=== PATIENT | male | born 1965 | race Caucasian/White ===

== ENCOUNTER → 2018-02-07 06:44 | Outpatient (CLI) | payer OTHER, SELFPAY ==
--- NOTE | 2018-02-07 10:18 | NEURO ---
NCS and/or EMG Patient Report Ordering Doctor: Long Caicedo Jr. DATE OF SERVICE: 02/07/18 This is a left upper extremity nerve conduction study and EMG performed on this 52-year-old male with a history of numbness and tingling in his left hand for several years which awakens him from sleep at night. He denies neck pain or diabetes. He has had carpal tunnel release on the right side previously. Left upper extremity sensory and motor nerve conduction study is performed. Median motor and sensory distal latencies are moderately prolonged with intact amplitudes and conduction velocities. The ulnar motor and sensory and radial sensory responses are normal. The median and ulnar F-wave latencies demonstrate mild prolongation of the left median F wave compared to the ulnar f wave. Left upper extremity needle electromyography is performed. The muscles evaluated included the abductor pollicis brevis, first dorsal interosseous, brachioradialis, biceps, triceps and deltoid muscles. The abductor pollicis brevis muscle did demonstrate very mild increase in insertional activity with 1+ fibrillation potentials. Motor unit amplitude and recruitment pattern was normal. All other muscles demonstrated normal insertional activity with absence of pathologic spontaneous activity. Motor unit potential recruitment pattern and amplitude was normal in all other muscles tested. 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
--- OUTSIDE RECORDS SUMMARY | 2018-03-26 02:15 | XMS RPT_ITS | Clinical Summary ---
:1965 Author Organization [facility] Address [address] [place] [address] Phone Care Team Providers Name Role Phone Sai Nunez Unavailable Conditions or Problems Problem Name Problem Onset Status Entry Provider Comment Standard Annotate Code Date Date Description Contusion of S80.01xA Sai Carter Contusion of right knee, (ICD-10-CM) Enrique right knee, initial initial encounter encounter Knee pain, [id number] Sai Carter Knee pain right (SNOMED CT) Enrique Medications Medication Instructions Start Date Stop Date Generic Name NDC Provider MULTIVITAMIN MULTIPLE [id number] Sai Carter ADULT TABS VITAMINS-MIN Enrique ERALS Medications Administered No information available. Allergies, Adverse Reactions, Alerts Allergy Name Reaction Description Start Date Severity Status Provider CODEINE SULFATE Critical Active Sai Nunez SULFADIAZINE Critical Active Sai Nunez Results Date Name Value Unit Range Flag Description Office Visit MEDS REVIEW Done Documentation of current medications (procedure) SMOK STATUS Never smoker Tobacco use [facility] Plan of Care Type Date Detail Pending order X-Ray, Knee Procedures No information available. Vital Signs Date Name Value Unit Description BMI (Body Mass Index) 27.32 kg/m2 Body Mass Index [Ratio] Height 69 [in_us] height E&M - 8302-2 Weight Measured 185 [lb_av] weight E&M - 3141-9
--- OUTSIDE RECORDS SUMMARY | 2018-03-26 02:15 | XMS RPT_ITS ---
:1965 Author Organization [facility] Care Team Providers Name Role Phone LONG TORRES III Attending Unavailable Long Torres III Attending Unavailable Long Torres III Referring Unavailable Long Torres III Primary Care Unavailable PROBLEMS PROBLEMS No Problem Records FoundPROCEDURES PROCEDURES No Procedure Records FoundRESULTS RESULTS NCS AND/OR EMG Observed: 02/07/2018 Status: F Source: [facility] PAT[facility] 10:38 AM [facility] REPOSITORY [facility] Pulmonary Services/Neurology [address] [facility] [place] [address] MR#: [id number] Acct: [id number] Name: ROGELIO NGUYEN Rep #: [id number] : 1965 52 From: Nii Ortega MD Referring Dr: Long Torres III, MD Status: REG CLI Ordering Dr: Date: Location: [facility] Sex: M C NCS and/or EMG Patient Report Ordering Doctor: Long Torres Jr. DATE OF SERVICE: 02/07/18 This is a left upper extremity nerve conduction study and EMG performed on this 52-year-old male with a history of numbness and tingling in his left hand for several years which awakens him from sleep at night. He denies neck pain or diabetes. He has had carpal tunnel release on the right side previously. Left upper extremity sensory and motor nerve conduction study is performed. Median motor and sensory distal latencies are moderately prolonged with intact amplitudes and conduction velocities. The ulnar motor and sensory and radial sensory responses are normal. The median and ulnar F-wave latencies demonstrate mild prolongation of the left median F wave compared to the ulnar f wave. Left upper extremity needle electromyography is performed. The muscles evaluated included the abductor pollicis brevis, first dorsal interosseous, brachioradialis, biceps, triceps and deltoid muscles. The abductor pollicis brevis muscle did demonstrate very mild increase in insertional activity with 1+ fibrillation potentials. Motor unit amplitude and recruitment pattern was normal. All other muscles demonstrated normal insertional activity with absence of pathologic spontaneous activity. Motor unit potential recruitment pattern and amplitude was normal in all other muscles tested. 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 02/07/18 1038 <Electronically signed by Nii Ortega MD> Date Nii Ortega MD CC: Long Torres III, MD; Nii Ortega MD Date Dictated: 02/07/18 1018 Date Transcribed: 02/07/18 1018 Manager Contact: JASIEL Signed CNOV Observed: 11/09/2017 Status: COMPLETED Source: [place] 8:20 AM [facility] REPOSITORY Office Visit ([facility]AMP[facility]) ROGELIO NGUYEN ([id number]) 1965 M Date Time Provider Department 11/09/17 8:20 AM LONG TORRES III [facility] During your visit today, we recorded the following information about you: Pulse Respiration Blood pressure Weight 68/minute 16/minute 114/78 92.5 kg Height 1.753 m Long Torres III MD 11/09/2017 8:39 AM Signed SUBJECTIVE: This is a 51 year old male that is here today for 1. fell off of a truck in May. No LOC, but starting in June he began to have FERNANDEZ and tinnitis. sx have resolved 2. L wrist paresthesias for several yrs. 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 Awakens with L wrist pain PAST MEDICAL HISTORY Diagnosis Date - Carpal tunnel syndrome of right wrist 11/24/2010 - Inguinal hernia without mention of obstruction or gangrene, unilateral or unspecified, (not specified as recurrent) right - Right shoulder pain chronic - Snoring - Thoracic outlet syndrome - Tinnitus of both ears - Umbilical hernia without mention of obstruction or gangrene Current Outpatient Prescriptions on File Prior to Visit: MULTIVITAMIN TAB Take one(1) tablet daily. No current facility-administered medications on file prior to visit. FAMILY HISTORY Problem Relation Age of Onset - Thyroid Mother - Heart Father [place] age 69 - None Brother - None Sister - None Sister - None Sister - None Sister Social History Substance Use Topics - Smoking status: Never Smoker - Smokeless tobacco: Never Used - Alcohol use Yes Comment: 1 beer per month BP 114/78 Pulse 68 Resp 16 Ht 175.3 cm (5' 9) Wt 92.5 kg (204 lb) BMI 30.13 kg/m? . OBJECTIVE: APPEARANCE Well appearing, alert, in no acute distress, well- hydrated, well nourished. NECK Full painless range of motion of the head and neck without radicular symptoms into the upper extremities. No palpable tenderness or muscle spasm in the supraclavicular or subclavian regions bilaterally. EXTREMITIES left wrist: carpal tunnel compression and Tinel's positive on the left wrist. Phalen's test is negative ASSESSMENT: head contusion w/o persistent injury L CTS PLAN: EMG NCV JOSE GUADALUPE Vicente MD, III MD 11/09/2017 8:16 AM Signed PLAN: EMG NCV AMY Torres III MD Referring Provider: SELF [200] Allergies As of Date: 11/09/2017 Noted Allergy Reaction CODEINE 05/27/2005 SULFA (SULFONAMIDE ANTIBIOTICS) 05/27/2005 Date Reviewed: 11/09/2017 Reviewed by: Diamante ([facility]) XAVIER Gutiérrez - Fully Assessed Reason for Visit: Headaches [3461] Cmt: fell off truck in May, hit head, has had headaches since then, can get to 8/10 Possible carpal tunnel [Other] Cmt: left wrist, for couple years Primary Visit Diagnosis:Carpal tunnel syndrome, right [G56.01] Order(s):EMG(NEURO/NI) [20100528] Order #: [id number]: 1 FUTURE Prescriptions as of 11/09/2017 Sig: PROBIOTIC ORAL Take by mouth once daily. * MULTIVITAMIN TABLET Take one(1) tablet daily. Problem List As Of Date 11/09/2017 Noted Resolved CHEST PAIN NOS [R07.9] INVALID FOR* HERNIA UMBILICAL [K42.9] INVALID FOR* HERNIA INGUINAL,UNILATERAL (Right) [K40.90] INVALID FOR* Right Shoulder Pain [M25.511] INVALID FOR* Thoracic Outlet Syndrome [G54.0] INVALID FOR* Carpal tunnel syndrome of right wrist [G56.01] INVALID FOR* Cervical disc disorder [M50.90] INVALID FOR* Encounter for examination for driving license [*INVALID FOR* Colon cancer screening [Z12.11] INVALID FOR*12/25/2015 Other instructions from your clinician: PLAN: EMG, NCV AMY Torres III MD Letter Text Dear Rogelio Nguyen: How to activate your [facility] AURSOS Account 1. Visit the AURSOS Signup page at [email or web address] 2. Identify yourself using your one-time use activation code: [email or web address] 3. Follow the on-screen prompts to choose your own secure username and password The following information will be necessary to access your account for the first time: Information needed for sign-up: Your custom activation code used one-time only for the initial account set-up. Your date of The last 4 digits of your social security number What to do next: Fill in the requested information on the Identify Yourself Form at [email or web address] , click Next. Create your login and password, choose a AURSOS ID and password that will be easy for you to use, but impossible for anyone else to guess. Pick a security question that will assist you in the event you forget your password the next time you log-on. If you have difficulty activating your account, please call our AURSOS helpline at [phone] or toll free at . We hope you enjoy using [employer]OS! Kindest Regards, [facility] MyChart Team Encounter Status:Closed by LONG TORRES III, MD on 11/09/17 PROGRESS Observed: 11/09/2017 Status: COMPLETED Source: [place] 8:04 AM [facility] REPOSIT[facility] O ID: [id number] Author: Long Torres III Service: (none) Author Type: Physician Type: Progress Notes Filed: 11/09/2017 8:39 AM Note Text: SUBJECTIVE: This is a 51 year old male that is here today for 1. fell off of a truck in May. No LOC, but starting in June he began to have FERNANDEZ and tinnitis. sx have resolved 2. L wrist paresthesias for several yrs. 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 Awakens with L wrist pain PAST MEDICAL HISTORY Diagnosis Date - Carpal tunnel syndrome of right wrist 11/24/2010 - Inguinal hernia without mention of obstruction or gangrene, unilateral or unspecified, (not specified as recurrent) right - Right shoulder pain chronic - Snoring - Thoracic outlet syndrome - Tinnitus of both ears - Umbilical hernia without mention of obstruction or gangrene Current Outpatient Prescriptions on File Prior to Visit: MULTIVITAMIN TAB Take one(1) tablet daily. No current facility-administered medications on file prior to visit. FAMILY HISTORY Problem Relation Age of Onset - Thyroid Mother - Heart Father IA age 69 - None Brother - None Sister - None Sister - None Sister - None Sister Social History Substance Use Topics - Smoking status: Never Smoker - Smokeless tobacco: Never Used - Alcohol use Yes Comment: 1 beer per month BP 114/78 Pulse 68 Resp 16 Ht 175.3 cm (5' 9) Wt 92.5 kg (204 lb) BMI 30.13 kg/m? . OBJECTIVE: APPEARANCE Well appearing, alert, in no acute distress, well-hydrated, well nourished. NECK Full painless range of motion of the head and neck without radicular symptoms into the upper extremities. No palpable tenderness or muscle spasm in the supraclavicular or subclavian regions bilaterally. EXTREMITIES left wrist: carpal tunnel compression and Tinel's positive on the left wrist. Phalen's test is negative ASSESSMENT: head contusion w/o persistent injury L CTS PLAN: EMG, NCV RUE Long Torres III MD CNPTOUTREACH Observed: 10/24/2017 Status: COMPLETED Source: [place] 12:00 AM [facility] REPOSIT[facility] Patient Outreach ([facility]) ROGELIO NGUYEN ([id number]) 1965 M Date Time Provider Department 10/24/17 LONG TORRES III [facility] During your visit today, we recorded the following information about you: Allergies As of Date: 10/24/2017 Noted Allergy Reaction CODEINE 05/27/2005 SULFA (SULFONAMIDE ANTIBIOTICS) 05/27/2005 Date Reviewed: 12/25/2015 Reviewed by: Eric Zamudio - Fully Assessed Visit Diagnosis:Medication management [Z79.899] Order(s):HGB A1C [HEVMP5C] Order #: [id number] FUTURE LIPID PANEL BASIC [SQLIPB] Order #: [id number] FUTURE Prescriptions as of 10/24/2017 Sig: * MULTIVITAMIN TABLET Take one(1) tablet daily. Problem List As Of Date 10/24/2017 Noted Resolved CHEST PAIN NOS [R07.9] INVALID FOR* HERNIA UMBILICAL [K42.9] INVALID FOR* HERNIA INGUINAL,UNILATERAL (Right) [K40.90] INVALID FOR* Right Shoulder Pain [M25.511] INVALID FOR* Thoracic Outlet Syndrome [G54.0] INVALID FOR* Carpal tunnel syndrome of right wrist [G56.01] INVALID FOR* Cervical disc disorder [M50.90] INVALID FOR* Encounter for examination for driving license [*INVALID FOR* Colon cancer screening [Z12.11] INVALID FOR*12/25/2015 Encounter Status:Closed by ABISAI CAMPBELL on 12/08/17 ALLERGIES ALLERGIES DATE TYPE / CODE NAME / CODE REACTION SEVERITY SOURCE 05/27/2005 DRUG CODEINE [facility] INGREDI/[address] [place] [address](SNOMED Repository CT) 05/27/2005 Drug SULFA [facility] Class/224152 (SULFONAMIDE [address] [place] [address](SNOMED ANTIBIOTICS) Repository CT) ENCOUNTERS ENCOUNTERS ADMIT/DISCHARGE ACCOUNT ADMITTING ENCOUNTER LOCATION SOURCE NUMBER CLASS 02/07/2018 [id number] Ambulatory [facility] ing:PSN Repository 11/09/2017/11/11/19 [id number] Ambulatory [address] Repository PAYERS PAYERS ENCOUNTER GUARANTOR PAYER SUBSCRIBER SOURCE 02/07/2018 ROGELIO Epps Primary NANCY [facility] [address] Insurance:MEDICAL MILLERDOB: [address] [id number] [address]Qdu: (330) Number: Repository [phone] HP) [id number] Date:[id number] [address]UU: 02/07/2018 [facility]:SELF PAY [facility] Number: Effective Repository Date:2017-11-13
--- OUTSIDE RECORDS SUMMARY | 2018-03-26 02:15 | XMS RPT_ITS | Clinical Summary ---
:1965 Author Organization [facility] Address [address] [place] [address] Phone Care Team Providers Name Role Phone Sai Nunez Unavailable Conditions or Problems Problem Name Problem Onset Status Entry Provider Comment Standard Annotate Code Date Date Description Contusion of S80.01xA Sai Carter Contusion of right knee, (ICD-10-CM) Enrique right knee, initial initial encounter encounter Knee pain, [id number] Sai Carter Knee pain right (SNOMED CT) Enrique Medications Medication Instructions Start Date Stop Date Generic Name NDC Provider MULTIVITAMIN MULTIPLE [id number] Sai Carter ADULT TABS VITAMINS-MIN Enrique ERALS Medications Administered No information available. Allergies, Adverse Reactions, Alerts Allergy Name Reaction Description Start Date Severity Status Provider CODEINE SULFATE Critical Active Sai Nunez SULFADIAZINE Critical Active Sai Nunez Results Date Name Value Unit Range Flag Description Office Visit MEDS REVIEW Done Documentation of current medications (procedure) SMOK STATUS Never smoker Tobacco use [facility] Plan of Care Type Date Detail Pending order X-Ray, Knee Procedures No information available. Vital Signs Date Name Value Unit Description BMI (Body Mass Index) 27.32 kg/m2 Body Mass Index [Ratio] Height 69 [in_us] height E&M - 8302-2 Weight Measured 185 [lb_av] weight E&M - 3141-9
--- OUTSIDE RECORDS SUMMARY | 2018-03-26 02:15 | XMS RPT_ITS | Clinical Summary ---
:1965 Author Organization [facility] Address [address] [place] [address] Phone Care Team Providers Name Role Phone Isabelle Wiley Unavailable Conditions or Problems No information available. Medications No information available. Medications Administered No information available. Allergies, Adverse Reactions, Alerts No information available. Results No information available. Plan of Care Type Date Detail Appointment 12:30 PM Sai Nunez, [address] [place] [address], [address], [place], [address], Procedures No information available. Vital Signs No information available.
== END ==
PROVIDERS: Family Provider Family Medicine; PCP Family Medicine; Referring Provider Family Medicine; Visit Provider Family Medicine
DX: G56.02 Carpal tunnel syndrome, left upper limb (principal)
CPT/HCPCS: 95886; 95909

== ENCOUNTER 2020-01-13 18:54 | Emergency (ER) | payer BC, SELFPAY ==
[2020-01-13 18:56] VITALS: BP 145/100; PULSE 96; RESP 18; TEMP 36.9; O2SAT 96; BMI 29.5
--- NOTE | 2020-01-13 19:15 | EKG12_ITS ---
Test Reason : CP Blood Pressure : / mmHG Vent. Rate : 100 BPM Atrial Rate : 100 BPM P-R Int : 158 ms QRS Dur : 076 ms QT Int : 338 ms P-R-T Axes : 043 016 031 degrees QTc Int : 436 ms Normal sinus rhythm Low voltage QRS (Limb Leads) Confirmed by BINA MEJIA, VARUN ([id number]), health editor OPAL TEJADA ([id number]) on 01/14/2020 1:11:37 PM Referred By: DE Confirmed By:VARUN CURRAN MD
--- NOTE | 2020-01-13 19:30 | RAD_ITS ---
STUDY: X-RAY CHEST REASON FOR EXAM: Male, 54 years old. CP RADIATING TO BACK, COUGH AND MUSCLE ACHES STARTING TODAY. TECHNIQUE: Frontal view of the chest COMPARISON: 19 September 2012 FINDINGS: The lungs are clear and expanded. There is no demonstrated pleural abnormality. Normal size heart. Normal mediastinum and javon. Normal visualized pulmonary arteries. Normal visualized aortic arch and descending thoracic aorta. Normal visualized thoracic spine. Normal visualized ribs, clavicles, and shoulders. There is no demonstrated abnormality of the visualized soft tissue structures of the upper abdomen. RAD/Chest 1 View (Portable) IMPRESSION: Normal x-ray examination of the chest. Electronically Signed: Ammy England, at 20:30 EST Tel , Service support ,
[2020-01-13] MEDS: Aspirin 81 MG TAB.CHEW 324 MG PO (19:34)
[2020-01-13 19:54] VITALS: BP 136/90; PULSE 94; RESP 19; O2SAT 95
[2020-01-13 20:11] LABS: Absolute Lymphocyte Count 1.66 X10^3/uL (0.83-4.51); Absolute Neutrophil Count 4.6 X10^3/uL (2.0-7.7); Basophil# 0.05 X10^3/uL; Basophil% 0.7 % (0-1); Eosinophil# 0.25 X10^3/uL; Eosinophils% 3.4 % (0-5); Hematocrit 45.5 % (40-54); Hemoglobin 15.6 g/dL (13.0-16.5); Lymphocyte # 1.66 X10^3/ul (4.0); Lymphocyte % 22.6 % (19-41); Mean Corp Hgb Conc 34.3 g/dL (32-36); Mean Corpuscular Hgb 29.9 pg (27.0-32.0); Mean Corpuscular Volume 87.2 fL (80-94); Mean Platelet Vol. 9.7 fl (6.2-12.0); Monocyte# 0.77 X10^3/uL; Monocyte% 10.5 % (0-10); NRBC Flagged by Analyzer 0 % (0-5); Neutrophil # 4.62 X10^3/uL (2.7-7.7); Neutrophil % 62.7 % (47-70); Platelet Count 271 K/mm3 (150-450); RBC Distribution Width CV 11.9 % (11.6-14.6); RBC Distribution Width SD 38.1 fl (35.1-43.9); Red Blood Count 5.22 M/mm3 (4.6-6.2); White Blood Count 7.4 K/mm3 (4.4-11.0)
[2020-01-13 20:19] LABS: Anion Gap 8 (5-15); BUN 14 mg/dL (7-18); BUN/Creat Ratio 11.4 RATIO (10-20); Calcium,Total 9.4 mg/dL (8.5-10.1); Chloride 106 mmol/L (98-107); Creatinine, Serum 1.23 mg/dL (0.70-1.30); EST Glomerular Filtration Rate 65 mL/min (>60); Est Glom Filt Rate - Afr Amer 79 mL/min (>60); Estimated Creatinine Clearance 67.86 ml/min; Glucose 143 mg/dL (74-106); Potassium 3.6 mmol/L (3.5-5.1); Sodium Level 141 mmol/L (136-145)
[2020-01-13 20:28] LABS: D-Dimer Quantitative (DVT/PE) 0.29 FEU/ug/m (0.27-0.49)
--- NOTE | 2020-01-13 20:46 | ED.VISSUMM ---
- ER Visit Summary Date of Service: 01/13/20 Chief Complaint: Chest pain History of Present Illness: The patient is a [address] Long Caicedo iii. He reports that he has had chest pain that began 2 weeks ago. States that it is an intermittent pain that lasts minutes at a time. However, its been constant for the past 7 hours. It is a dull, heaviness. 7-10 worsened to a 10 currently. Is worsened by exertion. Is unchanged with breathing or movement. The fact he reports it is relieved by deep breaths. He does report he has been mildly short of breath. He denies any associated nausea, vomiting, diaphoresis. Patient denies any known exposure to Covid. However, he wears a mask inconsistently. Patient reports that he has a cough kind of that began today. Is nonproductive. He denies any fever or chills. He does complain of fatigue. Physical Examination: Vitals: Stable. Afebrile. General: Well-nourished and well-developed. Head: Normocephalic atraumatic. Neck: Supple, no lymphadenopathy. No JVD. Nontender. Cardiovascular: Regular rate and rhythm. No murmurs. Respiratory: No respiratory distress. Clear to auscultation bilaterally. Abdominal: Soft, nontender, nondistended, normal bowel sounds. No guarding, rebound, or peritoneal signs. Back: Nontender. Extremities: Nontender, no edema. Skin: Normal color, no rash. Neurologic: Alert and oriented ?3. Cranial nerves II through XII are intact. Normal strength and sensation. Psych: Normal affect. Test Results: EKG is sinus tach at [address] changes. There is no old EKG for comparison. Troponin is negative. D-dimer is negative. Chem-7 shows glucose 143. CBC shows monocytes of 11. COVID-19 is positive. Clinical Impression(s) from Imaging Studies Chest X-Ray 01/13/20 19:30 IMPRESSION: Normal x-ray examination of the chest. Electronically Signed: Ammy England, at 20:30 EST Tel , Service support , Emergency Department Course and Treatment: Patient is resting comfortably. He reports that he would like to go home. He does not have any hypoxia with ambulation. I do not see an indication for steroids. Treatment Plan: Patient instructed to quarantine. He is given a note for 2 weeks off of work. Follow-up his primary care physician in 10 to 14 days if not improving. Return to the emergency department for any worsening symptoms. Disposition: To home in improved and stable condition. Impression: 1. COVID-19 positive. 2. Atypical chest pain. This note was generated with [employer] dictation software. It may contain incorrect words, spelling, and punctuation that were not noted in review of the chart prior to signing ED Disposition - Plan for ED Patient: Disposition: Home or Assisted Living Instructions: ED Chest Pain Atypical Unkn Cause Referrals: Long Caicedo III, MD [Primary Care Provider] - 10-14 Days if not better
[2020-01-13 21:01] VITALS: BP 143/92; PULSE 89; RESP 21; O2SAT 96
[2020-01-13 21:38] LABS: Probe Check PASS; Specimen Processing Control PASS
== END 2020-01-13 21:10 | disposition home or self-care (01) ==
LOC: ED 19:19
PROVIDERS: Emergency Provider Emergency Medicine; PCP Family Medicine
DX: U07.1 COVID-19 (principal); R07.89 Other chest pain
CPT/HCPCS: 71045; 80048; 84484; 85025; 85379; 87635; 93005; 99284; U0002

== ENCOUNTER → 2022-01-03 | Outpatient (CLI) | payer OTHER, SELFPAY ==
[2022-01-03 11:15] LABS: EXAGEN MAILED SPECIMEN
[2022-01-03 12:22] LABS: Absolute Lymphocyte Count 2.77 X10^3/uL (0.83-4.51); Absolute Neutrophil Count 3.2 X10^3/uL (2.0-7.7); Basophil# 0.05 X10^3/uL; Basophil% 0.7 % (0-1); Eosinophil# 0.18 X10^3/uL; Eosinophils% 2.7 % (0-5); Hematocrit 45.6 % (40-54); Hemoglobin 15.2 g/dL (13.0-16.5); Lymphocyte # 2.77 X10^3/ul (0.83-4.51); Lymphocyte % 41.1 % (19-41); Mean Corp Hgb Conc 33.3 g/dL (32-36); Mean Corpuscular Hgb 29.4 pg (27.0-32.0); Mean Corpuscular Volume 88.2 fL (80-94); Mean Platelet Vol. 9.5 fl (6.2-12.0); Monocyte% 7.4 % (0-10); NRBC Flagged by Analyzer 0.3 % (0-5); Neutrophil # 3.22 X10^3/uL (2.7-7.7); Neutrophil % 47.8 % (47-70); Platelet Count 256 K/mm3 (150-450); RBC Distribution Width CV 12.3 % (11.6-14.6); RBC Distribution Width SD 39.7 fl (35.1-43.9); Red Blood Count 5.17 M/mm3 (4.6-6.2); White Blood Count 6.7 K/mm3 (4.4-11.0)
[2022-01-03 12:23] LABS: Color, Urine Yellow (Yellow); Glucose, Dipstick Normal (Normal); Ketone-Dipstick Negative (Negative); Leukocyte Esterase-Dipstick Negative /ul (Negative); Nitrite-Dipstick Negative (Negative); Occult Blood-Urine Negative /ul (Negative); Protein-Dipstick Negative (Negative); Urine Bilirubin Dipstick Negative (Negative); Urine Clarity Clear (Clear); Urine Urobilinogen Normal (Normal)
[2022-01-03 12:31] LABS: International Normalized Ratio 0.9
[2022-01-03 12:32] LABS: Partial Thromboplast Time 26.5 Seconds (24.1-36.2)
[2022-01-03 13:09] LABS: Protein, Urine (Random) 6.9 mg/dL (<11.9); Protein:Creat Ratio 58 mg/g CRE (0-200)
[2022-01-03 13:22] LABS: ALB/GLOB Ratio 1.1 RATIO (0.9-2.4); AST(SGOT) 28 U/L (15-37); Alanine Aminotransfer ALT/SGPT 44 U/L (16-61); Albumin, Serum 3.8 g/dL (3.2-5.0); Alkaline Phosphatase 97 U/L (45-117); Anion Gap 9 (5-15); BUN 17 mg/dL (7-18); BUN/Creat Ratio 14.9 RATIO (10-20); Calcium,Total 8.7 mg/dL (8.5-10.1); Chloride 108 mmol/L (98-107); Creatinine, Serum 1.14 mg/dL (0.70-1.30); EST Glomerular Filtration Rate 70 mL/min (>60); Est Glom Filt Rate - Afr Amer 85 mL/min (>60); Globulin 3.4 g/dL (2.2-4.2); Glucose 95 mg/dL (74-106); Protein, Total 7.2 g/dL (6.4-8.2); Sodium Level 139 mmol/L (136-145)
[2022-01-03 13:33] LABS: Hepatitis B Surface Antibody Non-Reactive; Hepatitis B Surface Antigen Non-Reactive (Nonreactive); Hepatitis C Antibody Non-Reactive (Nonreactive)
[2022-01-05 14:09] LABS: Dilute Prothrombin Time (dPT) 38.5 sec (0.0-47.6); Dilute Russell Viper Venom 37.5 sec (0.0-47.0); Hexagonal Phase Phospholipid 7 sec (0-11); PTT-LA 33.2 sec (0.0-51.9); Thrombin Time 18.6 sec (0.0-23.0)
[2022-01-05 20:01] LABS: Interpretation Comment: (.)
== END | disposition home or self-care (01) ==
PROVIDERS: PCP Registered Nurse; Referring Provider Internal Medicine Rheumatology; Visit Provider Internal Medicine Rheumatology
DX: M06.4 Inflammatory polyarthropathy (principal); R76.8 Other specified abnormal immunological findings in serum; M79.7 Fibromyalgia; E03.9 Hypothyroidism, unspecified; H93.13 Tinnitus, bilateral; G47.33 Obstructive sleep apnea (adult) (pediatric)
CPT/HCPCS: 36415; 80053; 81002; 82570; 84156; 85025; 85598; 85610; 85670; 85730; 86706; 86803; 87340

== ENCOUNTER → 2022-03-21 | Outpatient (CLI) | payer OTHER, SELFPAY ==
[2022-03-21 09:53] LABS: Absolute Lymphocyte Count 2.82 X10^3/uL (0.83-4.51); Absolute Neutrophil Count 3.2 X10^3/uL (2.0-7.7); Basophil# 0.07 X10^3/uL; Eosinophil# 0.41 X10^3/uL; Eosinophils% 5.8 % (0-5); Hematocrit 46.8 % (40-54); Hemoglobin 15.8 g/dL (13.0-16.5); Lymphocyte # 2.82 X10^3/ul (0.83-4.51); Mean Corp Hgb Conc 33.8 g/dL (32-36); Mean Corpuscular Hgb 30.2 pg (27.0-32.0); Mean Corpuscular Volume 89.5 fL (80-94); Mean Platelet Vol. 8.9 fl (6.2-12.0); Monocyte# 0.54 X10^3/uL; Monocyte% 7.7 % (0-10); NRBC Flagged by Analyzer 0 % (0-5); Neutrophil % 45.4 % (47-70); Platelet Count 278 K/mm3 (150-450); RBC Distribution Width CV 12.7 % (11.6-14.6); RBC Distribution Width SD 41.1 fl (35.1-43.9); Red Blood Count 5.23 M/mm3 (4.6-6.2); White Blood Count 7.1 K/mm3 (4.4-11.0)
[2022-03-21 10:23] LABS: ALB/GLOB Ratio 1.2 RATIO (0.9-2.4); AST(SGOT) 33 U/L (15-37); Alanine Aminotransfer ALT/SGPT 63 U/L (16-61); Albumin, Serum 4.1 g/dL (3.2-5.0); Alkaline Phosphatase 87 U/L (45-117); Anion Gap 7 (5-15); BUN 19 mg/dL (7-18); BUN/Creat Ratio 15.3 RATIO (10-20); Calcium,Total 9.6 mg/dL (8.5-10.1); Chloride 107 mmol/L (98-107); Creatinine, Serum 1.24 mg/dL (0.70-1.30); EST Glomerular Filtration Rate 64 mL/min (>60); Est Glom Filt Rate - Afr Amer 77 mL/min (>60); Globulin 3.5 g/dL (2.2-4.2); Glucose 98 mg/dL (74-106); Potassium 4.1 mmol/L (3.5-5.1); Protein, Total 7.6 g/dL (6.4-8.2); Sodium Level 141 mmol/L (136-145)
== END | disposition home or self-care (01) ==
LOC: MTLAB 07:02
PROVIDERS: PCP Registered Nurse; Referring Provider Internal Medicine Rheumatology; Visit Provider Internal Medicine Rheumatology
DX: M06.4 Inflammatory polyarthropathy (principal); Z79.899 Other long term (current) drug therapy; R76.8 Other specified abnormal immunological findings in serum; M79.7 Fibromyalgia
CPT/HCPCS: 36415; 80053; 85025

== ENCOUNTER → 2022-04-23 | Outpatient (CLI) | payer OTHER, SELFPAY ==
--- NOTE | 2022-04-23 07:55 | US_ITS ---
EXAM: US ABDOMEN LIMITED, RIGHT UPPER QUADRANT CLINICAL INDICATION: ELEV LIVER ENZ TECHNIQUE: Real-time ultrasound of the right upper quadrant with image documentation. This report was created using [employer] report [employer] technology. COMPARISON: None. FINDINGS: LIVER: Increased echogenicity of the hepatic parenchyma. No intrahepatic biliary ductal dilation. GALLBLADDER: Unremarkable. No shadowing gallstone. No gallbladder wall thickening is demonstrated. No pericholecystic fluid. Negative sonographic Conklin''s sign. COMMON BILE DUCT: 4 mm. The proximal common bile duct is within normal limits for the patient''s age. PANCREAS: Unremarkable as visualized. No focal abnormality is demonstrated in the pancreas. No pancreatic ductal dilatation. RIGHT KIDNEY: Unremarkable. There is no hydronephrosis. No shadowing calculus. No focal lesion or perinephric collection is demonstrated. US/Abdomen Limited IMPRESSION: No acute findings in the right upper quadrant. Fatty infiltration of the liver. Electronically Signed: Satya Velasquez MD at 16:46 EST ,
[2022-04-23 09:17] LABS: ALB/GLOB Ratio 1.2 RATIO (0.9-2.4); AST(SGOT) 29 U/L (15-37); Alanine Aminotransfer ALT/SGPT 51 U/L (16-61); Albumin, Serum 3.8 g/dL (3.2-5.0); Alkaline Phosphatase 79 U/L (45-117); Anion Gap 6 (5-15); BUN 17 mg/dL (7-18); BUN/Creat Ratio 14.2 RATIO (10-20); Calcium,Total 9.2 mg/dL (8.5-10.1); Chloride 108 mmol/L (98-107); EST Glomerular Filtration Rate 66 mL/min (>60); Est Glom Filt Rate - Afr Amer 80 mL/min (>60); Globulin 3.2 g/dL (2.2-4.2); Glucose 94 mg/dL (74-106); Sodium Level 141 mmol/L (136-145)
== END | disposition home or self-care (01) ==
PROVIDERS: PCP Registered Nurse; Referring Provider Internal Medicine Rheumatology; Visit Provider Internal Medicine Rheumatology
DX: M05.79 Rheumatoid arthritis with rheumatoid factor of multiple sites without organ or systems involvement (principal); M79.7 Fibromyalgia; E03.9 Hypothyroidism, unspecified; G47.33 Obstructive sleep apnea (adult) (pediatric); H93.13 Tinnitus, bilateral; R76.8 Other specified abnormal immunological findings in serum; Z79.899 Other long term (current) drug therapy
CPT/HCPCS: 36415; 76705; 80053

== ENCOUNTER → 2022-06-18 | Outpatient (CLI) | payer OTHER, SELFPAY ==
[2022-06-18 07:56] LABS: Absolute Lymphocyte Count 2.36 X10^3/uL (0.83-4.51); Absolute Neutrophil Count 5.5 X10^3/uL (2.0-7.7); Basophil# 0.03 X10^3/uL; Basophil% 0.3 % (0-1); Eosinophils% 3.4 % (0-5); Hemoglobin 14.7 g/dL (13.0-16.5); Lymphocyte # 2.36 X10^3/ul (0.83-4.51); Lymphocyte % 26.4 % (19-41); Mean Corp Hgb Conc 32.7 g/dL (32-36); Mean Corpuscular Hgb 30.6 pg (27.0-32.0); Mean Corpuscular Volume 93.8 fL (80-94); Mean Platelet Vol. 8.9 fl (6.2-12.0); Monocyte# 0.75 X10^3/uL; Monocyte% 8.4 % (0-10); NRBC Flagged by Analyzer 0 % (0-5); Neutrophil # 5.46 X10^3/uL (2.7-7.7); Neutrophil % 61.1 % (47-70); Platelet Count 301 K/mm3 (150-450); RBC Distribution Width CV 12.9 % (11.6-14.6); RBC Distribution Width SD 43.8 fl (35.1-43.9); White Blood Count 8.9 K/mm3 (4.4-11.0)
[2022-06-18 08:25] LABS: ALB/GLOB Ratio 1.1 RATIO (0.9-2.4); AST(SGOT) 27 U/L (15-37); Alanine Aminotransfer ALT/SGPT 37 U/L (16-61); Albumin, Serum 3.7 g/dL (3.2-5.0); Alkaline Phosphatase 92 U/L (45-117); Anion Gap 1 (5-15); BUN 17 mg/dL (7-18); BUN/Creat Ratio 14.2 RATIO (10-20); Calcium,Total 8.9 mg/dL (8.5-10.1); Chloride 110 mmol/L (98-107); EST Glomerular Filtration Rate 66 mL/min (>60); Est Glom Filt Rate - Afr Amer 80 mL/min (>60); Globulin 3.4 g/dL (2.2-4.2); Glucose 101 mg/dL (74-106); Protein, Total 7.1 g/dL (6.4-8.2); Sodium Level 139 mmol/L (136-145)
== END | disposition home or self-care (01) ==
LOC: LAB 07:32
PROVIDERS: PCP Registered Nurse; Referring Provider Internal Medicine Rheumatology; Visit Provider Internal Medicine Rheumatology
DX: M05.79 Rheumatoid arthritis with rheumatoid factor of multiple sites without organ or systems involvement (principal); R76.8 Other specified abnormal immunological findings in serum; Z79.899 Other long term (current) drug therapy
CPT/HCPCS: 36415; 80053; 85025

== ENCOUNTER → 2022-08-18 | Outpatient (CLI) | payer OTHER, SELFPAY ==
[2022-08-18 07:08] LABS: Absolute Lymphocyte Count 3.21 X10^3/uL (0.83-4.51); Absolute Neutrophil Count 6.6 X10^3/uL (2.0-7.7); Basophil# 0.04 X10^3/uL; Basophil% 0.4 % (0-1); Eosinophil# 0.12 X10^3/uL; Eosinophils% 1.1 % (0-5); Hematocrit 43.8 % (40-54); Hemoglobin 14.6 g/dL (13.0-16.5); Lymphocyte # 3.21 X10^3/ul (0.83-4.51); Lymphocyte % 29.6 % (19-41); Mean Corp Hgb Conc 33.3 g/dL (32-36); Mean Corpuscular Hgb 30.5 pg (27.0-32.0); Mean Corpuscular Volume 91.6 fL (80-94); Mean Platelet Vol. 9.2 fl (6.2-12.0); Monocyte# 0.85 X10^3/uL; Monocyte% 7.8 % (0-10); NRBC Flagged by Analyzer 0 % (0-5); Neutrophil # 6.57 X10^3/uL (2.7-7.7); Neutrophil % 60.6 % (47-70); Platelet Count 289 K/mm3 (150-450); RBC Distribution Width CV 13.5 % (11.6-14.6); RBC Distribution Width SD 44.5 fl (35.1-43.9); Red Blood Count 4.78 M/mm3 (4.6-6.2); White Blood Count 10.8 K/mm3 (4.4-11.0)
[2022-08-18 07:44] LABS: ALB/GLOB Ratio 1.1 RATIO (0.9-2.4); AST(SGOT) 22 U/L (15-37); Alanine Aminotransfer ALT/SGPT 40 U/L (16-61); Albumin, Serum 3.7 g/dL (3.2-5.0); Alkaline Phosphatase 76 U/L (45-117); Anion Gap 5 (5-15); BUN 24 mg/dL (7-18); BUN/Creat Ratio 21.8 RATIO (10-20); Calcium,Total 9.1 mg/dL (8.5-10.1); Chloride 109 mmol/L (98-107); EST Glomerular Filtration Rate 73 mL/min (>60); Est Glom Filt Rate - Afr Amer 89 mL/min (>60); Globulin 3.3 g/dL (2.2-4.2); Glucose 90 mg/dL (74-106); Potassium 3.8 mmol/L (3.5-5.1); Sodium Level 141 mmol/L (136-145)
== END | disposition home or self-care (01) ==
LOC: LAB 06:15
PROVIDERS: PCP Registered Nurse; Referring Provider Internal Medicine Rheumatology; Visit Provider Internal Medicine Rheumatology
DX: M05.79 Rheumatoid arthritis with rheumatoid factor of multiple sites without organ or systems involvement (principal); Z79.899 Other long term (current) drug therapy
CPT/HCPCS: 36415; 80053; 85025

== ENCOUNTER → 2022-11-12 | Outpatient (CLI) | payer OTHER, SELFPAY ==
[2022-11-12 07:59] LABS: Absolute Lymphocyte Count 3.52 X10^3/uL (0.83-4.51); Absolute Neutrophil Count 4.1 X10^3/uL (2.0-7.7); Basophil# 0.07 X10^3/uL; Basophil% 0.8 % (0-1); Eosinophil# 0.25 X10^3/uL; Eosinophils% 2.9 % (0-5); Hematocrit 42.3 % (40-54); Hemoglobin 13.7 g/dL (13.0-16.5); Lymphocyte # 3.52 X10^3/ul (0.83-4.51); Lymphocyte % 40.5 % (19-41); Mean Corp Hgb Conc 32.4 g/dL (32-36); Mean Corpuscular Hgb 31.3 pg (27.0-32.0); Mean Corpuscular Volume 96.6 fL (80-94); Mean Platelet Vol. 9.3 fl (6.2-12.0); Monocyte# 0.74 X10^3/uL; Monocyte% 8.5 % (0-10); NRBC Flagged by Analyzer 0 % (0-5); Neutrophil # 4.08 X10^3/uL (2.7-7.7); Neutrophil % 46.8 % (47-70); Platelet Count 260 K/mm3 (150-450); RBC Distribution Width CV 13.3 % (11.6-14.6); RBC Distribution Width SD 46.4 fl (35.1-43.9); Red Blood Count 4.38 M/mm3 (4.6-6.2); White Blood Count 8.7 K/mm3 (4.4-11.0)
[2022-11-12 08:32] LABS: ALB/GLOB Ratio 1.1 RATIO (0.9-2.4); AST(SGOT) 21 U/L (15-37); Alanine Aminotransfer ALT/SGPT 39 U/L (16-61); Albumin, Serum 3.4 g/dL (3.2-5.0); Alkaline Phosphatase 98 U/L (45-117); Anion Gap 2 (5-15); BUN 21 mg/dL (7-18); BUN/Creat Ratio 17.6 RATIO (10-20); Calcium,Total 8.9 mg/dL (8.5-10.1); Chloride 112 mmol/L (98-107); Cholesterol 148 mg/dL (200); Creatinine, Serum 1.19 mg/dL (0.70-1.30); EST Glomerular Filtration Rate 67 mL/min (>60); Est Glom Filt Rate - Afr Amer 81 mL/min (>60); Globulin 3.1 g/dL (2.2-4.2); Glucose 86 mg/dL (74-106); High Density Lipoprotein 48 mg/dL; Potassium 4.4 mmol/L (3.5-5.1); Protein, Total 6.5 g/dL (6.4-8.2); Sodium Level 142 mmol/L (136-145); Thyroid Stim Hormone (TSH) 2.59 uIU/mL (0.358-3.74); Triglycerides 149 mg/dL; Very Low Density Lipoprotein 30 mg/dL (5-40)
== END | disposition home or self-care (01) ==
LOC: LAB 07:35
PROVIDERS: PCP Registered Nurse; Referring Provider Registered Nurse; Visit Provider Internal Medicine Rheumatology
DX: M05.79 Rheumatoid arthritis with rheumatoid factor of multiple sites without organ or systems involvement (principal); I10 Essential (primary) hypertension; R76.8 Other specified abnormal immunological findings in serum; M79.7 Fibromyalgia; K76.0 Fatty (change of) liver, not elsewhere classified; E03.9 Hypothyroidism, unspecified; E78.5 Hyperlipidemia, unspecified; H93.13 Tinnitus, bilateral; G47.33 Obstructive sleep apnea (adult) (pediatric); Z79.899 Other long term (current) drug therapy
CPT/HCPCS: 36415; 80053; 80061; 84443; 85025

== ENCOUNTER → 2023-02-04 | Outpatient (CLI) | payer OTHER, SELFPAY ==
[2023-02-04 07:31] LABS: Absolute Lymphocyte Count 1.94 X10^3/uL (0.83-4.51); Absolute Neutrophil Count 3.8 X10^3/uL (2.0-7.7); Basophil# 0.06 X10^3/uL; Basophil% 0.9 % (0-1); Eosinophil# 0.27 X10^3/uL; Hematocrit 44.9 % (40-54); Hemoglobin 14.9 g/dL (13.0-16.5); Lymphocyte # 1.94 X10^3/ul (0.83-4.51); Lymphocyte % 28.5 % (19-41); Mean Corp Hgb Conc 33.2 g/dL (32-36); Mean Corpuscular Hgb 30.3 pg (27.0-32.0); Mean Corpuscular Volume 91.3 fL (80-94); Mean Platelet Vol. 9.2 fl (6.2-12.0); Monocyte% 10.3 % (0-10); NRBC Flagged by Analyzer 0 % (0-5); Neutrophil # 3.82 X10^3/uL (2.7-7.7); Platelet Count 268 K/mm3 (150-450); RBC Distribution Width CV 12.8 % (11.6-14.6); RBC Distribution Width SD 41.6 fl (35.1-43.9); Red Blood Count 4.92 M/mm3 (4.6-6.2); White Blood Count 6.8 K/mm3 (4.4-11.0)
[2023-02-04 07:53] LABS: ALB/GLOB Ratio 1.1 RATIO (0.9-2.4); AST(SGOT) 22 U/L (15-37); Alanine Aminotransfer ALT/SGPT 37 U/L (16-61); Albumin, Serum 3.7 g/dL (3.2-5.0); Alkaline Phosphatase 87 U/L (45-117); Anion Gap 0 (5-15); BUN 17 mg/dL (7-18); BUN/Creat Ratio 14.4 RATIO (10-20); Calcium,Total 9.3 mg/dL (8.5-10.1); Chloride 109 mmol/L (98-107); Creatinine, Serum 1.18 mg/dL (0.70-1.30); EST Glomerular Filtration Rate 67 mL/min (>60); Est Glom Filt Rate - Afr Amer 82 mL/min (>60); Globulin 3.3 g/dL (2.2-4.2); Glucose 97 mg/dL (74-106); Potassium 4.3 mmol/L (3.5-5.1); Sodium Level 139 mmol/L (136-145)
== END | disposition home or self-care (01) ==
LOC: LAB 06:58
PROVIDERS: PCP Registered Nurse; Referring Provider Internal Medicine Rheumatology; Visit Provider Internal Medicine Rheumatology
DX: M05.79 Rheumatoid arthritis with rheumatoid factor of multiple sites without organ or systems involvement (principal); R76.8 Other specified abnormal immunological findings in serum; Z79.899 Other long term (current) drug therapy
CPT/HCPCS: 36415; 80053; 85025

== ENCOUNTER → 2023-04-15 | Outpatient (CLI) | payer OTHER, SELFPAY ==
--- OUTSIDE RECORDS SUMMARY | 2023-04-15 07:34 | XMS RPT_ITS | CCD ---
Author Name Unknown Address [address] [facility] [address] [place] [address] Organization [facility] Care Team Providers Care Real Time Analyst Name Role Phone Sai Nunez Emma Unavailable Isabelle Wiley Unavailable ALISA GREEN Admitting Unavailable ALISA GREEN Attending Unavailable Soni DYE BOX OPERATOR.FOOD AND NUTRITION SERVICES SUPERVISOR, Basilio FARIAS Primary Care Provider Haagen DYE BOX OPERATOR.FOOD AND NUTRITION SERVICES SUPERVISOR, Johanne Primary Care Provider Haagen DYE BOX OPERATOR.FOOD AND NUTRITION SERVICES SUPERVISOR, Johanne Primary Care Provider Haagen DYE BOX OPERATOR.FOOD AND NUTRITION SERVICES SUPERVISOR, Johanne Primary Care Provider JOHANNE CASE Attending Unavailable EUGENIE MEI Referring Unavailable HAAGEN, JOHANNE Primary Care Unavailable EUGENIE MEI Attending Unavailable HAAGEN, JOHANNE Referring Unavailable HAAGEN, JOHANNE Primary Care Unavailable EVANGELINA GARCIA Attending Unavailable OPAL ELIZONDO Referring Unavailable HAAGEN, JOHANNE Primary Care Unavailable EUGENIE MEI Attending Unavailable HAAGEN, JOHANNE Primary Care Unavailable HAAGEN, JOHANNE Attending Unavailable EUGENIE MEI Referring Unavailable HAAGEN, JOHANNE Primary Care Unavailable HAAGEN, JOHANNE Referring Unavailable HAAGEN, JOHANNE Primary Care Unavailable HAAGEN, JOHANNE Attending Unavailable EUGENIE MEI Referring Unavailable HAAGEN, JOHANNE Primary Care Unavailable Allergies Allergy Classification Reported Allergen(s) Allergy Type Date of Onset Reaction(s) Facility (2 sources) codeine Drug Allergy [facility] Work Phone: (2 sources) sulfADIAZINE Drug Allergy [facility] Work Phone: (18 sources) Codeine; Translations: [CODEINE] Drug Allergy 6 [facility] (18 sources) Sulfonamides (Antibiotic); Translations: [SULFA (SULFONAMIDE ANTIBIOTICS)] Propensity to adverse reactions to drug (disorder) 6 [facility] Medications Current Medications Medication Drug Class(es) Dates Sig (Normalized) Sig (Original) cephalexin 250 mg oral capsule (1 source) Cephalosporin Antibacterial Start: 01-09-2023 End: 01-16-2023 take 1 capsule by mouth four times daily cephALEXin (KEFLEX) 250 mg capsule Indications: Dermatitis Take 1 capsule by mouth four times daily for 7 days. 28 capsule 0 01/09/2023 01/16/2023 Active Completed/Discontinued Medications Medication Drug Class(es) Dates Sig (Normalized) Sig (Original) Ascorbic Acid (16 sources) Vitamin C ascorbic acid (V ITAMIN C ORAL) Take by mouth once daily. 0 Active Problems Active Problems Problem Classification Problem Date Documented Da te Episodic/Chronic Allergic reactions (2 sources) Inflammatory dermatosis; Translations: [Dermatitis, unspecified] Onset: 01-09-2023 01-09-2023 Episodic Diabetes mellitus without complication (1 source) Increased glucose level; Translations: [Other abnormal glucose] Episodic Disorders of lipid metabolism (19 sources) Hyperlipidemia; Translations: [Hyperlipidemia, unspecified] Onset: 06-05-2020 06-05-2020 Chronic Essential hypertension (10 sources) Essential hypertension; Translations: [Essential (primary) hypertension] Onset: 04-25-2022 Chronic Immunizations and screening for infectious disease (3 sources) Anti-nuclear factor positive; Translations: [Other specified abnormal immunological findings in serum] Episodic Malaise and fatigue (1 source) Fatigue; Translations: [Other fatigue] Episodic Other and unspecified benign neoplasm (2 sources) History of polyp of colon; Translations: [Personal history of colonic polyps] Episodic Other connective tissue disease (1 source) Pain of bilateral hands; Translations: [Pain in right hand] Episodic Other gastrointestinal disorders (1 source) Burping; Translations: [Eructation] Episodic Other liver diseases (6 sources) Steatosis of liver; Translations: [Fatty (change of) liver, not elsewhere classified] Onset: 04-25-2022 Chronic Other liver diseases (1 source) Fatty (change of) liver, not elsewhere classified; Translations: [Fatty liver] Onset: 04-25-2022 Chronic Other liver diseases (1 source) Elevated liver enzymes level; Translations: [Abnormal levels of other serum enzymes] Episodic Other nervous system disorders (1 source) Carpal tunnel syndrome, left upper limb; Translations: [Carpal tunnel syndrome, left upper limb] Onset: 03-22-2018 Chronic Other nervous system disorders (16 sources) Thoracic outlet syndrome; Translations: [Brachial plexus disorders] Onset: 02-25-2009 02-25-2009 Chronic Other nervous system disorders (16 sources) Carpal tunnel syndrome of right wrist; Translations: [Carpal tunnel syndrome, right upper limb] Onset: 11-24-2010 11-24-2010 Chronic Other nervous system disorders (20 sources) Carpal tunnel syndrome of left wrist; Translations: [Carpal tunnel syndrome, left upper limb] Onset: 03-01-2018 03-01-2018 Chronic Other screening for suspected conditions (not mental disorders or infectious disease) (3 sources) Patient encounter status; Translations: [Encounter for screening for malignant neoplasm of colon] Episodic Other skin disorders (1 source) Skin lesion; Translations: [Disorder of the skin and subcutaneous tissue, unspecified] Episodic Residual codes; unclassified (16 sources) Daytime somnolence; Translations: [Other hypersomnia] Onset: 06-05-2020 06-05-2020 Chronic Rheumatoid arthritis and related disease (9 sources) Rheumatoid arthritis of multiple joints; Translations: [Rheumatoid arthritis with rheumatoid factor of multiple sites without organ or systems involvement] Onset: 02-07-2022 02-07-2022 Chronic Spondylosis; intervertebral disc disorders; other back problems (16 sources) Cervical disc disorder; Translations: [Cervical disc disorder, unspecified, unspecified cervical region] Onset: 11-24-2010 11-24-2010 Chronic Thyroid disorders (20 sources) Acquired hypothyroidism; Translations: [Hypothyroidism, unspecified] Onset: 05-21-2019 05-21-2019 Chronic Unclassified (1 source) No current problems or disability 12-07-2016 Past or Other Problems Problem Classification Problem Date Documented Da te Episodic/Chronic Abdominal hernia (20 sources) Umbilical hernia; Translations: [Umbilical hernia without obstruction or gangrene] Onset: 12-19-2005 12-19-2005 Episodic Administrative/social admission (16 sources) Medical examinations/report s status; Translations: [Encounter for examination for driving license] Onset: 12-21-2010 12-21-2010 Episodic Nonspecific chest pain (18 sources) Chest pain; Translations: [Chest pain, unspecified] Onset: 05-27-2005 05-27-2005 Episodic Other and unspecified benign neoplasm (1 source) Personal history of colonic polyps; Translations: [History of colonic polyps] Onset: 01-28-2022 Episodic Other connective tissue disease (7 sources) Fibromyalgia; Translations: [Fibromyalgia] Onset: 02-07-2022 02-07-2022 Episodic Other non-traumatic joint disorders (2 sources) Knee pain; Translations: [Pain in right knee] Onset: 12-07-2016 12-07-2016 Episodic Other non-traumatic joint disorders (13 sources) Shoulder pain; Translations: [Pain in right shoulder] Onset: 01-20-2009 01-20-2009 Episodic Other non-traumatic joint disorders (3 sources) Pain in right shoulder; Translations: [Pain in joint, shoulder region] Onset: 01-20-2009 01-20-2009 Episodic Superficial injury; contusion (2 sources) Contusion of right knee, initial encounter; Translations: [Contusion of right knee, initial encounter] Onset: 12-07-2016 12-25-2016 Episodic Results Test Name Value Interpretation Reference Range Facil ity Vital Signs Date Time Vital Sign Value Performing Clinician Facility 01-09-2023 19:02-0500 Body weight 95.25 kg Eugenie Mei MD Work Phone: [facility] 01-09-2023 19:02-0500 Diastolic blood pressure 82 mm[Hg] Eugenie Mei MD Work Phone: [facility] 01-09-2023 19:02-0500 Heart rate 81 /min Eugenie Mei MD Work Phone: [facility] 01-09-2023 19:02-0500 SaO2% (BldA) [Mass fraction] 95 % Eugenie Mei MD Work Phone: [facility] 01-09-2023 19:02-0500 Systolic blood pressure 128 mm[Hg] Eugenie Mei MD Work Phone: [facility] 10-24-2022 18:29-0400 Body weight 94.35 kg Johanne Haagen DYE BOX OPERATOR.FOOD AND NUTRITION SERVICES SUPERVISOR Work Phone: [facility] 10-24-2022 18:29-0400 Diastolic blood pressure 78 mm[Hg] Johanne Haagen DYE BOX OPERATOR.FOOD AND NUTRITION SERVICES SUPERVISOR Work Phone: [facility] 10-24-2022 18:29-0400 Heart rate 82 /min Johanne Haagen DYE BOX OPERATOR.FOOD AND NUTRITION SERVICES SUPERVISOR Work Phone: [facility] 10-24-2022 18:29-0400 Respiratory rate 16 /min Johanne Haagen DYE BOX OPERATOR.FOOD AND NUTRITION SERVICES SUPERVISOR Work Phone: [facility] 10-24-2022 18:29-0400 SaO2% (BldA) [Mass fraction] 94 % Johanne Haagen DYE BOX OPERATOR.FOOD AND NUTRITION SERVICES SUPERVISOR Work Phone: [facility] 10-24-2022 18:29-0400 Systolic blood pressure 118 mm[Hg] Johanne Haagen DYE BOX OPERATOR.FOOD AND NUTRITION SERVICES SUPERVISOR Work Phone: [facility] 04-25-2022 19:00-0500 Diastolic blood pressure 82 mm[Hg] Johanne Haagen DYE BOX OPERATOR.FOOD AND NUTRITION SERVICES SUPERVISOR Work Phone: [facility] 04-25-2022 19:00-0500 Systolic blood pressure 128 mm[Hg] Johanne Haagen DYE BOX OPERATOR.FOOD AND NUTRITION SERVICES SUPERVISOR Work Phone: [facility] 04-25-2022 18:41-0500 Heart rate 68 /min Johanne Haagen DYE BOX OPERATOR.FOOD AND NUTRITION SERVICES SUPERVISOR Work Phone: [facility] 04-25-2022 18:41-0500 Respiratory rate 18 /min Johanne Haagen DYE BOX OPERATOR.FOOD AND NUTRITION SERVICES SUPERVISOR Work Phone: [facility] 04-25-2022 18:41-0500 SaO2% (BldA) [Mass fraction] 98 % Johanne Haagen DYE BOX OPERATOR.FOOD AND NUTRITION SERVICES SUPERVISOR Work Phone: [facility] 03-28-2022 18:30-0500 Diastolic blood pressure 96 mm[Hg] Johanne Haagen DYE BOX OPERATOR.FOOD AND NUTRITION SERVICES SUPERVISOR Work Phone: [facility] 03-28-2022 18:30-0500 Heart rate 72 /min Johanne Haagen DYE BOX OPERATOR.FOOD AND NUTRITION SERVICES SUPERVISOR Work Phone: [facility] 03-28-2022 18:30-0500 Respiratory rate 18 /min Johanne Haagen DYE BOX OPERATOR.FOOD AND NUTRITION SERVICES SUPERVISOR Work Phone: [facility] 03-28-2022 18:30-0500 SaO2% (BldA) [Mass fraction] 97 % Johanne Case DYE BOX OPERATOR.FOOD AND NUTRITION SERVICES SUPERVISOR Work Phone: [facility] 03-28-2022 18:30-0500 Systolic blood pressure 142 mm[Hg] Johanne Case DYE BOX OPERATOR.FOOD AND NUTRITION SERVICES SUPERVISOR Work Phone: [facility] 03-10-2022 16:52-0500 Body weight 97.52 kg Eugenie Mei MD Work Phone: [facility] 03-10-2022 16:52-0500 Diastolic blood pressure 92 mm[Hg] Eugenie Mei MD Work Phone: [facility] 03-10-2022 16:52-0500 Heart rate 61 /min Eugenie Mei MD Work Phone: [facility] 03-10-2022 16:52-0500 SaO2% (BldA) [Mass fraction] 96 % Eugenie Mei MD Work Phone: [facility] 03-10-2022 16:52-0500 Systolic blood pressure 132 mm[Hg] Eugenie Mei MD Work Phone: [facility] 01-28-2022 13:03-0500 Diastolic blood pressure 89 mm[Hg] Evangelina Garcia MD Work Phone: [facility] 01-28-2022 13:03-0500 Heart rate 66 /min Evangelina Garcia MD Work Phone: [facility] 01-28-2022 13:03-0500 Respiratory rate 16 /min Evangelina Garcia MD Work Phone: [facility] 01-28-2022 13:03-0500 SaO2% (BldA) [Mass fraction] 95 % Evangelina Garcia MD Work Phone: [facility] 01-28-2022 13:03-0500 Systolic blood pressure 132 mm[Hg] Evangelina Garcia MD Work Phone: [facility] 01-28-2022 11:47-0500 Body temperature 97.3 [degF] Evangelina Garcia MD Work Phone: [facility] 01-28-2022 11:47-0500 Body weight 98 kg Evangelina Garcia MD Work Phone: [facility] 12-22-2021 08:21-0400 Body height 175.3 cm Opal Borrego Pass PA-C Work Phone: [facility] 12-22-2021 08:21-0400 Body temperature 97.9 [degF] Opal Caro PA-C Work Phone: [facility] 12-22-2021 08:21-0400 Body weight 97.98 kg Opal Caro PA-C Work Phone: [facility] 12-22-2021 08:21-0400 Diastolic blood pressure 80 mm[Hg] Opal Borrego Pass PA-C Work Phone: [facility] 12-22-2021 08:21-0400 Heart rate 66 /min Opal Borrego Pass PA-C Work Phone: [facility] 12-22-2021 08:21-0400 SaO2% (BldA) [Mass fraction] 96 % Opal Borrego Pass PA-C Work Phone: [facility] 12-22-2021 08:21-0400 Systolic blood pressure 110 mm[Hg] Opal Caro PA-C Work Phone: [facility] 12-13-2021 17:17-0400 Diastolic blood pressure 88 mm[Hg] Johanne Haagen DYE BOX OPERATOR.FOOD AND NUTRITION SERVICES SUPERVISOR Work Phone: [facility] 12-13-2021 17:17-0400 Heart rate 61 /min Johanne Hayamile DYE BOX OPERATOR.FOOD AND NUTRITION SERVICES SUPERVISOR Work Phone: [facility] 12-13-2021 17:17-0400 Respiratory rate 18 /min Johanne Haagen DYE BOX OPERATOR.FOOD AND NUTRITION SERVICES SUPERVISOR Work Phone: [facility] 12-13-2021 17:17-0400 SaO2% (BldA) [Mass fraction] 95 % Johanne Haagen DYE BOX OPERATOR.FOOD AND NUTRITION SERVICES SUPERVISOR Work Phone: [facility] 12-13-2021 17:17-0400 Systolic blood pressure 128 mm[Hg] Johanne Haagen DYE BOX OPERATOR.FOOD AND NUTRITION SERVICES SUPERVISOR Work Phone: [facility] 11-03-2021 15:07-0400 Body height 177 cm Johanne Haagen DYE BOX OPERATOR.FOOD AND NUTRITION SERVICES SUPERVISOR Work Phone: [facility] 11-03-2021 15:07-0400 Body weight 98.88 kg Johanne Haagen DYE BOX OPERATOR.FOOD AND NUTRITION SERVICES SUPERVISOR Work Phone: [facility] 11-03-2021 15:07-0400 Diastolic blood pressure 90 mm[Hg] Johanne Haagen DYE BOX OPERATOR.FOOD AND NUTRITION SERVICES SUPERVISOR Work Phone: [facility] 11-03-2021 15:07-0400 Heart rate 64 /min Johanne Haagen DYE BOX OPERATOR.FOOD AND NUTRITION SERVICES SUPERVISOR Work Phone: [facility] 11-03-2021 15:07-0400 Respiratory rate 18 /min Johanne Haagen DYE BOX OPERATOR.FOOD AND NUTRITION SERVICES SUPERVISOR Work Phone: [facility] 11-03-2021 15:07-0400 SaO2% (BldA) [Mass fraction] 95 % Johanne Haagen DYE BOX OPERATOR.FOOD AND NUTRITION SERVICES SUPERVISOR Work Phone: [facility] 11-03-2021 15:07-0400 Systolic blood pressure 128 mm[Hg] Johanne Haagen DYE BOX OPERATOR.FOOD AND NUTRITION SERVICES SUPERVISOR Work Phone: [facility] 12-07-2016 12:53-0400 BMI (Body Mass Index) 27.32 kg/m2 [facility] Work Phone: 12-07-2016 12:53-0400 Height 175.26 cm [facility] Work Phone: 12-07-2016 12:53-0400 Weight 83.92 kg [facility] Work Phone: Encounters Encounter Date Encounter Type Care Provider Facility Start: 01-09-2023 End: 01-10-2023 ambulatory EUGENIE MEI Facility:[facility] Start: 01-09-2023 End: 01-09-2023 Patient encounter procedure Eugenie Mei MD Work Phone: [facility] Procedures Date Procedure Procedure Detail Performing Clinician Start: 04-30-2022 Lipid 1996 panel - S rafa or Plasma Evangelina Garcia MD Work Phone: Start: 01-28-2022 Colonoscopy flx dx w /collj spec when pfrmd Opal Elizondo PA-C Work Phone: Start: 01-28-2022 Colonoscopy Eugenie Lockwood MD Work Phone: Start: 11-03-2021 Adult depression scr eening assessment Johanne Case DYE BOX OPERATOR.FOOD AND NUTRITION SERVICES SUPERVISOR Work Phone: Start: 11-09-2017 Adult depression scr eening assessment Basilio Shafer DYE BOX OPERATOR.FOOD AND NUTRITION SERVICES SUPERVISOR, DNP Work Phone: Start: 12-25-2015 Colonoscopy Basilio ulloa DYE BOX OPERATOR.FOOD AND NUTRITION SERVICES SUPERVISOR, DNP Work Phone: Plan of Treatment Date Care Activity Detail Author Start: 05-01-2027 Lipid 1996 panel - S rafa or Plasma Lipid Screening [facility] Start: 05-01-2027 LIPID SCREEN LIPID SCREEN [facility] Start: 01-28-2027 Colonoscopy COLONOSCOPY [facility] Start: 01-28-2027 COLORECTAL CANCER SCREENING COLORECTAL CANCER SCREENING [facility] Start: 07-03-2026 LIPID SCREEN LIPID SCREEN [facility] Start: 06-05-2025 PROSTATE CANCER SCRE ENING DISCUSSION PROSTATE CANCER SCREENING DISCUSSION [facility] Start: 12-18-2024 DIABETES SCREEN DIABETES SCREEN [facility] Start: 12-18-2024 Diabetes Screening Diabetes Screenin g [facility] Start: 07-03-2024 DIABETES SCREEN DIABETES SCREEN [facility] Start: 01-10-2024 Annual PCP Team Shaker Tender chester Disease Visit Annual PCP Team Chronic Disease Visit [facility] Start: 10-25-2023 ANNUAL PCP TEAM INFANTRY [employer] CHESTER DISEASE VISIT ANNUAL PCP TEAM CHRONIC DISEASE VISIT [facility] Start: 10-25-2023 BP CONTROLLED (<130/80) BP CONTROLLE D (<130/80) [facility] Start: 08-27-2023 Influenza vaccination Influenza Vacc ine (#1) [facility] Immunizations Immunization Date Immunization Notes Care Provider Frederick murguia 01-31-2009 tetanus toxoid, redu debbi diphtheria toxoid, and acellular pertussis vaccine, adsorbed Basilio Shafer DYE BOX OPERATOR.FOOD AND NUTRITION SERVICES SUPERVISOR, DNP Work Phone: [facility] Work Phone: Payers Date Payer Category Payer Unknown [employer] [id number] 2020-Present [phone] [address] [place] [address] PPO [id number] 2020 Unknown [employer] P[employer] [id number] 2020-Present [phone] [address] [place] [address] PPO [id number] 2020 Unknown [id number] Social History Date Type Detail Facility Start: 11-24-2010 Tobacco smoking stat [facility] Never smoked tobacco [facility] Work Phone: Start: 05-07-2021 End: 01-09-2023 Alcohol intake Current drinker of alcohol (finding) [facility] Start: 01-18-2011 History SDOH Alcohol Comment 1 beer per month [facility] Start: 1965 Sex Assigned At Not on file [facility] Start: 11-24-2010 Tobacco use and exposure Smokeless tobacco non-user [facility] Start: 10-17-2021 End: 01-28-2022 Exposure to SARS-CoV-2 (event) Not sure [facility] Start: 11-03-2021 End: 10-24-2022 History of Social function [facility] Start: 11-03-2021 End: 10-24-2022 Tobacco use panel [facility] Adult Depression Screening Assessment 0 [facility] Clinical Notes 12-25-2015 to 01-09-2023 Eugenie Mei MD - 01/09/2023 7:12 PM ESTPatient Johanne Marin APRN.FOOD AND NUTRITION SERVICES SUPERVISOR - 10/24/2022 6:35 PM EDTTelephone Encounter - Nilsa BOOGIE Doyle.FOOD AND NUTRITION SERVICES SUPERVISOR - 08/01/2022 1:10 PM EDT Note Date & Type Note Facility 01-09-2023 Note HNO ID: [id number] Author: Eugenie Mei MD Service: ? Author Type: Physician Type: Progress Notes Filed: 01/09/2023 7:27 PM Note Text: Patient presents with: ? yeast infection HPI: Patient presents today for office visit for possible yeast infection. Has noted itching and discomfort on the penis. Has noted itching a few weeks ago in groin. Did not the penis was red. Now is not as red. No fever or drainage. Did note two bumps but are better. No changes in soaps or detergents. No swollen glands. No exposure to anything. Had a similar rash years ago. Was given lidex. No exposure to std etc. MEDICATIONS: Current Outpatient Medications Medication Sig methotrexate 2.5 mg tablet Take 6 tablets weekly levothyroxine (SYNTHROID) 75 mcg tablet Take 1 tablet by mouth once daily. Take on empty stomach. For Thyroid. lisinopril (ZESTRIL, PRINIVIL) 10 mg tablet Take 1 tablet by mouth once daily. folic acid 1 mg tablet Take 2 mg by mouth once daily. ZINC ORAL Take by mouth once daily. ascorbic acid (VITAMIN C ORAL) Take by mouth once daily. MULTIVITAMIN TAB Take 1 tablet by mouth once daily. Current Facility-Administered Medications Medication Dose Route Frequency perflutren lipid microspheres 1.3 mL in NaCl (PF) 0.9% 10 mL injection (DEFINITY) INTRAVENOUS DIRECTED PRN sodium chloride 0.9 % (flush) 10 mL (BD POSIFLUSH) 10 mL INTRAVENOUS DIRECTED PRN ALLERGIES: ALLERGIES Allergen Reactions Codeine Sulfa (Sulfonamide * PAST MEDICAL HISTORY Diagnosis Date Arthritis Carpal tunnel syndrome of right wrist 11/24/2010 Fibromyalgia 02/07/2022 Inguinal hernia without mention of obstruction or gangrene, unilateral or unspecified, (not specified as recurrent) right Rheumatoid arthritis involving multiple sites with positive rheumatoid factor (HCC) 02/07/2022 [facility] Right shoulder pain chronic Sleep apnea Snoring Thoracic outlet syndrome Thyroid disease Tinnitus of both ears Umbilical hernia without mention of obstruction or gangrene PAST SURGICAL HISTORY Procedure Laterality Date COLONOSCOPY 01/28/2022 repeat in 5 years COLONOSCOPY FLX DX W/COLLJ SPEC WHEN PFRMD 12/25/2015 Colonoscopy HERNIA REPAIR HX LAPAROSCOPY SURG RPR INITIAL INGUINAL HERNIA 01/02/2006 BILATERAL INGUINAL HERNIA NEUROPLASTY AND/TRANSPOS MEDIAN NRV CARPAL TUNNE Carpal tunnel decomp, right 02-15-11 NEUROPLASTY AND/TRANSPOS MEDIAN NRV CARPAL TUNNE Left 03/30/2018 Left carpal tunnel release RPR UMBILICAL HRNA 5 YRS/> REDUCIBLE 01/02/2006 FAMILY HISTORY Problem Relation Age of Onset Heart Father CT age 69 Thyroid Mother None Brother None Sister None Sister None Sister None Sister Social History Tobacco Use Smoking status: Never Smokeless tobacco: Never Vaping Use Vaping Use: Never used Substance Use Topics Alcohol use: Yes Comment: 1 beer per month Drug use: No Reviewed current medications, allergies, past medical history, surgical history, family history and social history today. REVIEW OF SYSTEMS All other reviewed and negative other than HPI. VITALS: BP 128/82 Pulse 81 Wt 95.3 kg (210 lb) SpO2 95% BMI 31.01 kg/m? Last 4 Encounter Wt Readings: Date: Wt: 01/09/2023 95.3 kg (210 lb) 10/24/2022 94.3 kg (208 lb) 03/10/2022 97.5 kg (215 lb) 01/28/2022 98 kg (216 lb 0.8 oz) PHYSICAL EXAMINATION: General appearance: Well appearing, alert, in no acute distress, well-hydrated, well nourished. Skin: slight redness in the folds of the groin. Seems to be better. Has two small areas on penis under the foreskin. No definite ulcer. No vesicles. They are red and almost cyst like. No balanitis noted. Head: Normocephalic, no masses, lesions, tenderness or abnormalities. Does not appear herpetic etc. ASSESSMENT/PLAN: 1. Dermatitis - ICD9: 692.9, ICD10: L30.9 - discussed skin care of rash - follow up if symptoms persist or worsen. - Discussed risks and benefits of new medication with the patient. Advised them to call if any side effects or questions. Red flags for re-assessment reviewed with patient in detail. Call if symptoms worsen at all or if not better in one to two weeks Reviewed diagnosis and treatment options in detail. Questions were answered. Patient expressed understanding of treatment plan. - CEPHALEXIN 250 MG CAPSULE - NYSTATIN 100,000 UNIT/GRAM TOPICAL CREAM Eugenie Mei MD [facility] [place] 01-09-2023 History of Presen t illness Narrative Patient presents with: ? yeast infection HPI: Patient presents today for office visit for possible yeast infection. Has noted itching and discomfort on the penis. Has noted itching a few weeks ago in groin. Did not the penis was red. Now is not as red. No fever or drainage. Did note two bumps but are better. No changes in soaps or detergents. No swollen glands. No exposure to anything. Had a similar rash years ago. Was given lidex. No exposure to std etc. MEDICATIONS: Current Outpatient Medications Medication Sig methotrexate 2.5 mg tablet Take 6 tablets weekly levothyroxine (SYNTHROID) 75 mcg tablet Take 1 tablet by mouth once daily. Take on empty stomach. For Thyroid. lisinopril (ZESTRIL, PRINIVIL) 10 mg tablet Take 1 tablet by mouth once daily. folic acid 1 mg tablet Take 2 mg by mouth once daily. ZINC ORAL Take by mouth once daily. ascorbic acid (VITAMIN C ORAL) Take by mouth once daily. MULTIVITAMIN TAB Take 1 tablet by mouth once daily. Current Facility-Administered Medications Medication Dose Route Frequency perflutren lipid microspheres 1.3 mL in NaCl (PF) 0.9% 10 mL injection (DEFINITY) INTRAVENOUS DIRECTED PRN sodium chloride 0.9 % (flush) 10 mL (BD POSIFLUSH) 10 mL INTRAVENOUS DIRECTED PRN ALLERGIES: ALLERGIES Allergen Reactions Codeine Sulfa (Sulfonamide * PAST MEDICAL HISTORY Diagnosis Date Arthritis Carpal tunnel syndrome of right wrist 11/24/2010 Fibromyalgia 02/07/2022 Inguinal hernia without mention of obstruction or gangrene, unilateral or unspecified, (not specified as recurrent) right Rheumatoid arthritis involving multiple sites with positive rheumatoid factor (HCC) 02/07/2022 [facility] Right shoulder pain chronic Sleep apnea Snoring Thoracic outlet syndrome Thyroid disease Tinnitus of both ears Umbilical hernia without mention of obstruction or gangrene PAST SURGICAL HISTORY Procedure Laterality Date COLONOSCOPY 01/28/2022 repeat in 5 years COLONOSCOPY FLX DX W/COLLJ SPEC WHEN PFRMD 12/25/2015 Colonoscopy HERNIA REPAIR HX LAPAROSCOPY SURG RPR INITIAL INGUINAL HERNIA 01/02/2006 BILATERAL INGUINAL HERNIA NEUROPLASTY &/TRANSPOS MEDIAN NRV CARPAL TUNNE Carpal tunnel decomp, right 02-15-11 NEUROPLASTY &/TRANSPOS MEDIAN NRV CARPAL TUNNE Left 03/30/2018 Left carpal tunnel release RPR UMBILICAL HRNA 5 YRS/> REDUCIBLE 01/02/2006 FAMILY HISTORY Problem Relation Age of Onset Heart Father CT age 69 Thyroid Mother None Brother None Sister None Sister None Sister None Sister Social History Tobacco Use Smoking status: Never Smokeless tobacco: Never Vaping Use Vaping Use: Never used Substance Use Topics Alcohol use: Yes Comment: 1 beer per month Drug use: No Reviewed current medications, allergies, past medical history, surgical history, family history and social history today. REVIEW OF SYSTEMS All other reviewed and negative other than HPI. VITALS: BP 128/82 Pulse 81 Wt 95.3 kg (210 lb) SpO2 95% BMI 31.01 kg/m Last 4 Encounter Wt Readings: Date: Wt: 01/09/2023 95.3 kg (210 lb) 10/24/2022 94.3 kg (208 lb) 03/10/2022 97.5 kg (215 lb) 01/28/2022 98 kg (216 lb 0.8 oz) PHYSICAL EXAMINATION: General appearance: Well appearing, alert, in no acute distress, well-hydrated, well nourished. Skin: slight redness in the folds of the groin. Seems to be better. Has two small areas on penis under the foreskin. No definite ulcer. No vesicles. They are red and almost cyst like. No balanitis noted. Head: Normocephalic, no masses, lesions, tenderness or abnormalities. Does not appear herpetic etc. ASSESSMENT/PLAN: 1. Dermatitis - ICD9: 692.9, ICD10: L30.9 - discussed skin care of rash - follow up if symptoms persist or worsen. - Discussed risks and benefits of new medication with the patient. Advised them to call if any side effects or questions. Red flags for re-assessment reviewed with patient in detail. Call if symptoms worsen at all or if not better in one to two weeks Reviewed diagnosis and treatment options in detail. Questions were answered. Patient expressed understanding of treatment plan. - CEPHALEXIN 250 MG CAPSULE - NYSTATIN 100,000 UNIT/GRAM TOPICAL CREAM Eugenie Mei MD documented in this encounter [facility] 10-24-2022 Note HNO ID: [id number] Author: Johanne Case APRN.FOOD AND NUTRITION SERVICES SUPERVISOR Service: ? Author Type: Nurse Practitioner Type: Progress Notes Filed: 10/24/2022 7:46 PM Note Text: This is a 56 year old male who presents today with: Patient presents with: Follow Up HISTORY OF PRESENT ILLNESS: Rogelio Nguyen is a 56 year old male. Patient presents with: Follow Up Pt here for BP follow-up. States he doesn't take BP at home. Reports good compliance with BP medications, but has missed some methotrexate this past week. Stays active with job HTN: Patient is compliant with meds Yes Monitors bp at home: No. Denies side effects: Yes. Chest pain: Yes. Occasional chest tightness on the left side. Relates it to anxiety. Had previous normal work-ups. Dyspnea: Yes. Occasional SOB when working Edema: No. Palpitations: Yes. In times of stress, feels flutters that wake him up from sleeping. Syncope: No. Headache: No. Dizziness: No. RA: Follows with Rheumatology. Takes medication/methotrexate weekly on Monday nights after dinner. Feels regimen is working. Will see on 11/18. HYPOTHYROID: Patient is compliant with medications: Yes Patient has changes in energy: No Patient has changes in hair or skin: No Patient has temperature intolerance: Yes. Can get chilled. When warmed up feels too hot Patient has weight changes: No Will get labwork on 11/12. PAST MEDICAL HISTORY: PAST MEDICAL HISTORY Diagnosis Date Arthritis Carpal tunnel syndrome of right wrist 11/24/2010 Fibromyalgia 02/07/2022 Inguinal hernia without mention of obstruction or gangrene, unilateral or unspecified, (not specified as recurrent) right Rheumatoid arthritis involving multiple sites with positive rheumatoid factor (HCC) 02/07/2022 [facility] Right shoulder pain chronic Sleep apnea Snoring Thoracic outlet syndrome Thyroid disease Tinnitus of both ears Umbilical hernia without mention of obstruction or gangrene PAST SURGICAL HISTORY Procedure Laterality Date COLONOSCOPY 01/28/2022 repeat in 5 years COLONOSCOPY FLX DX W/COLLJ SPEC WHEN PFRMD 12/25/2015 Colonoscopy HERNIA REPAIR HX LAPAROSCOPY SURG RPR INITIAL INGUINAL HERNIA 01/02/2006 BILATERAL INGUINAL HERNIA NEUROPLASTY AND/TRANSPOS MEDIAN NRV CARPAL TUNNE Carpal tunnel decomp, right 12-20-11 NEUROPLASTY AND/TRANSPOS MEDIAN NRV CARPAL TUNNE Left 03/30/2018 Left carpal tunnel release RPR UMBILICAL HRNA 5 YRS/> REDUCIBLE 01/02/2006 ALLERGIES Codeine and Sulfa (Sulfonamide Antibiotics) MEDICATIONS Current Outpatient Medications Medication Sig methotrexate 2.5 mg tablet Take 6 tablets weekly levothyroxine (SYNTHROID) 75 mcg tablet Take 1 tablet by mouth once daily. Take on empty stomach. For Thyroid. lisinopril (ZESTRIL, PRINIVIL) 10 mg tablet Take 1 tablet by mouth once daily. folic acid 1 mg tablet Take 2 mg by mouth once daily. ZINC ORAL Take by mouth once daily. ascorbic acid (VITAMIN C ORAL) Take by mouth once daily. MULTIVITAMIN TAB Take 1 tablet by mouth once daily. Current Facility-Administered Medications Medication Dose Route Frequency perflutren lipid microspheres 1.3 mL in NaCl (PF) 0.9% 10 mL injection (DEFINITY) INTRAVENOUS DIRECTED PRN sodium chloride 0.9 % (flush) 10 mL (BD POSIFLUSH) 10 mL INTRAVENOUS DIRECTED PRN Facility-Administered Medications Ordered in Other Visits Medication Dose Route Frequency lactated ringers iv infusion 50 mL/hr INTRAVENOUS CONTINUOUS FAMILY HISTORY Problem Relation Age of Onset Heart Father CT age 69 Thyroid Mother None Brother None Sister None Sister None Sister None Sister Social History Tobacco Use Smoking status: Never Smokeless tobacco: Never Vaping Use Vaping Use: Never used Substance Use Topics Alcohol use: Yes Comment: 1 beer per month Drug use: No EXAM: BP 118/78 Pulse 82 Resp 16 Wt 94.3 kg (208 lb) SpO2 94% BMI 30.72 kg/m? PHYSICAL EXAM: General Appearance: Well appearing, alert, in no acute distress, well-hydrated, well nourished.. Skin: Skin color, texture, turgor normal, no suspicious rashes or lesions. Eyes: Anicteric sclera. Pupils are equally round . Neck: Supple, no adenopathy; thyroid symmetric, normal size, no bruits. Lungs: Lungs clear to auscultation. No wheezing, rhonchi, rales.. Heart: RRR without murmur, gallop, or rubs. No ectopy. Musculoskeletal: No joint swelling, deformity, or tenderness. Neurologic: Gait normal. ASSESSMENT/PLAN: 1. Primary hypertension - ICD9: 401.9, ICD10: I10 (primary diagnosis) - Controlled - Continue current medications - Recommend home blood pressure monitoring, to bring results to next visit - Encouraged sodium restriction, DASH or Mediterranean diet - Recommend regular aerobic exercise - CBC + DIFF - COMP METABOLIC PANEL 2. Hypothyroidism, acquired - ICD9: 244.9, ICD10: E03.9 - TSH BLD 3. Hyperlipidemia with target LDL less than 130 - (more content not included)... [facility] 10-24-2022 Instructions Nafisa Dai - 10/24/2022 7:17 PM EDT Get lab work done on 11/12 for thyroid Continue medications Follow-up in 6 months documented in this encounter [facility] 10-24-2022 History of Presen t illness Narrative This is a 56 year old male who presents today with: Patient presents with: Follow Up HISTORY OF PRESENT ILLNESS: Rogelio Nguyen is a 56 year old male. Patient presents with: Follow Up Pt here for BP follow-up. States he doesn't take BP at home. Reports good compliance with BP medications, but has missed some methotrexate this past week. Stays active with job HTN: Patient is compliant with meds Yes Monitors bp at home: No. Denies side effects: Yes. Chest pain: Yes. Occasional chest tightness on the left side. Relates it to anxiety. Had previous normal work-ups. Dyspnea: Yes. Occasional SOB when working Edema: No. Palpitations: Yes. In times of stress, feels flutters that wake him up from sleeping. Syncope: No. Headache: No. Dizziness: No. RA: Follows with Rheumatology. Takes medication/methotrexate weekly on Monday nights after dinner. Feels regimen is working. Will see on 11/18. HYPOTHYROID: Patient is compliant with medications: Yes Patient has changes in energy: No Patient has changes in hair or skin: No Patient has temperature intolerance: Yes. Can get chilled. When warmed up feels too hot Patient has weight changes: No Will get labwork on 11/12. PAST MEDICAL HISTORY: PAST MEDICAL HISTORY Diagnosis Date Arthritis Carpal tunnel syndrome of right wrist 11/24/2010 Fibromyalgia 02/07/2022 Inguinal hernia without mention of obstruction or gangrene, unilateral or unspecified, (not specified as recurrent) right Rheumatoid arthritis involving multiple sites with positive rheumatoid factor (HCC) 02/07/2022 [facility] Right shoulder pain chronic Sleep apnea Snoring Thoracic outlet syndrome Thyroid disease Tinnitus of both ears Umbilical hernia without mention of obstruction or gangrene PAST SURGICAL HISTORY Procedure Laterality Date COLONOSCOPY 01/28/2022 repeat in 5 years COLONOSCOPY FLX DX W/COLLJ SPEC WHEN PFRMD 12/25/2015 Colonoscopy HERNIA REPAIR HX LAPAROSCOPY SURG RPR INITIAL INGUINAL HERNIA 01/02/2006 BILATERAL INGUINAL HERNIA NEUROPLASTY &/TRANSPOS MEDIAN NRV CARPAL TUNNE Carpal tunnel decomp, right 02-15-11 NEUROPLASTY &/TRANSPOS MEDIAN NRV CARPAL TUNNE Left 03/30/2018 Left carpal tunnel release RPR UMBILICAL HRNA 5 YRS/> REDUCIBLE 01/02/2006 ALLERGIES Codeine and Sulfa (Sulfonamide Antibiotics) MEDICATIONS Current Outpatient Medications Medication Sig methotrexate 2.5 mg tablet Take 6 tablets weekly levothyroxine (SYNTHROID) 75 mcg tablet Take 1 tablet by mouth once daily. Take on empty stomach. For Thyroid. lisinopril (ZESTRIL, PRINIVIL) 10 mg tablet Take 1 tablet by mouth once daily. folic acid 1 mg tablet Take 2 mg by mouth once daily. ZINC ORAL Take by mouth once daily. ascorbic acid (VITAMIN C ORAL) Take by mouth once daily. MULTIVITAMIN TAB Take 1 tablet by mouth once daily. Current Facility-Administered Medications Medication Dose Route Frequency perflutren lipid microspheres 1.3 mL in NaCl (PF) 0.9% 10 mL injection (DEFINITY) INTRAVENOUS DIRECTED PRN sodium chloride 0.9 % (flush) 10 mL (BD POSIFLUSH) 10 mL INTRAVENOUS DIRECTED PRN Facility-Administered Medications Ordered in Other Visits Medication Dose Route Frequency lactated ringers iv infusion 50 mL/hr INTRAVENOUS CONTINUOUS FAMILY HISTORY Problem Relation Age of Onset Heart Father CT age 69 Thyroid Mother None Brother None Sister None Sister None Sister None Sister Social History Tobacco Use Smoking status: Never Smokeless tobacco: Never Vaping Use Vaping Use: Never used Substance Use Topics Alcohol use: Yes Comment: 1 beer per month Drug use: No EXAM: BP 118/78 Pulse 82 Resp 16 Wt 94.3 kg (208 lb) SpO2 94% BMI 30.72 kg/m PHYSICAL EXAM: General Appearance: Well appearing, alert, in no acute distress, well-hydrated, well nourished.. Skin: Skin color, texture, turgor normal, no suspicious rashes or lesions. Eyes: Anicteric sclera. Pupils are equally round . Neck: Supple, no adenopathy; thyroid symmetric, normal size, no bruits. Lungs: Lungs clear to auscultation. No wheezing, rhonchi, rales.. Heart: RRR without murmur, gallop, or rubs. No ectopy. Musculoskeletal: No joint swelling, deformity, or tenderness. Neurologic: Gait normal. ASSESSMENT/PLAN: 1. Primary hypertension - ICD9: 401.9, ICD10: I10 (primary diagnosis) - Controlled - Continue current medications - Recommend home blood pressure monitoring, to bring results to next visit - Encouraged sodium restriction, DASH or Mediterranean diet - Recommend regular aerobic exercise - CBC + DIFF - COMP METABOLIC PANEL 2. Hypothyroidism, acquired - ICD9: 244.9, ICD10: E03.9 - TSH BLD 3. Hyperlipidemia with target LDL less than 130 - ICD9: 272.4, ICD10: E78.5 - Control undetermined, due for labs - Counseled on healthy diet and regular exercise - LIPID PANEL BASIC 4. Rheumatoid arthritis involving multiple sites with positive rheumatoid factor (HCC) - ICD9: 714.0, ICD10: M05.79 Stable. Continue per rheumatology. Johanne Case APRN.MICHAEL Discussed treatment plan and patient voices understanding. Patient's questions answered appropriately. Medications and potential side effects were discussed and patient voices understanding. Return to the office as scheduled or as needed for worsening/no improvement. Johanne Case APRN.FOOD AND NUTRITION SERVICES SUPERVISOR documented in this encounter [facility] 08-01-2022 Miscellaneous Notes The following approved medication requests have been transmitted electronically. Requested Prescriptions Pending Prescriptions Disp Refills levothyroxine (SYNTHROID) 75 mcg tablet 90 tablet 3 Sig: Take 1 tablet by mouth once daily. Take on empty stomach. For Thyroid. Nilsa Doyle APRN.MICHAEL SABRINA: 04/25/22 with PCP NOV: 10/24/22-6 month F/U with PCP Last refill: 07/20/21 With 90 and 3 refills Enedelia Velasquez MA Patient has been identified by name and date of : Yes Requested Prescriptions Pending Prescriptions Disp Refills levothyroxine (SYNTHROID) 75 mcg tablet 90 tablet 3 Sig: Take 1 tablet by mouth once daily. Take on empty stomach. For Thyroid. RX INSTRUCTIONS: Patient aware RX will be sent to pharmacy. No need to notify patient. [employer] documented in this encounter [facility] 04-25-2022 Note HNO ID: [id number] Author: Johanne Case APRN.CNP Service: ? Author Type: Nurse Practitioner Type: Progress Notes Filed: 04/25/2022 7:20 PM Note Text: This is a 56 year old male who presents today with: Patient presents with: Recheck: BP check- restarted lisinopril HISTORY OF PRESENT ILLNESS: Rogelio Nguyen is a 56 year old male. Patient presents with: Recheck: BP check- restarted lisinopril HTN: Patient is compliant with meds Yes, except he ran out yesterday. Monitors bp at home: No. Denies side effects: No. Chest pain: No. Dyspnea: No. Edema: No. Palpitations: No. Syncope: No. Headache: No. Dizziness: No. PAST MEDICAL HISTORY: PAST MEDICAL HISTORY Diagnosis Date Arthritis Carpal tunnel syndrome of right wrist 11/24/2010 Fibromyalgia 02/07/2022 Inguinal hernia without mention of obstruction or gangrene, unilateral or unspecified, (not specified as recurrent) right Rheumatoid arthritis involving multiple sites with positive rheumatoid factor (HCC) 02/07/2022 [facility] Right shoulder pain chronic Sleep apnea Snoring Thoracic outlet syndrome Thyroid disease Tinnitus of both ears Umbilical hernia without mention of obstruction or gangrene PAST SURGICAL HISTORY Procedure Laterality Date COLONOSCOPY 01/28/2022 repeat in 5 years COLONOSCOPY FLX DX W/COLLJ SPEC WHEN PFRMD 12/25/2015 Colonoscopy HERNIA REPAIR HX LAPAROSCOPY SURG RPR INITIAL INGUINAL HERNIA 01/02/2006 BILATERAL INGUINAL HERNIA NEUROPLASTY AND/TRANSPOS MEDIAN NRV CARPAL TUNNE Carpal tunnel decomp, right 02-15-11 NEUROPLASTY AND/TRANSPOS MEDIAN NRV CARPAL TUNNE Left 03/30/2018 Left carpal tunnel release RPR UMBILICAL HRNA 5 YRS/> REDUCIBLE 01/02/2006 ALLERGIES Codeine and Sulfa (Sulfonamide Antibiotics) MEDICATIONS Current Outpatient Medications Medication Sig methotrexate 2.5 mg tablet Take 5 tablets by mouth one time a week. folic acid 1 mg tablet Take 2 mg by mouth once daily. lisinopril (ZESTRIL, PRINIVIL) 10 mg tablet Take 1 tablet by mouth once daily. ZINC ORAL Take by mouth once daily. levothyroxine (SYNTHROID) 75 mcg tablet Take 1 tablet by mouth once daily. Take on empty stomach. For Thyroid. ascorbic acid (VITAMIN C ORAL) Take by mouth once daily. MULTIVITAMIN TAB Take 1 tablet by mouth once daily. Current Facility-Administered Medications Medication Dose Route Frequency perflutren lipid microspheres 1.3 mL in NaCl (PF) 0.9% 10 mL injection (DEFINITY) INTRAVENOUS DIRECTED PRN sodium chloride 0.9 % (flush) 10 mL (BD POSIFLUSH) 10 mL INTRAVENOUS DIRECTED PRN Facility-Administered Medications Ordered in Other Visits Medication Dose Route Frequency lactated ringers iv infusion 50 mL/hr INTRAVENOUS CONTINUOUS FAMILY HISTORY Problem Relation Age of Onset Heart Father CT age 69 Thyroid Mother None Brother None Sister None Sister None Sister None Sister Social History Tobacco Use Smoking status: Never Smokeless tobacco: Never Vaping Use Vaping Use: Never used Substance Use Topics Alcohol use: Yes Comment: 1 beer per month Drug use: No EXAM: BP 122/90 Pulse 68 Resp 18 SpO2 98% 128/82 PHYSICAL EXAM: General Appearance: Well appearing, alert, in no acute distress, well-hydrated, well nourished.. Skin: Skin color, texture, turgor normal, no suspicious rashes or lesions. Head: Normocephalic, no masses, lesions, tenderness or abnormalities. Eyes: Anicteric sclera. Pupils are equally round and reactive to light. Extraocular movements are intact. . Neck: Supple, no adenopathy; thyroid symmetric, normal size, no bruits. Lungs: Lungs clear to auscultation. No wheezing, rhonchi, rales.. Heart: RRR without murmur, gallop, or rubs. No ectopy. Neurologic: Gait normal. ASSESSMENT/PLAN: 1. Primary hypertension - ICD9: 401.9, ICD10: I10 (primary diagnosis) - good control - Continue current medication(s) - Recommended regular aerobic exercise. - Recommend home blood pressure monitoring, to bring results in on next visit - Goal of BP <130/80 - LISINOPRIL 10 MG TABLET 2. Hyperlipidemia with target LDL less than 130 - ICD9: 272.4, ICD10: E78.5 - to be determined upon return of lab results Will be due for fasting labs. - LIPID PANEL BASIC He will let us know if we need to fax them to [facility]. 3. Fatty liver - ICD9: 571.8, ICD10: K76.0 Had recent ultrasound per rheum d/t elevated liver enzymes -- + fatty liver. Discussed weight loss. Discussed treatment plan and patient voices understanding. Patient's questions answered appropriately. Medications and potential side effects were discussed and patient voices understanding. Return to the office as scheduled or as needed for worsening/no improvement. Johanne Case APRN.CNP [facility] 04-25-2022 Instructions Johanne Case APRN.CNP - 04/25/2022 7:12 PM EST Continue the lisinopril daily. Get fasting labs -- let me know if you want us to send that over to [facility] (10-12 hours fast, but you can have water and black coffee). Recheck in 6 months. documented in this encounter [facility] 04-25-2022 History of Presen t illness Narrative This is a 56 year old male who presents today with: Patient presents with: Recheck: BP check- restarted lisinopril HISTORY OF PRESENT ILLNESS: Rogelio Nguyen is a 56 year old male. Patient presents with: Recheck: BP check- restarted lisinopril HTN: Patient is compliant with meds Yes, except he ran out yesterday. Monitors bp at home: No. Denies side effects: No. Chest pain: No. Dyspnea: No. Edema: No. Palpitations: No. Syncope: No. Headache: No. Dizziness: No. PAST MEDICAL HISTORY: PAST MEDICAL HISTORY Diagnosis Date Arthritis Carpal tunnel syndrome of right wrist 11/24/2010 Fibromyalgia 02/07/2022 Inguinal hernia without mention of obstruction or gangrene, unilateral or unspecified, (not specified as recurrent) right Rheumatoid arthritis involving multiple sites with positive rheumatoid factor (HCC) 02/07/2022 [facility] Right shoulder pain chronic Sleep apnea Snoring Thoracic outlet syndrome Thyroid disease Tinnitus of both ears Umbilical hernia without mention of obstruction or gangrene PAST SURGICAL HISTORY Procedure Laterality Date COLONOSCOPY 01/28/2022 repeat in 5 years COLONOSCOPY FLX DX W/COLLJ SPEC WHEN PFRMD 12/25/2015 Colonoscopy HERNIA REPAIR HX LAPAROSCOPY SURG RPR INITIAL INGUINAL HERNIA 01/02/2006 BILATERAL INGUINAL HERNIA NEUROPLASTY &/TRANSPOS MEDIAN NRV CARPAL TUNNE Carpal tunnel decomp, right 02-15-11 NEUROPLASTY &/TRANSPOS MEDIAN NRV CARPAL TUNNE Left 03/30/2018 Left carpal tunnel release RPR UMBILICAL HRNA 5 YRS/> REDUCIBLE 01/02/2006 ALLERGIES Codeine and Sulfa (Sulfonamide Antibiotics) MEDICATIONS Current Outpatient Medications Medication Sig methotrexate 2.5 mg tablet Take 5 tablets by mouth one time a week. folic acid 1 mg tablet Take 2 mg by mouth once daily. lisinopril (ZESTRIL, PRINIVIL) 10 mg tablet Take 1 tablet by mouth once daily. ZINC ORAL Take by mouth once daily. levothyroxine (SYNTHROID) 75 mcg tablet Take 1 tablet by mouth once daily. Take on empty stomach. For Thyroid. ascorbic acid (VITAMIN C ORAL) Take by mouth once daily. MULTIVITAMIN TAB Take 1 tablet by mouth once daily. Current Facility-Administered Medications Medication Dose Route Frequency perflutren lipid microspheres 1.3 mL in NaCl (PF) 0.9% 10 mL injection (DEFINITY) INTRAVENOUS DIRECTED PRN sodium chloride 0.9 % (flush) 10 mL (BD POSIFLUSH) 10 mL INTRAVENOUS DIRECTED PRN Facility-Administered Medications Ordered in Other Visits Medication Dose Route Frequency lactated ringers iv infusion 50 mL/hr INTRAVENOUS CONTINUOUS FAMILY HISTORY Problem Relation Age of Onset Heart Father CT age 69 Thyroid Mother None Brother None Sister None Sister None Sister None Sister Social History Tobacco Use Smoking status: Never Smokeless tobacco: Never Vaping Use Vaping Use: Never used Substance Use Topics Alcohol use: Yes Comment: 1 beer per month Drug use: No EXAM: BP 122/90 Pulse 68 Resp 18 SpO2 98% 128/82 PHYSICAL EXAM: General Appearance: Well appearing, alert, in no acute distress, well-hydrated, well nourished.. Skin: Skin color, texture, turgor normal, no suspicious rashes or lesions. Head: Normocephalic, no masses, lesions, tenderness or abnormalities. Eyes: Anicteric sclera. Pupils are equally round and reactive to light. Extraocular movements are intact. . Neck: Supple, no adenopathy; thyroid symmetric, normal size, no bruits. Lungs: Lungs clear to auscultation. No wheezing, rhonchi, rales.. Heart: RRR without murmur, gallop, or rubs. No ectopy. Neurologic: Gait normal. ASSESSMENT/PLAN: 1. Primary hypertension - ICD9: 401.9, ICD10: I10 (primary diagnosis) - good control - Continue current medication(s) - Recommended regular aerobic exercise. - Recommend home blood pressure monitoring, to bring results in on next visit - Goal of BP <130/80 - LISINOPRIL 10 MG TABLET 2. Hyperlipidemia with target LDL less than 130 - ICD9: 272.4, ICD10: E78.5 - to be determined upon return of lab results Will be due for fasting labs. - LIPID PANEL BASIC He will let us know if we need to fax them to [facility]. 3. Fatty liver - ICD9: 571.8, ICD10: K76.0 Had recent ultrasound per rheum d/t elevated liver enzymes -- + fatty liver. Discussed weight loss. Discussed treatment plan and patient voices understanding. Patient's questions answered appropriately. Medications and potential side effects were discussed and patient voices understanding. Return to the office as scheduled or as needed for worsening/no improvement. Johanne Case APRN.MICHAEL documented in this encounter [facility] 03-28-2022 Note HNO ID: [id number] Author: Johanne Case APRN.CNP Service: ? Author Type: Nurse Practitioner Type: Progress Notes Filed: 03/28/2022 7:22 PM Note Text: This is a 56 year old male who presents today with: Patient presents with: Recheck: 2 week bp check; did not start lisinopril HISTORY OF PRESENT ILLNESS: Rogelio Nguyen is a 56 year old male. 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 He came in to primary care and was started on lisinopril. He took the medication X 4 days and returned for physical and there was no change in BP. He reports that they put a larger cuff on his arm and his blood pressure came down. He then stopped the blood pressure medication. He denies any side effects to the blood pressure medication. His blood pressure continues to be a little elevated today. He did just receive a call from his rheum office because his liver enzymes were elevated. He is scheduled for a liver ultrasound. PAST MEDICAL HISTORY: PAST MEDICAL HISTORY Diagnosis Date Arthritis Carpal tunnel syndrome of right wrist 11/24/2010 Fibromyalgia 02/07/2022 Inguinal hernia without mention of obstruction or gangrene, unilateral or unspecified, (not specified as recurrent) right Rheumatoid arthritis involving multiple sites with positive rheumatoid factor (HCC) 02/07/2022 [facility] Right shoulder pain chronic Sleep apnea Snoring Thoracic outlet syndrome Thyroid disease Tinnitus of both ears Umbilical hernia without mention of obstruction or gangrene PAST SURGICAL HISTORY Procedure Laterality Date COLONOSCOPY 01/28/2022 repeat in 5 years COLONOSCOPY FLX DX W/COLLJ SPEC WHEN PFRMD 12/25/2015 Colonoscopy HERNIA REPAIR HX LAPAROSCOPY SURG RPR INITIAL INGUINAL HERNIA 01/02/2006 BILATERAL INGUINAL HERNIA NEUROPLASTY AND/TRANSPOS MEDIAN NRV CARPAL TUNNE Carpal tunnel decomp, right 02-15-11 NEUROPLASTY AND/TRANSPOS MEDIAN NRV CARPAL TUNNE Left 03/30/2018 Left carpal tunnel release RPR UMBILICAL HRNA 5 YRS/> REDUCIBLE 01/02/2006 ALLERGIES Codeine and Sulfa (Sulfonamide Antibiotics) MEDICATIONS Current Outpatient Medications Medication Sig methotrexate 2.5 mg tablet Take 5 tablets by mouth one time a week. folic acid 1 mg tablet Take 2 mg by mouth once daily. ZINC ORAL Take by mouth once daily. levothyroxine (SYNTHROID) 75 mcg tablet Take 1 tablet by mouth once daily. Take on empty stomach. For Thyroid. ascorbic acid (VITAMIN C ORAL) Take by mouth once daily. MULTIVITAMIN TAB Take 1 tablet by mouth once daily. lisinopril (ZESTRIL, PRINIVIL) 10 mg tablet Take 1 tablet by mouth once daily. Current Facility-Administered Medications Medication Dose Route Frequency perflutren lipid microspheres 1.3 mL in NaCl (PF) 0.9% 10 mL injection (DEFINITY) INTRAVENOUS DIRECTED PRN sodium chloride 0.9 % (flush) 10 mL (BD POSIFLUSH) 10 mL INTRAVENOUS DIRECTED PRN Facility-Administered Medications Ordered in Other Visits Medication Dose Route Frequency lactated ringers iv infusion 50 mL/hr INTRAVENOUS CONTINUOUS FAMILY HISTORY Problem Relation Age of Onset Heart Father CT age 69 Thyroid Mother None Brother None Sister None Sister None Sister None Sister Social History Tobacco Use Smoking status: Never Smokeless tobacco: Never Vaping Use Vaping Use: Never used Substance Use Topics Alcohol use: Yes Comment: 1 beer per month Drug use: No EXAM: BP 142/96 Pulse 72 Resp 18 SpO2 97% PHYSICAL EXAM: General Appearance: Well appearing, alert, in no acute distress, well-hydrated, well nourished.. Skin: Skin color, texture, turgor normal, no suspicious rashes or lesions. Head: Normocephalic, no masses, lesions, tenderness or abnormalities. Eyes: Anicteric sclera. Extraocular movements are intact. Lungs: Lungs clear to auscultation. No wheezing, rhonchi, rales.. Heart: RRR without murmur, gallop, or rubs. No ectopy. Extremities: No deformities, edema, skin discoloration, clubbing or cyanosis. Good capillary refill. . Neurologic: Gait normal. ASSESSMENT/PLAN: 1. Primary hypertension - ICD9: 401.9, ICD10: I10 (primary diagnosis) - suboptimal control - Recommended regular aerobic exercise. - Recommend home blood pressure monitoring, to bring results in on next visit - encouraged to start the lisinopril - Goal of BP <130/80 Recheck in 1 month. 2. Elevated liver enzymes - ICD9: 790.5, ICD10: R74.8 Reviewed labs with patient. Minimal elevation of ALT - 63 (16-61). Reassured. Refers that they discussed with him re: minimizing tylenol and etoh. Get ultrasound and repeat labs, as ordered by rheum. Discussed treatment plan and patient voices understanding. Patient's questions answered appropriately. Medications and potential side effects were discussed and patient voices understanding. (more content not included)... [facility] 03-28-2022 Instructions Johanne Case APRN.CNP - 03/28/2022 7:05 PM EST Start the blood pressure pill. Recheck in a month. documented in this encounter [facility] 03-28-2022 History of Presen t illness Narrative This is a 56 year old male who presents today with: Patient presents with: Recheck: 2 week bp check; did not start lisinopril HISTORY OF PRESENT ILLNESS: Rogelio Nguyne is a 56 year old male. 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 He came in to primary care and was started on lisinopril. He took the medication X 4 days and returned for physical and there was no change in BP. He reports that they put a larger cuff on his arm and his blood pressure came down. He then stopped the blood pressure medication. He denies any side effects to the blood pressure medication. His blood pressure continues to be a little elevated today. He did just receive a call from his rheum office because his liver enzymes were elevated. He is scheduled for a liver ultrasound. PAST MEDICAL HISTORY: PAST MEDICAL HISTORY Diagnosis Date Arthritis Carpal tunnel syndrome of right wrist 11/24/2010 Fibromyalgia 02/07/2022 Inguinal hernia without mention of obstruction or gangrene, unilateral or unspecified, (not specified as recurrent) right Rheumatoid arthritis involving multiple sites with positive rheumatoid factor (HCC) 02/07/2022 [facility] Right shoulder pain chronic Sleep apnea Snoring Thoracic outlet syndrome Thyroid disease Tinnitus of both ears Umbilical hernia without mention of obstruction or gangrene PAST SURGICAL HISTORY Procedure Laterality Date COLONOSCOPY 01/28/2022 repeat in 5 years COLONOSCOPY FLX DX W/COLLJ SPEC WHEN PFRMD 12/25/2015 Colonoscopy HERNIA REPAIR HX LAPAROSCOPY SURG RPR INITIAL INGUINAL HERNIA 01/02/2006 BILATERAL INGUINAL HERNIA NEUROPLASTY &/TRANSPOS MEDIAN NRV CARPAL TUNNE Carpal tunnel decomp, right 02-15-11 NEUROPLASTY &/TRANSPOS MEDIAN NRV CARPAL TUNNE Left 03/30/2018 Left carpal tunnel release RPR UMBILICAL HRNA 5 YRS/> REDUCIBLE 01/02/2006 ALLERGIES Codeine and Sulfa (Sulfonamide Antibiotics) MEDICATIONS Current Outpatient Medications Medication Sig methotrexate 2.5 mg tablet Take 5 tablets by mouth one time a week. folic acid 1 mg tablet Take 2 mg by mouth once daily. ZINC ORAL Take by mouth once daily. levothyroxine (SYNTHROID) 75 mcg tablet Take 1 tablet by mouth once daily. Take on empty stomach. For Thyroid. ascorbic acid (VITAMIN C ORAL) Take by mouth once daily. MULTIVITAMIN TAB Take 1 tablet by mouth once daily. lisinopril (ZESTRIL, PRINIVIL) 10 mg tablet Take 1 tablet by mouth once daily. Current Facility-Administered Medications Medication Dose Route Frequency perflutren lipid microspheres 1.3 mL in NaCl (PF) 0.9% 10 mL injection (DEFINITY) INTRAVENOUS DIRECTED PRN sodium chloride 0.9 % (flush) 10 mL (BD POSIFLUSH) 10 mL INTRAVENOUS DIRECTED PRN Facility-Administered Medications Ordered in Other Visits Medication Dose Route Frequency lactated ringers iv infusion 50 mL/hr INTRAVENOUS CONTINUOUS FAMILY HISTORY Problem Relation Age of Onset Heart Father CT age 69 Thyroid Mother None Brother None Sister None Sister None Sister None Sister Social History Tobacco Use Smoking status: Never Smokeless tobacco: Never Vaping Use Vaping Use: Never used Substance Use Topics Alcohol use: Yes Comment: 1 beer per month Drug use: No EXAM: BP 142/96 Pulse 72 Resp 18 SpO2 97% PHYSICAL EXAM: General Appearance: Well appearing, alert, in no acute distress, well-hydrated, well nourished.. Skin: Skin color, texture, turgor normal, no suspicious rashes or lesions. Head: Normocephalic, no masses, lesions, tenderness or abnormalities. Eyes: Anicteric sclera. Extraocular movements are intact. Lungs: Lungs clear to auscultation. No wheezing, rhonchi, rales.. Heart: RRR without murmur, gallop, or rubs. No ectopy. Extremities: No deformities, edema, skin discoloration, clubbing or cyanosis. Good capillary refill. . Neurologic: Gait normal. ASSESSMENT/PLAN: 1. Primary hypertension - ICD9: 401.9, ICD10: I10 (primary diagnosis) - suboptimal control - Recommended regular aerobic exercise. - Recommend home blood pressure monitoring, to bring results in on next visit - encouraged to start the lisinopril - Goal of BP <130/80 Recheck in 1 month. 2. Elevated liver enzymes - ICD9: 790.5, ICD10: R74.8 Reviewed labs with patient. Minimal elevation of ALT - 63 (16-61). Reassured. Refers that they discussed with him re: minimizing tylenol and etoh. Get ultrasound and repeat labs, as ordered by rheum. Discussed treatment plan and patient voices understanding. Patient's questions answered appropriately. Medications and potential side effects were discussed and patient voices understanding. Return to the office as scheduled or as needed for worsening/no improvement. Johanne Case APRN.[employer] SUPERVISOR This note was partially generated using [employer] voice recognition system. Note was reviewed for accuracy. There may be minor misspellings or grammar miscues with [employer] voice recognition. documented in this encounter [facility] 03-10-2022 Note HNO ID: [id number] Author: Eugenie Mei MD Service: ? Author Type: Physician Type: Progress Notes Filed: 03/10/2022 5:08 PM Note Text: Patient presents with: Blood Pressure: Elevated at [facility] physical yesterday. Recently started MTX for RA. HPI: Patient presents today for office visit for acute visit. 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 Did just start on MTX from rheum. No current prednisone use. Monitors bp at home: No. Chest pain: For a long time different types of chest pain that has been worked up and been found that heart is ok. Has had a number stress echo, last of which was in November. Had normal heart cath in 2012. If anything he is been feeling better. Red flags for re-assessment reviewed with patient in detail. Dyspnea: No. Edema: No. Palpitations: nothing recent. Syncope: No. Headache: nagging more so recently. Dizziness: No. Has been slightly high before. MEDICATIONS: Current Outpatient Medications Medication Sig methotrexate 2.5 mg tablet Take 5 tablets by mouth one time a week. folic acid 1 mg tablet Take 2 mg by mouth once daily. ZINC ORAL Take by mouth once daily. levothyroxine (SYNTHROID) 75 mcg tablet Take 1 tablet by mouth once daily. Take on empty stomach. For Thyroid. ascorbic acid (VITAMIN C ORAL) Take by mouth once daily. MULTIVITAMIN TAB Take 1 tablet by mouth once daily. Current Facility-Administered Medications Medication Dose Route Frequency perflutren lipid microspheres 1.3 mL in NaCl (PF) 0.9% 10 mL injection (DEFINITY) INTRAVENOUS DIRECTED PRN sodium chloride 0.9 % (flush) 10 mL (BD POSIFLUSH) 10 mL INTRAVENOUS DIRECTED PRN Facility-Administered Medications Ordered in Other Visits Medication Dose Route Frequency lactated ringers iv infusion 50 mL/hr INTRAVENOUS CONTINUOUS ALLERGIES: ALLERGIES Allergen Reactions Codeine Sulfa (Sulfonamide * PAST MEDICAL HISTORY Diagnosis Date Arthritis Carpal tunnel syndrome of right wrist 11/24/2010 Fibromyalgia 02/07/2022 Inguinal hernia without mention of obstruction or gangrene, unilateral or unspecified, (not specified as recurrent) right Rheumatoid arthritis involving multiple sites with positive rheumatoid factor (HCC) 02/07/2022 [facility] Right shoulder pain chronic Sleep apnea Snoring Thoracic outlet syndrome Thyroid disease Tinnitus of both ears Umbilical hernia without mention of obstruction or gangrene PAST SURGICAL HISTORY Procedure Laterality Date COLONOSCOPY 01/28/2022 repeat in 5 years COLONOSCOPY FLX DX W/COLLJ SPEC WHEN PFRMD 12/25/2015 Colonoscopy HERNIA REPAIR HX LAPAROSCOPY SURG RPR INITIAL INGUINAL HERNIA 01/02/2006 BILATERAL INGUINAL HERNIA NEUROPLASTY AND/TRANSPOS MEDIAN NRV CARPAL TUNNE Carpal tunnel decomp, right 02-15-11 NEUROPLASTY AND/TRANSPOS MEDIAN NRV CARPAL TUNNE Left 03/30/2018 Left carpal tunnel release RPR UMBILICAL HRNA 5 YRS/> REDUCIBLE 01/02/2006 FAMILY HISTORY Problem Relation Age of Onset Heart Father CT age 69 Thyroid Mother None Brother None Sister None Sister None Sister None Sister Social History Tobacco Use Smoking status: Never Smokeless tobacco: Never Vaping Use Vaping Use: Never used Substance Use Topics Alcohol use: Yes Comment: 1 beer per month Drug use: No Reviewed current medications, allergies, past medical history, surgical history, family history and social history today. REVIEW OF SYSTEMS All other reviewed and negative other than HPI. VITALS: BP 132/92 Pulse 61 Wt 97.5 kg (215 lb) SpO2 96% BMI 31.75 kg/m? Last 4 Encounter Wt Readings: Date: Wt: 01/28/2022 98 kg (216 lb 0.8 oz) 12/22/2021 98 kg (216 lb) 11/03/2021 98.9 kg (218 lb) 05/07/2021 101.6 kg (224 lb) PHYSICAL EXAMINATION: General appearance: Well appearing, alert, in no acute distress, well-hydrated, well nourished. Skin: Skin color, texture, turgor normal, no suspicious rashes or lesions Head: Normocephalic, no masses, lesions, tenderness or abnormalities Lungs: Lungs clear to auscultation. No wheezing, rhonchi, rales Heart: RRR without murmur, gallop, or rubs. No ectopy Abdomen: Normal abdominal exam, Abdomen soft, non-tender. Bowel sounds normal. No masses, organomegaly Extremities: No deformities, edema, skin discoloration, clubbing or cyanosis. Good capillary refill. ASSESSMENT/PLAN: 1. Primary hypertension - ICD9: 401.9, ICD10: I10 (primary diagnosis) - newly diagnosed - Recommend home blood pressure monitoring, to bring results in on next visit - Goal of BP <130/80 - TSH BLD - CBC + DIFF - BASIC METABOLIC PNL - LISINOPRIL 10 MG TABLET 2. Hypothyroidism, acquired - ICD9: 244.9, ICD10: E03.9 - double check labs. - TSH BLD - CBC + DIFF - BASIC METABOLIC PNL Eugenie Mei MD [facility] 03-10-2022 History of Presen t illness Narrative Patient presents with: Blood Pressure: Elevated at [facility] physical yesterday. Recently started MTX for RA. HPI: Patient presents today for office visit for acute visit. 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 Did just start on MTX from rheum. No current prednisone use. Monitors bp at home: No. Chest pain: For a long time different types of chest pain that has been worked up and been found that heart is ok. Has had a number stress echo, last of which was in November. Had normal heart cath in 2012. If anything he is been feeling better. Red flags for re-assessment reviewed with patient in detail. Dyspnea: No. Edema: No. Palpitations: nothing recent. Syncope: No. Headache: nagging more so recently. Dizziness: No. Has been slightly high before. MEDICATIONS: Current Outpatient Medications Medication Sig methotrexate 2.5 mg tablet Take 5 tablets by mouth one time a week. folic acid 1 mg tablet Take 2 mg by mouth once daily. ZINC ORAL Take by mouth once daily. levothyroxine (SYNTHROID) 75 mcg tablet Take 1 tablet by mouth once daily. Take on empty stomach. For Thyroid. ascorbic acid (VITAMIN C ORAL) Take by mouth once daily. MULTIVITAMIN TAB Take 1 tablet by mouth once daily. Current Facility-Administered Medications Medication Dose Route Frequency perflutren lipid microspheres 1.3 mL in NaCl (PF) 0.9% 10 mL injection (DEFINITY) INTRAVENOUS DIRECTED PRN sodium chloride 0.9 % (flush) 10 mL (BD POSIFLUSH) 10 mL INTRAVENOUS DIRECTED PRN Facility-Administered Medications Ordered in Other Visits Medication Dose Route Frequency lactated ringers iv infusion 50 mL/hr INTRAVENOUS CONTINUOUS ALLERGIES: ALLERGIES Allergen Reactions Codeine Sulfa (Sulfonamide * PAST MEDICAL HISTORY Diagnosis Date Arthritis Carpal tunnel syndrome of right wrist 11/24/2010 Fibromyalgia 02/07/2022 Inguinal hernia without mention of obstruction or gangrene, unilateral or unspecified, (not specified as recurrent) right Rheumatoid arthritis involving multiple sites with positive rheumatoid factor (HCC) 02/07/2022 [facility] Right shoulder pain chronic Sleep apnea Snoring Thoracic outlet syndrome Thyroid disease Tinnitus of both ears Umbilical hernia without mention of obstruction or gangrene PAST SURGICAL HISTORY Procedure Laterality Date COLONOSCOPY 01/28/2022 repeat in 5 years COLONOSCOPY FLX DX W/COLLJ SPEC WHEN PFRMD 12/25/2015 Colonoscopy HERNIA REPAIR HX LAPAROSCOPY SURG RPR INITIAL INGUINAL HERNIA 01/02/2006 BILATERAL INGUINAL HERNIA NEUROPLASTY &/TRANSPOS MEDIAN NRV CARPAL TUNNE Carpal tunnel decomp, right 02-15-11 NEUROPLASTY &/TRANSPOS MEDIAN NRV CARPAL TUNNE Left 03/30/2018 Left carpal tunnel release RPR UMBILICAL HRNA 5 YRS/> REDUCIBLE 01/02/2006 FAMILY HISTORY Problem Relation Age of Onset Heart Father CT age 69 Thyroid Mother None Brother None Sister None Sister None Sister None Sister Social History Tobacco Use Smoking status: Never Smokeless tobacco: Never Vaping Use Vaping Use: Never used Substance Use Topics Alcohol use: Yes Comment: 1 beer per month Drug use: No Reviewed current medications, allergies, past medical history, surgical history, family history and social history today. REVIEW OF SYSTEMS All other reviewed and negative other than HPI. VITALS: BP 132/92 Pulse 61 Wt 97.5 kg (215 lb) SpO2 96% BMI 31.75 kg/m Last 4 Encounter Wt Readings: Date: Wt: 01/28/2022 98 kg (216 lb 0.8 oz) 12/22/2021 98 kg (216 lb) 11/03/2021 98.9 kg (218 lb) 05/07/2021 101.6 kg (224 lb) PHYSICAL EXAMINATION: General appearance: Well appearing, alert, in no acute distress, well-hydrated, well nourished. Skin: Skin color, texture, turgor normal, no suspicious rashes or lesions Head: Normocephalic, no masses, lesions, tenderness or abnormalities Lungs: Lungs clear to auscultation. No wheezing, rhonchi, rales Heart: RRR without murmur, gallop, or rubs. No ectopy Abdomen: Normal abdominal exam, Abdomen soft, non-tender. Bowel sounds normal. No masses, organomegaly Extremities: No deformities, edema, skin discoloration, clubbing or cyanosis. Good capillary refill. ASSESSMENT/PLAN: 1. Primary hypertension - ICD9: 401.9, ICD10: I10 (primary diagnosis) - newly diagnosed - Recommend home blood pressure monitoring, to bring results in on next visit - Goal of BP <130/80 - TSH BLD - CBC + DIFF - BASIC METABOLIC PNL - LISINOPRIL 10 MG TABLET 2. Hypothyroidism, acquired - ICD9: 244.9, ICD10: E03.9 - double check labs. - TSH BLD - CBC + DIFF - BASIC METABOLIC PNL Eugenie Mei MD documented in this encounter [facility] 01-28-2022 Nurse Note Arrived in phase II via cart left lateral position, eyes open to verbal stimuli, denies pain or nausea, skin warm and dry, respirations regular and unlabored. Abdomen soft and non distended, denies pain or cramping, resting comfortably at this time. documented in this encounter [facility] 01-28-2022 History and physical note UPDATED PROCEDURAL SEDATION HISTORY AND PHYSICAL EXAMINATION SERVICE DATE: 01/28/2022 SERVICE TIME: 11:57 PHYSICAL EXAM MUST BE COMPLETED ON ADMISSION PROCEDURE: colonoscopy, possible biopsies Procedure Indications: history of colon polyps The History and Physical (completed in the past 30 days) has been reviewed and the patient has been examined. The contents accurately reflect the patient's condition with the following additions or revisions since the H&P was completed. ASA Class: ASA Class:: Patient with mild systemic disease Examination indicates no changes. AIRWAY: Airway Visualization of Uvula: Yes Mouth opening greater than 2 fingerbreadths: Yes Neck Full Range of Motion: Yes LUNGS: Lungs clear to auscultation CARDIAC: Regular rhythm,Regular rate Provisional Diagnosis/Treatment Plan: colonosocpy, possible biopsies SEDATION GOAL: Moderate This H&P can be found in the Electronic Medical Records SIGNATURE: Evangelina Garcia MD PATIENT NAME: Rogelio Nguyen DATE: January 28, 2022 TIME: 11:59 AM Source Note - Evangelina Garcia MD - 01/28/2022 12:00 PM EST HISTORY AND PHYSICAL Rogelio Nguyen 1965 REFERRING PHYSICIAN: Johanne Case APRN.C* CHIEF COMPLAINT: Consult (colonoscopy) HPI: The patient is a 56 year old male referred for endoscopy. Roeglio notes a long-term history of irregular bowel habits with some constipation. Patient denies any recent change in bowel habits, weight changes, blood in stools, black tarry stools or abdominal pain. Denies family history of colon issues. The patient notes no upper GI complaints. Rogelio has undergone prior endoscopy. Most recent colonoscopy 12/25/[address] Zamudio with removal of multiple sessile serrated polyps. Patient's past medical history is significant for carpal tunnel syndrome, shoulder pain, hernias. On review of recent PCP notes it was mentioned that patient had episode of chest pain in October 2021 while using a chain saw. Had EKG which showed normal sinus rhythm, and stress test was negative for ischemia. Per patient no episodes of chest pain since. Patient denies any shortness of breath or recent hospitalizations. Denies problems with sedation in the past. PAST MEDICAL HISTORY PAST MEDICAL HISTORY Diagnosis Date Carpal tunnel syndrome of right wrist 11/24/2010 Inguinal hernia without mention of obstruction or gangrene, unilateral or unspecified, (not specified as recurrent) right Right shoulder pain chronic Snoring Thoracic outlet syndrome Tinnitus of both ears Umbilical hernia without mention of obstruction or gangrene PAST SURGICAL HISTORY PAST SURGICAL HISTORY Procedure Laterality Date COLONOSCOPY FLX DX W/COLLJ SPEC WHEN PFRMD 12/25/2015 Colonoscopy LAPAROSCOPY SURG RPR INITIAL INGUINAL HERNIA 01/02/06 BILATERAL INGUINAL HERNIA NEUROPLASTY &/TRANSPOS MEDIAN NRV CARPAL TUNNE Carpal tunnel decomp, right 02-15- NEUROPLASTY &/TRANSPOS MEDIAN NRV CARPAL TUNNE Left 03/30/2018 Left carpal tunnel release RPR UMBILICAL HRNA 5 YRS/> REDUCIBLE 01/02/06 CURRENT MEDICATIONS Current Outpatient Medications Medication Sig ZINC ORAL Take by mouth once daily. levothyroxine (SYNTHROID) 75 mcg tablet Take 1 tablet by mouth once daily. Take on empty stomach. For Thyroid. ascorbic acid (VITAMIN C ORAL) Take by mouth once daily. MULTIVITAMIN TAB Take 1 tablet by mouth once daily. Current Facility-Administered Medications Medication Dose Route Frequency perflutren lipid microspheres 1.3 mL in NaCl (PF) 0.9% 10 mL injection (DEFINITY) INTRAVENOUS DIRECTED PRN sodium chloride 0.9 % (flush) 10 mL (BD POSIFLUSH) 10 mL INTRAVENOUS DIRECTED PRN ALLERGIES: Codeine and Sulfa (Sulfonamide Antibiotics) PERSONAL HISTORY: SOCIAL HISTORY Social History Tobacco Use Smoking status: Never Smokeless tobacco: Never Vaping Use Vaping Use: Never used Substance Use Topics Alcohol use: Yes Comment: 1 beer per month Drug use: No FAMILY HISTORY: FAMILY HISTORY FAMILY HISTORY Problem Relation Age of Onset Heart Father CT age 69 Thyroid Mother None Brother None Sister None Sister None Sister None Sister REVIEW OF SYMPTOMS: The review of systems data was entered by the nurse and reviewed by me Nursing Notes: Beth MeeksNICOLÁS 12/22/2021 8:25 AM Signed REVIEW OF SYSTEMS: General: The patient notes fatigue, denies weight loss, notes weight gain, denies feeling hot, and notes feelings of cold. Eyes: The patient denies glaucoma, denies eye injury/surgery, wears glasses or contacts. Ear/Nose/Throat: The patient notes allergies, denies hayfever, denies ear infections, and denies bloody noses. Cardiovascular: The patient denies chest pain, denies heart disease, denies high blood pressure,denies cardiac stent, denies prior heart attack, denies irregular heart beat, denies high cholesterol, denies poor circulation, denies heart failure, other cardiac issues, denies claudication, denies cold feet, denies peripheral arterial stent. Respiratory: The patient denies tuberculosis, denies pneumonia, denies frequent cough, denies pulmonary embolism, denies shortness of breath, and denies coughing up blood. Gastrointestinal: The patient denies difficulty swallowing, denies acid reflux, denies ulcers, denies vomiting, denies jaundice/hepatitis, denies gallbladder problems, denies black or tarry stools, denies hemorrhoids, denies bleeding from rectum, denies diverticulitis, denies constipation, denies diarrhea, denies loss of stool control, and notes hernias. Kidney/Bladder: The patient denies kidney stones, denies urine infections, and denies bloody urine. Skin: The patient denies a history of skin cancer, denies bleeding/changing moles, and denies a history of skin rash. Neurologic: The patient denies a history of epilepsy/convulsions, denies headaches, denies head/spinal injuries, and denies stroke/TIA. Psychiatric: The patient denies psychiatric medications, denies depression, and denies voices, denies substance abuse. Endocrine: The patient notes thyroid disorders, denies diabetes, and denies hormonal problems. Hematologic: The patient denies a history of bruising, denies bleeding, and denies anemia, denies blood clots. Infections: The patient denies a history of measles and mumps, denies rheumatic fever, and denies sexually transmitted diseases. Musculoskeletal: The patient denies back pain/injury, denies back problems, denies sciatica, denies knee/foot trouble, denies arthritis, or denies gout. When was patient's last Mammogram screening? N/A Last Colonoscopy: 2015 Beth Meeks LPN I have confirmed and edited as necessary, the PFSH and ROS obtained by others. Opal Elizondo PA-C PHYSICAL EXAMINATION: General: The patient is 56 year old male, well nourished, well hydrated in no acute distress. The patient is oriented to time, place, and person. VITALS: Blood pressure 110/80, pulse 66, temperature 36.6 C (97.9 F), height 175.3 cm (5' 9 ), weight 98 kg (216 lb), SpO2 96 %. Body mass index is 31.9 kg/m . HEENT: Normal cephalic, ataumatic, pupils are equally round, sclera are anicteric, mucous membranes are moist, oropharynx is clear. Neck has no masses, asymmetry or lymphadenopathy. Respiratory: Clear to auscultation and percussion. Normal respiratory excursion and pattern. Cardiac: Examination is regular rate and rhythm. Normal S1/S2 Abdominal exam: Soft, nontender, with no palpable masses. No hepatosplenomegaly. No palpable hernias. Extremities: no clubbing, cyanosis or edema. No adenopathy. LABORATORY VALUES: As Noted RADIOLOGIC STUDIES: As Noted Assessment IMPRESSION: encounter for surveillance colonoscopy, personal history of colon polyps PLAN: I have reviewed my findings with the surgeon. Will plan for lower endoscopy. We discussed the risks and benefits of the planned endoscopy. I have informed the patient that complications can occur including failure to complete the endoscopy and perforation. The patient had the opportunity to ask questions concerning the planned endoscopy. My staff has also explained the procedure to the patient in understandable terms and has given the patient printed material concerning the procedure. The patient freely consents to surgery. The patient was offered a surgery/procedure at a [facility]. I have counseled the patient regarding the risk of exposure to and/or potential harm posed by the COVID-19 virus with having a surgery/procedure at this time versus the risk of delaying the surgery/procedure. It is not possible to know either the risk of delaying the surgery or procedure or chance of getting an infection with perfect accuracy, but a joint decision was made between the patient and myself to proceed at this time with endoscopy. I plan to use Golytely bowel preparation Diagnoses: (Z86.010) History of colonic polyps (primary encounter diagnosis) (Z12.11) Screening for colon cancer Consultation requested by Johanne Case CNP for an opinion regarding screening colonoscopy . My final recommendations will be communicated back to the requesting physician by way of shared Medical record or letter to requesting physician via US mail. Opal Elizondo PA-C HISTORY AND PHYSICAL Rogelio Nguyen 1965 REFERRING PHYSICIAN: Johanne Case APRN.C* CHIEF COMPLAINT: Consult (colonoscopy) HPI: The patient is a 56 year old male referred for endoscopy. Rogelio notes a long-term history of irregular bowel habits with some constipation. Patient denies any recent change in bowel habits, weight changes, blood in stools, black tarry stools or abdominal pain. Denies family history of colon issues. The patient notes no upper GI complaints. Rogelio has undergone prior endoscopy. Most recent colonoscopy 12/25/[address] Zamudio with removal of multiple sessile serrated polyps. Patient's past medical history is significant for carpal tunnel syndrome, shoulder pain, hernias. On review of recent PCP notes it was mentioned that patient had episode of chest pain in October 2021 while using a chain saw. Had EKG which showed normal sinus rhythm, and stress test was negative for ischemia. Per patient no episodes of chest pain since. Patient denies any shortness of breath or recent hospitalizations. Denies problems with sedation in the past. PAST MEDICAL HISTORY PAST MEDICAL HISTORY Diagnosis Date Carpal tunnel syndrome of right wrist 11/24/2010 Inguinal hernia without mention of obstruction or gangrene, unilateral or unspecified, (not specified as recurrent) right Right shoulder pain chronic Snoring Thoracic outlet syndrome Tinnitus of both ears Umbilical hernia without mention of obstruction or gangrene PAST SURGICAL HISTORY PAST SURGICAL HISTORY Procedure Laterality Date COLONOSCOPY FLX DX W/COLLJ SPEC WHEN PFRMD 12/25/2015 Colonoscopy LAPAROSCOPY SURG RPR INITIAL INGUINAL HERNIA 01/02/06 BILATERAL INGUINAL HERNIA NEUROPLASTY &/TRANSPOS MEDIAN NRV CARPAL TUNNE Carpal tunnel decomp, right -20- NEUROPLASTY &/TRANSPOS MEDIAN NRV CARPAL TUNNE Left 03/30/2018 Left carpal tunnel release RPR UMBILICAL HRNA 5 YRS/> REDUCIBLE 01/02/06 CURRENT MEDICATIONS Current Outpatient Medications Medication Sig ZINC ORAL Take by mouth once daily. levothyroxine (SYNTHROID) 75 mcg tablet Take 1 tablet by mouth once daily. Take on empty stomach. For Thyroid. ascorbic acid (VITAMIN C ORAL) Take by mouth once daily. MULTIVITAMIN TAB Take 1 tablet by mouth once daily. Current Facility-Administered Medications Medication Dose Route Frequency perflutren lipid microspheres 1.3 mL in NaCl (PF) 0.9% 10 mL injection (DEFINITY) INTRAVENOUS DIRECTED PRN sodium chloride 0.9 % (flush) 10 mL (BD POSIFLUSH) 10 mL INTRAVENOUS DIRECTED PRN ALLERGIES: Codeine and Sulfa (Sulfonamide Antibiotics) PERSONAL HISTORY: SOCIAL HISTORY Social History Tobacco Use Smoking status: Never Smokeless tobacco: Never Vaping Use Vaping Use: Never used Substance Use Topics Alcohol use: Yes Comment: 1 beer per month Drug use: No FAMILY HISTORY: FAMILY HISTORY FAMILY HISTORY Problem Relation Age of Onset Heart Father CT age 69 Thyroid Mother None Brother None Sister None Sister None Sister None Sister REVIEW OF SYMPTOMS: The review of systems data was entered by the nurse and reviewed by md Nursing Notes: Beth Meeks LPN 12/22/2021 8:25 AM Signed REVIEW OF SYSTEMS: General: The patient notes fatigue, denies weight loss, notes weight gain, denies feeling hot, and notes feelings of cold. Eyes: The patient denies glaucoma, denies eye injury/surgery, wears glasses or contacts. Ear/Nose/Throat: The patient notes allergies, denies hayfever, denies ear infections, and denies bloody noses. Cardiovascular: The patient denies chest pain, denies heart disease, denies high blood pressure,denies cardiac stent, denies prior heart attack, denies irregular heart beat, denies high cholesterol, denies poor circulation, denies heart failure, other cardiac issues, denies claudication, denies cold feet, denies peripheral arterial stent. Respiratory: The patient denies tuberculosis, denies pneumonia, denies frequent cough, denies pulmonary embolism, denies shortness of breath, and denies coughing up blood. Gastrointestinal: The patient denies difficulty swallowing, denies acid reflux, denies ulcers, denies vomiting, denies jaundice/hepatitis, denies gallbladder problems, denies black or tarry stools, denies hemorrhoids, denies bleeding from rectum, denies diverticulitis, denies constipation, denies diarrhea, denies loss of stool control, and notes hernias. Kidney/Bladder: The patient denies kidney stones, denies urine infections, and denies bloody urine. Skin: The patient denies a history of skin cancer, denies bleeding/changing moles, and denies a history of skin rash. Neurologic: The patient denies a history of epilepsy/convulsions, denies headaches, denies head/spinal injuries, and denies stroke/TIA. Psychiatric: The patient denies psychiatric medications, denies depression, and denies voices, denies substance abuse. Endocrine: The patient notes thyroid disorders, denies diabetes, and denies hormonal problems. Hematologic: The patient denies a history of bruising, denies bleeding, and denies anemia, denies blood clots. Infections: The patient denies a history of measles and mumps, denies rheumatic fever, and denies sexually transmitted diseases. Musculoskeletal: The patient denies back pain/injury, denies back problems, denies sciatica, denies knee/foot trouble, denies arthritis, or denies gout. When was patient's last Mammogram screening? N/A Last Colonoscopy: 2016 Beth Meeks LPN I have confirmed and edited as necessary, the PFSH and ROS obtained by others. Opal Elizondo PA-C PHYSICAL EXAMINATION: General: The patient is 56 year old male, well nourished, well hydrated in no acute distress. The patient is oriented to time, place, and person. VITALS: Blood pressure 110/80, pulse 66, temperature 36.6 C (97.9 F), height 175.3 cm (5' 9 ), weight 98 kg (216 lb), SpO2 96 %. Body mass index is 31.9 kg/m . HEENT: Normal cephalic, ataumatic, pupils are equally round, sclera are anicteric, mucous membranes are moist, oropharynx is clear. Neck has no masses, asymmetry or lymphadenopathy. Respiratory: Clear to auscultation and percussion. Normal respiratory excursion and pattern. Cardiac: Examination is regular rate and rhythm. Normal S1/S2 Abdominal exam: Soft, nontender, with no palpable masses. No hepatosplenomegaly. No palpable hernias. Extremities: no clubbing, cyanosis or edema. No adenopathy. LABORATORY VALUES: As Noted RADIOLOGIC STUDIES: As Noted Assessment IMPRESSION: encounter for surveillance colonoscopy, personal history of colon polyps PLAN: I have reviewed my findings with the surgeon. Will plan for lower endoscopy. We discussed the risks and benefits of the planned endoscopy. I have informed the patient that complications can occur including failure to complete the endoscopy and perforation. The patient had the opportunity to ask questions concerning the planned endoscopy. My staff has also explained the procedure to the patient in understandable terms and has given the patient printed material concerning the procedure. The patient freely consents to surgery. The patient was offered a surgery/procedure at a [facility] facility. I have counseled the patient regarding the risk of exposure to and/or potential harm posed by the COVID-19 virus with having a surgery/procedure at this time versus the risk of delaying the surgery/procedure. It is not possible to know either the risk of delaying the surgery or procedure or chance of getting an infection with perfect accuracy, but a joint decision was made between the patient and myself to proceed at this time with endoscopy. I plan to use Golytely bowel preparation Diagnoses: (Z86.010) History of colonic polyps (primary encounter diagnosis) (Z12.11) Screening for colon cancer Consultation requested by Johanne Case CNP for an opinion regarding screening colonoscopy . My final recommendations will be communicated back to the requesting physician by way of shared Medical record or letter to requesting physician via US mail. Opal Elizondo PA-C documented in this encounter [facility] 12-22-2021 History of Presen t illness Narrative HISTORY AND PHYSICAL Rogelio Nguyen 1965 REFERRING PHYSICIAN: Johanne Case APRN.C* CHIEF COMPLAINT: Consult (colonoscopy) HPI: The patient is a 56 year old male referred for endoscopy. Rogelio notes a long-term history of irregular bowel habits with some constipation. Patient denies any recent change in bowel habits, weight changes, blood in stools, black tarry stools or abdominal pain. Denies family history of colon issues. The patient notes no upper GI complaints. Rogelio has undergone prior endoscopy. Most recent colonoscopy 12/25/[address] Zamudio with removal of multiple sessile serrated polyps. Patient's past medical history is significant for carpal tunnel syndrome, shoulder pain, hernias. On review of recent PCP notes it was mentioned that patient had episode of chest pain in October 2021 while using a chain saw. Had EKG which showed normal sinus rhythm, and stress test was negative for ischemia. Per patient no episodes of chest pain since. Patient denies any shortness of breath or recent hospitalizations. Denies problems with sedation in the past. PAST MEDICAL HISTORY Diagnosis Date Carpal tunnel syndrome of right wrist 11/24/2010 Inguinal hernia without mention of obstruction or gangrene, unilateral or unspecified, (not specified as recurrent) right Right shoulder pain chronic Snoring Thoracic outlet syndrome Tinnitus of both ears Umbilical hernia without mention of obstruction or gangrene PAST SURGICAL HISTORY Procedure Laterality Date COLONOSCOPY FLX DX W/COLLJ SPEC WHEN PFRMD 12/25/2015 Colonoscopy LAPAROSCOPY SURG RPR INITIAL INGUINAL HERNIA 01/02/06 BILATERAL INGUINAL HERNIA NEUROPLASTY &/TRANSPOS MEDIAN NRV CARPAL TUNNE Carpal tunnel decomp, right 02-15-11 NEUROPLASTY &/TRANSPOS MEDIAN NRV CARPAL TUNNE Left 03/30/2018 Left carpal tunnel release RPR UMBILICAL HRNA 5 YRS/> REDUCIBLE 01/02/06 Current Outpatient Medications Medication Sig ZINC ORAL Take by mouth once daily. levothyroxine (SYNTHROID) 75 mcg tablet Take 1 tablet by mouth once daily. Take on empty stomach. For Thyroid. ascorbic acid (VITAMIN C ORAL) Take by mouth once daily. MULTIVITAMIN TAB Take 1 tablet by mouth once daily. Current Facility-Administered Medications Medication Dose Route Frequency perflutren lipid microspheres 1.3 mL in NaCl (PF) 0.9% 10 mL injection (DEFINITY) INTRAVENOUS DIRECTED PRN sodium chloride 0.9 % (flush) 10 mL (BD POSIFLUSH) 10 mL INTRAVENOUS DIRECTED PRN ALLERGIES: Codeine and Sulfa (Sulfonamide Antibiotics) PERSONAL HISTORY: Social History Tobacco Use Smoking status: Never Smokeless tobacco: Never Vaping Use Vaping Use: Never used Substance Use Topics Alcohol use: Yes Comment: 1 beer per month Drug use: No FAMILY HISTORY: FAMILY HISTORY Problem Relation Age of Onset Heart Father CT age 69 Thyroid Mother None Brother None Sister None Sister None Sister None Sister REVIEW OF SYMPTOMS: The review of systems data was entered by the nurse and reviewed by md Nursing Notes: Beth Meeks LPN 12/22/2021 8:25 AM Signed REVIEW OF SYSTEMS: General: The patient notes fatigue, denies weight loss, notes weight gain, denies feeling hot, and notes feelings of cold. Eyes: The patient denies glaucoma, denies eye injury/surgery, wears glasses or contacts. Ear/Nose/Throat: The patient notes allergies, denies hayfever, denies ear infections, and denies bloody noses. Cardiovascular: The patient denies chest pain, denies heart disease, denies high blood pressure,denies cardiac stent, denies prior heart attack, denies irregular heart beat, denies high cholesterol, denies poor circulation, denies heart failure, other cardiac issues, denies claudication, denies cold feet, denies peripheral arterial stent. Respiratory: The patient denies tuberculosis, denies pneumonia, denies frequent cough, denies pulmonary embolism, denies shortness of breath, and denies coughing up blood. Gastrointestinal: The patient denies difficulty swallowing, denies acid reflux, denies ulcers, denies vomiting, denies jaundice/hepatitis, denies gallbladder problems, denies black or tarry stools, denies hemorrhoids, denies bleeding from rectum, denies diverticulitis, denies constipation, denies diarrhea, denies loss of stool control, and notes hernias. Kidney/Bladder: The patient denies kidney stones, denies urine infections, and denies bloody urine. Skin: The patient denies a history of skin cancer, denies bleeding/changing moles, and denies a history of skin rash. Neurologic: The patient denies a history of epilepsy/convulsions, denies headaches, denies head/spinal injuries, and denies stroke/TIA. Psychiatric: The patient denies psychiatric medications, denies depression, and denies voices, denies substance abuse. Endocrine: The patient notes thyroid disorders, denies diabetes, and denies hormonal problems. Hematologic: The patient denies a history of bruising, denies bleeding, and denies anemia, denies blood clots. Infections: The patient denies a history of measles and mumps, denies rheumatic fever, and denies sexually transmitted diseases. Musculoskeletal: The patient denies back pain/injury, denies back problems, denies sciatica, denies knee/foot trouble, denies arthritis, or denies gout. When was patient's last Mammogram screening? N/A Last Colonoscopy: 2015 Beth Meeks LPN I have confirmed and edited as necessary, the PFSH and ROS obtained by others. Opal Elizondo PA-C PHYSICAL EXAMINATION: General: The patient is 56 year old male, well nourished, well hydrated in no acute distress. The patient is oriented to time, place, and person. VITALS: Blood pressure 110/80, pulse 66, temperature 36.6 C (97.9 F), height 175.3 cm (5' 9 ), weight 98 kg (216 lb), SpO2 96 %. Body mass index is 31.9 kg/m . HEENT: Normal cephalic, ataumatic, pupils are equally round, sclera are anicteric, mucous membranes are moist, oropharynx is clear. Neck has no masses, asymmetry or lymphadenopathy. Respiratory: Clear to auscultation and percussion. Normal respiratory excursion and pattern. Cardiac: Examination is regular rate and rhythm. Normal S1/S2 Abdominal exam: Soft, nontender, with no palpable masses. No hepatosplenomegaly. No palpable hernias. Extremities: no clubbing, cyanosis or edema. No adenopathy. LABORATORY VALUES: As Noted RADIOLOGIC STUDIES: As Noted Assessment IMPRESSION: encounter for surveillance colonoscopy, personal history of colon polyps PLAN: I have reviewed my findings with the surgeon. Will plan for lower endoscopy. We discussed the risks and benefits of the planned endoscopy. I have informed the patient that complications can occur including failure to complete the endoscopy and perforation. The patient had the opportunity to ask questions concerning the planned endoscopy. My staff has also explained the procedure to the patient in understandable terms and has given the patient printed material concerning the procedure. The patient freely consents to surgery. The patient was offered a surgery/procedure at a [facility] facility. I have counseled the patient regarding the risk of exposure to and/or potential harm posed by the COVID-19 virus with having a surgery/procedure at this time versus the risk of delaying the surgery/procedure. It is not possible to know either the risk of delaying the surgery or procedure or chance of getting an infection with perfect accuracy, but a joint decision was made between the patient and myself to proceed at this time with endoscopy. I plan to use Golytely bowel preparation Diagnoses: (Z86.010) History of colonic polyps (primary encounter diagnosis) (Z12.11) Screening for colon cancer Consultation requested by Johanne Case CNP for an opinion regarding screening colonoscopy . My final recommendations will be communicated back to the requesting physician by way of shared Medical record or letter to requesting physician via [place] mail. Opal Elizondo PA-C documented in this encounter [facility] 12-22-2021 Nurse Note REVIEW OF SYSTEMS: General: The patient notes fatigue, denies weight loss, notes weight gain, denies feeling hot, and notes feelings of cold. Eyes: The patient denies glaucoma, denies eye injury/surgery, wears glasses or contacts. Ear/Nose/Throat: The patient notes allergies, denies hayfever, denies ear infections, and denies bloody noses. Cardiovascular: The patient denies chest pain, denies heart disease, denies high blood pressure,denies cardiac stent, denies prior heart attack, denies irregular heart beat, denies high cholesterol, denies poor circulation, denies heart failure, other cardiac issues, denies claudication, denies cold feet, denies peripheral arterial stent. Respiratory: The patient denies tuberculosis, denies pneumonia, denies frequent cough, denies pulmonary embolism, denies shortness of breath, and denies coughing up blood. Gastrointestinal: The patient denies difficulty swallowing, denies acid reflux, denies ulcers, denies vomiting, denies jaundice/hepatitis, denies gallbladder problems, denies black or tarry stools, denies hemorrhoids, denies bleeding from rectum, denies diverticulitis, denies constipation, denies diarrhea, denies loss of stool control, and notes hernias. Kidney/Bladder: The patient denies kidney stones, denies urine infections, and denies bloody urine. Skin: The patient denies a history of skin cancer, denies bleeding/changing moles, and denies a history of skin rash. Neurologic: The patient denies a history of epilepsy/convulsions, denies headaches, denies head/spinal injuries, and denies stroke/TIA. Psychiatric: The patient denies psychiatric medications, denies depression, and denies voices, denies substance abuse. Endocrine: The patient notes thyroid disorders, denies diabetes, and denies hormonal problems. Hematologic: The patient denies a history of bruising, denies bleeding, and denies anemia, denies blood clots. Infections: The patient denies a history of measles and mumps, denies rheumatic fever, and denies sexually transmitted diseases. Musculoskeletal: The patient denies back pain/injury, denies back problems, denies sciatica, denies knee/foot trouble, denies arthritis, or denies gout. When was patient's last Mammogram screening? N/A Last Colonoscopy: 2015 Beth Meeks LPN documented in this encounter [facility] 12-21-2021 Miscellaneous Notes Letter mailed to pt home of results. Ade Gallo MA Can please let patient know that I received his lab results. Everything looks okay. His thyroid antibody level did come back elevated, so likely his underactive thyroid is related to an autoimmune process. However, his current level is therapeutic -- so continue the same dose of medication. Other labs looked okay. Johanne Case APRN.MICHAEL documented in this encounter [facility] 12-13-2021 Instructions Johanne Case APRN.FOOD AND NUTRITION SERVICES SUPERVISOR - 12/13/2021 5:49 PM EDT Get labwork. Schedule with sleep medicine. Schedule with general surgery for colonoscopy. Let me know if stomach symptoms continue. Follow-up w/ rheum, as scheduled. documented in this encounter [facility] 12-13-2021 History of Presen t illness Narrative This is a 56 year old male who presents today with: Patient presents with: Recheck: 1 month follow up HISTORY OF PRESENT ILLNESS: Rogelio Nguyen is a 56 year old male. Patient presents with: Recheck: 1 month follow up Pt states he is always tired. Pt refers to 5-6 hours of sleep nightly with CPAP. Has been using cpap for the last year after a home sleep study. He reports that sometimes the machine will wake him overnight because of the force of the air. Pt c/o rotten egg burps starting this morning. Denies nausea, vomiting or diarrhea Did eat out a couple of times over the weekend. Reports this is similar to when he had had a stomach virus in the past. No further episodes of CP. He passed recent stress testing. + myalgias. Had elevated AUGUST recently. Has appt scheduled w/ rheumatology. Due for 5 year colonoscopy. PAST MEDICAL HISTORY: PAST MEDICAL HISTORY Diagnosis Date Carpal tunnel syndrome of right wrist 11/24/2010 Inguinal hernia without mention of obstruction or gangrene, unilateral or unspecified, (not specified as recurrent) right Right shoulder pain chronic Snoring Thoracic outlet syndrome Tinnitus of both ears Umbilical hernia without mention of obstruction or gangrene PAST SURGICAL HISTORY Procedure Laterality Date COLONOSCOPY FLX DX W/COLLJ SPEC WHEN PFRMD 12/25/2015 Colonoscopy LAPAROSCOPY SURG RPR INITIAL INGUINAL HERNIA 01/02/06 BILATERAL INGUINAL HERNIA NEUROPLASTY &/TRANSPOS MEDIAN NRV CARPAL TUNNE Carpal tunnel decomp, right 02-15-11 NEUROPLASTY &/TRANSPOS MEDIAN NRV CARPAL TUNNE Left 03/30/2018 Left carpal tunnel release RPR UMBILICAL HRNA 5 YRS/> REDUCIBLE 01/02/06 ALLERGIES Codeine and Sulfa (Sulfonamide Antibiotics) MEDICATIONS Current Outpatient Medications Medication Sig levothyroxine (SYNTHROID) 75 mcg tablet Take 1 tablet by mouth once daily. Take on empty stomach. For Thyroid. ascorbic acid (VITAMIN C ORAL) Take by mouth. MULTIVITAMIN TAB Take one(1) tablet daily. Current Facility-Administered Medications Medication Dose Route Frequency perflutren lipid microspheres 1.3 mL in NaCl (PF) 0.9% 10 mL injection (DEFINITY) INTRAVENOUS DIRECTED PRN sodium chloride 0.9 % (flush) 10 mL (BD POSIFLUSH) 10 mL INTRAVENOUS DIRECTED PRN FAMILY HISTORY Problem Relation Age of Onset Heart Father CT age 69 Thyroid Mother None Brother None Sister None Sister None Sister None Sister Social History Tobacco Use Smoking status: Never Smokeless tobacco: Never Vaping Use Vaping Use: Never used Substance Use Topics Alcohol use: Yes Comment: 1 beer per month Drug use: No EXAM: BP 128/88 Pulse 61 Resp 18 SpO2 95% PHYSICAL EXAM: General Appearance: Well appearing, alert, in no acute distress, well-hydrated, well nourished.. Skin: Skin color, texture, turgor normal, no suspicious rashes or lesions. Head: Normocephalic, no masses, lesions, tenderness or abnormalities. Eyes: Anicteric sclera. Pupils are equally round and reactive to light. Extraocular movements are intact. . Lungs: Lungs clear to auscultation. No wheezing, rhonchi, rales.. Heart: RRR without murmur, gallop, or rubs. No ectopy. Neurologic: Gait normal. R ASSESSMENT/PLAN: 1. Fatigue, unspecified type - ICD9: 780.79, ICD10: R53.83 (primary diagnosis) - CONSULT TO SLEEP MEDICINE - ADULT - IRON + TIBC - FERRITIN BLD - VITAMIN B12 BLOOD Get labwork. Refer to sleep med for eval. Has not had follow-up since starting cpap. 2. Screening for colon cancer - ICD9: V76.51, ICD10: Z12.11 - CONSULT TO GENERAL SURGERY 3. Hypothyroidism, acquired - ICD9: 244.9, ICD10: E03.9 Get labs. 4. Chest pain, unspecified type - ICD9: 786.50, ICD10: R07.9 Passed stress test. No further episodes. 5. Positive AUGUST (antinuclear antibody) - ICD9: 795.79, ICD10: R76.8 Follow-up with rheum, as planned. 6. Belching - ICD9: 787.3, ICD10: R14.2 Started today. May be related to virus or quality of food intake. Let us know if continues. Discussed treatment plan and patient voices understanding. Patient's questions answered appropriately. Medications and potential side effects were discussed and patient voices understanding. Return to the office as scheduled or as needed for worsening/no improvement. Johanne Case APRN.CNP The patient indicates understanding of these issues and agrees with the plan. documented in this encounter [facility] 12-07-2021 Miscellaneous Notes TC to pt, notified of results/provider response. He verbalized understanding. Candelario Frances LPN Can please let patient know that his stress test was okay. Please let us know if he has any further/recurrence of symptoms. Johanne Case APRN.CNP documented in this encounter [facility] 11-30-2021 Miscellaneous Notes Patient returned call. Given instructions and verbalized understanding. Call to pt to review below instructions. No answer, voicemail box full and could not leave a message. You are scheduled for a stress test on 12/06/21. Please follow below instructions: *NOTHING BY MOUTH 4 HOURS prior to this test. (you may have sips of water) *NO CAFFEINE FOR 24 HOURS PRIOR TO TESTING (including TEA even decaf, COFFEE- even decaf, CHOCOLATE, YAZ- even decaf) *Do NOT take MEDICATIONS CONTAINING CAFFEINE/XANTHINE for 24 HOURS prior to testing: Theophylline, Trental, Excedrin, Anacin, Goody Powders, No Doz, Vivarin, Midol, Diurex, Fiorinal, Fioricet, Esgic (butalbital) *Do NOT take Calcium Channel Blockers 24 HOURS prior to test: *Do NOT take Beta blockers 24 HOURS prior to test UNLESS your doctor tells you otherwise: Bisoprolol (Zebeta, ZIAC), Metoprolol (Lopressor, Toprol, Lopressor HCT), Nadolol ( Corgard, Corizide), Nebivolol (Bystolic), Pindolol (Visken), Propranolol (Inderal, Inderide), Carvedilol (Coreg, Coreg CR), Labetalol (Trandate) Atenolol (Tenormin, Tenoretic) Acebutolol (Sectral). Medications on your list you should hold for 24 HOURS: NA *Do NOT use the following medications 48 HOURS prior to this test: Viagra(Sildenafil citrate), Cialis(Tadalafil), Vardenafil (Levitra, Stanyx), Avanfil (Stendra). *Do not take any of these meds prior to test unless provider directs you otherwise; Nitroglycerine (ex:Deponit, Nitrostat) Isosorbide (ex:Isordil, Sorbitrate,Imdur,Ismo). *All other medications may be taken as you normally would. *Guidelines for Diabetics: If you take insulin to control your blood sugar, ask you physician what amount you should take the day of the test. If you take pills to control blood sugar, on the day of the test, do NOT take them until AFTER the test. *FAILURE TO FOLLOW THESE INSTRUCTIONS WILL RESULT IN HAVING TO RESCHEDULE THE TEST. *Please wear comfortable clothes with a short-sleeved shirt and comfortable walking shoes. *If you use an inhaler, bring it along with you just in case Please check in on the first floor at Radiology: [address]; [place] [address] * If you need to cancel or reschedule this test or have any questions regarding this test, please call [phone]. documented in this encounter [facility] 11-03-2021 Instructions Johanne Case APRN.MICHAEL - 11/03/2021 3:50 PM EDT Schedule stress test. Get labwork. (After rheum appt) Once we get normal stress test, okay to move forward with colonoscopy. Schedule w/ dermatology. Recheck after stress test. documented in this encounter [facility] 11-03-2021 History of Presen t illness Narrative This is a 55 year old male who presents today with: Patient presents with: Establish Care: Transfer Care from Dung Shafer HISTORY OF PRESENT ILLNESS: Rogelio Nguyen is a 55 year old male. Patient presents with: Establish Care: Transfer Care from Dung Shafer Pt presents today to establish care. However, patient reports concern over episode of SOB and left chest discomfort that occurred on Monday. He was cutting wood on Monday. Using a chain saw. [place] like couldn't catch breath. Refers that as the day went on it improved. Refers that he was getting a discomfort in the left chest and radiating to the left chest wall. Refers episodes of this discomfort is not necessarily new. He had a hx of a clean cardiac cath in 2012. No palpitations. No diaphoresis. He is a non-smoker. He does have a strong family hx of CAD on his father's side. REVIEW OF SYSTEMS GENERAL: No weight loss, malaise or fevers/chills HEENT: Negative for frequent or significant headaches, No changes in hearing or vision. NECK: Negative for lumps, goiter, pain and significant neck swelling RESPIRATORY: Negative for cough, hemoptysis, wheezing, dyspnea or shortness of breath CARDIOVASCULAR: see above. GI: No nausea, vomiting, or diarrhea. Maybe a little constipation. No hematochezia/melena. No heartburn or reflux symptoms. Last colonoscopy 2020 and recommended 5 year surveillance. : No history of dysuria, frequency or incontinence MUSCULOSKELETAL: Negative for joint pain or swelling. SKIN: reports a couple of lesions on the posterior scalp. Not painful and doesn't think they changed, but does become irritated. Also with a mole on the right scalp. ENDOCRINE: Negative for cold or heat intolerance, polyuria, polydipsia and goiter NEURO: No history of headaches, syncope, paralysis, seizures or tremors + AUGUST Has an appt scheduled w/ rheum next month. PAST MEDICAL HISTORY: PAST MEDICAL HISTORY Diagnosis Date Carpal tunnel syndrome of right wrist 11/24/2010 Inguinal hernia without mention of obstruction or gangrene, unilateral or unspecified, (not specified as recurrent) right Right shoulder pain chronic Snoring Thoracic outlet syndrome Tinnitus of both ears Umbilical hernia without mention of obstruction or gangrene PAST SURGICAL HISTORY Procedure Laterality Date COLONOSCOPY FLX DX W/COLLJ SPEC WHEN PFRMD 12/25/2015 Colonoscopy LAPAROSCOPY SURG RPR INITIAL INGUINAL HERNIA 01/02/06 BILATERAL INGUINAL HERNIA NEUROPLASTY &/TRANSPOS MEDIAN NRV CARPAL TUNNE Carpal tunnel decomp, right 02-15-11 NEUROPLASTY &/TRANSPOS MEDIAN NRV CARPAL TUNNE Left 03/30/2018 Left carpal tunnel release RPR UMBILICAL HRNA 5 YRS/> REDUCIBLE 01/02/06 ALLERGIES Codeine and Sulfa (Sulfonamide Antibiotics) MEDICATIONS Current Outpatient Medications Medication Sig levothyroxine (SYNTHROID) 75 mcg tablet Take 1 tablet by mouth once daily. Take on empty stomach. For Thyroid. ascorbic acid (VITAMIN C ORAL) Take by mouth. Lactobacillus acidophilus (PROBIOTIC ORAL) Take by mouth once daily. MULTIVITAMIN TAB Take one(1) tablet daily. No current facility-administered medications for this visit. FAMILY HISTORY Problem Relation Age of Onset Heart Father CT age 69 Thyroid Mother None Brother None Sister None Sister None Sister None Sister Social History Tobacco Use Smoking status: Never Smokeless tobacco: Never Vaping Use Vaping Use: Never used Substance Use Topics Alcohol use: Yes Comment: 1 beer per month Drug use: No EXAM: BP 128/90 Pulse 64 Resp 18 Ht 177 cm (5' 9.69 ) Wt 98.9 kg (218 lb) SpO2 95% BMI 31.56 kg/m PHYSICAL EXAM: General Appearance: Well appearing, alert, in no acute distress, well-hydrated, well nourished.. Skin: Skin color, texture, turgor normal. Two grayish lesions on the posterior scalp just above hairline. Papular in nature. + hair growth in the lesion. Also with papular lesion w/ pinpoint black center noted on the right scalp. Head: Normocephalic, no masses, lesions, tenderness or abnormalities. Eyes: Anicteric sclera. Pupils are equally round and reactive to light. Extraocular movements are intact. Ears: External ears normal, canals clear, Normal TMs bilaterally. Oropharynx: Lips, mucosa, and tongue normal, teeth and gums normal, oropharynx normal. Neck: Supple, no adenopathy; thyroid symmetric, normal size, no bruits. Lungs: Lungs clear to auscultation. No wheezing, rhonchi, rales.. Heart: RRR without murmur, gallop, or rubs. No ectopy. Abdomen: Abdomen soft, non-tender. Bowel sounds normal. No masses, organomegaly. Extremities: No deformities, edema, skin discoloration, clubbing or cyanosis. Good capillary refill. . Neurologic: Gait normal. ASSESSMENT/PLAN: 1. Chest pain, unspecified type - ICD9: 786.50, ICD10: R07.9 (primary diagnosis) Chest pain of unclear etiology, patient with significant risk factor(s) of family history of early coronary heart disease and Hyperlipidemia - Electrocardiogram: SR without ectopy or ST changes. - Stress testing- see orders - ECG COMPLETE - STRESS ECHO TREADMILL - PERFLUTREN LIPID MICROSPHERES 1.1 MG/ML INJECTION IN NS 10 ML - SODIUM CHLORIDE 0.9 % (FLUSH) INJECTION SYRINGE 2. Screening for colon cancer - ICD9: V76.51, ICD10: Z12.11 - CONSULT TO GENERAL SURGERY 3. Hypothyroidism, acquired - ICD9: 244.9, ICD10: E03.9 - TSH BLD - T4 FREE/FREE THYROX - THYROID PEROXIDASE ANTIBODY BLOOD 4. Positive AUGUST (antinuclear antibody) - ICD9: 795.79, ICD10: R76.8 - THYROID PEROXIDASE ANTIBODY BLOOD 5. Elevated glucose - ICD9: 790.29, ICD10: R73.09 - COMP METABOLIC PANEL - HGB A1C 6. Skin lesion - ICD9: 709.9, ICD10: L98.9 - CONSULT TO DERMATOLOGY Discussed treatment plan and patient voices understanding. Patient's questions answered appropriately. Medications and potential side effects were discussed and patient voices understanding. Return to the office as scheduled or as needed for worsening/no improvement. Johanne Case APRN.FOOD AND NUTRITION SERVICES SUPERVISOR The patient indicates understanding of these issues and agrees with the plan. documented in this encounter [facility] 07-20-2021 Miscellaneous Notes The following approved medication requests have been transmitted electronically. Pending Prescriptions Disp Refills LEVOTHYROXINE 75 MCG TABLET 90 tablet 3 Sig: Take 1 tablet by mouth once daily. Take on empty stomach. For Thyroid. CHERYLE: No Basilio Shafer APRN.CNP, DNP Last office visit: 05/07/21 F/u scheduled: none Last TSH 05/01/21 result 2.250 Ade Gallo Ma documented in this encounter [facility] 07-07-2021 Miscellaneous Notes Pt called and is notified of providers results and instructions. Pt voices understanding. Pt was sent through to scheduling to set up appointment with Rheumatology. Opal Johnson RN Team - Inform patient his AUGUST is positive. Lyme titer was negative. Anti-nuclear antibody test is used as an aid in diagnosis of systemic autoimmune diseases. Where positive and clinically warranted, follow-up using disease-specific testing is recommended. I recommend a consult with Rheumatology to further discuss the results. Orders signed Orders Placed This Encounter CONSULT TO RHEUM/IMMUN DISEASE Order Comments: 55y/o male with bilat UE pain. Worse in the hands. Anti-nuclear antibody test was +. 1:320. Please eval and treat. Standing Status: Future Standing Expiration Date: 07/06/2022 Order Specific Question: Does consulting provider have [facility] Epic access? Answer: Yes Basilio Shafer DNP, CNP [facility] documented in this encounter [facility] documented as of this encounter (statuses as of 07/07/2021) [facility] History of Past illness Narrative* Problem Noted Date Resolved Date Colon cancer screening 12/25/2015 6 documented as of this encounter (statuses as of 07/20/2021) [facility] History of Past illness Narrative* Problem Noted Date Resolved Date Colon cancer screening 12/25/2015 6 documented as of this encounter (statuses as of 11/03/2021) [facility] History of Past illness Narrative* Problem Noted Date Resolved Date Colon cancer screening 12/25/2015 6 documented as of this encounter (statuses as of 11/30/2021) [facility] History of Past illness Narrative* Problem Noted Date Resolved Date Colon cancer screening 12/25/2015 6 documented as of this encounter (statuses as of 12/07/2021) [facility] History of Past illness Narrative* Problem Noted Date Resolved Date Colon cancer screening 12/25/2015 6 documented as of this encounter (statuses as of 12/13/2021) [facility] History of Past illness Narrative* Problem Noted Date Resolved Date Colon cancer screening 12/25/2015 6 documented as of this encounter (statuses as of 12/21/2021) [facility] History of Past illness Narrative* Problem Noted Date Resolved Date Colon cancer screening 12/25/2015 6 documented as of this encounter (statuses as of 12/22/2021) [facility] History of Past illness Narrative* Problem Noted Date Resolved Date Colon cancer screening 12/25/2015 6 documented as of this encounter (statuses as of 03/10/2022) [facility] History of Past illness Narrative* Problem Noted Date Resolved Date Colon cancer screening 12/25/2015 6 documented as of this encounter (statuses as of 03/29/2022) [facility] History of Past illness Narrative* Problem Noted Date Resolved Date Colon cancer screening 12/25/2015 6 documented as of this encounter (statuses as of 04/26/2022) [facility] History of Past illness Narrative* Problem Noted Date Resolved Date Colon cancer screening 12/25/2015 6 documented as of this encounter (statuses as of 07/28/2022) [address]28-2016 History of Past illness Narrative* Problem Noted Date Resolved Date Colon cancer screening 12/25/2015 6 documented as of this encounter (statuses as of 08/02/2022) [facility] History of Past illness Narrative* Problem Noted Date Diagnosed Date Resolved Date Colon cancer screening 12/25/201512/24 documented as of this encounter (statuses as of 10/25/2022) [facility] History of Past illness Narrative* Problem Noted Date Diagnosed Date Resolved Date Colon cancer screening 12/25/201512/24 documented as of this encounter (statuses as of 01/01/2023) [facility] History of Past illness Narrative* Problem Noted Date Diagnosed Date Resolved Date Colon cancer screening 12/25/201512/24 documented as of this encounter (statuses as of 01/10/2023) [facility] Diagnosis Positive AUGUST (antinuclear antibody)- Primary Other and unspecified nonspecific immunological findings Bilateral hand pain Pain in limb [facility] Diagnosis Hypothyroidism, acquired Unspecified hypothyroidism [facility] Diagnosis Chest pain, unspecified type- Primary Screening for colon cancer Special screening for malignant neoplasms, colon Hypothyroidism, acquired Unspecified hypothyroidism Positive AUGUST (antinuclear antibody) Other and unspecified nonspecific immunological findings Elevated glucose Other abnormal glucose Skin lesion Unspecified disorder of skin and subcutaneous tissue [facility] Diagnosis Fatigue, unspecified type- Primary Screening for colon cancer Special screening for malignant neoplasms, colon Hypothyroidism, acquired Unspecified hypothyroidism Chest pain, unspecified type Positive AUGUST (antinuclear antibody) Other and unspecified nonspecific immunological findings Belching Flatulence, eructation, and gas pain [facility] Diagnosis History of colonic polyps- Primary Personal history of colonic polyps Screening for colon cancer Special screening for malignant neoplasms, colon [facility] Diagnosis Primary hypertension- Primary Unspecified essential hypertension Hypothyroidism, acquired Unspecified hypothyroidism [facility] Diagnosis Primary hypertension- Primary Unspecified essential hypertension Elevated liver enzymes Other nonspecific abnormal serum enzyme levels documented in this encounter [facility] note* Diagnosis Primary hypertension- Primary Unspecified essential hypertension Hyperlipidemia with target LDL less than 130 Other and unspecified hyperlipidemia Fatty liver Other chronic nonalcoholic liver disease documented in this encounter [facility] note* Diagnosis Hypothyroidism, acquired Unspecified hypothyroidism [facility] Diagnosis Hypothyroidism, acquired Unspecified hypothyroidism [facility] Diagnosis Primary hypertension- Primary Unspecified essential hypertension Hypothyroidism, acquired Unspecified hypothyroidism Hyperlipidemia with target LDL less than 130 Other and unspecified hyperlipidemia Rheumatoid arthritis involving multiple sites with positive rheumatoid factor (HCC) documented in this encounter [facility] note* Diagnosis History of colonic polyps Personal history of colonic polyps documented in this encounter [facility] note* Diagnosis Dermatitis- Primary Contact dermatitis and other eczema, due to unspecified cause documented in this encounter [facility] Summary Purpose Family History No Family History Records FoundNo Family History Records Found Advance Directives No Advanced Directives Records FoundDocuments on File Type Date Recorded Patient A P Manager Expl anation Advance Directive(s) 03/30/2018 1:08 PM Advance Directive(s) 12/25/2015 9:53 AM Documents on File Type Date Recorded Patient A P Manager Expl anation Advance Directive(s) 03/30/2018 1:08 PM Advance Directive(s) 12/25/2015 9:53 AM Reason for Referral Specialty Diagnoses / Procedures Referred By Zoltan t Referred To Contact Rheumatology Diagnoses Positive AUGUST (antinuclear antibody) Bilateral hand pain Procedures CONSULT TO RHEUM/IMMUN DISEASE OFFICE/OUTPATIENT [facility] 60-74 MINUTES Basilio Shafer, DYE BOX OPERATOR.FOOD AND NUTRITION SERVICES SUPERVISOR, DNP [address] [place] [address] Referral ID Status Reason Start Date Expiration Date Visits Requested Visits Authorized [id number] Pending Review PCP Requested Referral 07/20/2021 07/06/2022 1 1 Specialty Diagnoses / Procedures Referred By Contac t Referred To Contact Dermatology Diagnoses Skin lesion Procedures CONSULT TO DERMATOLOGY Johanne Case APRN.FOOD AND NUTRITION SERVICES SUPERVISOR [address] [place] [address] Referral ID Status Reason Start Date Expiration Date Visits Requested Visits Authorized [id number] Ref Not Required PCP Requested Referral 11/03/2021 11/03/2022 1 1 Specialty Diagnoses / Procedures Referred By Contac t Referred To Contact [facility] [place] Diagnoses Chest pain, unspecified type Procedures STRESS ECHO TREADMILL ECHO TTHRC R-T 2D W/WO M-MODE COMPLETE REST&ST Johanne Case, DYE BOX OPERATOR.FOOD AND NUTRITION SERVICES SUPERVISOR [address] [place] [address] [address] Referral ID Status Reason Start Date Expiration Date Visits Requested Visits Authorized [id number] Pending Review Auto-Generat ed Referral 11/03/2021 11/03/2022 1 1 Specialty Diagnoses / Procedures Referred By Contac t Referred To Contact [facility] [place] Diagnoses Chest pain, unspecified type Procedures ECG COMPLETE ECG ROUTINE ECG W/LEAST 12 LDS W/I&R Johanne Case, DYE BOX OPERATOR.FOOD AND NUTRITION SERVICES SUPERVISOR [address] [place] [address] [address] Referral ID Status Reason Start Date Expiration Date V isits Requested Visits Authorized [id number] Closed Auto-Generate d Referral 11/03/2021 11/03/2022 1 1 Specialty Diagnoses / Procedures Referred By Contac t Referred To Contact General Surgery Diagnoses Screening for colon cancer Procedures CONSULT TO GENERAL SURGERY OFFICE/OUTPATIENT [facility] 60-74 MINUTES Johanne Case, DYE BOX OPERATOR.FOOD AND NUTRITION SERVICES SUPERVISOR [address] [place] [address] Referral ID Status Reason Start Date Expiration Date Visits Requested Visits Authorized [id number] Pending Review PCP Requested Referral 11/03/2021 11/03/2022 1 1 Referral ID Status Reason Start Date Expiration Date Visits Requested Visits Authorized [id number] Pending Review PCP Requested Referral 12/13/2022 1 1 Specialty Diagnoses / Procedures Referred By Contac t Referred To Contact Diagnoses Fatigue, unspecified type Procedures CONSULT TO SLEEP MEDICINE - ADULT OFFICE/OUTPATIENT [facility] MDM 60-74 MINUTES Johanne Case APRN.FOOD AND NUTRITION SERVICES SUPERVISOR [address] [place] [address] Referral ID Status Reason Start Date Expiration Date Visits Requested Visits Authorized [id number] Pending Review PCP Requested Referral 2 12/13/2022 1 1 Specialty Diagnoses / Procedures Referred By Contac t Referred To Contact [facility] Diagnoses History of colonic polyps Procedures COLONOSCOPY SCREENING COLONOSCOPY FLX DX W/COLLJ SPEC WHEN PFRMD Opal Elizondo PA-C [address] [place] [address] [facility] [address] [place] [address] Referral ID Status Reason Start Date Expiration Date V isits Requested Visits Authorized [id number] Closed Auto-Generate d Referral 01/28/2022 02/26/2022 1 1 Medications Administered Section Inactive Administered Medications - up to 3 most recent administrations Medication Order MAR Action Action Date Dose Rate Site diphenhydrAMINE 12.5-50 mg injection (BENADRYL) 12.5-50 mg, INTRAVENOUS, DIRECTED, Starting on Mon01/28/22 at 1230, Until Mon01/28/22 at 1629, DOSING DIRECTED BY PHYSICIAN FOR PROCEDURAL SEDATION ONLY, Intraprocedure Given 01/28/2022 12:02 PM EST 50 mg fentaNYL 50 mcg/mL 25-100 mcg injection (SUBLIMAZE) 25-100 mcg, INTRAVENOUS, DIRECTED, Starting on Mon01/28/22 at 1230, Until Mon01/28/22 at 1629, DOSING DIRECTED BY PHYSICIAN FOR PROCEDURAL SEDATION ONLY, Intraprocedure Given 01/28/2022 12:08 PM EST 50 mcg Additional Source Comments (unrecognized sect ion and content) No Status Records FoundNo Status Records Found INFORMATION SOURCE (unrecogn ized section and content) DATE CREATED AUTHOR AUTHOR'S ORGANIZ ATION 01/15/2023 [facility] Source Comments (unrecognize d section and content) In the event this informatio n is protected by the Federal Confidentiality of Alcohol and Drug Abuse Patient Records regulations: The Federal rules restrict any use of the information to criminally investigate or prosecute any alcohol or drug abuse patient.[facility] the event this information is protected by the Federal Confidentiality of Alcohol and Drug Abuse Patient Records regulations: The Federal rules restrict any use of the information to criminally investigate or prosecute any alcohol or drug abuse patient.[facility] the event this information is protected by the Federal Confidentiality of Alcohol and Drug Abuse Patient Records regulations: The Federal rules restrict any use of the information to criminally investigate or prosecute any alcohol or drug abuse patient.[facility] the event this information is protected by the Federal Confidentiality of Alcohol and Drug Abuse Patient Records regulations: The Federal rules restrict any use of the information to criminally investigate or prosecute any alcohol or drug abuse patient.[facility] the event this information is protected by the Federal Confidentiality of Alcohol and Drug Abuse Patient Records regulations: The Federal rules restrict any use of the information to criminally investigate or prosecute any alcohol or drug abuse patient.[facility] the event this information is protected by the Federal Confidentiality of Alcohol and Drug Abuse Patient Records regulations: The Federal rules restrict any use of the information to criminally investigate or prosecute any alcohol or drug abuse patient.[facility] the event this information is protected by the Federal Confidentiality of Alcohol and Drug Abuse Patient Records regulations: The Federal rules restrict any use of the information to criminally investigate or prosecute any alcohol or drug abuse patient.[facility] the event this information is protected by the Federal Confidentiality of Alcohol and Drug Abuse Patient Records regulations: The Federal rules restrict any use of the information to criminally investigate or prosecute any alcohol or drug abuse patient.[facility] the event this information is protected by the Federal Confidentiality of Alcohol and Drug Abuse Patient Records regulations: The Federal rules restrict any use of the information to criminally investigate or prosecute any alcohol or drug abuse patient.[facility] the event this information is protected by the Federal Confidentiality of Alcohol and Drug Abuse Patient Records regulations: The Federal rules restrict any use of the information to criminally investigate or prosecute any alcohol or drug abuse patient.[facility] the event this information is protected by the Federal Confidentiality of Alcohol and Drug Abuse Patient Records regulations: The Federal rules restrict any use of the information to criminally investigate or prosecute any alcohol or drug abuse patient.[facility] the event this information is protected by the Federal Confidentiality of Alcohol and Drug Abuse Patient Records regulations: The Federal rules restrict any use of the information to criminally investigate or prosecute any alcohol or drug abuse patient.[facility] the event this information is protected by the Federal Confidentiality of Alcohol and Drug Abuse Patient Records regulations: The Federal rules restrict any use of the information to criminally investigate or prosecute any alcohol or drug abuse patient.[facility] the event this information is protected by the Federal Confidentiality of Alcohol and Drug Abuse Patient Records regulations: The Federal rules restrict any use of the information to criminally investigate or prosecute any alcohol or drug abuse patient.[facility] the event this information is protected by the Federal Confidentiality of Alcohol and Drug Abuse Patient Records regulations: The Federal rules restrict any use of the information to criminally investigate or prosecute any alcohol or drug abuse patient.[facility] Hospital[facility] the event this information is protected by the Federal Confidentiality of Alcohol and Drug Abuse Patient Records regulations: The Federal rules restrict any use of the information to criminally investigate or prosecute any alcohol or drug abuse patient.[facility] Reason for Visit (unrecogniz ed section and content) Specialty Diagnoses / Procedures Referred By Zoltan belcher Referred To Contact Family Medicine / FAMILY MEDICINE Diagnoses Follow-up exam 2 week follow up starting lisinopril Procedures OFFICE/OUTPATIENT ESTABLISHED MOD MDM 30-39 MIN 4C EST Eugenie Mei MD [address] [phone] Johanne Case APRN.FOOD AND NUTRITION SERVICES SUPERVISOR [address] [phone] Referral ID Status Reason Start Date Expiration Date Visits Re quested Visits Authorized [id number] Closed 03/28/2022 02/26/2023 1 1 Reason Comments Recheck BP check- restarted lisinopril Reason Comments Results Reason Comments Refill Request Reason Comments Establish Care Transfer Care from [facility] Reason Comments Appointment Stress test instruct ions Reason Comments Results Reason Comments Recheck 1 month follow up Specialty Diagnoses / Procedures Referred By Zoltan belcher Referred To Contact Family Medicine / FAMILY MEDICINE Diagnoses Follow-up examination follow up after stress test Procedures OFFICE/OUTPATIENT ESTABLISHED MOD MDM 30-39 MIN 4C EST Self Johanne Case APRN.FOOD AND NUTRITION SERVICES SUPERVISOR [address] [phone] Referral ID Status Reason Start Date Expiration Date Visits Re quested Visits Authorized [id number] Closed 12/13/2021 02/26/2022 1 1 Reason Comments Consult colonoscopy Specialty Diagnoses / Procedures Referred By Zoltan t Referred To Contact General Surgery / INITIAL DEPT Diagnoses Screening for colon cancer Procedures CONSULT TO GENERAL SURGERY OFFICE/OUTPATIENT NEW HIGH MDM 60-74 MINUTES OFFICE/OUTPATIENT NEW MODERATE MDM 45-59 MINUTES Johanne Case APRN.FOOD AND NUTRITION SERVICES SUPERVISOR [address] [place] [address] Initial Department Referral ID Status Reason Start Date Expiration Date V isits Requested Visits Authorized [id number] Closed PCP Requested Referral 12/22/2021 02/26/2022 1 1 Reason Comments Blood Pressure Elevated at [facility] phys ical yesterday. Recently started MTX for RA. Specialty Diagnoses / Procedures Referred By Contac t Referred To Contact Internal Medicine / FAMILY MEDICINE Diagnoses Blood pressure alteration increased blood pressure Procedures OFFICE/OUTPATIENT ESTABLISHED MOD [facility] 30-39 MIN 4C EST Johanne Case, [place].FOOD AND NUTRITION SERVICES SUPERVISOR [address] [place] [address] Eugenie Mei MD [address] [place] [address] Referral ID Status Reason Start Date Expiration Date Visits Re quested Visits Authorized [id number] Closed 03/10/2022 02/26/2023 1 1 Reason Comments Recheck 2 week bp check; did not start lisinopril Reason Onset Date Comments Refill Request Refill Request 07/28/2022 Specialty Diagnoses / Procedures Referred By Contac t Referred To Contact [facility] Diagnoses History of colonic polyps Procedures COLONOSCOPY SCREENING COLONOSCOPY FLX DX W/COLLJ SPEC WHEN PFRMD Opal Elizondo PA-C [address] [phone] [facility] [address] [place] [address] Referral ID Status Reason Start Date Expiration Date V isits Requested Visits Authorized [id number] Closed Auto-Generate d Referral 01/28/2022 02/26/2022 1 1 Reason Comments ? yeast infection Care Teams (unrecognized sec tion and content) Real Time Analyst Relationship Specialty Start Date End Date Basilio Shafer, DYE BOX OPERATOR.FOOD AND NUTRITION SERVICES SUPERVISOR, DNP [address] [place] [address] PCP - General Family Practice 01/18/21 Real Time Analyst Relationship Specialty Start Date End Date Johanne Case, DYE BOX OPERATOR.FOOD AND NUTRITION SERVICES SUPERVISOR [address] [place], [place] [phone] PCP - General Family Practice 11/03/21 Real Time Analyst Relationship Specialty Start Date End Date Johanne Case, DYE BOX OPERATOR.FOOD AND NUTRITION SERVICES SUPERVISOR [address] [place], [place] [phone] PCP - General Family Medicine 11/03/21 Real Time Analyst Relationship Specialty Start Date End Date Johanne Case, DYE BOX OPERATOR.FOOD AND NUTRITION SERVICES SUPERVISOR [address] [place] [address] PCP - General Family Medicine 11/03/21 Real Time Analyst Relationship Specialty Start Date End Date Johanne Case, DYE BOX OPERATOR.FOOD AND NUTRITION SERVICES SUPERVISOR [address] [place] [address] PCP - General Family Medicine 11/03/21 Real Time Analyst Relationship Specialty Start Date End Date Johanne Case, DYE BOX OPERATOR.FOOD AND NUTRITION SERVICES SUPERVISOR [address] [place] [address] PCP - General Family Medicine 11/03/21 Real Time Analyst Relationship Specialty Start Date End Date Johanne Case, DYE BOX OPERATOR.FOOD AND NUTRITION SERVICES SUPERVISOR [address] [place] [address] PCP - General Family Medicine 11/03/21 Real Time Analyst Relationship Specialty Start Date End Date Johanne Case, DYE BOX OPERATOR.FOOD AND NUTRITION SERVICES SUPERVISOR [address] [place] [address] PCP - General Family Medicine 11/03/21 Real Time Analyst Relationship Specialty Start Date End Date Johanne Case, DYE BOX OPERATOR.FOOD AND NUTRITION SERVICES SUPERVISOR [address] [place] [address] PCP - General Family Medicine 11/03/21 Real Time Analyst Relationship Specialty Start Date End Date Johanne Case, DYE BOX OPERATOR.FOOD AND NUTRITION SERVICES SUPERVISOR [address] [place] [address] PCP - General Family Medicine 11/03/21 Real Time Analyst Relationship Specialty Start Date End Date Johanne Case, DYE BOX OPERATOR.FOOD AND NUTRITION SERVICES SUPERVISOR [address] [place] [address] PCP - General Family Medicine 11/03/21 Real Time Analyst Relationship Specialty Start Date End Date Johanne Case APRN.FOOD AND NUTRITION SERVICES SUPERVISOR [address] [place] [address] PCP - General Family Medicine 11/03/21 Real Time Analyst Relationship Specialty Start Date End Date Johanne Case APRN.FOOD AND NUTRITION SERVICES SUPERVISOR [address] [place] [address] PCP - General Family Medicine 11/03/21 FOR RECORDS PERTAINING TO PATIENTS WHO ARE OR HAVE BEEN ENROLLED IN A CHEMICAL DEPENDENCY/SUBSTANCEABUSE PROGRAM, SOME INFORMATION MAY BE OMITTED. This clinical summary was aggregated from multiple sources. Caution should be exercised in using it in the provision of clinical care. This summary normalizes information from multiple sources, and as a consequence, information in this document may materially change the coding, format and clinical context of patient data. In addition, data may be omitted in some cases. CLINICAL DECISIONS SHOULD BE BASED ON THE PRIMARY CLINICAL RECORDS. [facility] [employer] provides no warranty or guarantee of the accuracy or completeness of information in this document.
[2023-04-15 08:42] LABS: Absolute Neutrophil Count 6.4 X10^3/uL (2.0-7.7); Basophil# 0.07 X10^3/uL; Basophil% 0.8 % (0-1); Eosinophil# 0.15 X10^3/uL; Eosinophils% 1.6 % (0-5); Hematocrit 44.3 % (40-54); Hemoglobin 14.5 g/dL (13.0-16.5); Lymphocyte % 12.1 % (19-41); Mean Corp Hgb Conc 32.7 g/dL (32-36); Mean Corpuscular Hgb 29.9 pg (27.0-32.0); Mean Corpuscular Volume 91.3 fL (80-94); Mean Platelet Vol. 9.4 fl (6.2-12.0); Monocyte# 1.33 X10^3/uL; Monocyte% 14.6 % (0-10); NRBC Flagged by Analyzer 0 % (0-5); Neutrophil # 6.43 X10^3/uL (2.7-7.7); Neutrophil % 70.6 % (47-70); Platelet Count 265 K/mm3 (150-450); RBC Distribution Width CV 13.3 % (11.6-14.6); RBC Distribution Width SD 43.1 fl (35.1-43.9); Red Blood Count 4.85 M/mm3 (4.6-6.2); White Blood Count 9.1 K/mm3 (4.4-11.0)
[2023-04-15 09:14] LABS: ALB/GLOB Ratio 1.2 RATIO (0.9-2.4); AST(SGOT) 29 U/L (15-37); Alanine Aminotransfer ALT/SGPT 51 U/L (16-61); Albumin, Serum 3.8 g/dL (3.2-5.0); Alkaline Phosphatase 80 U/L (45-117); Anion Gap 3 (5-15); BUN 18 mg/dL (7-18); Calcium,Total 9.5 mg/dL (8.5-10.1); Chloride 110 mmol/L (98-107); Creatinine, Serum 1.29 mg/dL (0.70-1.30); EST Glomerular Filtration Rate 61 mL/min (>60); Est Glom Filt Rate - Afr Amer 74 mL/min (>60); Globulin 3.3 g/dL (2.2-4.2); Glucose 95 mg/dL (74-106); Potassium 3.7 mmol/L (3.5-5.1); Protein, Total 7.1 g/dL (6.4-8.2); Sodium Level 141 mmol/L (136-145)
== END | disposition home or self-care (01) ==
LOC: LAB 07:24
PROVIDERS: PCP Registered Nurse; Referring Provider Internal Medicine Rheumatology; Visit Provider Internal Medicine Rheumatology
DX: M05.79 Rheumatoid arthritis with rheumatoid factor of multiple sites without organ or systems involvement (principal); M79.7 Fibromyalgia; R76.8 Other specified abnormal immunological findings in serum; Z79.899 Other long term (current) drug therapy
CPT/HCPCS: 36415; 80053; 85025

== ENCOUNTER 2023-04-19 18:46 | Emergency (ER) | payer OTHER, SELFPAY ==
[2023-04-19 18:47] VITALS: BP 133/85; PULSE 62; RESP 16; TEMP 36.3; O2SAT 100; BMI 32.3
[2023-04-19 20:05] VITALS: RESP 18
--- NOTE | 2023-04-19 20:15 | EDS_ITS ---
HPI History of Present Illness Chief Complaint: Headache Narrative Narrative: 57-year-old male past medical history of autoimmune disease presents with sinus headache that has had for the last 3 to 4 days. He states once a year usually gets a sinus infection. He has been taking ibuprofen without relief along with decongestants like Sudafed. However, he states that he is having photophobia with this and continued headache. He can breathe surprisingly well for his sinuses being congested. He denies any fevers or chills. No nausea or vomiting. No paresthesias. No exacerbating or alleviating factors. No sore throat. He is complaining mainly of a headache in the ethmoid sinus area. PFSH PFS Medical History no medical history Home Medications levothyroxine 50 mcg tablet 50 mcg PO DAILY 01/13/20 [History Last Taken Unknown] multivitamin with minerals 1 ea PO DAILY 01/13/20 [History Last Taken Unknown] amoxicillin 875 mg-potassium clavulanate 125 mg tablet 1 tab PO BID #20 tabs 04/19/23 [Rx Last Taken Unknown] Allergy/AdvReac Type Severity Reaction Status Date / Time codeine Allergy Hives Verified 01/13/20 18:59 Sulfa (Sulfonamide Allergy Hives Verified 01/13/20 18:59 Antibiotics) Social History Smoking Status: Never smoker ROS ROS ED ROS Narrative Constitutional: No fever, no chills. HEENT: No sore throat. No neck pain. No loss of vision. Positive runny nose and nasal congestion with sinus pressure. Cardiovascular: No chest pain. No palpitations. No pedal edema. Respiratory: No cough, no shortness of breath. Abdominal: No abdominal pain. No nausea. No vomiting. Genitourinary: No dysuria. No hematuria. Musculoskeletal: No myalgias. No arthralgias. Neurologic: Positive headaches. No dizziness. No lightheadedness. Mild photophobia. Skin: No rash. No change in color. Psychiatric: No depression. No anxiety. EXAM Physical Exam Narrative Exam Narrative: Afebrile. Vital signs noted. HEENT: Normocephalic. Atraumatic. PERRL, EOMI. Neck soft and supple. No point tenderness or step off. No meningismus. Mild nasal congestion. Tenderness to percussion ethmoid area. Cardiovascular: Regular rate and rhythm. No murmurs, rubs, or gallops appreciated. Respiratory: No tachypnea. Lungs clear to auscultation bilaterally. Gastrointestinal: Abdomen soft, nontender, with normoactive bowel sounds. No rebound or guarding. Neurological: Awake. Alert. Nonfocal, nonlateralizing. Skin: No rash. Normal color. No pallor. Musculoskeletal: No pedal edema. Full range of motion extremities. Const Vital Signs: 04/19/23 18:47 04/19/23 20:05 Temperature 97.4 F L Temperature Source Temporal Pulse Rate 62 Respiratory Rate 16 18 Blood Pressure 133/85 H Blood Pressure Mean 101 Pulse Ox 100 Oxygen Delivery Method Room Air MDM MDM MDM Narrative Medical decision making narrative: In the differential diagnosis is migraine headache versus intracranial h emorrhage versus sinus infection versus viral syndrome. His pulse ox is 100% on room air and he is afebrile here. I do not feel he needs laboratory work. Given that he states that he has never had a headache last this long for 3 to 4 [address] do feel [address] imaging is indicated of the brain. I have low suspicion for migraine as he does not have nausea and vomiting and had no scotoma or preceding aura. I reviewed the CT imaging and the report of the CT of the brain which shows no evidence of an acute hemorrhage or reason for his headache but there is bilateral ethmoidal and maxillary sinus thickening consistent with sequelae of sinusitis. While it may be chronic, he was given his first dose of antibiotics in the form of Augmentin here and a prescription written for the next 10 days to take twice a day. He has a follow-up appointment with his primary care provider on Monday, 5 days from now. He will continue his decongestant and was told that he may want to start nasal steroids as well. I feel he can be discharged safely home with follow-up. Return instructions to the emergency department were reviewed. Disposition is discharged home in stable condition. Radiography Diagnostic Testing: Clinical Impression(s) from Imaging Studies Brain CT 04/19/23 20:15 IMPRESSION: Normal unenhanced CT scan of the brain. Electronically Signed: Hilary Magana MD at 20:55 EST , Discharge Plan Triage Chief Complaint: Headache ED Provider: Oscar Hernandez Dx/Rx/DC Orders Clinical Impression: Sinus headache, Sinusitis Instructions: ED Sinus Headache, ED Sinusitis (Antibiotic Treatment) Prescriptions: New amoxicillin-pot clavulanate 875-125 mg tablet 1 tab PO BID Qty: 20 0RF No Action levothyroxine 50 MCG tablet 50 mcg PO DAILY multivitamin with minerals 1 EACH tablet 1 ea PO DAILY Primary Care Provider: Johanne Case NP Referrals: Johanne Case NP, [facility] [Primary Care Provider] - 3-5 Days if not improving Activity Restrictions/Additional Instructions: Take antibiotics as directed. Continue your apac-wjc-[id number] medications such as your decongestant and Tylenol or ibuprofen for your headache. Follow-up with your primary care provider on Monday as scheduled. Return with new or worsening symptoms. Disposition Disposition: Home, Self Care
--- NOTE | 2023-04-19 20:15 | CT_ITS ---
STUDY: CT BRAIN WITHOUT CONTRAST REASON FOR EXAM: Male, 57 years old. headache RADIATION DOSAGE (If Supplied By Facility): CTDIvol = ( 44.99 ) mGy, DLP = ( 846.73 ) mGycm TECHNIQUE: Transaxial CT imaging of the brain was performed without administration of intravenous contrast material. Individualized dose optimization techniques were used for this CT. COMPARISON: 02/29/2028. FINDINGS: Normal soft tissue structures. Normal calvarium. Normal size ventricles and extra-axial spaces for the patient''s age. Normal white matter tracts of the cerebral hemispheres. Normal basal ganglia and thalami. Normal brainstem. Normal cerebellum. There is no intracranial hemorrhage. There are no findings of an acute ischemic infarction. Mucosal thickening involving the bilateral maxillary and ethmoidal sinuses consistent with sequela of sinusitis. CT/Brain/Head without Contrast IMPRESSION: Normal unenhanced CT scan of the brain. Electronically Signed: Hilary Magana MD at 20:55 EST ,
--- OUTSIDE RECORDS SUMMARY | 2023-04-19 20:56 | XMS RPT_ITS | CCD ---
Author Name Unknown Address [address] [place] [address] Organization [facility] Care Team Providers Care Wood Type Cutter Name Role Phone Sai Nunez Emma Unavailable Isabelle Wiley Unavailable ALISA GREEN Admitting Unavailable ALISA GREEN Attending Unavailable Soni CREDIT RATING CHECKER.PROCED TECH, Basilio FARIAS Primary Care Provider Haagen CREDIT RATING CHECKER.PROCED TECH, Johanne Primary Care Provider Haagen CREDIT RATING CHECKER.PROCED TECH, Johanne Primary Care Provider Haagen CREDIT RATING CHECKER.PROCED TECH, Johanne Primary Care Provider JOHANNE CASE Attending [...] Reaction(s) Facility (2 sources) codeine Drug Allergy [facility] Work Phone: (2 sources) sulfADIAZINE Drug Allergy [facility] Work Phone: (18 sources) Codeine; Translations: [CODEINE] Drug Allergy [address] [facility] Repository (18 sources) Sulfonamides (Antibiotic); Translations: [SULFA (SULFONAMIDE ANTIBIOTICS)] Propensity to adverse reactions to drug (disorder) [address] [facility] Repository Medications Current Medications Medication Drug Class(es) [...] 95.25 kg Eugenie Mei MD Work Phone: [facility] 01-09-2023 19:02-0500 Diastolic blood pressure 82 mm[Hg] Eugenie Mei MD Work Phone: [facility] 01-09-2023 19:02-0500 Heart rate 81 /min Eugenie Mei MD Work Phone: [facility] 01-09-2023 19:02-0500 SaO2% (BldA) [Mass fraction] 95 % Eugenie Mei MD Work Phone: [facility] 01-09-2023 19:02-0500 Systolic blood pressure 128 mm[Hg] Eugenie Mei MD Work Phone: [facility] 10-24-2022 18:29-0400 Body weight 94.35 kg Johanne Haagen CREDIT RATING CHECKER.PROCED TECH Work Phone: [facility] 10-24-2022 18:29-0400 Diastolic blood pressure 78 mm[Hg] Johanne Haagen CREDIT RATING CHECKER.PROCED TECH Work Phone: [facility] 10-24-2022 18:29-0400 Heart rate 82 /min Johanne Haagen CREDIT RATING CHECKER.PROCED TECH Work Phone: [facility] 10-24-2022 18:29-0400 Respiratory rate 16 /min Johanne Haagen CREDIT RATING CHECKER.PROCED TECH Work Phone: [facility] 10-24-2022 18:29-0400 SaO2% (BldA) [Mass fraction] 94 % Johanne Haagen CREDIT RATING CHECKER.PROCED TECH Work Phone: [facility] 10-24-2022 18:29-0400 Systolic blood pressure 118 mm[Hg] Johanne Haagen CREDIT RATING CHECKER.PROCED TECH Work Phone: [facility] 04-25-2022 19:00-0500 Diastolic blood pressure 82 mm[Hg] Johanne Haagen CREDIT RATING CHECKER.PROCED TECH Work Phone: [facility] 04-25-2022 19:00-0500 Systolic blood pressure 128 mm[Hg] Johanne Haagen CREDIT RATING CHECKER.PROCED TECH Work Phone: [facility] 04-25-2022 18:41-0500 Heart rate 68 /min Johanne Haagen CREDIT RATING CHECKER.PROCED TECH Work Phone: [facility] 04-25-2022 18:41-0500 Respiratory rate 18 /min Johanne Haagen CREDIT RATING CHECKER.PROCED TECH Work Phone: [facility] 04-25-2022 18:41-0500 SaO2% (BldA) [Mass fraction] 98 % Johanne Haagen CREDIT RATING CHECKER.PROCED TECH Work Phone: [facility] 03-28-2022 18:30-0500 Diastolic blood pressure 96 mm[Hg] Johanne Haagen CREDIT RATING CHECKER.PROCED TECH Work Phone: [facility] 03-28-2022 18:30-0500 Heart rate 72 /min Johanne Haagen CREDIT RATING CHECKER.PROCED TECH Work Phone: [facility] 03-28-2022 18:30-0500 Respiratory rate 18 /min Johanne Haagen CREDIT RATING CHECKER.PROCED TECH Work Phone: [facility] 03-28-2022 18:30-0500 SaO2% (BldA) [Mass fraction] 97 % Johanne Case CREDIT RATING CHECKER.PROCED TECH Work Phone: [facility] 03-28-2022 18:30-0500 Systolic blood pressure 142 mm[Hg] Johanne Case CREDIT RATING CHECKER.PROCED TECH Work Phone: [facility] 03-10-2022 16:52-0500 Body weight 97.52 kg Eugenie Mei MD Work Phone: [facility] 03-10-2022 16:52-0500 Diastolic blood pressure 92 mm[Hg] Eugenie Mei MD Work Phone: [facility] 03-10-2022 16:52-0500 Heart rate 61 /min Eugenie Mei MD Work Phone: [facility] 03-10-2022 16:52-0500 SaO2% (BldA) [Mass fraction] 96 % Eugenie Mei MD Work Phone: [facility] 03-10-2022 16:52-0500 Systolic blood pressure 132 mm[Hg] Eugenie Mei MD Work Phone: [facility] 01-28-2022 13:03-0500 Diastolic blood pressure 89 mm[Hg] Evangelina Garcia MD Work Phone: [facility] 01-28-2022 13:03-0500 Heart rate 66 /min Evangelina Garcia MD Work Phone: [facility] 01-28-2022 13:03-0500 Respiratory rate 16 /min Evangelina Garcia MD Work Phone: [facility] 01-28-2022 13:03-0500 SaO2% (BldA) [Mass fraction] 95 % Evangelina Garcia MD Work Phone: [facility] 01-28-2022 13:03-0500 Systolic blood pressure 132 mm[Hg] Evangelina Garcia MD Work Phone: [facility] 01-28-2022 11:47-0500 Body temperature 97.3 [degF] Evangelina Garcia MD Work Phone: [facility] 01-28-2022 11:47-0500 Body weight 98 kg Evangelina Garcia MD Work Phone: [facility] 12-22-2021 08:21-0400 Body height 175.3 cm Opal [place] PA-C Work Phone: [facility] 12-22-2021 08:21-0400 Body temperature 97.9 [degF] Opal Caro PA-C Work Phone: [facility] 12-22-2021 08:21-0400 Body weight 97.98 kg Opal Caro PA-C Work Phone: [facility] 12-22-2021 08:21-0400 Diastolic blood pressure 80 mm[Hg] Opal [place] PA-C Work Phone: [facility] 12-22-2021 08:21-0400 Heart rate 66 /min Opal [place] PA-C Work Phone: [facility] 12-22-2021 08:21-0400 SaO2% (BldA) [Mass fraction] 96 % Opal [place] PA-C Work Phone: [facility] 12-22-2021 08:21-0400 Systolic blood pressure 110 mm[Hg] Opal Caro PA-C Work Phone: [facility] 12-13-2021 17:17-0400 Diastolic blood pressure 88 mm[Hg] Johanne Haagen CREDIT RATING CHECKER.PROCED TECH Work Phone: [facility] 12-13-2021 17:17-0400 Heart rate 61 /min Johanne Hayamile CREDIT RATING CHECKER.PROCED TECH Work Phone: [facility] 12-13-2021 17:17-0400 Respiratory rate 18 /min Johanne Haagen CREDIT RATING CHECKER.PROCED TECH Work Phone: [facility] 12-13-2021 17:17-0400 SaO2% (BldA) [Mass fraction] 95 % Johanne Haagen CREDIT RATING CHECKER.PROCED TECH Work Phone: [facility] 12-13-2021 17:17-0400 Systolic blood pressure 128 mm[Hg] Johanne Haagen CREDIT RATING CHECKER.PROCED TECH Work Phone: [facility] 11-03-2021 15:07-0400 Body height 177 cm Johanne Haagen CREDIT RATING CHECKER.PROCED TECH Work Phone: [facility] 11-03-2021 15:07-0400 Body weight 98.88 kg Johanne Haagen CREDIT RATING CHECKER.PROCED TECH Work Phone: [facility] 11-03-2021 15:07-0400 Diastolic blood pressure 90 mm[Hg] Johanne Haagen CREDIT RATING CHECKER.PROCED TECH Work Phone: [facility] 11-03-2021 15:07-0400 Heart rate 64 /min Johanne Haagen CREDIT RATING CHECKER.PROCED TECH Work Phone: [facility] 11-03-2021 15:07-0400 Respiratory rate 18 /min Johanne Haagen CREDIT RATING CHECKER.PROCED TECH Work Phone: [facility] 11-03-2021 15:07-0400 SaO2% (BldA) [Mass fraction] 95 % Johanne Haagen CREDIT RATING CHECKER.PROCED TECH Work Phone: [facility] 11-03-2021 15:07-0400 Systolic blood pressure 128 mm[Hg] Johanne Haagen CREDIT RATING CHECKER.PROCED TECH Work Phone: [facility] 12-07-2016 12:53-0400 BMI (Body Mass Index) 27.32 kg/m2 [facility] Work Phone: 12-07-2016 12:53-0400 Height 175.26 cm [facility] Work Phone: 12-07-2016 12:53-0400 Weight 83.92 kg [facility] Work Phone: Encounters Encounter Date Encounter Type Care Provider Facility Start: 01-09-2023 End: 01-10-2023 ambulatory EUGENIE MEI Facility:[facility] Start: 01-09-2023 End: 01-09-2023 Patient encounter procedure Eugenie Mei MD Work Phone: [facility] [place] Procedures Date Procedure Procedure Detail Performing Clinician Start: 04-30-2022 Lipid 1996 panel - S rafa or Plasma Evangelina Garcia MD Work Phone: Start: 01-28-2022 Colonoscopy flx dx w /collj spec when pfrmd Opal Elizondo PA-C Work Phone: Start: 01-28-2022 Colonoscopy Eugenie Lockwood MD Work Phone: Start: 11-03-2021 Adult depression scr eening assessment Johanne Case CREDIT RATING CHECKER.PROCED TECH Work Phone: Start: 11-09-2017 Adult depression scr eening assessment Basilio Shafer CREDIT RATING CHECKER.PROCED TECH, DNP Work Phone: Start: 12-25-2015 Colonoscopy Basilio ulloa CREDIT RATING CHECKER.PROCED TECH, DNP Work Phone: Plan of Treatment Date Care Activity Detail Author Start: 05-01-2027 Lipid 1996 panel - S rafa or Plasma Lipid Screening [facility] Start: 05-01-2027 LIPID SCREEN LIPID SCREEN [facility] Start: 01-28-2027 Colonoscopy COLONOSCOPY [facility] Start: 01-28-2027 COLORECTAL CANCER SCREENING COLORECTAL CANCER SCREENING [facility] Start: 07-03-2026 LIPID SCREEN LIPID SCREEN [facility] Start: 06-05-2025 PROSTATE CANCER SCRE ENING DISCUSSION PROSTATE CANCER SCREENING DISCUSSION [facility] Start: 12-18-2024 DIABETES SCREEN DIABETES SCREEN [facility] Start: 12-18-2024 Diabetes Screening Diabetes Screenin g [facility] Start: 07-03-2024 DIABETES SCREEN DIABETES SCREEN [facility] Start: 01-10-2024 Annual PCP Team Corporate Giving Manager chester Disease Visit Annual PCP Team Chronic Disease Visit [facility] Start: 10-25-2023 ANNUAL PCP TEAM HEALTH ASSOCIATE CHESTER DISEASE VISIT ANNUAL PCP TEAM CHRONIC DISEASE VISIT [facility] Start: 10-25-2023 BP CONTROLLED (<130/80) BP CONTROLLE D (<130/80) [facility] Start: 08-27-2023 Influenza vaccination Influenza Vacc ine (#1) [facility] Immunizations Immunization Date Immunization Notes Care Provider Frederick murguia 01-31-2009 tetanus toxoid, redu debbi diphtheria toxoid, and acellular pertussis vaccine, adsorbed Basilio Shafer CREDIT RATING CHECKER.PROCED TECH, DNP Work Phone: [facility] Work Phone: Payers Date Payer Category Payer Unknown [employer] [id number] 2020-Present [phone] [address] [place] [address] PPO [id number] 2020 Unknown [employer] P[employer] [id number] 2020-Present [phone] [address] [place] [address] PPO [id number] 2020 Unknown [id number] Social History Date Type Detail Facility Start: 11-24-2010 Tobacco smoking stat [facility] Never smoked tobacco [facility] Work Phone: Start: 05-07-2021 End: 01-09-2023 Alcohol intake Current drinker of alcohol (finding) [facility] Start: 01-18-2011 History SDOH Alcohol Comment 1 beer per month [facility] Start: 1965 Sex Assigned At Not on file [facility] Start: 11-24-2010 Tobacco use and exposure Smokeless tobacco non-user [facility] Start: 10-17-2021 End: 01-28-2022 Exposure to SARS-CoV-2 (event) Not sure [facility] Start: 11-03-2021 End: 10-24-2022 History of Social function [facility] Start: 11-03-2021 End: 10-24-2022 Tobacco use panel [facility] Adult Depression Screening Assessment 0 [facility] Clinical Notes 12-25-2015 to 01-09-2023 Eugenie Mei MD - 01/09/2023 7:12 PM ESTPatient Johanne Marin APRN.PROCED TECH - 10/24/2022 6:35 PM EDTTelephone Encounter - Nilsa BOOGIE Doyle.PROCED TECH - 08/01/2022 1:10 PM EDT Note Date & Type Note Facility 01-09-2023 Note HNO ID: [id number] Author: Eugenie Mei MD Service: ? Author [...] Problem Relation Age of Onset Heart Father ME age 69 Thyroid Mother None Brother None [...] 100,000 UNIT/GRAM TOPICAL CREAM Eugenie Mei MD [facility] 01-09-2023 History of Presen t illness Narrative [...] Problem Relation Age of Onset Heart Father ME age 69 Thyroid Mother None Brother None [...] Eugenie Mei MD documented in this encounter [facility] 10-24-2022 Note HNO ID: [id number] Author: Johanne Case APRN.PROCED TECH Service: ? Author Type: Nurse Practitioner Type: [...] Problem Relation Age of Onset Heart Father ME age 69 Thyroid Mother None Brother None [...] than 130 - (more content not included)... [facility] 10-24-2022 Instructions Nafisa Dai - 10/24/2022 7:17 PM EDT Get lab work done on 11/12 for thyroid Continue medications Follow-up in 6 months documented in this encounter [facility] 10-24-2022 History of Presen t illness [...] Problem Relation Age of Onset Heart Father ME age 69 Thyroid Mother None Brother None [...] as needed for worsening/no improvement. Johanne Case APRN.PROCED TECH documented in this encounter [facility] 08-01-2022 Miscellaneous Notes The following approved [...] to pharmacy. No need to notify patient. [employer] documented in this encounter [facility] 04-25-2022 Note HNO ID: [id number] Author: Johanne Case APRN.CNP Service: ? Author [...] Problem Relation Age of Onset Heart Father ME age 69 Thyroid Mother None Brother None [...] if we need to fax them to [facility]. 3. Fatty liver - ICD9: 571.8, ICD10: K76.0 Had recent ultrasound per rheum d/t elevated liver enzymes -- + fatty liver. Discussed weight loss. Discussed treatment plan and patient voices understanding. Patient's questions answered appropriately. Medications and potential side effects were discussed and patient voices understanding. Return to the office as scheduled or as needed for worsening/no improvement. Johanne Case APRN.CNP [facility] 04-25-2022 Instructions Johanne Case APRN.CNP - 04/25/2022 7:12 PM EST Continue the lisinopril daily. Get fasting labs -- let me know if you want us to send that over to [facility] (10-12 hours fast, but you can have water and black coffee). Recheck in 6 months. documented in this encounter [facility] 04-25-2022 History of Presen t illness [...] Problem Relation Age of Onset Heart Father ME age 69 Thyroid Mother None Brother None [...] if we need to fax them to [facility]. 3. Fatty liver - ICD9: 571.8, [...] Johanne Case APRN.MICHAEL documented in this encounter [facility] 03-28-2022 Note HNO ID: [id number] Author: Johanne Case APRN.CNP Service: ? Author [...] Problem Relation Age of Onset Heart Father ME age 69 Thyroid Mother None Brother None [...] patient voices understanding. (more content not included)... [facility] 03-28-2022 Instructions Johanne Case APRN.CNP - 03/28/2022 7:05 PM EST Start the blood pressure pill. Recheck in a month. documented in this encounter [facility] 03-28-2022 History of Presen t illness [...] Problem Relation Age of Onset Heart Father ME age 69 Thyroid Mother None Brother None [...] as needed for worsening/no improvement. Johanne Case APRN.PROCED TECH This note was partially generated using Et3arraf voice recognition system. Note was reviewed for accuracy. There may be minor misspellings or grammar miscues with Et3arraf voice recognition. documented in this encounter [facility] 03-10-2022 Note HNO ID: [id number] Author: Eugenie Mei MD Service: ? Author [...] Problem Relation Age of Onset Heart Father ME age 69 Thyroid Mother None Brother None [...] - BASIC METABOLIC PNL Eugenie Mei MD [facility] 03-10-2022 History of Presen t illness Narrative [...] Problem Relation Age of Onset Heart Father ME age 69 Thyroid Mother None Brother None [...] Eugenie Mei MD documented in this encounter [facility] 01-28-2022 Nurse Note Arrived in phase II via cart left lateral position, eyes open to verbal stimuli, denies pain or nausea, skin warm and dry, respirations regular and unlabored. Abdomen soft and non distended, denies pain or cramping, resting comfortably at this time. documented in this encounter [facility] 01-28-2022 History and physical note UPDATED [...] 56 year old male referred for endoscopy. Orgelio notes a long-term history of irregular bowel [...] Problem Relation Age of Onset Heart Father ME age 69 Thyroid Mother None Brother None [...] offered a surgery/procedure at a [facility]. I have counseled the patient regarding [...] Problem Relation Age of Onset Heart Father ME age 69 Thyroid Mother None Brother None Sister None Sister None Sister None Sister REVIEW OF SYMPTOMS: The review of systems data was entered by the nurse and reviewed by ia Nursing Notes: Beth Meeks LPN 12/22/2021 8:25 [...] patient was offered a surgery/procedure at a [facility] facility. I have counseled the patient [...] Opal Elizondo PA-C documented in this encounter [facility] 12-22-2021 History of Presen t illness [...] Problem Relation Age of Onset Heart Father ME age 69 Thyroid Mother None Brother None Sister None Sister None Sister None Sister REVIEW OF SYMPTOMS: The review of systems data was entered by the nurse and reviewed by ia Nursing Notes: Beth Meeks LPN 12/22/2021 8:25 [...] patient was offered a surgery/procedure at a [facility] facility. I have counseled the patient [...] Opal Elizondo PA-C documented in this encounter [facility] 12-22-2021 Nurse Note REVIEW OF SYSTEMS: [...] Beth Meeks LPN documented in this encounter [facility] 12-21-2021 Miscellaneous Notes Letter mailed to [...] Johanne Case APRN.MICHAEL documented in this encounter [facility] 12-13-2021 Instructions Johanne Case APRN.PROCED TECH - 12/13/2021 5:49 PM EDT Get labwork. Schedule with sleep medicine. Schedule with general surgery for colonoscopy. Let me know if stomach symptoms continue. Follow-up w/ rheum, as scheduled. documented in this encounter [facility] 12-13-2021 History of Presen t illness [...] Problem Relation Age of Onset Heart Father ME age 69 Thyroid Mother None Brother None [...] with the plan. documented in this encounter [facility] 12-07-2021 Miscellaneous Notes TC to pt, notified of results/provider response. He verbalized understanding. Candelario Frances LPN Can please let patient know that his stress test was okay. Please let us know if he has any further/recurrence of symptoms. Johanne Case APRN.CNP documented in this encounter [facility] 11-30-2021 Miscellaneous Notes Patient returned call. [...] floor at Radiology: [address]; [place] [address] * If you need to cancel or reschedule this test or have any questions regarding this test, please call [phone]. documented in this encounter [facility] 11-03-2021 Instructions Johanne Case APRN.MICHAEL - 11/03/2021 3:50 PM EDT Schedule stress test. Get labwork. (After rheum appt) Once we get normal stress test, okay to move forward with colonoscopy. Schedule w/ dermatology. Recheck after stress test. documented in this encounter [facility] 11-03-2021 History of Presen t illness [...] wood on Monday. Using a chain saw. [place] like couldn't catch breath. Refers that as [...] Problem Relation Age of Onset Heart Father ME age 69 Thyroid Mother None Brother None [...] as needed for worsening/no improvement. Johanne Case APRN.PROCED TECH The patient indicates understanding of these issues and agrees with the plan. documented in this encounter [facility] 07-20-2021 Miscellaneous Notes The following approved medication requests have been transmitted electronically. Pending Prescriptions Disp Refills LEVOTHYROXINE 75 MCG TABLET 90 tablet 3 Sig: Take 1 tablet by mouth once daily. Take on empty stomach. For Thyroid. CHERYLE: No Basilio Shafer APRN.CNP, DNP Last office visit: 05/07/21 F/u scheduled: none Last TSH 05/01/21 result 2.250 Ade Gallo Ma documented in this encounter [facility] 07-07-2021 Miscellaneous Notes Pt called and [...] access? Answer: Yes Basilio Shafer DNP, CNP [facility] documented in this encounter [facility] documented as of this encounter (statuses as of 07/07/2021) [facility] History of Past illness Narrative* Problem Noted Date Resolved Date Colon cancer screening 12/25/2015 6 documented as of this encounter (statuses as of 07/20/2021) [facility] History of Past illness Narrative* Problem Noted Date Resolved Date Colon cancer screening 12/25/2015 6 documented as of this encounter (statuses as of 11/03/2021) [facility] History of Past illness Narrative* Problem Noted Date Resolved Date Colon cancer screening 12/25/2015 6 documented as of this encounter (statuses as of 11/30/2021) [facility] History of Past illness Narrative* Problem Noted Date Resolved Date Colon cancer screening 12/25/2015 6 documented as of this encounter (statuses as of 12/07/2021) [facility] History of Past illness Narrative* Problem Noted Date Resolved Date Colon cancer screening 12/25/2015 6 documented as of this encounter (statuses as of 12/13/2021) [facility] History of Past illness Narrative* Problem Noted Date Resolved Date Colon cancer screening 12/25/2015 6 documented as of this encounter (statuses as of 12/21/2021) [facility] History of Past illness Narrative* Problem Noted Date Resolved Date Colon cancer screening 12/25/2015 6 documented as of this encounter (statuses as of 12/22/2021) [facility] History of Past illness Narrative* Problem Noted Date Resolved Date Colon cancer screening 12/25/2015 6 documented as of this encounter (statuses as of 03/10/2022) [facility] History of Past illness Narrative* Problem Noted Date Resolved Date Colon cancer screening 12/25/2015 6 documented as of this encounter (statuses as of 03/29/2022) [facility] History of Past illness Narrative* Problem Noted Date Resolved Date Colon cancer screening 12/25/2015 6 documented as of this encounter (statuses as of 04/26/2022) [facility] History of Past illness Narrative* Problem Noted Date Resolved Date Colon cancer screening 12/25/2015 6 documented as of this encounter (statuses as of 07/28/2022) [address] History of Past illness Narrative* Problem Noted Date Resolved Date Colon cancer screening 12/25/2015 6 documented as of this encounter (statuses as of 08/02/2022) [facility] History of Past illness Narrative* Problem Noted Date Diagnosed Date Resolved Date Colon cancer screening 12/25/201512/24 documented as of this encounter (statuses as of 10/25/2022) [facility] History of Past illness Narrative* Problem Noted Date Diagnosed Date Resolved Date Colon cancer screening 12/25/201512/24 documented as of this encounter (statuses as of 01/01/2023) [facility]10[facility] History of Past illness Narrative* Problem Noted Date Diagnosed Date Resolved Date Colon cancer screening 12/25/201512/24 documented as of this encounter (statuses as of 01/10/2023) [facility] Diagnosis Positive AUGUST (antinuclear antibody)- Primary Other and unspecified nonspecific immunological findings Bilateral hand pain Pain in limb documented [facility] this encounter [facility] Diagnosis Hypothyroidism, acquired Unspecified hypothyroidism documented in this encounter [facility] Diagnosis Chest pain, unspecified type- Primary Screening for colon cancer Special screening for malignant neoplasms, colon Hypothyroidism, acquired Unspecified hypothyroidism Positive AUGUST (antinuclear antibody) Other and unspecified nonspecific immunological findings Elevated glucose Other abnormal glucose Skin lesion Unspecified disorder of skin and subcutaneous tissue documented [facility] this encounter [facility] Diagnosis Fatigue, unspecified type- Primary Screening for colon cancer Special screening for malignant neoplasms, colon Hypothyroidism, acquired Unspecified hypothyroidism Chest pain, unspecified type Positive AUGUST (antinuclear antibody) Other and unspecified nonspecific immunological findings Belching Flatulence, eructation, and gas pain documented [facility] this encounter [facility] Diagnosis History of colonic polyps- Primary Personal history of colonic polyps Screening for colon cancer Special screening for malignant neoplasms, colon [facility] Diagnosis Primary hypertension- Primary Unspecified essential hypertension Hypothyroidism, acquired Unspecified hypothyroidism [facility] Diagnosis Primary hypertension- Primary Unspecified essential hypertension Elevated liver enzymes Other nonspecific abnormal serum enzyme levels documented in this encounter [facility] note* Diagnosis Primary hypertension- Primary Unspecified essential hypertension Hyperlipidemia with target LDL less than 130 Other and unspecified hyperlipidemia Fatty liver Other chronic nonalcoholic liver disease documented in this encounter [facility] note* Diagnosis Hypothyroidism, acquired Unspecified hypothyroidism [facility] Diagnosis Hypothyroidism, acquired Unspecified hypothyroidism [facility] Diagnosis Primary hypertension- Primary Unspecified essential hypertension Hypothyroidism, acquired Unspecified hypothyroidism Hyperlipidemia with target LDL less than 130 Other and unspecified hyperlipidemia Rheumatoid arthritis involving multiple sites with positive rheumatoid factor (HCC) documented in this encounter [facility] note* Diagnosis History of colonic polyps Personal history of colonic polyps documented in this encounter [facility] note* Diagnosis Dermatitis- Primary Contact dermatitis and other eczema, due to unspecified cause documented in this encounter [facility] Summary Purpose Family History No Family History Records FoundNo Family History Records Found Advance Directives No Advanced Directives Records FoundDocuments on File Type Date 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 Advance Directive(s) 03/30/2018 1:08 PM Advance Directive(s) 12/25/2015 9:53 AM Documents on File Type Date 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 Advance Directive(s) 03/30/2018 1:08 PM Advance Directive(s) 12/25/2015 9:53 AM Reason for Referral Specialty Diagnoses / Procedures Referred By Zoltan t Referred To Contact Rheumatology Diagnoses Positive AUGUST (antinuclear antibody) Bilateral hand pain Procedures CONSULT TO RHEUM/IMMUN DISEASE OFFICE/OUTPATIENT [facility] 60-74 MINUTES Basilio Shafer, CREDIT RATING CHECKER.PROCED TECH, DNP [address] [place] [address] Referral ID Status Reason Start Date Expiration Date Visits Requested Visits Authorized [id number] Pending Review PCP Requested Referral 07/20/2021 07/06/2022 1 1 Specialty Diagnoses / Procedures Referred By Contac t Referred To Contact Dermatology Diagnoses Skin lesion Procedures CONSULT TO DERMATOLOGY Johanne Case APRN.PROCED TECH [address] [place] [address] Referral ID Status Reason Start Date Expiration Date Visits Requested Visits Authorized [id number] Ref Not Required PCP Requested Referral 11/03/2021 11/03/2022 1 1 Specialty Diagnoses / Procedures Referred By Contac t Referred To Contact [facility] Diagnoses Chest pain, unspecified type Procedures STRESS ECHO TREADMILL ECHO TTHRC R-T 2D W/WO M-MODE COMPLETE REST&ST Johanne Case, CREDIT RATING CHECKER.PROCED TECH [address] [place] [address] [address] Referral ID Status Reason Start Date Expiration Date Visits Requested Visits Authorized [id number] Pending Review Auto-Generat ed Referral 11/03/2021 11/03/2022 1 1 Specialty Diagnoses / Procedures Referred By Contac t Referred To Contact [facility] Diagnoses Chest pain, unspecified type Procedures ECG COMPLETE ECG ROUTINE ECG W/LEAST 12 LDS W/I&R Johanne Case, CREDIT RATING CHECKER.PROCED TECH [address] [place] [address] [address] Referral ID Status Reason Start Date Expiration Date V isits Requested Visits Authorized [id number] Closed Auto-Generate d Referral 11/03/2021 11/03/2022 1 1 Specialty Diagnoses / Procedures Referred By Contac t Referred To Contact General Surgery Diagnoses Screening for colon cancer Procedures CONSULT TO GENERAL SURGERY OFFICE/OUTPATIENT [facility] 60-74 MINUTES Johanne Case, CREDIT RATING CHECKER.PROCED TECH [address] [place] [address] Referral ID Status Reason Start Date Expiration Date Visits Requested Visits Authorized [id number] Pending Review PCP Requested Referral 11/03/2021 11/03/2022 1 1 Referral ID Status Reason Start Date Expiration Date Visits Requested Visits Authorized [id number] Pending Review PCP Requested Referral 12/13/2022 1 1 Specialty Diagnoses / Procedures Referred By Contac t Referred To Contact Diagnoses Fatigue, unspecified type Procedures CONSULT TO SLEEP MEDICINE - ADULT OFFICE/OUTPATIENT [facility] MDM 60-74 MINUTES Johanne Case APRN.PROCED TECH [address] [place] [address] Referral ID Status Reason Start Date Expiration Date Visits Requested Visits Authorized [id number] Pending Review PCP Requested Referral 2 12/13/2022 1 1 Specialty Diagnoses / Procedures Referred By Contac t Referred To Contact [facility] Diagnoses History of colonic polyps Procedures COLONOSCOPY SCREENING COLONOSCOPY FLX DX W/COLLJ SPEC WHEN PFRMD Opal Elizondo PA-C [address] [place] [address] [facility] [address] [place] [address] Referral ID Status Reason Start Date Expiration Date V isits Requested Visits Authorized [id number] Closed Auto-Generate d Referral 01/28/2022 02/26/2022 1 [...] DATE CREATED AUTHOR AUTHOR'S ORGANIZ ATION 01/15/2023 [facility] Source Comments (unrecognize d section and content) In the event this informatio n is protected by the Federal Confidentiality of Alcohol and Drug Abuse Patient Records regulations: The Federal rules restrict any use of the information to criminally investigate or prosecute any alcohol or drug abuse patient.[facility] the event this information is protected by the Federal Confidentiality of Alcohol and Drug Abuse Patient Records regulations: The Federal rules restrict any use of the information to criminally investigate or prosecute any alcohol or drug abuse patient.[facility] the event this information is protected by the Federal Confidentiality of Alcohol and Drug Abuse Patient Records regulations: The Federal rules restrict any use of the information to criminally investigate or prosecute any alcohol or drug abuse patient.[facility] the event this information is protected by the Federal Confidentiality of Alcohol and Drug Abuse Patient Records regulations: The Federal rules restrict any use of the information to criminally investigate or prosecute any alcohol or drug abuse patient.[facility] the event this information is protected by the Federal Confidentiality of Alcohol and Drug Abuse Patient Records regulations: The Federal rules restrict any use of the information to criminally investigate or prosecute any alcohol or drug abuse patient.[facility] the event this information is protected by the Federal Confidentiality of Alcohol and Drug Abuse Patient Records regulations: The Federal rules restrict any use of the information to criminally investigate or prosecute any alcohol or drug abuse patient.[facility] the event this information is protected by the Federal Confidentiality of Alcohol and Drug Abuse Patient Records regulations: The Federal rules restrict any use of the information to criminally investigate or prosecute any alcohol or drug abuse patient.[facility] the event this information is protected by the Federal Confidentiality of Alcohol and Drug Abuse Patient Records regulations: The Federal rules restrict any use of the information to criminally investigate or prosecute any alcohol or drug abuse patient.[facility] the event this information is protected by the Federal Confidentiality of Alcohol and Drug Abuse Patient Records regulations: The Federal rules restrict any use of the information to criminally investigate or prosecute any alcohol or drug abuse patient.[facility] the event this information is protected by the Federal Confidentiality of Alcohol and Drug Abuse Patient Records regulations: The Federal rules restrict any use of the information to criminally investigate or prosecute any alcohol or drug abuse patient.[facility] the event this information is protected by the Federal Confidentiality of Alcohol and Drug Abuse Patient Records regulations: The Federal rules restrict any use of the information to criminally investigate or prosecute any alcohol or drug abuse patient.[facility] the event this information is protected by the Federal Confidentiality of Alcohol and Drug Abuse Patient Records regulations: The Federal rules restrict any use of the information to criminally investigate or prosecute any alcohol or drug abuse patient.[facility] the event this information is protected by the Federal Confidentiality of Alcohol and Drug Abuse Patient Records regulations: The Federal rules restrict any use of the information to criminally investigate or prosecute any alcohol or drug abuse patient.[facility] the event this information is protected by the Federal Confidentiality of Alcohol and Drug Abuse Patient Records regulations: The Federal rules restrict any use of the information to criminally investigate or prosecute any alcohol or drug abuse patient.[facility] the event this information is protected by the Federal Confidentiality of Alcohol and Drug Abuse Patient Records regulations: The Federal rules restrict any use of the information to criminally investigate or prosecute any alcohol or drug abuse patient.[facility] the event this information is protected by the Federal Confidentiality of Alcohol and Drug Abuse Patient Records regulations: The Federal rules restrict any use of the information to criminally investigate or prosecute any alcohol or drug abuse patient.[facility] Reason for Visit (unrecogniz ed section and content) Specialty Diagnoses / Procedures Referred By Zoltan belcher Referred To Contact Family Medicine / FAMILY MEDICINE Diagnoses Follow-up exam 2 week follow up starting lisinopril Procedures OFFICE/OUTPATIENT ESTABLISHED MOD MDM 30-39 MIN 4C EST Eugenie Mei MD [address] [place] [phone] Johanne Case APRN.PROCED TECH [address] [phone] Referral ID Status Reason Start Date Expiration Date Visits Re quested Visits Authorized [id number] Closed 03/28/2022 02/26/2023 1 1 Reason Comments [...] 30-39 MIN 4C EST Self Johanne Case APRN.PROCED TECH [address] [phone] Referral ID Status Reason Start Date Expiration Date Visits Re quested Visits Authorized [id number] Closed 12/13/2021 02/26/2022 1 1 Reason Comments Consult colonoscopy Specialty Diagnoses / Procedures Referred By Zoltan t Referred To Contact General Surgery / INITIAL DEPT Diagnoses Screening for colon cancer Procedures CONSULT TO GENERAL SURGERY OFFICE/OUTPATIENT NEW HIGH MDM 60-74 MINUTES OFFICE/OUTPATIENT NEW MODERATE MDM 45-59 MINUTES Johanne Case APRN.PROCED TECH [address] [place] [address] Initial Department Referral ID Status Reason Start Date Expiration Date V isits Requested Visits Authorized [id number] Closed PCP Requested Referral 12/22/2021 02/26/2022 1 1 Reason Comments Blood Pressure Elevated at [facility] phys ical yesterday. Recently started MTX for RA. Specialty Diagnoses / Procedures Referred By Contac t Referred To Contact Internal Medicine / FAMILY MEDICINE Diagnoses Blood pressure alteration increased blood pressure Procedures OFFICE/OUTPATIENT ESTABLISHED MOD [facility] 30-39 MIN 4C EST Johanne Case, BOOGIE.PROCED TECH [address] [place] [address] Eugenie Mei MD [address] [place] [address] Referral ID Status Reason Start Date Expiration Date Visits Re quested Visits Authorized [id number] Closed 03/10/2022 02/26/2023 1 1 Reason Comments Recheck 2 week bp check; did not start lisinopril Reason Onset Date Comments Refill Request Refill Request 07/28/2022 Specialty Diagnoses / Procedures Referred By Contac t Referred To Contact [facility] Diagnoses History of colonic polyps Procedures COLONOSCOPY SCREENING COLONOSCOPY FLX DX W/COLLJ SPEC WHEN PFRMD Opal Elizondo PA-C [address] [place] [phone] [facility] [address] [place] [address] Referral ID Status Reason Start Date Expiration Date V isits Requested Visits Authorized [id number] Closed Auto-Generate d Referral 01/28/2022 02/26/2022 1 1 Reason Comments ? yeast infection Care Teams (unrecognized sec tion and content) Wood Type Cutter Relationship Specialty Start Date End Date Basilio Shafer, CREDIT RATING CHECKER.PROCED TECH, DNP [address] [place] [address] PCP - General Family Practice 01/18/21 Wood Type Cutter Relationship Specialty Start Date End Date Johanne Case, CREDIT RATING CHECKER.PROCED TECH [address] [place], [place] [phone] PCP - General Family Practice 11/03/21 Wood Type Cutter Relationship Specialty Start Date End Date Johanne Case, CREDIT RATING CHECKER.PROCED TECH [address] [place], [place] [phone] PCP - General Family Medicine 11/03/21 Wood Type Cutter Relationship Specialty Start Date End Date Johanne Case, CREDIT RATING CHECKER.PROCED TECH [address] [place] [address] PCP - General Family Medicine 11/03/21 Wood Type Cutter Relationship Specialty Start Date End Date Johanne Case, CREDIT RATING CHECKER.PROCED TECH [address] [place] [address] PCP - General Family Medicine 11/03/21 Wood Type Cutter Relationship Specialty Start Date End Date Johanne Case, CREDIT RATING CHECKER.PROCED TECH [address] [place] [address] PCP - General Family Medicine 11/03/21 Wood Type Cutter Relationship Specialty Start Date End Date Johanne Case, CREDIT RATING CHECKER.PROCED TECH [address] [place] [address] PCP - General Family Medicine 11/03/21 Wood Type Cutter Relationship Specialty Start Date End Date Johanne Case, CREDIT RATING CHECKER.PROCED TECH [address] [place] [address] PCP - General Family Medicine 11/03/21 Wood Type Cutter Relationship Specialty Start Date End Date Johanne Case, CREDIT RATING CHECKER.PROCED TECH [address] [place] [address] PCP - General Family Medicine 11/03/21 Wood Type Cutter Relationship Specialty Start Date End Date Johanne Case, CREDIT RATING CHECKER.PROCED TECH [address] [facility] [place] [address] PCP - General Family Medicine 11/03/21 Wood Type Cutter Relationship Specialty Start Date End Date Johanne Case, CREDIT RATING CHECKER.PROCED TECH [address] [place] [address] PCP - General Family Medicine 11/03/21 Wood Type Cutter Relationship Specialty Start Date End Date Johanne Case APRN.PROCED TECH [address] [place] [address] PCP - General Family Medicine 11/03/21 Wood Type Cutter Relationship Specialty Start Date End Date Johanne Case APRN.PROCED TECH [address] [place] [address] PCP - General Family Medicine 11/03/21 FOR [...] BE BASED ON THE PRIMARY CLINICAL RECORDS. [facility] [employer] provides no warranty or guarantee of the accuracy or completeness of information in this document.
[2023-04-19] MEDS: Amox/Clavulanate 875 MG Tablet PO (21:50)
[2023-04-19 21:52] VITALS: BP 130/64; PULSE 68; RESP 18; TEMP 36.3; O2SAT 96
== END 2023-04-19 21:53 | disposition home or self-care (01) ==
PROVIDERS: Emergency Provider Emergency Medicine; PCP Registered Nurse; Visit Provider Emergency Medicine
DX: J32.2 Chronic ethmoidal sinusitis (principal); J32.0 Chronic maxillary sinusitis
CPT/HCPCS: 70450; 99282

== ENCOUNTER → 2023-07-29 | Outpatient (CLI) | payer OTHER, SELFPAY ==
[2023-07-29 08:06] LABS: Absolute Lymphocyte Count 2.11 X10^3/uL (0.83-4.51); Absolute Neutrophil Count 3.5 X10^3/uL (2.0-7.7); Basophil# 0.06 X10^3/uL; Basophil% 0.9 % (0-1); Eosinophil# 0.37 X10^3/uL; Eosinophils% 5.6 % (0-5); Hematocrit 45.1 % (40-54); Lymphocyte # 2.11 X10^3/ul (0.83-4.51); Lymphocyte % 32.1 % (19-41); Mean Corp Hgb Conc 33.3 g/dL (32-36); Mean Corpuscular Hgb 30.4 pg (27.0-32.0); Mean Corpuscular Volume 91.3 fL (80-94); Mean Platelet Vol. 9.1 fl (6.2-12.0); Monocyte# 0.52 X10^3/uL; Monocyte% 7.9 % (0-10); NRBC Flagged by Analyzer 0 % (0-5); Neutrophil # 3.49 X10^3/uL (2.7-7.7); Platelet Count 288 K/mm3 (150-450); RBC Distribution Width CV 13.1 % (11.6-14.6); RBC Distribution Width SD 42.5 fl (35.1-43.9); Red Blood Count 4.94 M/mm3 (4.6-6.2); White Blood Count 6.6 K/mm3 (4.4-11.0)
[2023-07-29 08:41] LABS: ALB/GLOB Ratio 1.1 RATIO (0.9-2.4); AST(SGOT) 27 U/L (15-37); Alanine Aminotransfer ALT/SGPT 43 U/L (16-61); Albumin, Serum 3.6 g/dL (3.2-5.0); Alkaline Phosphatase 95 U/L (45-117); Anion Gap 6 (5-15); BUN 16 mg/dL (7-18); Chloride 109 mmol/L (98-107); Cholesterol 181 mg/dL (200); Creatinine, Serum 1.14 mg/dL (0.70-1.30); EST Glomerular Filtration Rate 70 mL/min (>60); Est Glom Filt Rate - Afr Amer 85 mL/min (>60); Globulin 3.3 g/dL (2.2-4.2); Glucose 104 mg/dL (74-106); High Density Lipoprotein 52 mg/dL; Potassium 4.1 mmol/L (3.5-5.1); Protein, Total 6.9 g/dL (6.4-8.2); Sodium Level 140 mmol/L (136-145); Thyroid Stim Hormone (TSH) 1.87 uIU/mL (0.358-3.74); Triglycerides 110 mg/dL; Very Low Density Lipoprotein 22 mg/dL (5-40)
== END | disposition home or self-care (01) ==
LOC: LAB 07:11
PROVIDERS: PCP Registered Nurse; Referring Provider Registered Nurse; Visit Provider Registered Nurse
DX: I10 Essential (primary) hypertension (principal); E78.5 Hyperlipidemia, unspecified; E03.9 Hypothyroidism, unspecified
CPT/HCPCS: 36415; 80053; 80061; 84443; 85025

== ENCOUNTER 2023-10-28 07:12 | Outpatient (RCR) | payer OTHER, SELFPAY ==
[2023-10-28 07:51] LABS: Absolute Lymphocyte Count 2.63 X10^3/uL (0.83-4.51); Absolute Neutrophil Count 3.4 X10^3/uL (2.0-7.7); Basophil# 0.06 X10^3/uL; Basophil% 0.8 % (0-1); Eosinophil# 0.34 X10^3/uL; Eosinophils% 4.7 % (0-5); Hematocrit 42.8 % (40-54); Hemoglobin 14.3 g/dL (13.0-16.5); Lymphocyte # 2.63 X10^3/ul (0.83-4.51); Lymphocyte % 36.4 % (19-41); Mean Corp Hgb Conc 33.4 g/dL (32-36); Mean Corpuscular Hgb 30.2 pg (27.0-32.0); Mean Corpuscular Volume 90.5 fL (80-94); Mean Platelet Vol. 9.2 fl (6.2-12.0); Monocyte# 0.81 X10^3/uL; Monocyte% 11.2 % (0-10); NRBC Flagged by Analyzer 0 % (0-5); Neutrophil # 3.36 X10^3/uL (2.7-7.7); Neutrophil % 46.6 % (47-70); Platelet Count 262 K/mm3 (150-450); RBC Distribution Width CV 13.2 % (11.6-14.6); Red Blood Count 4.73 M/mm3 (4.6-6.2); White Blood Count 7.2 K/mm3 (4.4-11.0)
[2023-10-28 08:17] LABS: ALB/GLOB Ratio 1.2 RATIO (0.9-2.4); AST(SGOT) 32 U/L (15-37); Alanine Aminotransfer ALT/SGPT 44 U/L (16-61); Albumin, Serum 3.6 g/dL (3.2-5.0); Alkaline Phosphatase 94 U/L (45-117); Anion Gap 4 (5-15); BUN 20 mg/dL (7-18); BUN/Creat Ratio 16.5 RATIO (10-20); Calcium,Total 9.1 mg/dL (8.5-10.1); Chloride 111 mmol/L (98-107); Creatinine, Serum 1.21 mg/dL (0.70-1.30); EST Glomerular Filtration Rate 65 mL/min (>60); Est Glom Filt Rate - Afr Amer 79 mL/min (>60); Glucose 100 mg/dL (74-106); Potassium 4.3 mmol/L (3.5-5.1); Protein, Total 6.6 g/dL (6.4-8.2); Sodium Level 141 mmol/L (136-145)
== END 2023-10-28 18:00 | disposition home or self-care (01) ==
LOC: LAB 07:12
PROVIDERS: PCP Registered Nurse; Referring Provider Internal Medicine Rheumatology; Visit Provider Internal Medicine Rheumatology
DX: M05.79 Rheumatoid arthritis with rheumatoid factor of multiple sites without organ or systems involvement (principal); Z79.899 Other long term (current) drug therapy; R76.8 Other specified abnormal immunological findings in serum; M79.7 Fibromyalgia
CPT/HCPCS: 36415; 80053; 85025

== ENCOUNTER → 2024-01-24 | Outpatient (CLI) | payer OTHER, SELFPAY ==
[2024-01-24 10:37] LABS: Absolute Lymphocyte Count 2.26 X10^3/uL (0.83-4.51); Absolute Neutrophil Count 8.1 X10^3/uL (2.0-7.7); Basophil# 0.07 X10^3/uL; Basophil% 0.6 % (0-1); Eosinophil# 0.25 X10^3/uL; Eosinophils% 2.1 % (0-5); Hematocrit 45.9 % (40-54); Hemoglobin 15.6 g/dL (13.0-16.5); Lymphocyte # 2.26 X10^3/ul (0.83-4.51); Lymphocyte % 19.2 % (19-41); Mean Corpuscular Volume 91.1 fL (80-94); Mean Platelet Vol. 9.5 fl (6.2-12.0); Monocyte# 1.08 X10^3/uL; Monocyte% 9.2 % (0-10); NRBC Flagged by Analyzer 0 % (0-5); Neutrophil % 68.6 % (47-70); Platelet Count 287 K/mm3 (150-450); RBC Distribution Width CV 13.1 % (11.6-14.6); RBC Distribution Width SD 42.1 fl (35.1-43.9); Red Blood Count 5.04 M/mm3 (4.6-6.2); White Blood Count 11.8 K/mm3 (4.4-11.0)
[2024-01-24 11:17] LABS: ALB/GLOB Ratio 1.1 RATIO (0.9-2.4); AST(SGOT) 27 U/L (15-37); Alanine Aminotransfer ALT/SGPT 42 U/L (16-61); Albumin, Serum 3.9 g/dL (3.2-5.0); Alkaline Phosphatase 103 U/L (45-117); Anion Gap 5 (5-15); BUN 18 mg/dL (7-18); BUN/Creat Ratio 15.7 RATIO (10-20); Calcium,Total 9.4 mg/dL (8.5-10.1); Chloride 105 mmol/L (98-107); Creatinine, Serum 1.15 mg/dL (0.70-1.30); EST Glomerular Filtration Rate 69 mL/min (>60); Est Glom Filt Rate - Afr Amer 84 mL/min (>60); Globulin 3.4 g/dL (2.2-4.2); Glucose 104 mg/dL (74-106); Potassium 3.6 mmol/L (3.5-5.1); Protein, Total 7.3 g/dL (6.4-8.2); Sodium Level 138 mmol/L (136-145)
== END | disposition home or self-care (01) ==
LOC: MTLAB 07:42
PROVIDERS: PCP Registered Nurse; Referring Provider Internal Medicine Rheumatology; Visit Provider Internal Medicine Rheumatology
DX: M05.70 Rheumatoid arthritis with rheumatoid factor of unspecified site without organ or systems involvement (principal); M79.7 Fibromyalgia; R76.8 Other specified abnormal immunological findings in serum; Z79.899 Other long term (current) drug therapy
CPT/HCPCS: 36415; 80053; 85025

== ENCOUNTER 2024-02-07 22:07 | Emergency (ER) | payer OTHER, SELFPAY ==
[2024-02-07 22:08] VITALS: BP 134/75; PULSE 106; RESP 18; TEMP 38.5; O2SAT 96; BMI 31.0
[2024-02-07] MEDS: 0.9% Normal Saline (1000mL) 1,000 ML 999 ML IV (22:39)
[2024-02-07] MEDS: Benzonatate 100 MG Capsule 200 MG PO (22:44)
[2024-02-07 22:49] LABS: Absolute Lymphocyte Count 1.68 X10^3/uL (0.83-4.51); Absolute Neutrophil Count 6.6 X10^3/uL (2.0-7.7); Basophil# 0.11 X10^3/uL; Basophil% 1.1 % (0-1); Eosinophil# 0.21 X10^3/uL; Eosinophils% 2.1 % (0-5); Hematocrit 42.6 % (40-54); Lymphocyte # 1.68 X10^3/ul (0.83-4.51); Lymphocyte % 17.1 % (19-41); Mean Corp Hgb Conc 35.2 g/dL (32-36); Mean Corpuscular Hgb 31.3 pg (27.0-32.0); Mean Corpuscular Volume 88.8 fL (80-94); Mean Platelet Vol. 8.8 fl (6.2-12.0); Monocyte% 11.2 % (0-10); NRBC Flagged by Analyzer 0 % (0-5); Neutrophil # 6.56 X10^3/uL (2.7-7.7); Neutrophil % 66.8 % (47-70); Platelet Count 274 K/mm3 (150-450); RBC Distribution Width CV 13.1 % (11.6-14.6); RBC Distribution Width SD 41.6 fl (35.1-43.9); White Blood Count 9.8 K/mm3 (4.4-11.0)
--- NOTE | 2024-02-07 22:50 | RAD_ITS ---
EXAM: XR CHEST, 2 VIEWS CLINICAL INDICATION: cough TECHNIQUE: Frontal and lateral views of the chest. COMPARISON: 01/13/2020. FINDINGS: LUNGS AND PLEURAL SPACES: Unremarkable. No consolidation or edema. No pneumothorax. No effusion. HEART: Unremarkable. Cardiac silhouette not enlarged. MEDIASTINUM: Central airways and mediastinal contour are unremarkable. BONES/JOINTS: Unremarkable. No acute fracture. SOFT TISSUES: Unremarkable. RAD/Chest PA and Lateral IMPRESSION: No radiographic evidence of acute cardiopulmonary disease. Electronically Signed: Sai Villegas MD at 0:15 EST ,
[2024-02-07 23:05] LABS: Anion Gap 8 (5-15); BUN 23 mg/dL (7-18); BUN/Creat Ratio 18.7 RATIO (10-20); Chloride 109 mmol/L (98-107); Creatinine, Serum 1.23 mg/dL (0.70-1.30); EST Glomerular Filtration Rate 64 mL/min (>60); Est Glom Filt Rate - Afr Amer 77 mL/min (>60); Estimated Creatinine Clearance 71.39 ml/min; Glucose 109 mg/dL (74-106); Potassium 4.4 mmol/L (3.5-5.1); Sodium Level 141 mmol/L (136-145)
[2024-02-07 23:09] VITALS: BP 116/99; PULSE 100; RESP 20; TEMP 38.1; O2SAT 98
--- NOTE | 2024-02-07 23:15 | ED.RN ---
toradol 30mg iv given,unable to document,rx having difficulty aknowledging.
[2024-02-07] MEDS: Ketorolac 15 MG/ML Vial 30 MG IV (23:16)
[2024-02-07 23:17] LABS: Lactic Acid 1.8 mmol/L (0.4-1.9)
[2024-02-08] VITALS: BP 133/77; PULSE 98; RESP 18; TEMP 37.8; O2SAT 97
[2024-02-08 00:07] VITALS: O2SAT 97
--- NOTE | 2024-02-08 00:21 | EX.ED.DYSGE1 ---
HPI History of Present Illness Chief Complaint: General Illness Informant: patient and spouse/S.O. Narrative Narrative: Patient is a 58-year-old male with past medical history of hypertension fibromyalgia and rheumatoid arthritis. He is currently on methotrexate. He states roughly a week ago he had cough and congestion and saw his family doctor and was placed on Augmentin. 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 He reports that he got better after taking the Augmentin. However in the last 1 to 2 days he has had return of fever congestion cough with fatigue and muscle aches. Secondary to the return of symptoms he presents for evaluation [facility] Medical History (Updated 02/08/24 @ 01:[address] Rommel Brito, DO) Arthritis Hypertension Fibromyalgia Home Medications ?Medication ?Instructions ?Recorded ?Last Taken ?Type levothyroxine 50 mcg tablet 75 mcg PO DAILY 01/13/20 Unknown History multivitamin with minerals 1 ea PO DAILY 01/13/20 Unknown History amoxicillin 875 mg-potassium 1 tab PO BID #20 tabs 04/19/23 Unknown Rx clavulanate 125 mg tablet folic acid 1 mg tablet 2 mg PO DAILY 02/07/24 Unknown History methotrexate sodium 2.5 mg tablet 15 mg PO QWEEK 02/07/24 Unknown History benzonatate 200 mg capsule 200 mg PO TID PRN cough #30 caps 02/08/24 Unknown Rx oseltamivir 75 mg capsule (Tamiflu) 75 mg PO BID 5 days #10 caps 02/08/24 Unknown Rx oxycodone 5 mg tablet 5 mg PO Q6H PRN pain 3 days #12 02/08/24 Unknown Rx tabs Allergy/AdvReac Type Severity Reaction Status Date / Time codeine Allergy Hives Verified 02/07/24 22:09 Sulfa (Sulfonamide Allergy Hives Verified 02/07/24 22:09 Antibiotics) Social History Smoking Status: Never smoker ROS ROS ED Constitutional Constitutional ED: Reports chills and fever(s) Eyes Eyes: Denies change in vision ENT ENT ED: Reports rhinorrhea and sore throat Cardiovascular Cardiovascular: Denies chest pain Respiratory/Chest Respiratory/Chest: Reports cough; Denies dyspnea Gastrointestinal Gastrointestinal: Reports nausea; Denies abdominal pain, diarrhea or vomiting Genitourinary Genitourinary ED: Denies dysuria Musculoskeletal Musculoskeletal: Reports myalgias Integumentary Denies rash Neurologic Neurologic: Reports weakness Hematologic/Lymphatic Hematologic/Lymphatic: Denies easy bleeding or easy bruising EXAM Physical Exam Const Vital Signs: 02/07/24 22:08 02/07/24 23:09 02/08/24 00:00 Temperature 101.3 F H 100.6 F H 100.0 F H Temperature Source Oral Oral Temporal Pulse Rate 106 H 100 98 Respiratory Rate 18 20 H 18 Blood Pressure 134/75 H 116/99 H 133/77 H Blood Pressure Mean 94 104 95 Pulse Ox 96 98 97 Oxygen Delivery Method Room Air Room Air Room Air 02/08/24 00:07 02/08/24 00:38 Temperature 99.8 F H Temperature Source Pulse Rate 105 H Respiratory Rate 20 H Blood Pressure 124/78 H Blood Pressure Mean 93 Pulse Ox 97 100 Oxygen Delivery Method Positive well nourished and well developed General Appearance ED: well developed; Negative for pallor HEENT HEENT Narrative: No tongue or lip swelling no oral lesions no airway edema or compromise There is cobblestoning noted in the posterior pharynx consistent with sinus drainage No secondary findings to suggest infection Eyes PERRL and EOMs intact bilaterally General Eye ED: Negative for scleral icterus Neck supple Neck Narrative: No nuchal rigidity or meningeal signs Chest Wall palpation of chest normal Resp normal respiratory effort and clear to auscultation bilaterally Resp Narrative: No nasal flaring retractions tachypnea or accessory muscle use Cardio regular rhythm Rate: tachycardic and other Other Details: Slightly tachycardic rate with regular rhythm Radial and carotid pulses are equal and symmetric GI normal to inspection, nondistended, normoactive bowel sounds, non-tender, non-distended and no masses GI Narrative: No voluntary guarding or rigidity or pulsatile mass Auscultation: normoactive bowel sounds Palpation: soft Extremity normal to inspection Extremity Narrative: No asymmetric edema no pitting edema negative Homans' sign bilaterally Neuro oriented x3, CN's II-XII intact bilaterally and no sensory deficits noted Sensorium / Orientation: alert Motor Exam: strength 5/5 throughout Psych Psych Narrative: Patient has a flat affect Skin no rashes or lesions noted General Skin Exam: Negative for jaundice or pallor MDM MDM MDM Narrative Medical decision making narrative: Patient presented to the ER febrile but otherwise in no acute distress with stable vitals. Constellation of symptoms is concerning for viral infection such as COVID versus influenza versus RSV. There is also concern for pneumonia. With his report of room to arthritis on methotrexate there is concern that he has a neutropenic fever as well. Therefore basic labs with a chest x-ray and viral swab were obtained. Labs showed no leukocytosis or left shift his neutrophil count was within normal range and there was no lactic acidosis noted. Chest x-ray revealed no acute infiltrate and his viral swab was positive for influenza A which correlates with his fever and symptoms. At this time he is not showing signs of sepsis from the viral infection and he is not hypoxic or in respiratory distress so there is no need for admission and he is otherwise safe for discharge with symptomatic care History & Record Review Discussion w/independent historian: Patient and Significant other Lab Data Attestation: I reviewed the patient's lab results. Labs: Laboratory Results - last 24 hr 02/07/24 02/07/24 22:25 22:48 WBC 9.8 RBC 4.80 Hgb 15.0 Hct 42.6 MCV 88.8 MCH 31.3 MCHC 35.2 RDW Std Deviation 41.6 RDW Coeff of Sahil 13.1 Plt Count 274 MPV 8.8 Immature Gran % (Auto) 1.700 H Neut % (Auto) 66.8 Lymph % (Auto) 17.1 L [place] % (Auto) 11.2 H Eos % (Auto) 2.1 Baso % (Auto) 1.1 H Absolute Neuts (auto) 6.6 Absolute Lymphs (auto) 1.68 Nucleated RBC % 0 Sodium 141 Potassium 4.4 Chloride 109 H Carbon Dioxide 24.0 Anion Gap 8 BUN 23 H Creatinine 1.23 Estim Creat Clear Calc 71.39 Est GFR (MDRD) Af Amer 77 Est GFR (MDRD) Non-Af 64 BUN/Creatinine Ratio 18.7 Glucose 109 H Lactic Acid 1.8 Calcium 9.0 Radiography Diagnostic Testing: Clinical Impression(s) from Imaging Studies Chest X-Ray 02/07/24 22:50 IMPRESSION: No radiographic evidence of acute cardiopulmonary disease. Electronically Signed: Sai Villegas MD at 0:15 EST , Chest x-ray as interpreted by the emergency medicine physician reveals no acute infiltrate pneumothorax or pleural effusion Discharge Plan Triage Chief Complaint: General Illness ED Provider: Rommel Brito Dx/Rx/DC Orders Clinical Impression: Influenza A, Pyrexia, Hypertension, Fibromyalgia, Rheumatoid arthritis Instructions: ED Fever Control (Adult), ED Influenza (Adult) Prescriptions: New oxycodone 5 mg tablet 5 mg PO Q6H PRN (Reason: pain) 3 Days Qty: 12 0RF oseltamivir [Tamiflu] 75 mg capsule 75 mg PO BID 5 Days Qty: 10 0RF benzonatate 200 mg capsule 200 mg PO TID PRN (Reason: cough) Qty: 30 0RF No Action levothyroxine 50 MCG tablet 75 mcg PO DAILY multivitamin with minerals 1 EACH tablet 1 ea PO DAILY methotrexate sodium 2.5 mg tablet 15 mg PO QWEEK folic acid 1 mg tablet 2 mg PO DAILY amoxicillin-pot clavulanate 875-125 mg tablet 1 tab PO BID Qty: 20 0RF Stand Alone Forms: ED Work / School Excuse Primary Care Provider: Johanne Case NP Referrals: Johanne Case NP, [employer] [Primary Care Provider] - Activity Restrictions/Additional Instructions: You tested positive for influenza A. This is a virus and needs to run its course. It will last anywhere from 3 to 10 days with 7 days being the average. Please take 600 mg of ibuprofen every 6 hours/4 times a day for fever control and keep yourself well-hydrated. If you have any further concerns or worsening of symptoms please return to the ER for repeat evaluation Print Language: Micronesian Disposition Disposition: Home, Self Care Discharge Date/Time: 02/08/24 00:43
[2024-02-08] MEDS: oxyCODONE 5 MG Tablet PO (00:34)
[2024-02-08 00:38] VITALS: BP 124/78; PULSE 105; RESP 20; TEMP 37.7; O2SAT 100
== END 2024-02-08 00:43 | disposition home or self-care (01) ==
PROVIDERS: Emergency Provider Emergency Medicine; PCP Registered Nurse; Visit Provider Emergency Medicine
DX: J10.1 Influenza due to other identified influenza virus with other respiratory manifestations (principal); M06.9 Rheumatoid arthritis, unspecified; M79.7 Fibromyalgia; I10 Essential (primary) hypertension; Z79.631 Long term (current) use of antimetabolite agent; Z79.899 Other long term (current) drug therapy
CPT/HCPCS: 71046; 80048; 83605; 85025; 87631; 96361; 96374; 99282; A4216

== ENCOUNTER 2024-02-12 08:58 | Emergency (ER) | payer OTHER, SELFPAY ==
[2024-02-12 08:59] VITALS: BP 120/90; PULSE 68; RESP 15; TEMP 36.4; O2SAT 100
--- NOTE | 2024-02-12 09:11 | EX.ED.DYSGE1 ---
HPI History of Present Illness Chief Complaint: Nausea/Vomiting Detail of Chief Complaint: Nausea and vomiting x several times Informant: patient and spouse/S.O. Onset/Context/Timing Onset: Today Context: Sudden Onset Timing: Intermittent Quality: Nausea and vomiting Current Severity: Mild Maximum Severity: Moderate Worsened by: Nothing Relieved by: Nothing Associated Symptoms Associated Symptoms: Slight blood tinge last emesis Narrative Narrative: Patient is a 58-year-old male. He has history of rheumatoid arthritis on methotrexate, hypothyroidism who developed flulike symptoms last Monday. Went to urgent care and was diagnosed with influenza. He had been having symptoms for 1 to 2 weeks prior. He has not taken his methotrexate for the last 2 weeks. Tmax 102 ?F. Patient does endorse mild congestion. He states cough became productive this past weekend. Initially the sputum was brown now yellow. There is no blood noted. He denies pleuritic pain. He denies dyspnea on exertion. He has vomited several times starting today. States initially it was emesis. Then was phlegm. Last episode there was a tinge/streak of blood. Patient denies abdominal pain. Patient denies diarrhea. Patient denies black or maroon-colored stool. Patient does endorse myalgias arthralgias. According to , multiple family members have been ill. He denies rash. Prior similar symptoms: Yes Recent Illness/Hospitalization: Yes (Diagnosed with influenza on Monday, February 06.) [facility] Medical History Arthritis Hypertension Fibromyalgia Home Medications ?Medication ?Instructions ?Recorded ?Last Taken ?Type levothyroxine 50 mcg tablet 75 mcg PO DAILY 01/13/20 Unknown History multivitamin with minerals 1 ea PO DAILY 01/13/20 Unknown History amoxicillin 875 mg-potassium 1 tab PO BID #20 tabs 04/19/23 Unknown Rx clavulanate 125 mg tablet folic acid 1 mg tablet 2 mg PO DAILY 02/07/24 Unknown History methotrexate sodium 2.5 mg tablet 15 mg PO QWEEK 02/07/24 Unknown History benzonatate 200 mg capsule 200 mg PO TID PRN cough #30 caps 02/08/24 Unknown Rx oseltamivir 75 mg capsule (Tamiflu) 75 mg PO BID 5 days #10 caps 02/08/24 Unknown Rx oxycodone 5 mg tablet 5 mg PO Q6H PRN pain 3 days #12 02/08/24 Unknown Rx tabs Allergy/AdvReac Type Severity Reaction Status Date / Time codeine Allergy Hives Verified 02/12/24 09:01 Sulfa (Sulfonamide Allergy Hives Verified 02/12/24 09:01 Antibiotics) Social History (Updated 02/12/24 @ 09:[address] Aníbal Lundy MD) household members: spouse Smoking Status: Never smoker ROS ROS ED Constitutional Constitutional ED: Reports chills and fever(s); Denies sweats Eyes Eyes: Denies blurry vision, change in vision or diplopia ENT ENT ED: Reports rhinorrhea and sore throat; Denies ear pain Cardiovascular Cardiovascular: Denies chest pain, orthopnea, palpitations, paroxysmal nocturnal dyspnea or racing heartbeat Respiratory/Chest Respiratory/Chest: Reports cough, dyspnea and sputum; Denies dyspnea on exertion, orthopnea or paroxysmal nocturnal dyspnea Gastrointestinal Gastrointestinal: Reports nausea, vomiting and other Details: Detailed HPI narrative ; Denies abdominal pain, constipation, diarrhea or melena Genitourinary Genitourinary ED: Denies dysuria, hematuria or urinary frequency Musculoskeletal Musculoskeletal: Reports arthralgias and myalgias Integumentary Denies rash Neurologic Neurologic: Reports headache(s) and weakness; Denies paresthesias Hematologic/Lymphatic Hematologic/Lymphatic: Reports systems reviewed and no addt'l complaints, except as documented EXAM Physical Exam Const Vital Signs: 02/12/24 08:59 02/12/24 09:49 Temperature 97.6 F L Temperature Source Temporal Pulse Rate 68 Pulse Rate [Lying] 60 Pulse Rate [Sitting (for 1 minute prior to obtaining)] 58 L Pulse Rate [Standing (for 1 minute prior to obtaining)] 65 Respiratory Rate 15 Blood Pressure 120/90 H Blood Pressure [Lying] 117/70 Blood Pressure [Sitting (for 1 minute prior to obtaining)] 126/77 H Blood Pressure [Standing (for 1 minute prior to obtaining)] 143/86 H Blood Pressure Mean 100 Blood Pressure Mean [Lying] 85 Blood Pressure Mean [Sitting (for 1 minute prior to obtaining)] 93 Blood Pressure Mean [Standing (for 1 minute prior to obtaining)] 105 Pulse Ox 100 Oxygen Delivery Method Room Air Positive well nourished and well developed Constitutional Narrative: Vital signs are unremarkable. Patient appears ill. General Appearance ED: well developed; Negative for pallor HEENT Reports dry mucous membranes HEENT Narrative: Head is atraumatic normocephalic. Ears normal. Nares patent. Posterior pharynx is normal. Uvula is midline. No deviation of tongue with protrusion. Mouth ED: Yes dry mucous membranes Mouth: dry mucous membranes Eyes PERRL and EOMs intact bilaterally General Eye ED: Negative for pale conjunctiva or scleral icterus Neck no lymphadenopathy, supple and no JVD Neck Narrative: Trachea is midline. There is no stridor. Chest Wall inspection of chest normal Resp normal respiratory effort and clear to auscultation bilaterally Cardio regular rate, regular rhythm, S1 normal heart sound, S2 normal heart sound and no murmurs GI normal to inspection, nondistended, normoactive bowel sounds, non-tender, non-distended and no masses; Negative for hepatosplenomegaly Extremity normal to inspection Extremity Narrative: There is no asymmetry, swelling, discoloration, leg vein distention, palpable cords or tenderness along the distribution of the deep venous system. Neuro oriented x3 and CN's II-XII intact bilaterally Sensorium / Orientation: alert Psych mental status grossly normal Skin no rashes or lesions noted and no wounds General Skin Exam: Negative for jaundice or pallor MDM MDM MDM Narrative Medical decision making narrative: Patient's symptoms are consistent with a viral infection. Suspect the nausea and vomiting is related to recent diagnosis of influenza. Since patient is reporting brown-colored sputum on suppressive meds will obtain CBC to assess white count differential, chest x-ray to rule out pneumonia and BMP to assess renal function. 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 In my opinion there is no indication for NG to be placed at this time. Since he is endorsing orthostatic symptoms and appears dehydrated orthostatic vital signs were ordered as well as 1 L of normal saline wide open. Since he is still nauseous Zofran was ordered. History & Record Review Additional record(s) reviewed:: Prior ED visit (Patient was diagnosed with influenza A and fever on February 07. Dr. Brito note was reviewed. He was seen March 2023 for sinus headache.), Prior labs and Other (Patient was seen August 2012 for chest pain.) Lab Data Attestation: I reviewed the patient's lab results. Lab results narrative: White count and differential are normal. Basic metabolic panel is normal. Labs: Laboratory Results - last 24 hr 02/12/24 09:15 WBC 4.8 RBC 4.97 Hgb 15.1 Hct 43.9 MCV 88.3 MCH 30.4 MCHC 34.4 RDW Std Deviation 40.5 RDW Coeff of Sahil 12.6 Plt Count 184 MPV 9.2 Immature Gran % (Auto) 0.600 Neut % (Auto) 58.3 Lymph % (Auto) 28.3 [place] % (Auto) 10.7 H Eos % (Auto) 1.7 Baso % (Auto) 0.4 Absolute Neuts (auto) 2.8 Absolute Lymphs (auto) 1.35 Nucleated RBC % 0 Sodium 137 Potassium 3.9 Chloride 105 Carbon Dioxide 27.0 Anion Gap 5 BUN 12 Creatinine 1.08 Est GFR (MDRD) Af Amer 90 Est GFR (MDRD) Non-Af 74 BUN/Creatinine Ratio 11.1 Glucose 106 Calcium 8.5 Radiography Chest X-Ray - ED: 2 View, Read by ED Physician (There is no infiltrate, effusion noted. 0933), Unchanged, Heart, Mediastinum, No Acute Disease and Chronic Changes (Degenerative changes noted of the thoracic spine especially on the lateral.) Diagnostic Testing: Clinical Impression(s) from Imaging Studies Chest X-Ray 02/12/24 09:25 IMPRESSION: Degenerative changes, as described above. No demonstrated acute cardiopulmonary process. Electronically Signed: Ziggy Estrada MD at 9:38 EST Reading Location ID and State: [address] [place] [address] , Service support , Treatment and Re-Evaluation :: Patient was reassessed at 0950. Patient was informed of x-ray interpretation by me and laboratory results. He he has received 500 cc of the 1 L of normal saline is ordered. He is no longer nauseous. Will reassess after liter has infused. Comments:: Patient was reassessed at 1231. He is sitting up. He is smiling. He was informed of results. To be discharged to home. Discharge Plan Triage Chief Complaint: Nausea/Vomiting ED Provider: Aníbal Lundy Dx/Rx/DC Orders Clinical Impression: Nausea & vomiting, Rheumatoid arthritis, Influenza A, Pyrexia, Acute dehydration, Systemic viral illness Instructions: ED Viral Syndrome (Adult), ED Vomiting (Adult) Prescriptions: No Action levothyroxine 50 MCG tablet 75 mcg PO DAILY multivitamin with minerals 1 EACH tablet 1 ea PO DAILY methotrexate sodium 2.5 mg tablet 15 mg PO QWEEK folic acid 1 mg tablet 2 mg PO DAILY oxycodone 5 mg tablet 5 mg PO Q6H PRN (Reason: pain) 3 Days Qty: 12 0RF oseltamivir [Tamiflu] 75 mg capsule 75 mg PO BID 5 Days Qty: 10 0RF benzonatate 200 mg capsule 200 mg PO TID PRN (Reason: cough) Qty: 30 0RF amoxicillin-pot clavulanate 875-125 mg tablet 1 tab PO BID Qty: 20 0RF Primary Care Provider: Johanne Case NP Referrals: Johanne Case NP, [employer] [Primary Care Provider] - 1 Week if not improving Print Language: Bahamian Disposition Disposition: Home, Self Care
[2024-02-12] MEDS: 0.9% Normal Saline (1000mL) 1,000 ML 1000 ML IV (09:21)
[2024-02-12] MEDS: Ondansetron 4 MG/2 ML Vial IV (09:21)
[2024-02-12 09:23] LABS: Absolute Lymphocyte Count 1.35 X10^3/uL (0.83-4.51); Absolute Neutrophil Count 2.8 X10^3/uL (2.0-7.7); Basophil# 0.02 X10^3/uL; Basophil% 0.4 % (0-1); Eosinophil# 0.08 X10^3/uL; Eosinophils% 1.7 % (0-5); Hematocrit 43.9 % (40-54); Hemoglobin 15.1 g/dL (13.0-16.5); Lymphocyte # 1.35 X10^3/ul (0.83-4.51); Lymphocyte % 28.3 % (19-41); Mean Corp Hgb Conc 34.4 g/dL (32-36); Mean Corpuscular Hgb 30.4 pg (27.0-32.0); Mean Corpuscular Volume 88.3 fL (80-94); Mean Platelet Vol. 9.2 fl (6.2-12.0); Monocyte# 0.51 X10^3/uL; Monocyte% 10.7 % (0-10); NRBC Flagged by Analyzer 0 % (0-5); Neutrophil # 2.78 X10^3/uL (2.7-7.7); Neutrophil % 58.3 % (47-70); Platelet Count 184 K/mm3 (150-450); RBC Distribution Width CV 12.6 % (11.6-14.6); RBC Distribution Width SD 40.5 fl (35.1-43.9); Red Blood Count 4.97 M/mm3 (4.6-6.2); White Blood Count 4.8 K/mm3 (4.4-11.0)
--- NOTE | 2024-02-12 09:25 | RAD_ITS ---
STUDY: X-RAY CHEST REASON FOR EXAM: Male, 58 years old. Productive cough TECHNIQUE: PA and lateral views of the chest. COMPARISON: February 07, 2024 FINDINGS: No demonstrated consolidation or infiltrates. There are interstitial fibrotic changes of the lungs. There is no demonstrated pleural abnormality. Normal size heart. Normal mediastinum and javon. Normal visualized pulmonary arteries. There is atherosclerotic tortuosity of the aortic arch and descending thoracic aorta. There are diffuse degenerative changes of the visualized thoracic spine. Normal visualized ribs, clavicles, and shoulders. There is no demonstrated abnormality of the visualized soft tissue structures of the upper abdomen. RAD/Chest PA and Lateral IMPRESSION: Degenerative changes, as described above. No demonstrated acute cardiopulmonary process. Electronically Signed: Ziggy Estrada MD at 9:38 EST ,
[2024-02-12 09:40] LABS: Anion Gap 5 (5-15); BUN 12 mg/dL (7-18); BUN/Creat Ratio 11.1 RATIO (10-20); Calcium,Total 8.5 mg/dL (8.5-10.1); Chloride 105 mmol/L (98-107); Creatinine, Serum 1.08 mg/dL (0.70-1.30); EST Glomerular Filtration Rate 74 mL/min (>60); Est Glom Filt Rate - Afr Amer 90 mL/min (>60); Glucose 106 mg/dL (74-106); Potassium 3.9 mmol/L (3.5-5.1); Sodium Level 137 mmol/L (136-145)
[2024-02-12 09:49] VITALS: BP 117/70; BP 126/77; BP 143/86; PULSE 58; PULSE 60; PULSE 65
[2024-02-12 12:41] VITALS: BP 127/74; PULSE 61; RESP 14; TEMP 36.6; O2SAT 99
== END 2024-02-12 12:48 | disposition home or self-care (01) ==
PROVIDERS: Emergency Provider Emergency Medicine; PCP Registered Nurse; Visit Provider Emergency Medicine
DX: J10.1 Influenza due to other identified influenza virus with other respiratory manifestations (principal); M06.9 Rheumatoid arthritis, unspecified; E86.0 Dehydration; Z79.631 Long term (current) use of antimetabolite agent
CPT/HCPCS: 71046; 80048; 85025; 96361; 96374; 99284; J2405

== ENCOUNTER → 2024-04-13 | Outpatient (CLI) | payer OTHER, SELFPAY ==
[2024-04-13 07:49] LABS: Absolute Lymphocyte Count 2.22 X10^3/uL (0.83-4.51); Absolute Neutrophil Count 3.5 X10^3/uL (2.0-7.7); Basophil# 0.06 X10^3/uL; Basophil% 0.9 % (0-1); Eosinophil# 0.38 X10^3/uL; Eosinophils% 5.6 % (0-5); Hematocrit 44.3 % (40-54); Hemoglobin 14.9 g/dL (13.0-16.5); Lymphocyte # 2.22 X10^3/ul (0.83-4.51); Lymphocyte % 32.6 % (19-41); Mean Corp Hgb Conc 33.6 g/dL (32-36); Mean Corpuscular Hgb 30.7 pg (27.0-32.0); Mean Corpuscular Volume 91.3 fL (80-94); Mean Platelet Vol. 9.1 fl (6.2-12.0); Monocyte# 0.61 X10^3/uL; NRBC Flagged by Analyzer 0 % (0-5); Neutrophil # 3.51 X10^3/uL (2.7-7.7); Neutrophil % 51.6 % (47-70); Platelet Count 284 K/mm3 (150-450); RBC Distribution Width CV 13.3 % (11.6-14.6); RBC Distribution Width SD 43.8 fl (35.1-43.9); Red Blood Count 4.85 M/mm3 (4.6-6.2); White Blood Count 6.8 K/mm3 (4.4-11.0)
[2024-04-13 08:24] LABS: ALB/GLOB Ratio 1.1 RATIO (0.9-2.4); AST(SGOT) 47 U/L (15-37); Alanine Aminotransfer ALT/SGPT 47 U/L (16-61); Albumin, Serum 3.6 g/dL (3.2-5.0); Alkaline Phosphatase 127 U/L (45-117); Anion Gap 5 (5-15); BUN 17 mg/dL (7-18); BUN/Creat Ratio 15.2 RATIO (10-20); Calcium,Total 9.2 mg/dL (8.5-10.1); Chloride 108 mmol/L (98-107); Creatinine, Serum 1.12 mg/dL (0.70-1.30); EST Glomerular Filtration Rate 71 mL/min (>60); Est Glom Filt Rate - Afr Amer 86 mL/min (>60); Globulin 3.4 g/dL (2.2-4.2); Glucose 111 mg/dL (74-106); Potassium 4.2 mmol/L (3.5-5.1); Sodium Level 139 mmol/L (136-145)
== END | disposition home or self-care (01) ==
LOC: LAB 07:17
PROVIDERS: PCP Registered Nurse; Referring Provider Internal Medicine Rheumatology; Visit Provider Internal Medicine Rheumatology
DX: M05.79 Rheumatoid arthritis with rheumatoid factor of multiple sites without organ or systems involvement (principal); M79.7 Fibromyalgia; R76.8 Other specified abnormal immunological findings in serum; Z79.899 Other long term (current) drug therapy
CPT/HCPCS: 36415; 80053; 85025

== ENCOUNTER → 2024-05-16 | Outpatient (CLI) | payer OTHER, SELFPAY ==
[2024-05-16 07:46] LABS: Absolute Lymphocyte Count 2.66 X10^3/uL (0.83-4.51); Absolute Neutrophil Count 3.4 X10^3/uL (2.0-7.7); Basophil# 0.07 X10^3/uL; Eosinophil# 0.26 X10^3/uL; Eosinophils% 3.7 % (0-5); Hematocrit 44.1 % (40-54); Lymphocyte # 2.66 X10^3/ul (0.83-4.51); Lymphocyte % 37.9 % (19-41); Mean Corpuscular Hgb 30.5 pg (27.0-32.0); Mean Corpuscular Volume 89.6 fL (80-94); Mean Platelet Vol. 9.6 fl (6.2-12.0); Monocyte# 0.58 X10^3/uL; Monocyte% 8.3 % (0-10); NRBC Flagged by Analyzer 0 % (0-5); Neutrophil # 3.42 X10^3/uL (2.7-7.7); Neutrophil % 48.7 % (47-70); Platelet Count 274 K/mm3 (150-450); RBC Distribution Width CV 12.4 % (11.6-14.6); RBC Distribution Width SD 40.3 fl (35.1-43.9); Red Blood Count 4.92 M/mm3 (4.6-6.2)
[2024-05-16 08:19] LABS: ALB/GLOB Ratio 1.6 RATIO (0.9-2.4); AST(SGOT) 31 U/L (<=37); Alanine Aminotransfer ALT/SGPT 33 U/L (<=46); Albumin, Serum 4.3 g/dL (3.5-5.0); Alkaline Phosphatase 79 U/L (40-129); Anion Gap 10 (5-15); BUN 15 mg/dL (4-19); BUN/Creat Ratio 13.1 RATIO (10-20); Calcium,Total 9.4 mg/dL (7.6-11.0); Carbon Dioxide 23.8 mmol/L (21.0-32.0); Chloride 107 mmol/L (98-108); Cholesterol 180 mg/dL (<=200); Creatinine, Serum 1.14 mg/dL (0.70-1.20); EST Glomerular Filtration Rate 74 (>60); Globulin 2.6 g/dL (2.2-4.2); Glucose 95 mg/dL (70-99); High Density Lipoprotein 53 mg/dL; Low Density Lipoprotein Calc. 107 mg/dL; Potassium 4.4 mmol/L (3.3-5.1); Protein, Total 6.9 g/dL (5.9-8.4); Sodium Level 141 mmol/L (133-145); Total Bilirubin 0.54 mg/dL (0.00-1.30); Triglycerides 101 mg/dL; Very Low Density Lipoprotein 20 mg/dL (5-40); cholesterol:hdl ratio screen 3.38
== END | disposition home or self-care (01) ==
LOC: LAB 06:30
PROVIDERS: PCP Registered Nurse; Referring Provider Internal Medicine Rheumatology; Visit Provider Registered Nurse
DX: R68.82 Decreased libido (principal); M05.79 Rheumatoid arthritis with rheumatoid factor of multiple sites without organ or systems involvement; E03.9 Hypothyroidism, unspecified; I10 Essential (primary) hypertension; E78.5 Hyperlipidemia, unspecified; R76.8 Other specified abnormal immunological findings in serum
CPT/HCPCS: 36415; 80053; 80061; 84403; 84443; 85025

== ENCOUNTER → 2024-07-13 | Outpatient (CLI) | payer OTHER, SELFPAY ==
[2024-07-13 07:23] LABS: Absolute Lymphocyte Count 2.37 X10^3/uL (0.83-4.51); Absolute Neutrophil Count 4.2 X10^3/uL (2.0-7.7); Basophil# 0.05 X10^3/uL; Basophil% 0.7 % (0-1); Eosinophils% 2.6 % (0-5); Hematocrit 42.3 % (40-54); Hemoglobin 14.4 g/dL (13.0-16.5); Lymphocyte # 2.37 X10^3/ul (0.83-4.51); Lymphocyte % 31.1 % (19-41); Mean Corpuscular Hgb 30.4 pg (27.0-32.0); Mean Corpuscular Volume 89.4 fL (80-94); Mean Platelet Vol. 9.2 fl (6.2-12.0); Monocyte# 0.76 X10^3/uL; NRBC Flagged by Analyzer 0 % (0-5); Neutrophil # 4.22 X10^3/uL (2.7-7.7); Neutrophil % 55.2 % (47-70); Platelet Count 245 K/mm3 (150-450); RBC Distribution Width CV 12.8 % (11.6-14.6); RBC Distribution Width SD 41.1 fl (35.1-43.9); Red Blood Count 4.73 M/mm3 (4.6-6.2); White Blood Count 7.6 K/mm3 (4.4-11.0)
[2024-07-13 07:56] LABS: ALB/GLOB Ratio 1.6 RATIO (0.9-2.4); AST(SGOT) 36 U/L (<=37); Alanine Aminotransfer ALT/SGPT 33 U/L (<=46); Albumin, Serum 4.1 g/dL (3.5-5.0); Alkaline Phosphatase 103 U/L (40-129); Anion Gap 8 (5-15); BUN 20 mg/dL (4-19); BUN/Creat Ratio 16.7 RATIO (10-20); Calcium,Total 9.4 mg/dL (7.6-11.0); Carbon Dioxide 22.8 mmol/L (21.0-32.0); Chloride 108 mmol/L (98-108); Creatinine, Serum 1.17 mg/dL (0.70-1.20); EST Glomerular Filtration Rate 72 (>60); Globulin 2.5 g/dL (2.2-4.2); Glucose 106 mg/dL (70-99); Potassium 4.2 mmol/L (3.3-5.1); Protein, Total 6.6 g/dL (5.9-8.4); Sodium Level 139 mmol/L (133-145); Total Bilirubin 0.31 mg/dL (0.00-1.30)
== END | disposition home or self-care (01) ==
LOC: LAB 07:00
PROVIDERS: PCP Registered Nurse; Referring Provider Internal Medicine Rheumatology; Visit Provider Internal Medicine Rheumatology
DX: M05.70 Rheumatoid arthritis with rheumatoid factor of unspecified site without organ or systems involvement (principal); M79.7 Fibromyalgia; R76.8 Other specified abnormal immunological findings in serum; Z79.899 Other long term (current) drug therapy
CPT/HCPCS: 36415; 80053; 85025

== ENCOUNTER 2024-10-05 06:47 | Outpatient (CLI) | payer OTHER, SELFPAY ==
--- OUTSIDE RECORDS SUMMARY | 2024-10-05 06:51 | XMS RPT_ITS | CCD ---
Author Organization [facility] Care Team Providers Care Senior Licensing Manager Name Role Phone Sai Nunez Unavailable Isabelle Wiley [place] Unavailable RASHID GREEN Admitting Unavailable RASHID GREEN Attending Unavailable Blaz MACHINE TOOL TECHNICIAN INSTRUCTOR.IAP DISPLAYS ANALYST, DNP, Basilio Primary Care Provider Haagen MACHINE TOOL TECHNICIAN INSTRUCTOR.IAP DISPLAYS ANALYST, Johanne Primary Care Provider Haagen MACHINE TOOL TECHNICIAN INSTRUCTOR.IAP DISPLAYS ANALYST, Johanne Primary Care Provider Haagen MACHINE TOOL TECHNICIAN INSTRUCTOR.IAP DISPLAYS ANALYST, Johanne Primary Care Provider Haagen MACHINE TOOL TECHNICIAN INSTRUCTOR.IAP DISPLAYS ANALYST, Johanne Primary Care Provider Blaz MACHINE TOOL TECHNICIAN INSTRUCTOR.IAP DISPLAYS ANALYST, DNP, Basilio Primary Care Provider Haagen MACHINE TOOL TECHNICIAN INSTRUCTOR.IAP DISPLAYS ANALYST, Johanne Primary Care Provider Suppan MACHINE TOOL TECHNICIAN INSTRUCTOR.IAP DISPLAYS ANALYST, Claudia Hdz Unavailable Rishabh Mei MD Unavailable HAAGEN, JOHANNE Primary Care Unavailable HAAGEN, JOHANNE Attending Unavailable HAAGEN, JOHANNE Primary Care Unavailable HAAGEN, JOHANNE Attending Unavailable HAAGEN, JOHANNE Attending Unavailable HAAGEN, JOHANNE Primary Care Unavailable HAAGEN, JOHANNE Primary Care Unavailable Haagen VICE PRESIDENT REGULATORY-C, Johanne Primary Care Provider Dr. Rommel Brito DO Attending Provider Dr. Rommel Brito DO Emergency Provider Kamron MEJIA, Dr. Spangler Attending Provider Dr. Aníbal Lundy MD Emergency Provider Princess MEJIA, Dr. Escobar Attending Provider Princess MEJIA, Dr. Escobar Referring Provider Haagen VICE PRESIDENT REGULATORY-C, Johanne Attending Provider Haagen VICE PRESIDENT REGULATORY-C, Johanne Primary Care Provider Vellanki, Luz Attending Unavailable Vellanki, Luz Referring Unavailable Haagen VICE PRESIDENT REGULATORY, Johanne Primary Care Unavailable Haagen VICE PRESIDENT REGULATORY, Johanne Attending Unavailable Haagen VICE PRESIDENT REGULATORY, Johanne Primary Care Unavailable Vellanki, Luz Referring Unavailable Rommel Brito Attending Unavailable Haagen VICE PRESIDENT REGULATORY, Johanne Primary Care Unavailable Aníbal Lundy Attending Unavailable Haagen VICE PRESIDENT REGULATORY, Johanne Primary Care Unavailable Vellanki, Luz Attending Unavailable Haagen VICE PRESIDENT REGULATORY, Johanne Primary Care Unavailable Vellanki, Luz Referring Unavailable Haagen VICE PRESIDENT REGULATORY, Johanne Primary Care Unavailable Vellanki, Luz Consulting Unavailable Haagen VICE PRESIDENT REGULATORY, Johanne Attending Unavailable Haagen VICE PRESIDENT REGULATORY, Johanne Referring Unavailable Haagen VICE PRESIDENT REGULATORY, Johanne Primary Care Unavailable Vellanki, Luz Attending Unavailable Vellanki, Luz Referring Unavailable Haagen VICE PRESIDENT REGULATORY, Johanne Primary Care Unavailable Vellanki, Luz Attending Unavailable Vellanki, Luz Referring Unavailable Allergies Allergy Classification Reported Allergen(s) Allergy Type Date of Onset Reaction(s) Facility (2 sources) codeine Drug Allergy [facility] Work Phone: (2 sources) sulfADIAZINE Drug Allergy [facility] Work Phone: (20 sources) Codeine; Translations: [CODEINE] Drug Allergy 6 [facility] (20 sources) Sulfonamides (Antibiotic); Translations: [SULFA (SULFONAMIDE ANTIBIOTICS)] Propensity to adverse reactions to drug (disorder) 6 [facility] Medications Current Medications Medication Drug Class(es) Dates Sig (Normalized) Sig (Original) amoxicillin 875 mg / clavulanate 125 mg oral tablet (5 sources) Penicillin-class Antibacterial Start: 04-19-2023 End: 02-12-2024 Amoxicillin-Pot Clavulanate 875-125 mg tablet Active 1 {tbl} PO TWICE A DAY April 19, 2023 1:00am Start: 04-19-2023 take 1 tablet by ronald twice daily Amoxicillin-Pot Clavulanate Active 1 TABLET PO TWICE A DAY April 19, 2023 12:00am Ascorbic Acid (20 sources) Vitamin C ascorbic acid (V ITAMIN C ORAL) Take by mouth once daily. Active ascorbic acid (V ITAMIN C ORAL) Take by mouth once daily. 0 Active ascorbic acid (V ITAMIN C ORAL) Take by mouth. 0 Active Comment on above: Take by mouth. Take by mouth once d aily. benzonatate 200 mg oral capsule (2 sources) Non-narcotic Antitussive Start: take 1 capsule by mouth three times daily as needed for cough Benzonatate 200 mg capsule Active 200 mg PO THREE TIMES A DAY as needed for cough February 08, 2024 1:22am cephalexin 250 mg oral capsule (1 source) Cephalosporin Antibacterial Start: End: take 1 capsule by mouth four times daily cephALEXin (KEFLEX) 250 mg capsule Indications: Dermatitis Take 1 capsule by mouth four times daily for 7 days. 28 capsule 0 01/09/2023 01/16/2023 Active Comment on above: Take 1 capsule by [facility] four times daily for 7 days. folic acid 1 mg oral tablet (20 sources) Start: take 2 tablets by mouth once daily Folic Acid 1 mg tablet Active 2 mg PO DAILY February 07, 2024 1:00am Comment on above: Take 2 mg by mouth o nce daily. levothyroxine sodium 0.075 mg oral tablet (20 sources) l-Thyroxine Start: End: take 1 tablet by mouth once daily for thyroid dysfunction levothyroxine (SYNTHROID) 75 mcg tablet Indications: Hypothyroidism, acquired TAKE 1 TABLET BY MOUTH ONCE DAILY. TAKE ON EMPTY STOMACH. FOR THYROID. 60 tablet 5 07/17/2023 07/16/2024 Active Start: 01-19-2021 End: 07-28-2022 take 1 tablet by mouth once daily for thyroid dysfunction levothyroxine (SYNTHROID) 75 mcg tablet Indications: Hypothyroidism, acquired TAKE 1 TABLET BY MOUTH ONCE DAILY. TAKE ON EMPTY STOMACH. FOR THYROID. 60 tablet 2 01/19/2021 07/20/2021 Discontinued Start: 01-13-2020 Levothyroxine 50 MCG tablet Active 75 ug PO DAILY January 13, 2020 1:00am Start: 01-13-2020 take 50 ug by mouth once daily Levothyroxine Active 50 MCG PO DAILY January 13, 2020 12:00am Comment on above: TAKE 1 TABLET BY RONALD TH ONCE DAILY. TAKE ON EMPTY STOMACH. FOR THYROID. lisinopril 10 mg oral tablet (20 sources) Angiotensin Converting Enzyme Inhibitor Start: 3 End: 6 take 1 tablet by mouth once daily lisinopril (ZESTRIL) 10 mg tablet Indications: Primary hypertension Take 1 tablet by mouth once daily. 90 tablet 3 05/13/2024 05/13/2025 Active Comment on above: Take 1 tablet by ronald th once daily. methotrexate 2.5 mg oral tablet (20 sources) Folate Analog Metabolic Inhibitor Start: 4 Methotrexate Sodium 2.5 mg tablet Active 15 mg PO EVERY WEEK February 07, 2024 1:00am Start: 10-24-2022 methotrexate 2 .5 mg tablet Take 6 tablets weekly 10/24/2022 Active Start: 02-14-2022 End: 10-24-2022 take 5 tablets by mouth every week methotrexate 2.5 mg tablet Take 5 tablets by mouth one time a week. 0 02/14/2022 10/24/2022 Discontinued Comment on above: Take 5 tablets by mo [facility] one time a week. Take 6 tablets weekl y MULTIVITAMIN TAB (20 sources) Start: 05-27-2009 take 1 tablet by mouth once daily MULTIVITAMIN TAB Take 1 tablet by mouth once daily. 0 05/27/2009 Active Start: 05-27-2009 MULTIVITAMIN T AB Take one(1) tablet daily. 0 05/27/2009 Active Comment on above: Take one(1) tablet d aily. Take 1 tablet by ronald th once daily. Multivitamin With Minerals (8 sources) Start: 01-13-2020 Multivitamin With Minerals Active 1 EACH PO DAILY January 13, 2020 1:00am Start: 01-13-2020 Multivitamin W ith Minerals Active 1 EACH PO DAILY January 13, 2020 12:00am Multivitamin With Minerals 1 EACH tablet (2 sources) Start: 01-13-2020 take 1 tablet by mouth once daily Multivitamin With Minerals 1 EACH tablet Active 1 NMA PO DAILY January 13, 2020 1:00am oseltamivir 75 mg oral capsule (2 sources) Neuraminidase Inhibitor Start: 02-08-2024 take 1 capsule by mouth twice daily Oseltamivir (Tamiflu) 75 mg capsule Active 75 mg PO TWICE A DAY 12 01February 08, 2024 1:00am oxyCODONE hydrochloride 5 mg oral tablet (2 sources) Opioid Agonist Start: 02-08-2024 take 1 tablet by mouth every six hours as needed for pain Oxycodone 5 mg tablet Active 5 mg PO EVERY 6 HOURS as needed for pain 12 February 08, 2024 perflutren lipid microspheres 1.3 mL in NaCl (PF) 0.9% 10 mL injection (DEFINITY) (14 sources) Start: 11-03-2021 End: 02-02-2023 perflutren lipid microspheres 1.3 mL in NaCl (PF) 0.9% 10 mL injection (DEFINITY) polyethylene glycol 3350 399990 mg / potassium chloride 2970 mg / sodium bicarbonate 6740 mg / sodium chloride 5860 mg / sodium sulfate 30294 mg powder for oral solution (1 source) Osmotic Laxative Start: 12-22-2021 End: 12-22-2021 peg 3350-Electrolytes (GOLYTELY) 236-22.74-6.74 -5.86 gram suspension Take 4,000 mL by mouth one time only for 1 dose. 1 Each 0 12/22/2021 12/22/2021 Active Comment on above: Take 4,000 mL by ronald th one time only for 1 dose. 125 ml sodium chloride 9 mg/ml prefilled syringe (14 sources) Start: 11-03-2021 End: 02-02-2023 sodium chloride 0.9 % (flush) 10 mL (BD POSIFLUSH) Zinc (20 sources) ZINC ORAL Take b y mouth once daily. Active ZINC ORAL Take b y mouth once daily. 0 Active Comment on above: Take by mouth once d aily. Completed/Discontinued Medications Medication Drug Class(es) Dates Sig (Normalized) Sig (Original) Lactobacillus acidophilus (5 sources) End: 11-03-2021 Lactobacillus acidophilus (PROBIOTIC ORAL) Take by mouth once daily. 11/03/2021 Discontinued (Other) End: 11-03-2021 Lactobacillus acidophilus (P ROBIOTIC ORAL) Take by mouth once daily. 0 11/03/2021 Discontinued (Other) Lactobacillus ac idophilus (PROBIOTIC ORAL) Take by mouth once daily. 0 Active Comment on above: Take by mouth once d aily. MULTIPLE VITAMINS-MINERALS (2 sources) Start: 12-07-2016 MULTIVITAMIN ADULT TABS MULTIPLE VITAMINS-MINERALS [id number] Sai Nunez Drug Treatment Unknown - unknown (1 source) No information available. nystatin [id number] unt/ml topical cream (3 sources) Polyene Antifungal Start: 01-09-2023 End: 05-15-2023 nystatin (MYCOSTATIN) cream Indications: Dermatitis Apply 1 application to affected area two times a day. 45 g 0 01/09/2023 05/15/2023 Discontinued (Other) Comment on above: Apply 1 application to affected area two times a day. Problems Active Problems Problem Classification Problem Date Documented Da te Episodic/Chronic Allergic reactions (1 source) Inflammatory dermatosis; Translations: [Dermatitis, unspecified] 01-09-2023 Episodic Diabetes mellitus without complication (1 source) Increased glucose level; Translations: [Other abnormal glucose] Episodic Disorders of lipid metabolism (20 sources) Hyperlipidemia; Translations: [Hyperlipidemia, unspecified] Onset: 06-05-2020 06-05-2020 Chronic Essential hypertension (20 sources) Essential hypertension; Translations: [Essential (primary) hypertension] Onset: 04-25-2022 Chronic Fluid and electrolyte disorders (2 sources) Dehydration; Translations: [Dehydration] 02-20-2024 Episodic Headache; including migraine (5 sources) Sinus headache; Translations: [Sinus headache] 04-19-2023 Episodic Influenza (2 sources) Influenza due to Influenza A virus; Translations: [Influenza due to other identified influenza virus with other respiratory manifestations] 02-16-2024 Episodic Malaise and fatigue (1 source) Fatigue; Translations: [Other fatigue] Episodic Neoplasms of unspecified nature or uncertain behavior (1 source) Neoplasm of uncertain behavior of skin of back; Translations: [Neoplasm of uncertain behavior of skin] 07-28-2023 Episodic Other and unspecified benign neoplasm (2 sources) History of polyp of colon; Translations: [Personal history of colonic polyps] Episodic Other connective tissue disease (2 sources) Pain of bilateral hands; Translations: [Pain in right hand] Episodic Other connective tissue disease (20 sources) Fibromyalgia; Translations: [Fibromyalgia] Onset: 02-07-2022 02-07-2022 Episodic Other gastrointestinal disorders (1 source) Burping; Translations: [Eructation] Episodic Other liver diseases (17 sources) Steatosis of liver; Translations: [Fatty (change of) liver, not elsewhere classified] Onset: 04-25-2022 Chronic Other liver diseases (1 source) Elevated liver enzymes level; Translations: [Abnormal levels of other serum enzymes] Episodic Other nervous system disorders (1 source) Carpal tunnel syndrome, left upper limb; Translations: [Carpal tunnel syndrome, left upper limb] Onset: 03-22-2018 Chronic Other nervous system disorders (20 sources) Thoracic outlet syndrome; Translations: [Brachial plexus disorders] Onset: 02-25-2009 02-25-2009 Chronic Other nervous system disorders (20 sources) Carpal tunnel syndrome of right wrist; Translations: [Carpal tunnel syndrome, right upper limb] Onset: 11-24-2010 11-24-2010 Chronic Other nervous system disorders (20 sources) Carpal tunnel syndrome of left wrist; Translations: [Carpal tunnel syndrome, left upper limb] Onset: 03-01-2018 03-01-2018 Chronic Other non-traumatic joint disorders (1 source) Joint pain; Translations: [Pain in other joint] 05-07-2021 Episodic Other non-traumatic joint disorders (1 source) Pain in left shoulder; Translations: [Pain in joint, shoulder region] 02-08-2021 Episodic Other skin disorders (1 source) Skin lesion; Translations: [Disorder of the skin and subcutaneous tissue, unspecified] Episodic Other upper respiratory infections (4 sources) Sinusitis; Translations: [Chronic sinusitis, unspecified] 04-19-2023 Chronic Residual codes; unclassified (20 sources) Daytime somnolence; Translations: [Other hypersomnia] Onset: 06-05-2020 06-05-2020 Chronic Residual codes; unclassified (1 source) Reduced libido; Translations: [Decreased libido] 05-13-2024 Episodic Residual codes; unclassified (2 sources) Decreased libido; Translations: [Decreased libido] Onset: 05-13-2024 Episodic Rheumatoid arthritis and related disease (20 sources) Rheumatoid arthritis of multiple joints; Translations: [Rheumatoid arthritis with rheumatoid factor of multiple sites without organ or systems involvement] Onset: 02-07-2022 02-07-2022 Chronic Spondylosis; intervertebral disc disorders; other back problems (20 sources) Cervical disc disorder; Translations: [Cervical disc disorder, unspecified, unspecified cervical region] Onset: 11-24-2010 11-24-2010 Chronic Thyroid disorders (20 sources) Acquired hypothyroidism; Translations: [Hypothyroidism, unspecified] Onset: 05-21-2019 05-21-2019 Chronic Unclassified (1 source) No current problems or disability 12-07-2016 Viral infection (2 sources) Viral disease; Translations: [Viral infection, unspecified] 02-20-2024 Episodic Past or Other Problems Problem Classification Problem Date Documented Date Episodic/Chronic Abdominal hernia (20 sources) Umbilical hernia; Translations: [Umbilical hernia without obstruction or gangrene] Onset: 12-19-2005 12-19-2005 Episodic Administrative/social admission (20 sources) Medical examinations/reports status; Translations: [Encounter for examination for driving license] Onset: 12-21-2010 12-21-2010 Episodic Fever of unknown origin (3 sources) Fever; Translations: [Fever, unspecified] Onset: 03-11-2024 02-16-2024 Episodic Immunizations and screening for infectious disease (4 sources) Anti-nuclear factor positive; Translations: [Other specified abnormal immunological findings in serum] Onset: 10-29-2023 Episodic Nausea and vomiting (3 sources) Nausea and vomiting; Translations: [Nausea with vomiting, unspecified] Onset: 03-15-2024 02-20-2024 Episodic Nonspecific chest pain (20 sources) Chest pain; Translations: [Chest pain, unspecified] Onset: 05-27-2005 05-27-2005 Episodic Other aftercare (1 source) Other intermediate project manager (current) drug therapy; Translations: [Other intermediate project manager (current) drug therapy] Onset: 10-29-2023 Episodic Other connective tissue disease (1 source) Fibromyalgia; Translations: [Fibromyalgia] Onset: 10-29-2023 Episodic Other non-traumatic joint disorders (2 sources) Knee pain; Translations: [Pain in right knee] Onset: 12-07-2016 12-07-2016 Episodic Other non-traumatic joint disorders (13 sources) Shoulder pain; Translations: [Pain in right shoulder] Onset: 01-20-2009 01-20-2009 Episodic Other non-traumatic joint disorders (16 sources) Pain in right shoulder; Translations: [Pain in joint, shoulder region] Onset: 01-20-2009 01-20-2009 Episodic Other screening for suspected conditions (not mental disorders or infectious disease) (14 sources) Patient encounter status; Translations: [Encounter for screening for malignant neoplasm of colon] Onset: 12-25-2015 Resolved: 12-25-2015 Episodic Other upper respiratory infections (2 sources) Acute maxillary sinusitis; Translations: [Acute maxillary sinusitis, unspecified] Onset: 02-02-2024 02-02-2024 Episodic Superficial injury; contusion (2 sources) Contusion of right knee, initial encounter; Translations: [Contusion of right knee, initial encounter] Onset: 12-07-2016 12-25-2016 Episodic Results Test Name Value Interpretation Reference Range Facility Absolute lymphocyte countOrd ered By: Luz Sánchez on 07-13-2024 Lymphocytes Auto (Unsp spec) [#/Vol] 2.37 10*3/uL 0.83-4.51 [facility] Absolute neutrophil countOrd ered By: Luz Sánchez on 07-13-2024 Neutrophils (Bld) [#/Vol] 4.2 10*3/uL 2.0-7.7 [facility] Anion gap in Serum or Plasma Ordered By: Luz Sánchez on 07-13-2024 Anion gap [Moles/Vol] 8 mmol/L 5-15 [facility] Automated lymphocyte count a s percentage of total leukocytesOrdered By: Luz Sánchez on 07-13-2024 Lymphocytes/100 WBC Auto (Unsp spec) 31.1 % 19-41 [facility] BUN/creatinine ratioOrdered By: Luz Sánchez on 07-13-2024 Urea nitrogen/Creatinine [Mass ratio] 16.7 mg/mg 10-20 [facility] Basophil percentageOrdered B y: Luz Sánchez on 07-13-2024 Basophils/100 WBC (Bld) 0.7 % 0-1 [facility] Bilirubin, totalOrdered By: Luz Sánchez on 07-13-2024 Bilirubin [Mass/Vol] 0.31 mg/dL 0.00-1.30 [facility] CBC W/Diff, Automatedon 06-27 Absolute Lymph 2.37 X10 3/uL Normal 0.83-4.51 [facility] Comment on above: Performed By: #### M [id number] #### [facility] [address] [place], [address] Absolute Neut 4.2 X10 3/uL Normal 2.0-7.7 [facility] Comment on above: Performed By: #### M [id number] #### [facility] [address] [place], [address] Basophils/100 WBC (Bld) 0.7 % Normal 0-1 [facility] Comment on above: Performed By: #### M [id number] #### [facility] [address] [place], [address] Eosinophils/100 WBC (Bld) 2.6 % Normal 0-5 [facility] Comment on above: Performed By: #### M [id number] #### [facility] [address] [place], [address] Erythrocyte distribution width (RBC) [Ratio] 12.8 % Normal 11.6-14.6 [facility] Comment on above: Performed By: #### M [id number] #### [facility] [address] [place], [address] Hematocrit (Bld) [Volume fraction] 42.3 % Normal 40-54 [facility] Comment on above: Performed By: #### M [id number] #### [facility] [address] [place], [address] Hemoglobin (Bld) [Mass/Vol] 14.4 g/dL Normal 13.0-16.5 [facility] Comment on above: Performed By: #### M [id number] #### [facility] [address] [place], [address] IG% 0.400 Normal 0.0-0.9 [facility] Comment on above: Result Comment: IG% - Immature Granulocytes (promyelocytes, myelocytes and metamyelocytes) > 1% indicates that a LEFT SHIFT is Present. Performed By: #### M [id number] #### [facility] [address] [place], [address] Lymphocytes/100 WBC (Bld) 31.1 % Normal 19-41 [facility] Comment on above: Performed By: #### M [id number] #### [facility] [address] [place], [address] MCH (RBC) [Entitic mass] 30.4 pg Normal 27.0-32.0 [facility] Comment on above: Performed By: #### M [id number] #### [facility] [address] [place], [address] MCHC (RBC) [Mass/Vol] 34.0 g/dL Normal 32-36 [facility] Comment on above: Performed By: #### M [id number] #### [facility] [address] [place], [address] MCV (RBC) [Entitic vol] 89.4 fL Normal 80-94 [facility] Comment on above: Performed By: #### M [id number] #### [facility] [address] [place], [address] Monocytes/100 WBC (Bld) 10.0 % Normal 0-10 [facility] Comment on above: Performed By: #### M [id number] #### [facility] [address] [place], [address] Neutrophils/100 WBC (Bld) 55.2 % Normal 47-70 [facility] Comment on above: Performed By: #### M [id number] #### [facility] [address] [place], [address] Nucleated RBC (Bld) [#/Vol] 0 10*3/uL Normal 0-5 [facility] Comment on above: Performed By: #### M [id number] #### [facility] [address] [place], [address] Platelet mean volume (Bld) [Entitic vol] 9.2 fL Normal 6.2-12.0 [facility] Comment on above: Performed By: #### M [id number] #### [facility] [address] [place], [address] Platelets (Bld) [#/Vol] 245 10*3/uL Normal 150-450 [facility] Comment on above: Performed By: #### M [id number] #### [facility] [address] [place], [address] RBC (Bld) [#/Vol] 4.73 10*6/uL Normal 4.6-6.2 [facility] Comment on above: Performed By: #### M [id number] #### [facility] [address] [place], [address] RDW SD 41.1 fl Normal 35.1-43.9 [facility] Comment on above: Performed By: #### M [id number] #### [facility] [address] [place], [address] WBC (Bld) [#/Vol] 7.6 10*3/uL Normal 4.4-11.0 [facility] Comment on above: Performed By: #### M [id number] #### [facility] [address] [place], [address] Carbon dioxide, total [Moles /volume] in Central venous bloodOrdered By: Luz Sánchez on 07-13-2024 CO2 [Moles/Vol] 22.8 mmol/L 21.0-32.0 [facility] Chloride assayOrdered By: Zaid Sánchez on 07-13-2024 Chloride [Moles/Vol] 108 mmol/L 98-108 [facility] Comprehensive Metabolic Prof ilon 07-13-2024 Albumin [Mass/Vol] 4.1 g/dL Normal 3.5-5.0 [facility] Comment on above: Performed By: #### M [id number] #### [facility] [address] [place], [address] Albumin/Globulin [Mass ratio] 1.6 {ratio} Normal 0.9-2.4 [facility] Comment on above: Performed By: #### M [id number] #### [facility] [address] [place], [address] ALK PHOS 103 U/L Normal 40-129 [facility] Comment on above: Performed By: #### M [id number] #### [facility] [address] [place], [address] ALT [Catalytic activity/Vol] 33 U/L Normal <=46 [facility] Comment on above: Performed By: #### M [id number] #### [facility] [address] [place], [address] AST [Catalytic activity/Vol] 36 U/L Normal <=37 [facility] Comment on above: Result Comment: Hemo lysis present, Results??could be affected. ?? Performed By: #### M [id number] #### [facility] [address] [place], [address] Bilirubin [Mass/Vol] 0.31 mg/dL Normal 0.00-1.30 [facility] Comment on above: Performed By: #### M [id number] #### [facility] [address] [place], [address] BUN/CRE 16.7 RATIO Normal 10-20 [facility] Comment on above: Performed By: #### M [id number] #### [facility] [address] [place], [address] Calcium [Mass/Vol] 9.4 mg/dL Normal 7.6-11.0 [facility] Comment on above: Performed By: #### M [id number] #### [facility] [address] [place], [address] Chloride [Moles/Vol] 108 mmol/L Normal 98-108 [facility] Comment on above: Performed By: #### M [id number] #### [facility] Laboratory [address] [place], [address] CO2 [Moles/Vol] 22.8 mmol/L Normal 21.0-32.0 [facility] Comment on above: Performed By: #### M 100.678 #### [facility] [address] [place], [address] Creatinine [Mass/Vol] 1.17 mg/dL Normal 0.70-1.20 [facility] Comment on above: Performed By: #### M 100.678 #### [facility] [address] [place], [address] GAP 8 Normal 5-15 [facility] Comment on above: Performed By: #### M 100.678 #### [facility] [address] [place], [address] GFR/1.73 sq M.predicted among non-blacks MDRD (S/P/Bld) [Vol rate/Area] 72 mL/min/{1.73_m2} Normal >60 [facility] Comment on above: Result Comment: mL/m in/1.73m2 CKD-EPI Creatinine Equation (2020) Performed By: #### M 100.678 #### [facility] [address] [place], [address] Globulin (S) [Mass/Vol] 2.5 g/dL Normal 2.2-4.2 [facility] Comment on above: Performed By: #### M 100.678 #### [facility] [address] [place], [address] Glucose [Mass/Vol] 106 mg/dL High 70-99 [facility] Comment on above: Performed By: #### M 100.678 #### [facility] [address] [place], [address] Potassium [Moles/Vol] 4.2 mmol/L Normal 3.3-5.1 [facility] Comment on above: Result Comment: Hemo lysis present, Results??could be affected. ?? Performed By: #### M 100.678 #### [facility] [address] [place], [address] Sodium [Moles/Vol] 139 mmol/L Normal 133-145 [facility] Comment on above: Performed By: #### M 100.678 #### [facility] [address] [place], [address] T PROT 6.6 g/dL Normal 5.9-8.4 [facility] Comment on above: Performed By: #### M 100.678 #### [facility] [address] [place], [address] Urea nitrogen [Mass/Vol] 20 mg/dL High 4-19 [facility] Comment on above: Performed By: #### M 100.678 #### [facility] [address] [place], [address] Eosinophil percentageOrdered By: Luz Sánchez on 07-13-2024 Eosinophils/100 WBC (Bld) 2.6 % 0-5 [facility] Erythrocyte distribution wid th ratioOrdered By: Lzu Sánchez on 07-13-2024 Erythrocyte distribution width (RBC) [Ratio] 12.8 % 11.6-14.6 [facility] Erythrocyte distribution wid th standard deviationOrdered By: Luz Sánchez on 07-13-2024 Erythrocyte distribution width (RBC) [Ratio] 41.1 fl 35.1-43.9 [facility] Glomerular filtration rate ( GFR) estimation/1.73 sq m using serum, plasma, or whole bOrdered By: Luz Sánchez on 07-13-2024 GFR/1.73 sq M.predicted among non-blacks MDRD (S/P/Bld) [Vol rate/Area] 72 mL/min/{1.73_m2} >60 [facility] Comment on above: mL/min/1.73m2 CKD-EP I Creatinine Equation (2020) Hematocrit Auto (Bld) [Volum e fraction]Ordered By: Luzmicheal Sánchez on 07-13-2024 Hematocrit (Bld) [Volume fraction] 42.3 % 40-54 [facility] Hemoglobin measurementOrdere d By: Luz Sánchez on 07-13-2024 Hemoglobin (Bld) [Mass/Vol] 14.4 g/dL 13.0-16.5 [facility] Immature granulocytes/100 WB C Auto (Bld)Ordered By: Luz Sánchez on 07-13-2024 Immature granulocytes/100 WBC (Bld) 0.400 % 0.0-0.9 [facility] Comment on above: IG% - Immature Granu locytes (promyelocytes, myelocytes and metamyelocytes) > 1% indicates that a LEFT SHIFT is Present. Laboratory - Chemistry and C hemistry - challengeOrdered By: Luzmicheal Sánchez 07-13-2024 AST [Catalytic activity/Vol] 36 U/L <38 [facility] Comment on above: Hemolysis present, R esults could be affected. MCV (mean corpuscular volume ) determinationOrdered By: Luz Sánchez on 07-13-2024 MCV (RBC) [Entitic vol] 89.4 fL 80-94 [facility] Mean corpuscular hemoglobin (MCH) determinationOrdered By: Luz Sánchez 07-13-2024 MCH (RBC) [Entitic mass] 30.4 pg 27.0-32.0 [facility] Mean corpuscular hemoglobin concentration (MCHC) determinationOrdered By: Luz Sánchez 07-13-2024 MCHC (RBC) [Mass/Vol] 34.0 g/dL 32-36 [facility] Mean platelet volume determi nationOrdered By: Luz Sánchez on 07-13-2024 Platelet mean volume (Bld) [Entitic vol] 9.2 fL 6.2-12.0 [facility] Monocyte percentageOrdered B y: Luz Sánchez on 07-13-2024 Monocytes/100 WBC (Bld) 10.0 % 0-10 [facility] Neutrophil percentageOrdered By: Luz Sánchez on 07-13-2024 Neutrophils/100 WBC (Bld) 55.2 % 47-70 [facility] Nucleated red blood cell per centageOrdered By: Luz Sánchez on 07-13-2024 Nucleated RBC/100 WBC (Bld) [Ratio] 0 % 0-5 [facility] Platelet countOrdered By: Zaid Sánchez on 07-13-2024 Platelets (Bld) [#/Vol] 245 10*3/uL 150-450 [facility] Potassium measurement (mass/ volume)Ordered By: Luz Sánchez on 07-13-2024 Potassium (Unsp spec) [Mass/Vol] 4.2 mmol/L 3.3-5.1 [facility] Comment on above: Hemolysis present, R esults could be affected. RBC Auto (Bld) [#/Vol]Ordere d By: Luz Sánchez on 07-13-2024 RBC (Bld) [#/Vol] 4.73 10*6/uL 4.6-6.2 [facility] Serum creatinine measurement (mass/volume)Ordered By: Luz Sánchez on 07-13-2024 Creatinine [Mass/Vol] 1.17 mg/dL 0.70-1.20 [facility] Serum globulin measurementOr dered By: Luz Sánchez on 07-13-2024 Globulin (S) [Mass/Vol] 2.5 g/dL 2.2-4.2 [facility] Serum glucose measurement (m ass/volume)Ordered By: Luz Sánchez on 07-13-2024 Glucose [Mass/Vol] 106 mg/dL High 70-99 [facility] Serum or plasma alanine tovra otransferase (ALT) measurementOrdered By: Luz Sánchez on 07-13-2024 ALT [Catalytic activity/Vol] 33 U/L <47 [facility] Serum or plasma albumin jacob urement (mass/volume)Ordered By: Luz Sánchez on 07-13-2024 Albumin [Mass/Vol] 4.1 g/dL 3.5-5.0 [facility] Serum or plasma albumin/glob ulin mass ratioOrdered By: Luz Sánchez on 07-13-2024 Albumin/Globulin [Mass ratio] 1.6 {ratio} 0.9-2.4 [facility] Serum or plasma alkaline lucia sphatase measurementOrdered By: Luz Sánchez on 07-13-2024 ALP [Catalytic activity/Vol] 103 U/L 40-129 [facility] Serum or plasma calcium jacob urement (mass/volume)Ordered By: Luz Sánchez on 07-13-2024 Calcium [Mass/Vol] 9.4 mg/dL 7.6-11.0 [facility] Serum or plasma urea nitroge n measurement (mass/volume)Ordered By: Luz Sánchez on 07-13-2024 Urea nitrogen [Mass/Vol] 20 mg/dL High 4-19 [facility] Sodium levelOrdered By: Mary Sánchez on 07-13-2024 Sodium [Moles/Vol] 139 mmol/L 133-145 [facility] Total proteinOrdered By: Art Sánchez on 07-13-2024 Protein [Mass/Vol] 6.6 g/dL 5.9-8.4 [facility] White blood cell (WBC) count Ordered By: Luz Sánchez on 07-13-2024 WBC (Bld) [#/Vol] 7.6 10*3/uL 4.4-11.0 [facility] CNPNon 05-22-2024 CNPN Telephone (FAMPWS) ---- DARIUSZ NGUYEN ([id number]) 1965 M Date Time Provider Department 05/22/24 JOHANNE CASE During your visit today, we recorded the following information about you: Johanne Case APRN.IAP DISPLAYS ANALYST 05/22/2024 5:57 PM Signed Can please let patient know that I received his labs. His cholesterol panel looked good. His electrolytes, kidney function, glucose, and liver enzymes were normal. His TSH was normal. His testosterone level was normal. Johanne Case APRN.Johnny Adame LPN 05/23/2024 3:26 PM Signed Patient notified of results, verbalizes understanding of instructions. Johnny Stuart LPN Allergies As of Date: 05/22/2024 Noted Allergy Reaction CODEINE 05/27/2005 SULFA (SULFONAMIDE ANTIBIOTICS) 05/27/2005 Date Reviewed: 05/13/2024 Reviewed by: Jose Frances LPN - Fully Assessed Reason for Visit: Results [95] Prescriptions as of 05/23/2024 - lisinopril (ZESTRIL) 10 mg tablet Take 1 tablet by mouth once daily. - levothyroxine (SYNTHROID) 75 mcg tablet TAKE 1 TABLET BY MOUTH ONCE DAILY. TAKE ON EMPTY STOMACH. FOR THYROID. - methotrexate 2.5 mg tablet Take 6 tablets weekly - folic acid 1 mg tablet Take 2 mg by mouth once daily. - ZINC ORAL Take by mouth once daily. - ascorbic acid (VITAMIN C ORAL) Take by mouth once daily. - MULTIVITAMIN TAB Take 1 tablet by mouth once daily. Problem List As Of Date 05/22/2024 Noted Resolved CHEST PAIN NOS [R07.9] 05/27/2005 HERNIA UMBILICAL [K42.9] 12/19/2005 HERNIA INGUINAL,UNILATERAL (Right) [K40.90] 12/19/2005 Right Shoulder Pain [M25.511] 01/20/2009 Thoracic Outlet Syndrome [G54.0] 02/25/2009 Carpal tunnel syndrome of right wrist [G56.01] 11/24/2010 Cervical disc disorder [M50.90] 11/24/2010 Encounter for examination for driving license [*12/21/2010 Colon cancer screening [Z12.11] 12/25/2015 12/25/2015 Left carpal tunnel syndrome [G56.02] 03/01/2018 Carpal tunnel syndrome of left wrist [G56.02] 03/22/2018 Hypothyroidism, acquired [E03.9] 05/21/2019 Excessive daytime sleepiness [G47.19] 06/05/2020 Hyperlipidemia with target LDL less than 130 [E*06/05/2020 Rheumatoid arthritis involving multiple sites w*02/07/2022 Fibromyalgia [M79.7] 02/07/2022 Fatty liver [K76.0] 04/25/2022 Primary hypertension [I10] 04/25/2022 Encounter Status:Closed by JOHNNY STUART on 05/23/24 Normal [facility] Absolute lymphocyte countOrd ered By: Johanne Case on 05-16-2024 Lymphocytes Auto (Unsp spec) [#/Vol] 2.66 10*3/uL 0.83-4.51 [facility] Absolute neutrophil countOrd ered By: Johanne Case on 05-16-2024 Neutrophils (Bld) [#/Vol] 3.4 10*3/uL 2.0-7.7 [facility] Anion gap in Serum or Plasma Ordered By: Johanne Case on 05-16-2024 Anion gap [Moles/Vol] 10 mmol/L 5- [facility] Automated lymphocyte count a s percentage of total leukocytesOrdered By: Johanne Case on 05-16-2024 Lymphocytes/100 WBC Auto (Unsp spec) 37.9 % 19- [facility] BUN/creatinine ratioOrdered By: Johanne Case on 05-16-2024 Urea nitrogen/Creatinine [Mass ratio] 13.1 mg/mg - [facility] Basophil percentageOrdered B y: Johanne Case on 05-16-2024 Basophils/100 WBC (Bld) 1.0 % 0-1 [facility] Bilirubin, totalOrdered By: Johanne Case on 05-16-2024 Bilirubin [Mass/Vol] 0.54 mg/dL 0.00-1.30 [facility] CBC W/Diff, Automatedon 04-28 Absolute Lymph 2.66 X10 3/uL Normal 0.83-4.51 [facility] Comment on above: Order Comment: DR.VE DUTTON ORDERED CMP ORDERED TEST, CBCD,CMP,TSH,LIPID Performed By: #### L 509.3001, L501.9520, L500.4100, L500.4050, L100.0100 #### [facility] [address] [place], [address] Absolute Neut 3.4 X10 3/uL Normal 2.0-7.7 [facility] Comment on above: Order Comment: DR.VE DUTTON ORDERED CMP ORDERED TEST, CBCD,CMP,TSH,LIPID Performed By: #### L 509.3001, L501.9520, L500.4100, L500.4050, L100.0100 #### [facility] [address] [place], [address] Basophils/100 WBC (Bld) 1.0 % Normal 0-1 [facility] Comment on above: Order Comment: DR.VE DUTTON ORDERED CMP ORDERED TEST, CBCD,CMP,TSH,LIPID Performed By: #### L 509.3001, L501.9520, L500.4100, L500.4050, L100.0100 #### [facility] [address] [place], [address] Eosinophils/100 WBC (Bld) 3.7 % Normal 0-5 [facility] Comment on above: Order Comment: DR.VE DUTTON ORDERED CMP ORDERED TEST, CBCD,CMP,TSH,LIPID Performed By: #### L 509.3001, L501.9520, L500.4100, L500.4050, L100.0100 #### [facility] [address] [place], [address] Erythrocyte distribution width (RBC) [Ratio] 12.4 % Normal 11.6-14.6 [facility] Comment on above: Order Comment: DR.VE DUTTON ORDERED CMP ORDERED TEST, CBCD,CMP,TSH,LIPID Performed By: #### L 509.3001, L501.9520, L500.4100, L500.4050, L100.0100 #### [facility] [address] [place], [address] Hematocrit (Bld) [Volume fraction] 44.1 % Normal 40-54 [facility] Comment on above: Order Comment: DR.VE DUTTON ORDERED CMP ORDERED TEST, CBCD,CMP,TSH,LIPID Performed By: #### L 509.3001, L501.9520, L500.4100, L500.4050, L100.0100 #### [facility] [address] [place], [address] Hemoglobin (Bld) [Mass/Vol] 15.0 g/dL Normal 13.0-16.5 [facility] Comment on above: Order Comment: DR.VE DUTTON ORDERED CMP ORDERED TEST, CBCD,CMP,TSH,LIPID Performed By: #### L 509.3001, L501.9520, L500.4100, L500.4050, L100.0100 #### [facility] [address] [place], [address] IG% 0.400 Normal 0.0-0.9 [facility] Comment on above: Order Comment: DR.VE DUTTON ORDERED CMP ORDERED TEST, CBCD,CMP,TSH,LIPID Result Comment: IG% - Immature Granulocytes (promyelocytes, myelocytes and metamyelocytes) > 1% indicates that a LEFT SHIFT is Present. Performed By: #### L 509.3001, L501.9520, L500.4100, L500.4050, L100.0100 #### [facility] [address] [place], [address] Lymphocytes/100 WBC (Bld) 37.9 % Normal 19-41 [facility] Comment on above: Order Comment: DR.VE DUTTON ORDERED CMP ORDERED TEST, CBCD,CMP,TSH,LIPID Performed By: #### L 509.3001, L501.9520, L500.4100, L500.4050, L100.0100 #### [facility] [address] [place], [address] MCH (RBC) [Entitic mass] 30.5 pg Normal 27.0-32.0 [facility] Comment on above: Order Comment: DR.VE DUTTON ORDERED CMP ORDERED TEST, CBCD,CMP,TSH,LIPID Performed By: #### L 509.3001, L501.9520, L500.4100, L500.4050, L100.0100 #### [facility] [address] [facility] [place], [address] MCHC (RBC) [Mass/Vol] 34.0 g/dL Normal 32-36 [facility] Comment on above: Order Comment: DR.VE DUTTON ORDERED CMP ORDERED TEST, CBCD,CMP,TSH,LIPID Performed By: #### L 509.3001, L501.9520, L500.4100, L500.4050, L100.0100 #### [facility] [address] [facility] [place], [address] MCV (RBC) [Entitic vol] 89.6 fL Normal 80-94 [facility] Comment on above: Order Comment: DR.VE DUTTON ORDERED CMP ORDERED TEST, CBCD,CMP,TSH,LIPID Performed By: #### L 509.3001, L501.9520, L500.4100, L500.4050, L100.0100 #### [facility] [address] [place], [address] Monocytes/100 WBC (Bld) 8.3 % Normal 0-10 [facility] Comment on above: Order Comment: DR.VE DUTTON ORDERED CMP ORDERED TEST, CBCD,CMP,TSH,LIPID Performed By: #### L 509.3001, L501.9520, L500.4100, L500.4050, L100.0100 #### [facility] [address] [facility] [place], [address] Neutrophils/100 WBC (Bld) 48.7 % Normal 47-70 [facility] Comment on above: Order Comment: DR.VE DUTTON ORDERED CMP ORDERED TEST, CBCD,CMP,TSH,LIPID Performed By: #### L 509.3001, L501.9520, L500.4100, L500.4050, L100.0100 #### [facility] [address] [place], [address] Nucleated RBC (Bld) [#/Vol] 0 10*3/uL Normal 0-5 [facility] Comment on above: Order Comment: DR.VE DUTTON ORDERED CMP ORDERED TEST, CBCD,CMP,TSH,LIPID Performed By: #### L 509.3001, L501.9520, L500.4100, L500.4050, L100.0100 #### [facility] [address] [place], [address] Platelet mean volume (Bld) [Entitic vol] 9.6 fL Normal 6.2-12.0 [facility] Comment on above: Order Comment: DR.VE DUTTON ORDERED CMP ORDERED TEST, CBCD,CMP,TSH,LIPID Performed By: #### L 509.3001, L501.9520, L500.4100, L500.4050, L100.0100 #### [facility] [address] [facility] [place], [address] Platelets (Bld) [#/Vol] 274 10*3/uL Normal 150-450 [facility] Comment on above: Order Comment: DR.VE DUTTON ORDERED CMP ORDERED TEST, CBCD,CMP,TSH,LIPID Performed By: #### L 509.3001, L501.9520, L500.4100, L500.4050, L100.0100 #### [facility] [address] [facility] [place], [address] RBC (Bld) [#/Vol] 4.92 10*6/uL Normal 4.6-6.2 [facility] Comment on above: Order Comment: DR.VE DUTTON ORDERED CMP ORDERED TEST, CBCD,CMP,TSH,LIPID Performed By: #### L 509.3001, L501.9520, L500.4100, L500.4050, L100.0100 #### [facility] [address] [place], [address] RDW SD 40.3 fl Normal 35.1-43.9 [facility] Comment on above: Order Comment: DR.VE DUTTON ORDERED CMP ORDERED TEST, CBCD,CMP,TSH,LIPID Performed By: #### L 509.3001, L501.9520, L500.4100, L500.4050, L100.0100 #### [facility] [address] [facility] [place], [address] WBC (Bld) [#/Vol] 7.0 10*3/uL Normal 4.4-11.0 [facility] Comment on above: Order Comment: DR.VE DUTTON ORDERED CMP ORDERED TEST, CBCD,CMP,TSH,LIPID Performed By: #### L 509.3001, L501.9520, L500.4100, L500.4050, L100.0100 #### [facility] [address] [place], [address] Calculated very low density lipoprotein (VLDL) cholesterol measurementOrdered By: Johanne Case on 05-16-2024 Calculated very low density lipoprotein (VLDL) cholesterol measurement 20 mg/dL [facility] VLDL Cholesterol 20 mg/dL [facility] Carbon dioxide, total [Moles /volume] in Central venous bloodOrdered By: Johanne Case on 05-16-2024 CO2 [Moles/Vol] 23.8 mmol/L 21.0-32.0 [facility] Chloride assayOrdered By: Sonia Case on 05-16-2024 Chloride [Moles/Vol] 107 mmol/L 98-108 [facility] Comprehensive Metabolic Prof ilon 05-16-2024 Albumin [Mass/Vol] 4.3 g/dL Normal 3.5-5.0 [facility] Comment on above: Order Comment: DR.VE DUTTON ORDERED CMP ORDERED TEST, CBCD,CMP,TSH,LIPID Performed By: #### L 509.3001, L501.9520, L500.4100, L500.4050, L100.0100 #### [facility] [address] [facility] [place], [address] Albumin/Globulin [Mass ratio] 1.6 {ratio} Normal 0.9-2.4 [facility] Comment on above: Order Comment: DR.VE DUTTON ORDERED CMP ORDERED TEST, CBCD,CMP,TSH,LIPID Performed By: #### L 509.3001, L501.9520, L500.4100, L500.4050, L100.0100 #### [facility] [address] [facility] [place], [address] ALK PHOS 79 U/L Normal 40-129 [facility] Comment on above: Order Comment: DR.VE DUTTON ORDERED CMP ORDERED TEST, CBCD,CMP,TSH,LIPID Performed By: #### L 509.3001, L501.9520, L500.4100, L500.4050, L100.0100 #### [facility] [address] [facility] [place], [address] ALT [Catalytic activity/Vol] 33 U/L Normal <=46 [facility] Comment on above: Order Comment: DR.VE DUTTON ORDERED CMP ORDERED TEST, CBCD,CMP,TSH,LIPID Performed By: #### L 509.3001, L501.9520, L500.4100, L500.4050, L100.0100 #### [facility] [address] [place], [address] AST [Catalytic activity/Vol] 31 U/L Normal <=37 [facility] Comment on above: Order Comment: DR.VE DUTTON ORDERED CMP ORDERED TEST, CBCD,CMP,TSH,LIPID Performed By: #### L 509.3001, L501.9520, L500.4100, L500.4050, L100.0100 #### [facility] [address] [place], [address] Bilirubin [Mass/Vol] 0.54 mg/dL Normal 0.00-1.30 [facility] Comment on above: Order Comment: DR.VE DUTTON ORDERED CMP ORDERED TEST, CBCD,CMP,TSH,LIPID Performed By: #### L 509.3001, L501.9520, L500.4100, L500.4050, L100.0100 #### [facility] [address] [place], [address] BUN/CRE 13.1 RATIO Normal 10-20 [facility] Comment on above: Order Comment: DR.VE DUTTON ORDERED CMP ORDERED TEST, CBCD,CMP,TSH,LIPID Performed By: #### L 509.3001, L501.9520, L500.4100, L500.4050, L100.0100 #### [facility] [address] [place], [address] Calcium [Mass/Vol] 9.4 mg/dL Normal 7.6-11.0 [facility] Comment on above: Order Comment: DR.VE DUTTON ORDERED CMP ORDERED TEST, CBCD,CMP,TSH,LIPID Performed By: #### L 509.3001, L501.9520, L500.4100, L500.4050, L100.0100 #### [facility] [address] [place], [address] Chloride [Moles/Vol] 107 mmol/L Normal 98-108 [facility] Comment on above: Order Comment: DR.VE DUTTON ORDERED CMP ORDERED TEST, CBCD,CMP,TSH,LIPID Performed By: #### L 509.3001, L501.9520, L500.4100, L500.4050, L100.0100 #### [facility] [address] [place], [address] CO2 [Moles/Vol] 23.8 mmol/L Normal 21.0-32.0 [facility] Comment on above: Order Comment: DR.VE DUTTON ORDERED CMP ORDERED TEST, CBCD,CMP,TSH,LIPID Performed By: #### L 509.3001, L501.9520, L500.4100, L500.4050, L100.0100 #### [facility] [address] [place], [address] Creatinine [Mass/Vol] 1.14 mg/dL Normal 0.70-1.20 [facility] Comment on above: Order Comment: DR.VE DUTTON ORDERED CMP ORDERED TEST, CBCD,CMP,TSH,LIPID Performed By: #### L 509.3001, L501.9520, L500.4100, L500.4050, L100.0100 #### [facility] [address] [place], [address] GAP 10 Normal 5-15 [facility] Comment on above: Order Comment: DR.VE DUTTON ORDERED CMP ORDERED TEST, CBCD,CMP,TSH,LIPID Performed By: #### L 509.3001, L501.9520, L500.4100, L500.4050, L100.0100 #### [facility] [address] [place], [address] GFR/1.73 sq M.predicted among non-blacks MDRD (S/P/Bld) [Vol rate/Area] 74 mL/min/{1.73_m2} Normal >60 [facility] Comment on above: Order Comment: DR.VE DUTTON ORDERED CMP ORDERED TEST, CBCD,CMP,TSH,LIPID Result Comment: mL/m in/1.73m2 CKD-EPI Creatinine Equation (2020) Performed By: #### L 509.3001, L501.9520, L500.4100, L500.4050, L100.0100 #### [facility] [address] [place], [address] Globulin (S) [Mass/Vol] 2.6 g/dL Normal 2.2-4.2 [facility] Comment on above: Order Comment: DR.VE DUTTON ORDERED CMP ORDERED TEST, CBCD,CMP,TSH,LIPID Performed By: #### L 509.3001, L501.9520, L500.4100, L500.4050, L100.0100 #### [facility] [address] [place], [address] Glucose [Mass/Vol] 95 mg/dL Normal 70-99 [facility] Comment on above: Order Comment: DR.VE DUTTON ORDERED CMP ORDERED TEST, CBCD,CMP,TSH,LIPID Performed By: #### L 509.3001, L501.9520, L500.4100, L500.4050, L100.0100 #### [facility] [address] [facility] [place], [address] Potassium [Moles/Vol] 4.4 mmol/L Normal 3.3-5.1 [facility] Comment on above: Order Comment: DR.VE DUTTON ORDERED CMP ORDERED TEST, CBCD,CMP,TSH,LIPID Performed By: #### L 509.3001, L501.9520, L500.4100, L500.4050, L100.0100 #### [facility] [address] [facility] [place], [address] Sodium [Moles/Vol] 141 mmol/L Normal 133-145 [facility] Comment on above: Order Comment: DR.VE DUTTON ORDERED CMP ORDERED TEST, CBCD,CMP,TSH,LIPID Performed By: #### L 509.3001, L501.9520, L500.4100, L500.4050, L100.0100 #### [facility] [address] [place], [address] (182) T PROT 6.9 g/dL Normal 5.9-8.4 [facility] Comment on above: Order Comment: DR.VE DUTTON ORDERED CMP ORDERED TEST, CBCD,CMP,TSH,LIPID Performed By: #### L 509.3001, L501.9520, L500.4100, L500.4050, L100.0100 #### [facility] [address] [place], [address] Urea nitrogen [Mass/Vol] 15 mg/dL Normal 4-19 [facility] Comment on above: Order Comment: DR.VE DUTTON ORDERED CMP ORDERED TEST, CBCD,CMP,TSH,LIPID Performed By: #### L 509.3001, L501.9520, L500.4100, L500.4050, L100.0100 #### [facility] [address] [place], [address] Eosinophil percentageOrdered By: Johanne Case on 05-16-2024 Eosinophils/100 WBC (Bld) 3.7 % 0-5 [facility] Erythrocyte distribution wid th ratioOrdered By: Johanne Case on 05-16-2024 Erythrocyte distribution width (RBC) [Ratio] 12.4 % 11.6-14.6 [facility] Erythrocyte distribution wid th standard deviationOrdered By: Johanne Case on 05-16-2024 Erythrocyte distribution width (RBC) [Entitic vol] 40.3 fL 35.1-43.9 [facility] Erythrocyte distribution width (RBC) [Ratio] 40.3 fl 35.1-43.9 [facility] GFR/1.73 sq M.predicted ale g non-blacks MDRD (S/P/Bld) [Vol rate/Area]Ordered By: Johanne Case on 05-16-2024 Estimated GFR (MDRD) Non-Af Amer 74 >60 [facility] Comment on above: mL/min/1.73m2 CKD-EP I Creatinine Equation (2020) Glomerular filtration rate ( GFR) estimation/1.73 sq m using serum, plasma, or whole bOrdered By: Johanne Case on 05-16-2024 GFR/1.73 sq M.predicted among non-blacks MDRD (S/P/Bld) [Vol rate/Area] 74 mL/min/{1.73_m2} >60 [facility] Comment on above: mL/min/1.73m2 CKD-EP I Creatinine Equation (2020) Hematocrit Auto (Bld) [Volum e fraction]Ordered By: Johanne Case on 05-16-2024 Hematocrit (Bld) [Volume fraction] 44.1 % 40-54 [facility] Hemoglobin measurementOrdere d By: Johanne Case on 05-16-2024 Hemoglobin (Bld) [Mass/Vol] 15.0 g/dL 13.0-16.5 [facility] Immature granulocytes/100 WB C Auto (Bld)Ordered By: Johanne Case on 05-16-2024 Immature granulocytes/100 WBC (Bld) 0.400 % 0.0-0.9 [facility] Comment on above: IG% - Immature Granu locytes (promyelocytes, myelocytes and metamyelocytes) > 1% indicates that a LEFT SHIFT is Present. L509.3001on 05-16-2024 Testosterone [Mass/Vol] 709.00 ng/dL Normal 300-890 [facility] Comment on above: Order Comment: DR.VE DUTTON ORDERED CMPDRSOPHIA ORDERED TEST, CBCD,CMP,TSH,LIPID Performed By: #### M 100.718 #### [facility] [address] [place], [place], [id number] LDL calc ser/plasOrdered By: Johanne Case on 05-16-2024 Cholesterol in LDL [Mass/Vol] 107 mg/dL [facility] Comment on above: Wyyqrqagap=917-873 m g/dL & Higher Sklh=307 mg/dL or greater LDL Cholesterol, Calculated 107 mg/dL [facility] Comment on above: Xrtuojifug=366-030 m g/dL & Higher Dzaq=061 mg/dL or greater Laboratory - Chemistry and C hemistry - challengeOrdered By: Johanne Case on 05-16-2024 AST [Catalytic activity/Vol] 31 U/L <38 [facility] Testosterone [Mass/Vol] 709.00 ng/dL 300-890 [facility] Lipid Profileon 05-16-2024 CHOL:HDL 3.38 Normal [facility] Comment on above: Order Comment: DR.VE DUTTON ORDERED CMP ORDERED TEST, CBCD,CMP,TSH,LIPID Performed By: #### L 509.3001, L501.9520, L500.4100, L500.4050, L100.0100 #### [facility] [address] [place], [address] Cholesterol [Mass/Vol] 180 mg/dL Normal <=200 [facility] Comment on above: Order Comment: DR.VE DUTTON ORDERED CMP ORDERED TEST, CBCD,CMP,TSH,LIPID Result Comment: Chol esterol level, Desirable <200 mg/dL Borderline high cholesterol 200-239 mg/dL High cholesterol >=240 mg/dL Recommendations of the NCEP Adult Treatment Panel for the following risk-cutoff thresholds for the [place] population. Performed By: #### L 509.3001, L501.9520, L500.4100, L500.4050, L100.0100 #### [facility] [address] [place], [address] Cholesterol in HDL [Mass/Vol] 53 mg/dL Normal [facility] Comment on above: Order Comment: DR.VE DUTTON ORDERED CMP ORDERED TEST, CBCD,CMP,TSH,LIPID Result Comment: [place]my on[place] Cholesterol Education Program (NCEP) guidelines: <40 mg/dL: Low HDL-cholesterol (major risk factor for CHD) >= 60 mg/dL: High HDL-cholesterol (negative risk factor for CHD) HDL-cholesterol is affected by a number of factors, e.g. smoking, exercise, hormones, sex and age. Performed By: #### L 509.3001, L501.9520, L500.4100, L500.4050, L100.0100 #### [facility] [address] [place], [address] Cholesterol in LDL [Mass/Vol] 107 mg/dL Normal [facility] Comment on above: Order Comment: DR.VE DUTTON ORDERED CMP ORDERED TEST, CBCD,CMP,TSH,LIPID Result Comment: Bord jsywon=330-459 mg/dL Higher Jscu=406 mg/dL or greater Performed By: #### L 509.3001, L501.9520, L500.4100, L500.4050, L100.0100 #### [facility] [address] [place], [address] Cholesterol in VLDL [Mass/Vol] 20 mg/dL Normal 5-40 [facility] Comment on above: Order Comment: DR.VE DUTTON ORDERED CMP ORDERED TEST, CBCD,CMP,TSH,LIPID Performed By: #### L 509.3001, L501.9520, L500.4100, L500.4050, L100.0100 #### [facility] [address] [place], [address] Triglyceride [Mass/Vol] 101 mg/dL Normal [facility] Comment on above: Order Comment: DR.VE DUTTON ORDERED CMP ORDERED TEST, CBCD,CMP,TSH,LIPID Result Comment: The drugs N-Acetylcysteine and Metamizole may falsely depress this assay. Normal range: <150 mg/dL Borderline High: 150-199 mg/dL High: 200-499 mg/dL Very High: >500 mg/dL Performed By: #### L 509.3001, L501.9520, L500.4100, L500.4050, L100.0100 #### [facility] [place], [address] Lymphocytes Auto (Unsp spec) [#/Vol]Ordered By: Johanne Case on 05-16-2024 Lymphocytes (Bld) [#/Vol] 2.66 10*3/uL 0.83-4.51 [facility] Lymphocytes/100 WBC Auto (Un sp spec)Ordered By: Johanne Case on 05-16-2024 Lymphocytes/100 WBC (Bld) 37.9 % 19-41 [facility] MCV (mean corpuscular volume ) determinationOrdered By: Johanne Case on 05-16-2024 MCV (RBC) [Entitic vol] 89.6 fL 80-94 [facility] Mean corpuscular hemoglobin (MCH) determinationOrdered By: Johanne Case on 05-16-2024 MCH (RBC) [Entitic mass] 30.5 pg 27.0-32.0 [facility] Mean corpuscular hemoglobin concentration (MCHC) determinationOrdered By: Johanne Case on 05-16-2024 MCHC (RBC) [Mass/Vol] 34.0 g/dL 32-36 [facility] Mean platelet volume determi nationOrdered By: Johanne Case on 05-16-2024 Platelet mean volume (Bld) [Entitic vol] 9.6 fL 6.2-12.0 [facility] Monocyte percentageOrdered B y: Johanne Case on 05-16-2024 Monocytes/100 WBC (Bld) 8.3 % 0-10 [facility] Neutrophil percentageOrdered By: Johanne Case on 05-16-2024 Neutrophils/100 WBC (Bld) 48.7 % 47-70 [facility] Nucleated red blood cell per centageOrdered By: Johanne Case on 05-16-2024 Nucleated RBC/100 WBC (Bld) [Ratio] 0 % 0-5 [facility] Platelet countOrdered By: Sonia Case on 05-16-2024 Platelets (Bld) [#/Vol] 274 10*3/uL 150-450 [facility] Potassium (Unsp spec) [Mass/ Vol]Ordered By: Johanne Case on 05-16-2024 Potassium [Moles/Vol] 4.4 mmol/L 3.3-5.1 [facility] Potassium measurement (mass/ volume)Ordered By: Johanne Case on 05-16-2024 Potassium (Unsp spec) [Mass/Vol] 4.4 mmol/L 3.3-5.1 [facility] RBC Auto (Bld) [#/Vol]Ordere d By: Johanne Case on 05-16-2024 RBC (Bld) [#/Vol] 4.92 10*6/uL 4.6-6.2 [facility] Screening total cholesterol/ high density lipoprotein (HDL) cholesterol ratioOrdered By: Johanne Case on 05-16-2024 Cholesterol.total/Ana sterol in HDL [Mass ratio] 3.38 {ratio} [facility] Serum creatinine measurement (mass/volume)Ordered By: Johanne Case on 05-16-2024 Creatinine [Mass/Vol] 1.14 mg/dL 0.70-1.20 [facility] Serum globulin measurementOr dered By: Johanne Case on 05-16-2024 Globulin (S) [Mass/Vol] 2.6 g/dL 2.2-4.2 [facility] Serum glucose measurement (m ass/volume)Ordered By: Johanne Case on 05-16-2024 Glucose [Mass/Vol] 95 mg/dL 70-99 [facility] Serum or plasma alanine tovar otransferase (ALT) measurementOrdered By: Johanne Case on 05-16-2024 ALT [Catalytic activity/Vol] 33 U/L <47 [facility] Serum or plasma albumin jacob urement (mass/volume)Ordered By: Johanne Case on 05-16-2024 Albumin [Mass/Vol] 4.3 g/dL 3.5-5.0 [facility] Serum or plasma albumin/glob ulin mass ratioOrdered By: Johanne Case on 05-16-2024 Albumin/Globulin [Mass ratio] 1.6 {ratio} 0.9-2.4 [facility] Serum or plasma alkaline lucia sphatase measurementOrdered By: Johanne Case on 05-16-2024 ALP [Catalytic activity/Vol] 79 U/L 40-129 [facility] Serum or plasma calcium jacob urement (mass/volume)Ordered By: Johanne Case on 05-16-2024 Calcium [Mass/Vol] 9.4 mg/dL 7.6-11.0 [facility] Serum or plasma cholesterol in HDL measurement (mass/volume)Ordered By: Johanne Case on 05-16-2024 Cholesterol in HDL [Mass/Vol] 53 mg/dL >40 [facility] Comment on above: National Cholesterol Education Program (NCEP) guidelines:<40 mg/dL: Low HDL-cholesterol (major risk factor for CHD)>= 60 mg/dL: High HDL-cholesterol (negative risk factor for CHD)HDL-cholesterol is affected by a number of factors, e.g. smoking, exercise, hormones, sex and age. Serum or plasma cholesterol measurement (mass/volume)Ordered By: Johanne Case on 05-16-2024 Cholesterol [Mass/Vol] 180 mg/dL <201 [facility] Comment on above: Cholesterol level, D esirable <200 mg/dLBorderline high cholesterol 200-239 mg/dLHigh cholesterol >=240 mg/dLRecommendations of the NCEP Adult Treatment Panel for the following risk-cutoff thresholds for the [place] population. Serum or plasma urea nitroge n measurement (mass/volume)Ordered By: Johanne Case on 05-16-2024 Urea nitrogen [Mass/Vol] 15 mg/dL 4-19 [facility] Sodium levelOrdered By: Nitesh Case on 05-16-2024 Sodium [Moles/Vol] 141 mmol/L 133-145 [facility] TSH DL <= 0.005 mIU/L QnOrde red By: Johanne Case on 05-16-2024 Thyroid Stimulating Hormone (TSH) 3.170 uIU/mL 0.300-4.200 [facility] TSH Qn 3.170 uIU/mL 0.300-4.200 [facility] Thyroid Stim Hormone (TSH)on 05-16-2024 TSH 3.170 uIU/mL Normal 0.300-4.200 [facility] Comment on above: Order Comment: DR.VE DUTTON ORDERED CMP ORDERED TEST, CBCD,CMP,TSH,LIPID Performed By: #### L 509.3001, L501.9520, L500.4100, L500.4050, L100.0100 #### [facility] [place], [address] Total proteinOrdered By: Vernon Case on 05-16-2024 Protein [Mass/Vol] 6.9 g/dL 5.9-8.4 [facility] Triglycerides measurementOrd ered By: Johanne Case on 05-16-2024 Triglyceride [Mass/Vol] 101 mg/dL <199 [facility] Comment on above: The drugs N-Acetylcy steine and Metamizole may falsely depress this assay. Normal range: <150 mg/dLBorderline High: 150-199 mg/dLHigh: 200-499 mg/dLVery High: >500 mg/dL White blood cell (WBC) count Ordered By: Johanne Case on 05-16-2024 WBC (Bld) [#/Vol] 7.0 10*3/uL 4.4-11.0 [facility] CNOVon 05-13-2024 CNOV Office Visit (FAMPWS) ---- DARIUSZ NGUYEN ([id number]) 1965 M Date Time Provider Department 05/13/24 6:20 PM JOHANNE CASE FAMWS During your visit today, we recorded the following information about you: Pulse Respiration Blood pressure Weight 63/minute 16/minute 132/76 96.2 kg Johanne Case APRN.IAP DISPLAYS ANALYST 05/13/2024 8:03 PM Signed This is a 58 year old male who presents today with: Patient presents with: 6 Month Exam HISTORY OF PRESENT ILLNESS: Dariusz Nguyen is a 58 year old male. Patient presents with: 6 Month Exam HTN: Patient is compliant with meds Yes Monitors bp at home: No. Denies side effects: Yes. Chest pain: No. Dyspnea: No. Edema: No. Palpitations: No. Syncope: No. Headache: No. Dizziness: No. HYPERLIPIDEMIA: Patient is taking medications: No. Patient is watching diet: Yes, watches salt, sugar, intake of red meats and alcohol. Patient denies myalgias: No. Patient denies gi upset: No RA: Stopped taking methotrexate and folic acid per Dr. Sánchez who he follows for RA Has been stable being off the medications for the last month Denies any worsening pain or symptoms States that his liver sugar was high and wanted to trial him off of his medications and recheck labs Has follow up appointment this week HYPOTHYROID: Patient is compliant with medications: Yes Patient has changes in energy: No Patient has changes in hair or skin: No Patient has temperature intolerance: No Patient has weight changes: No Has noticed decrease in sexual function Having trouble with erection Noticed that this started when he started to have symptoms of RA Unsure if he wants to treat yet, but is interested in testosterone level. REVIEW OF SYSTEMS GENERAL: No weight loss, malaise or fevers/chills HEENT: Negative for frequent or significant headaches, No changes in hearing or vision. NECK: Negative for lumps, goiter, pain and significant neck swelling RESPIRATORY: Negative for cough, hemoptysis, wheezing, dyspnea or shortness of breath CARDIOVASCULAR: Negative for chest pain, leg swelling, orthopnea, or palpitations GI: No nausea, vomiting, or diarrhea/constipati on. No hematochezia/melena . No heartburn or reflux symptoms. : No history of dysuria, frequency or incontinence MUSCULOSKELETAL: Negative for joint pain or swelling. SKIN: Negative for lesions, rash, and itching ENDOCRINE: Negative for cold or heat intolerance, polyuria, polydipsia and goiter NEURO: No history of headaches, syncope, paralysis, seizures or tremors PAST MEDICAL HISTORY: PAST MEDICAL HISTORY Diagnosis [...] Medication Sig levothyroxine (SYNTHROID) 75 mcg tablet TAKE 1 TABLET BY MOUTH ONCE DAILY. TAKE ON EMPTY STOMACH. FOR THYROID. lisinopril (ZESTRIL) 10 mg tablet Take 1 tablet by mouth once daily. methotrexate 2.5 mg tablet Take 6 tablets weekly folic acid 1 mg tablet Take 2 mg by mouth once daily. ZINC ORAL Take by mouth once daily. ascorbic acid (VITAMIN C ORAL) Take by mouth once daily. MULTIVITAMIN TAB Take 1 tablet by mouth once daily. No current facility-administer ed medications for this visit. FAMILY HISTORY Problem Relation Age of Onset Heart Father [place] age 69 Thyroid Mother None Brother None Sister None Sister None Sister None Sister Social History Tobacco Use Smoking status: Never Smokeless tobacco: Never Vaping Use Vaping status: Never Used Substance Use Topics Alcohol use: Yes Comment: 1 beer per month Drug use: No EXAM: BP 132/76 Pulse 63 Resp 16 Wt 96.2 kg (212 lb) SpO2 94% BMI 31.31 kg/m? PHYSICAL EXAM: General Appearance: Well appearing, alert, in no acute distress, well-hydrated, well nourished.. Skin: Skin color, texture, t (more content not included)... Normal [facility] Absolute lymphocyte countOrd ered By: Luz Sánchez on 04-13-2024 Lymphocytes Auto (Unsp spec) [#/Vol] 2.22 10*3/uL 0.83-4.51 [facility] Absolute neutrophil countOrd ered By: Luz Sánchez on 04-13-2024 Neutrophils (Bld) [#/Vol] 3.5 10*3/uL 2.0-7.7 [facility] Albumin to globulin ratioOrd ered By: Luz Sánchez on 04-13-2024 Albumin/Globulin [Mass ratio] 1.1 {ratio} 0.9-2.4 [facility] Automated lymphocyte count a s percentage of total leukocytesOrdered By: Luz Sánchez on 04-13-2024 Lymphocytes/100 WBC Auto (Unsp spec) 32.6 % 19-41 [facility] Basophil percentageOrdered B y: Luz Sánchez on 04-13-2024 Basophils/100 WBC (Bld) 0.9 % 0-1 [facility] Bilirubin, totalOrdered By: Luz Sánchez on 04-13-2024 Bilirubin [Mass/Vol] 0.50 mg/dL 0.20-1.00 [facility] Comment on above: For patients on eltr ombopag therapy, use of Dimension [place] TBIL is not recommended. Blood urea nitrogen (BUN)/cr eatinine ratioOrdered By: Luz Sánchez on 04-13-2024 Urea nitrogen/Creatinine [Mass ratio] 15.2 mg/mg 10-20 [facility] CBC W/Diff, Automatedon 03-30 Absolute Lymph 2.22 X10 3/uL Normal 0.83-4.51 [facility] Comment on above: Performed By: #### L 100.0100, L500.4050 ####[facility] [address] [place], [address] Absolute Neut 3.5 X10 3/uL Normal 2.0-7.7 [facility] Comment on above: Performed By: #### L 100.0100, L500.4050 ####[facility] [address] [place], [address] Basophils/100 WBC (Bld) 0.9 % Normal 0-1 [facility] Comment on above: Performed By: #### L 100.0100, L500.4050 ####[facility] [address] [place], [address] Eosinophils/100 WBC (Bld) 5.6 % High 0-5 [facility] Comment on above: Performed By: #### L 100.0100, L500.4050 ####[facility] [address] [place], [address] Erythrocyte distribution width (RBC) [Ratio] 13.3 % Normal 11.6-14.6 [facility] Comment on above: Performed By: #### L 100.0100, L500.4050 ####[facility] [address] [place], [address] Hematocrit (Bld) [Volume fraction] 44.3 % Normal 40-54 [facility] Comment on above: Performed By: #### L 100.0100, L500.4050 ####[facility] [address] [place], [address] Hemoglobin (Bld) [Mass/Vol] 14.9 g/dL Normal 13.0-16.5 [facility] Comment on above: Performed By: #### L 100.0100, L500.4050 ####[facility] [address] [place], [address] IG% 0.300 Normal 0.0-0.9 [facility] Comment on above: Result Comment: IG% - Immature Granulocytes (promyelocytes, myelocytes and metamyelocytes) > 1% indicates that a LEFT SHIFT is Present. Performed By: #### L 100.0100, L500.4050 ####[facility] [address] [place], [address] Lymphocytes/100 WBC (Bld) 32.6 % Normal 19-41 [facility] Comment on above: Performed By: #### L 100.0100, L500.4050 ####[facility] [address] [place], [address] MCH (RBC) [Entitic mass] 30.7 pg Normal 27.0-32.0 [facility] Comment on above: Performed By: #### L 100.0100, L500.4050 ####[facility] [address] [place], [address] MCHC (RBC) [Mass/Vol] 33.6 g/dL Normal 32-36 [facility] Comment on above: Performed By: #### L 100.0100, L500.4050 ####[facility] [address] [place], [address] MCV (RBC) [Entitic vol] 91.3 fL Normal 80-94 [facility] Comment on above: Performed By: #### L 100.0100, L500.4050 ####[facility] [address] [place], [address] Monocytes/100 WBC (Bld) 9.0 % Normal 0-10 [facility] Comment on above: Performed By: #### L 100.0100, L500.4050 ####[facility] [address] [place], [address] Neutrophils/100 WBC (Bld) 51.6 % Normal 47-70 [facility] Comment on above: Performed By: #### L 100.0100, L500.4050 ####[facility] [address] [place], [address] Nucleated RBC (Bld) [#/Vol] 0 10*3/uL Normal 0-5 [facility] Comment on above: Performed By: #### L 100.0100, L500.4050 ####[facility] [address] [place], [address] Platelet mean volume (Bld) [Entitic vol] 9.1 fL Normal 6.2-12.0 [facility] Comment on above: Performed By: #### L 100.0100, L500.4050 ####[facility] [address] [place], [address] Platelets (Bld) [#/Vol] 284 10*3/uL Normal 150-450 [facility] Comment on above: Performed By: #### L 100.0100, L500.4050 ####[facility] [address] [place], [address] RBC (Bld) [#/Vol] 4.85 10*6/uL Normal 4.6-6.2 [facility] Comment on above: Performed By: #### L 100.0100, L500.4050 ####[facility] [address] [place], [address] RDW SD 43.8 fl Normal 35.1-43.9 [facility] Comment on above: Performed By: #### L 100.0100, L500.4050 ####[facility] [address] [place], [address] WBC (Bld) [#/Vol] 6.8 10*3/uL Normal 4.4-11.0 [facility] Comment on above: Performed By: #### L 100.0100, L500.4050 ####[facility] [address] [place], [address] Carbon dioxide measurementOr dered By: Luz Sánchez on 04-13-2024 CO2 [Moles/Vol] 26.0 mmol/L 21.0-32.0 [facility] Chloride measurementOrdered By: Luz Sánchez on 04-13-2024 Chloride [Moles/Vol] 108 mmol/L High 98-107 [facility] Comprehensive Metabolic Prof ilon 04-13-2024 Albumin [Mass/Vol] 3.6 g/dL Normal 3.2-5.0 [facility] Comment on above: Performed By: #### L 100.0100, L500.4050 ####[facility] [address] [place], [address] Albumin/Globulin [Mass ratio] 1.1 {ratio} Normal 0.9-2.4 [facility] Comment on above: Performed By: #### L 100.0100, L500.4050 ####[facility] [address] [place], [address] ALK P 127 U/L High 45-117 [facility] Comment on above: Performed By: #### L 100.0100, L500.4050 ####[facility] [address] [place], [address] ALT [Catalytic activity/Vol] 47 U/L Normal 16-61 [facility] Comment on above: Performed By: #### L 100.0100, L500.4050 ####[facility] [address] [place], [address] AST [Catalytic activity/Vol] 47 U/L High 15-37 [facility] Comment on above: Result Comment: Slig ht Hemolysis, Result may be falsely increased. Performed By: #### L 100.0100, L500.4050 ####[facility] [address] [place], [address] Bilirubin [Mass/Vol] 0.50 mg/dL Normal 0.20-1.00 [facility] Comment on above: Result Comment: For patients on eltrombopag therapy, use of Dimension [place] TBIL is not recommended. Performed By: #### L 100.0100, L500.4050 ####[facility] [address] [place], [address] BUN/CRE 15.2 RATIO Normal 10-20 [facility] Comment on above: Performed By: #### L 100.0100, L500.4050 ####[facility] [address] [place], [address] CA,Total 9.2 mg/dL Normal 8.5-10.1 [facility] Comment on above: Performed By: #### L 100.0100, L500.4050 ####[facility] [address] [place], [address] Chloride [Moles/Vol] 108 mmol/L High 98-107 [facility] Comment on above: Performed By: #### L 100.0100, L500.4050 ####[facility] [address] [place], [address] CO2 [Moles/Vol] 26.0 mmol/L Normal 21.0-32.0 [facility] Comment on above: Performed By: #### L 100.0100, L500.4050 ####[facility] [address] [place], [address] Creatinine [Mass/Vol] 1.12 mg/dL Normal 0.70-1.30 [facility] Comment on above: Result Comment: The validity of the calculated GFR GFRAA in patients over 70 years has not been determined. Clinical correlation is essential. Performed By: #### L 100.0100, L500.4050 ####[facility] [address] [place], [address] EST GFR - AA 86 mL/min Normal >60 [facility] Comment on above: Result Comment: Afri can [place] GFR Calc Performed By: #### L 100.0100, L500.4050 ####[facility] [address] [place], [address] GAP 5 Normal 5-15 [facility] Comment on above: Performed By: #### L 100.0100, L500.4050 ####[facility] [address] [place], [address] GFR/1.73 sq M.predicted among non-blacks MDRD (S/P/Bld) [Vol rate/Area] 71 mL/min/{1.73_m2} Normal >60 [facility] Comment on above: Result Comment: Non- GFR Calc Performed By: #### L 100.0100, L500.4050 ####[facility] [address] [place], [address] Globulin (S) [Mass/Vol] 3.4 g/dL Normal 2.2-4.2 [facility] Comment on above: Performed By: #### L 100.0100, L500.4050 ####[facility] [address] [place], [address] Glucose [Mass/Vol] 111 mg/dL High 74-106 [facility] Comment on above: Result Comment: Fast ing Glucose result from 100 to 125 mg/dL suggests IMPAIRED HOMEOSTASIS per A.D.A. criteria. Performed By: #### L 100.0100, L500.4050 ####[facility] [address] [place], [address] Potassium [Moles/Vol] 4.2 mmol/L Normal 3.5-5.1 [facility] Comment on above: Result Comment: Slig ht Hemolysis, Result may be falsely increased. Performed By: #### L 100.0100, L500.4050 ####[facility] [address] [place], [address] Sodium [Moles/Vol] 139 mmol/L Normal 136-145 [facility] Comment on above: Performed By: #### L 100.0100, L500.4050 ####[facility] [address] [place], [address] T PROT 7.0 g/dL Normal 6.4-8.2 [facility] Comment on above: Performed By: #### L 100.0100, L500.4050 ####[facility] [address] [place], [address] Urea nitrogen [Mass/Vol] 17 mg/dL Normal 7-18 [facility] Comment on above: Performed By: #### L 100.0100, L500.4050 ####[facility] [address] [place], [address] Eosinophil percentageOrdered By: Luz Sánchez on 04-13-2024 Eosinophils/100 WBC (Bld) 5.6 % High 0-5 [facility] Erythrocyte distribution wid th ratioOrdered By: Luz Sánchez on 04-13-2024 Erythrocyte distribution width (RBC) [Ratio] 13.3 % 11.6-14.6 [facility] Erythrocyte distribution wid th standard deviationOrdered By: Luzmicheal Sánchez on 04-13-2024 Erythrocyte distribution width (RBC) [Entitic vol] 43.8 fL 35.1-43.9 [facility] Erythrocyte distribution width (RBC) [Ratio] 43.8 fl 35.1-43.9 [facility] Estimated glomerular filtrat ion rate (GFR) AmericanOrdered By: Luz Sánchez on 04-13-2024 Estimated GFR (MDRD) Amer 86 mL/min >60 [facility] Comment on above: GFR Calc Glomerular filtration rate ( GFR) estimationOrdered By: Luz Sánchez on 04-13-2024 Estimated GFR (MDRD) Non-Af Amer 71 mL/min >60 [facility] Comment on above: Non- GFR Calc GFR/1.73 sq M.predicted among non-blacks MDRD (S/P/Bld) [Vol rate/Area] 71 mL/min/{1.73_m2} >60 [facility] Comment on above: Non- GFR Calc Glucose measurementOrdered B y: Luz Sánchez on 04-13-2024 Glucose [Mass/Vol] 111 mg/dL High 74-106 [facility] Comment on above: Fasting Glucose resu lt from 100 to 125 mg/dL suggests IMPAIRED HOMEOSTASIS per A.D.A. criteria. Hematocrit Auto (Bld) [Volum e fraction]Ordered By: Luz Sánchez on 04-13-2024 Hematocrit (Bld) [Volume fraction] 44.3 % 40-54 [facility] Hemoglobin measurementOrdere d By: Luz Sánchez on 04-13-2024 Hemoglobin (Bld) [Mass/Vol] 14.9 g/dL 13.0-16.5 [facility] Immature granulocytes/100 WB C Auto (Bld)Ordered By: Luz Sánchez on 04-13-2024 Immature granulocytes/100 WBC (Bld) 0.300 % 0.0-0.9 [facility] Comment on above: IG% - Immature Granu locytes (promyelocytes, myelocytes and metamyelocytes) > 1% indicates that a LEFT SHIFT is Present. Laboratory - Chemistry and C hemistry - challengeOrdered By: Luz Sánchez on 04-13-2024 AST [Catalytic activity/Vol] 47 U/L High 15-37 [facility] Comment on above: Slight Hemolysis, Re sult may be falsely increased. Lymphocytes Auto (Unsp spec) [#/Vol]Ordered By: Luz Sánchez on 04-13-2024 Lymphocytes (Bld) [#/Vol] 2.22 10*3/uL 0.83-4.51 [facility] Lymphocytes/100 WBC Auto (Un sp spec)Ordered By: Luz Sánchez on 04-13-2024 Lymphocytes/100 WBC (Bld) 32.6 % 19-41 [facility] MCV (mean corpuscular volume ) determinationOrdered By: Luz Sánchez on 04-13-2024 MCV (RBC) [Entitic vol] 91.3 fL 80-94 [facility] Mean corpuscular hemoglobin (MCH) determinationOrdered By: Luz Sánchez on 04-13-2024 MCH (RBC) [Entitic mass] 30.7 pg 27.0-32.0 [facility] Mean corpuscular hemoglobin concentration (MCHC) determinationOrdered By: Luz Sánchez on 04-13-2024 MCHC (RBC) [Mass/Vol] 33.6 g/dL 32-36 [facility] Mean platelet volume determi nationOrdered By: Luz Sánchez on 04-13-2024 Platelet mean volume (Bld) [Entitic vol] 9.1 fL 6.2-12.0 [facility] Monocyte percentageOrdered B y: Luz Sánchez on 04-13-2024 Monocytes/100 WBC (Bld) 9.0 % 0-10 [facility] Neutrophil percentageOrdered By: Luz Sánchez on 04-13-2024 Neutrophils/100 WBC (Bld) 51.6 % 47-70 [facility] Nucleated red blood cell per centageOrdered By: Luz Sánchez on 04-13-2024 Nucleated RBC/100 WBC (Bld) [Ratio] 0 % 0-5 [facility] Platelet countOrdered By: Zaid Sánchez on 04-13-2024 Platelets (Bld) [#/Vol] 284 10*3/uL 150-450 [facility] Potassium measurementOrdered By: Luz Sánchez on 04-13-2024 Potassium [Moles/Vol] 4.2 mmol/L 3.5-5.1 [facility] Comment on above: Slight Hemolysis, Re sult may be falsely increased. RBC Auto (Bld) [#/Vol]Ordere d By: Luz Sánchez on 04-13-2024 RBC (Bld) [#/Vol] 4.85 10*6/uL 4.6-6.2 [facility] Serum anion gap measurementO rdered By: Luz Sánchez on 04-13-2024 Anion gap [Moles/Vol] 5 mmol/L 5-15 [facility] Serum globulin measurementOr dered By: Luz Sánchez on 04-13-2024 Globulin (S) [Mass/Vol] 3.4 g/dL 2.2-4.2 [facility] Serum or plasma alanine tovar otransferase (ALT) measurementOrdered By: Luz Sánchez on 04-13-2024 ALT [Catalytic activity/Vol] 47 U/L 16-61 [facility] Serum or plasma albumin jacob urement (mass/volume)Ordered By: Luz Sánchez on 04-13-2024 Albumin [Mass/Vol] 3.6 g/dL 3.2-5.0 [facility] Serum or plasma alkaline lucia sphatase measurementOrdered By: Luz Sánchez on 04-13-2024 ALP [Catalytic activity/Vol] 127 U/L High 45-117 [facility] Serum or plasma calcium jacob urement (mass/volume)Ordered By: Luz Sánchez on 04-13-2024 Calcium [Mass/Vol] 9.2 mg/dL 8.5-10.1 [facility] Serum or plasma creatinine m easurement (mass/volume)Ordered By: Luz Sánchez on 04-13-2024 Creatinine [Mass/Vol] 1.12 mg/dL 0.70-1.30 [facility] Comment on above: The validity of the calculated GFR & GFRAA in patients over 70 years has not been determined. Clinical correlation is essential. Serum or plasma urea nitroge n measurement (mass/volume)Ordered By: Luz Sánchez on 04-13-2024 Urea nitrogen [Mass/Vol] 17 mg/dL 7-18 [facility] Sodium levelOrdered By: Mary Sánchez on 04-13-2024 Sodium [Moles/Vol] 139 mmol/L 136-145 [facility] Total proteinOrdered By: Art Sánchez on 04-13-2024 Protein [Mass/Vol] 7.0 g/dL 6.4-8.2 [facility] White blood cell (WBC) count Ordered By: Luz Sánchez on 04-13-2024 WBC (Bld) [#/Vol] 6.8 10*3/uL 4.4-11.0 [facility] Absolute neutrophil countOrd ered By: Aníbal Lundy on 02-12-2024 Neutrophils (Bld) [#/Vol] 2.8 10*3/uL 2.0-7.7 [facility] Basic Metabolic Profile (BMP )on 02-12-2024 BUN/CRE 11.1 RATIO Normal 10-20 [facility] Comment on above: Performed By: #### L 100.0100, L500.2500 ####[facility] [address] [place], [address] CA,Total 8.5 mg/dL Normal 8.5-10.1 [facility] Comment on above: Performed By: #### L 100.0100, L500.2500 ####[facility] [address] [place], [address] Chloride [Moles/Vol] 105 mmol/L Normal 98-107 [facility] Comment on above: Performed By: #### L 100.0100, L500.2500 ####[facility] [address] [place], [address] CO2 [Moles/Vol] 27.0 mmol/L Normal 21.0-32.0 [facility] Comment on above: Performed By: #### L 100.0100, L500.2500 ####[facility] [address] [place], [address] Creatinine [Mass/Vol] 1.08 mg/dL Normal 0.70-1.30 [facility] Comment on above: Result Comment: The validity of the calculated GFR GFRAA in patients over 70 years has not been determined. Clinical correlation is essential. Performed By: #### L 100.0100, L500.2500 ####[facility] [address] [place], [address] EST GFR - AA 90 mL/min Normal >60 [facility] Comment on above: Result Comment: Afri can Swedish GFR Calc Performed By: #### L 100.0100, L500.2500 ####[facility] [address] [place], [address] GAP 5 Normal 5-15 [facility] Comment on above: Performed By: #### L 100.0100, L500.2500 ####[facility] [address] [place], [address] GFR/1.73 sq M.predicted among non-blacks MDRD (S/P/Bld) [Vol rate/Area] 74 mL/min/{1.73_m2} Normal >60 [facility] Comment on above: Result Comment: Non- GFR Calc Performed By: #### L 100.0100, L500.2500 ####[facility] [address] [place], [address] Glucose [Mass/Vol] 106 mg/dL Normal 74-106 [facility] Comment on above: Result Comment: Fast ing Glucose result from 100 to 125 mg/dL suggests IMPAIRED HOMEOSTASIS per A.D.A. criteria. Performed By: #### L 100.0100, L500.2500 ####[facility] [address] [place], [address] Potassium [Moles/Vol] 3.9 mmol/L Normal 3.5-5.1 [facility] Comment on above: Performed By: #### L 100.0100, L500.2500 ####[facility] [address] [place], [address] Sodium [Moles/Vol] 137 mmol/L Normal 136-145 [facility] Comment on above: Performed By: #### L 100.0100, L500.2500 ####[facility] [address] [place], [address] Urea nitrogen [Mass/Vol] 12 mg/dL Normal 7-18 [facility] Comment on above: Performed By: #### L 100.0100, L500.2500 ####[facility] [address] [place], [address] Basophil percentageOrdered B y: Aníbal Lundy on 02-12-2024 Basophils/100 WBC (Bld) 0.4 % 0-1 [facility] Blood urea nitrogen (BUN)/cr eatinine ratioOrdered By: Aníbal Lundy on 02-12-2024 Urea nitrogen/Creatinine [Mass ratio] 11.1 mg/mg 10-20 [facility] CBC W/Diff, Automatedon 01-27 Absolute Lymph 1.35 X10 3/uL Normal 0.83-4.51 [facility] Comment on above: Performed By: #### L 100.0100, L500.2500 ####[facility] [address] [place], [address] Absolute Neut 2.8 X10 3/uL Normal 2.0-7.7 [facility] Comment on above: Performed By: #### L 100.0100, L500.2500 ####[facility] [address] [place], [address] Basophils/100 WBC (Bld) 0.4 % Normal 0-1 [facility] Comment on above: Performed By: #### L 100.0100, L500.2500 ####[facility] [address] [place], [address] Eosinophils/100 WBC (Bld) 1.7 % Normal 0-5 [facility] Comment on above: Performed By: #### L 100.0100, L500.2500 ####[facility] [address] [place], [address] Erythrocyte distribution width (RBC) [Ratio] 12.6 % Normal 11.6-14.6 [facility] Comment on above: Performed By: #### L 100.0100, L500.2500 ####[facility] [address] [place], [address] Hematocrit (Bld) [Volume fraction] 43.9 % Normal 40-54 [facility] Comment on above: Performed By: #### L 100.0100, L500.2500 ####[facility] [address] [place], [address] Hemoglobin (Bld) [Mass/Vol] 15.1 g/dL Normal 13.0-16.5 [facility] Comment on above: Performed By: #### L 100.0100, L500.2500 ####[facility] [address] [place], [address] IG% 0.600 Normal 0.0-0.9 [facility] Comment on above: Result Comment: IG% - Immature Granulocytes (promyelocytes, myelocytes and metamyelocytes) > 1% indicates that a LEFT SHIFT is Present. Performed By: #### L 100.0100, L500.2500 ####[facility] [address] [place], [address] Lymphocytes/100 WBC (Bld) 28.3 % Normal 19-41 [facility] Comment on above: Performed By: #### L 100.0100, L500.2500 ####[facility] [address] [place], [address] MCH (RBC) [Entitic mass] 30.4 pg Normal 27.0-32.0 [facility] Comment on above: Performed By: #### L 100.0100, L500.2500 ####[facility] [address] [place], [address] MCHC (RBC) [Mass/Vol] 34.4 g/dL Normal 32-36 [facility] Comment on above: Performed By: #### L 100.0100, L500.2500 ####[facility] [address] [place], [address] MCV (RBC) [Entitic vol] 88.3 fL Normal 80-94 [facility] Comment on above: Performed By: #### L 100.0100, L500.2500 ####[facility] [address] [place], [address] Monocytes/100 WBC (Bld) 10.7 % High 0-10 [facility] Comment on above: Performed By: #### L 100.0100, L500.2500 ####[facility] [address] [place], [address] Neutrophils/100 WBC (Bld) 58.3 % Normal 47-70 [facility] Comment on above: Performed By: #### L 100.0100, L500.2500 ####[facility] [address] [place], [address] Nucleated RBC (Bld) [#/Vol] 0 10*3/uL Normal 0-5 [facility] Comment on above: Performed By: #### L 100.0100, L500.2500 ####[facility] [address] [place], [address] Platelet mean volume (Bld) [Entitic vol] 9.2 fL Normal 6.2-12.0 [facility] Comment on above: Performed By: #### L 100.0100, L500.2500 ####[facility] [address] [place], [address] Platelets (Bld) [#/Vol] 184 10*3/uL Normal 150-450 [facility] Comment on above: Performed By: #### L 100.0100, L500.2500 ####[facility] [address] [place], [address] RBC (Bld) [#/Vol] 4.97 10*6/uL Normal 4.6-6.2 [facility] Comment on above: Performed By: #### L 100.0100, L500.2500 ####[facility] [address] [place], [address] RDW SD 40.5 fl Normal 35.1-43.9 [facility] Comment on above: Performed By: #### L 100.0100, L500.2500 ####[facility] [address] [place], [address] WBC (Bld) [#/Vol] 4.8 10*3/uL Normal 4.4-11.0 [facility] Comment on above: Performed By: #### L 100.0100, L500.2500 ####[facility] [address] [place], [address] Carbon dioxide measurementOr dered By: Aníbal Lundy on 02-12-2024 CO2 [Moles/Vol] 27.0 mmol/L 21.0-32.0 [facility] Chest PA and Lateralon 02-11 Chest PA and Lateral [facility] Imaging Services [address] [place] [address] Chest PA and Lateral MR#: [id number] Acct: [id number] Name: DARIUSZ NGUYEN Rep #: [id number] : 1965 M 58 From: Ziggy willoughby MD PCP: QUINTON Sanchez Status: PRE ER Study: Chest PA and Lateral Date of Exam: 02/12/24 Exam# [id number] Ordering Dr: Aníbal Lundy MD -[id number] STUDY: X-RAY CHEST REASON FOR EXAM: Male, 58 years old. Productive cough TECHNIQUE: PA and lateral views of the chest. COMPARISON: February 07, 2024 FINDINGS: No demonstrated consolidation or infiltrates. There are interstitial fibrotic changes of the lungs. There is no demonstrated pleural abnormality. Normal size heart. Normal mediastinum and javon. Normal visualized pulmonary arteries. There is atherosclerotic tortuosity of the aortic arch and descending thoracic aorta. There are diffuse degenerative changes of the visualized thoracic spine. Normal visualized ribs, clavicles, and shoulders. There is no demonstrated abnormality of the visualized soft tissue structures of the upper abdomen. RAD/Chest PA and Lateral IMPRESSION: Degenerative changes, as described above. No demonstrated acute cardiopulmonary process. Electronically Signed: Ziggy Estrada MD at 9:38 EST , CC: QUINTON Case; Dr. Aníbal Lundy MD Media Production Support Manager: Signed Normal [facility] Chloride measurementOrdered By: Aníbal Lundy on 02-12-2024 Chloride [Moles/Vol] 105 mmol/L 98-107 [facility] Emergency Department Summary on 02-12-2024 Emergency Department Summary [facility] Medical Records Department [address] [place] [address] Emergency Department Summary 02/12/24 MR#: [id number] Acct: [id number] Name: DARIUSZ NGUYEN Rep #: [id number] : 1965 58 From: Aníbal Lundy MD PCP: QUINTON Sanchez Status:REG ER Location: ED HPI History of Present Illness Chief Complaint: Nausea/Vomiting Detail of Chief Complaint: Nausea and vomiting x several times Informant: patient and spouse/S.O. Onset/Context/Timin g Onset: Today Context: Sudden Onset Timing: Intermittent Quality: Nausea and vomiting Current Severity: Mild Maximum Severity: Moderate Worsened by: Nothing Relieved by: Nothing Associated Symptoms Associated Symptoms: Slight blood tinge last emesis Narrative Narrative: Patient is a 58-year-old male. He has history of rheumatoid arthritis on methotrexate, hypothyroidism who developed flulike symptoms last Monday. Went to urgent care and was diagnosed with influenza. He had been having symptoms for 1 to 2 weeks prior. He has not taken his methotrexate for the last 2 weeks. Tmax 102 ???F. Patient does endorse mild congestion. He states cough became productive this past weekend. Initially the sputum was brown now yellow. There is no blood noted. He denies pleuritic pain. He denies dyspnea on exertion. He has vomited several times starting today. States initially it was emesis. Then was phlegm. Last episode there was a tinge/streak of blood. Patient denies abdominal pain. Patient denies diarrhea. Patient denies black or maroon-colored stool. Patient does endorse myalgias arthralgias. According to , multiple family members have been ill. He denies rash. Prior similar symptoms: Yes Recent Illness/Hospitaliza tion: Yes (Diagnosed with influenza on Monday, February 06.) [facility] Medical History Arthritis Hypertension Fibromyalgia Home Medications ???Medication ???Instructions ???Recorded ???Last Taken ???Type levothyroxine 50 mcg tablet 75 mcg PO DAILY 01/13/20 Unknown History multivitamin with minerals 1 ea PO DAILY 01/13/20 Unknown History amoxicillin 875 mg-potassium 1 tab PO BID #20 tabs 04/19/23 Unknown Rx clavulanate 125 mg tablet folic acid 1 mg tablet 2 mg PO DAILY 02/07/24 Unknown History methotrexate sodium 2.5 mg tablet 15 mg PO QWEEK 02/07/24 Unknown History benzonatate 200 mg capsule 200 mg PO TID PRN cough #30 caps 02/08/24 Unknown Rx oseltamivir 75 mg capsule (Tamiflu) 75 mg PO BID 5 days #10 caps 02/08/24 Unknown Rx oxycodone 5 mg tablet 5 mg PO Q6H PRN pain 3 days #12 02/08/24 Unknown Rx tabs Allergy/AdvReac Type Severity Reaction Status Date / Time codeine Allergy Hives Verified 02/12/24 09:01 Sulfa (Sulfonamide Allergy Hives Verified 02/12/24 09:01 Antibiotics) Social History (Updated 02/12/24 @ 09:[address] Aníbal Lundy MD) household members: spouse Smoking Status: Never smoker ROS ROS ED Constitutional Constitutional ED: Reports chills and fever(s); Denies sweats Eyes Eyes: Denies blurry vision, change in vision or diplopia ENT ENT ED: Reports rhinorrhea and sore throat; Denies ear pain Cardiovascular Cardiovascular: Denies chest pain, orthopnea, palpitations, paroxysmal nocturnal dyspnea or racing heartbeat Respiratory/Chest Respiratory/Chest: Reports cough, dyspnea and sputum; Denies dyspnea on exertion, orthopnea or paroxysmal nocturnal dyspnea Gastrointestinal Gastrointestinal: Reports nausea, vomiting and other Details: Detailed HPI narrative ; Denies abdominal pain, constipation, diarrhea or melena Genitourinary Genitourinary ED: Denies dysuria, hematuria or urinary frequency Musculoskeletal Musculoskeletal: Reports arthralgias and myalgias Integumentary Denies rash Neurologic Neurologic: Reports headache(s) and weakness; Denies paresthesias Hematologic/Lymphat ic Hematologic/Lymphat ic: Reports systems reviewed and no addt'l complaints, except as documented EXAM Physical Exam Const Vital Signs: 02/12/24 08:59 02/12/24 09:49 Temperature 97.6 F L Temperature Source Temporal Pulse Rate 68 Pulse Rate [Lying] 60 Pulse Rate [Sitting (for 1 minute prior to obtaining)] 58 L Pulse Rate [Standing (for 1 minute prior to obtaining)] 65 Respiratory Rate 15 Blood Pressure 120/90 H Blood Pressure [Lying] 117/70 Blood Pressure [Sitting (for 1 minute prior to obtaining)] 126/77 H Blood Pressure [Standing (for 1 minute prior to obtaining)] 143/86 H Blood Pressure Mean 100 Blood Pressure Mean [Lying] 85 Blood Pressure Mean [Sitting (for 1 minute prior to obtaining)] 93 Blood Pressure Mean [Standing (for 1 minute prior to obtaining)] 105 Pulse Ox 100 Oxygen Delivery Method Room Air Positive well nourished and well (more content not included)... Normal [facility] Eosinophil percentageOrdered By: Aníbal Lundy on 02-12-2024 Eosinophils/100 WBC (Bld) 1.7 % 0-5 [facility] Erythrocyte distribution wid th ratioOrdered By: Aníbalelinor Lundy on 02-12-2024 Erythrocyte distribution width (RBC) [Ratio] 12.6 % 11.6-14.6 [facility] Erythrocyte distribution wid th standard deviationOrdered By: Aníbalelinor Lundy on 02-12-2024 Erythrocyte distribution width (RBC) [Entitic vol] 40.5 fL 35.1-43.9 [facility] Estimated glomerular filtrat ion rate (GFR) AmericanOrdered By: Aníbal Lundy on 02-12-2024 Estimated GFR (MDRD) Amer 90 mL/min >60 [facility] Comment on above: GFR Calc Glomerular filtration rate ( GFR) estimationOrdered By: Aníbal Lundy on 02-12-2024 Estimated GFR (MDRD) Non-Af Amer 74 mL/min >60 [facility] Comment on above: Non- GFR Calc Glucose measurementOrdered B y: Aníbal Lundy on 02-12-2024 Glucose [Mass/Vol] 106 mg/dL 74-106 [facility] Comment on above: Fasting Glucose resu lt from 100 to 125 mg/dL suggests IMPAIRED HOMEOSTASIS per A.D.A. criteria. Hematocrit Auto (Bld) [Volum e fraction]Ordered By: Aníbal Lundy on 02-12-2024 Hematocrit (Bld) [Volume fraction] 43.9 % 40-54 [facility] Hemoglobin measurementOrdere d By: Aníbal Lundy on 02-12-2024 Hemoglobin (Bld) [Mass/Vol] 15.1 g/dL 13.0-16.5 [facility] Immature granulocytes/100 WB C Auto (Bld)Ordered By: Aníbal Lundy on 02-12-2024 Immature granulocytes/100 WBC (Bld) 0.600 % 0.0-0.9 [facility] Comment on above: IG% - Immature Granu locytes (promyelocytes, myelocytes and metamyelocytes) > 1% indicates that a LEFT SHIFT is Present. Lymphocytes Auto (Unsp spec) [#/Vol]Ordered By: Aníbal Lundy on 02-12-2024 Lymphocytes (Bld) [#/Vol] 1.35 10*3/uL 0.83-4.51 [facility] Lymphocytes/100 WBC Auto (Un sp spec)Ordered By: Aníbal Lundy on 02-12-2024 Lymphocytes/100 WBC (Bld) 28.3 % 19-41 [facility] MCV (mean corpuscular volume ) determinationOrdered By: Aníbal Lundy on 02-12-2024 MCV (RBC) [Entitic vol] 88.3 fL 80-94 [facility] Mean corpuscular hemoglobin (MCH) determinationOrdered By: Aníbal Lundy on 02-12-2024 MCH (RBC) [Entitic mass] 30.4 pg 27.0-32.0 [facility] Mean corpuscular hemoglobin concentration (MCHC) determinationOrdered By: Aníbal Lundy on 02-12-2024 MCHC (RBC) [Mass/Vol] 34.4 g/dL 32-36 [facility] Mean platelet volume determi nationOrdered By: Aníbal Lundy on 02-12-2024 Platelet mean volume (Bld) [Entitic vol] 9.2 fL 6.2-12.0 [facility] Monocyte percentageOrdered B y: Aníbal Lundy on 02-12-2024 Monocytes/100 WBC (Bld) 10.7 % High 0-10 [facility] Neutrophil percentageOrdered By: Aníbal Lundy on 02-12-2024 Neutrophils/100 WBC (Bld) 58.3 % 47-70 [facility] Nucleated red blood cell per centageOrdered By: Aníbal Lundy on 02-12-2024 Nucleated RBC/100 WBC (Bld) [Ratio] 0 % 0-5 [facility] Platelet countOrdered By: Efra Lundy on 02-12-2024 Platelets (Bld) [#/Vol] 184 10*3/uL 150-450 [facility] Potassium measurementOrdered By: Aníbal Lundy on 02-12-2024 Potassium [Moles/Vol] 3.9 mmol/L 3.5-5.1 [facility] RBC Auto (Bld) [#/Vol]Ordere d By: Aníbalelinor Mastersono on 02-12-2024 RBC (Bld) [#/Vol] 4.97 10*6/uL 4.6-6.2 [facility] Serum anion gap measurementO rdered By: Aníbal Lundy on 02-12-2024 Anion gap [Moles/Vol] 5 mmol/L 5-15 [facility] Serum or plasma calcium jacob urement (mass/volume)Ordered By: Aníbalelinor Lundy on 02-12-2024 Calcium [Mass/Vol] 8.5 mg/dL 8.5-10.1 [facility] Serum or plasma creatinine m easurement (mass/volume)Ordered By: Aníbal Lundy on 02-12-2024 Creatinine [Mass/Vol] 1.08 mg/dL 0.70-1.30 [facility] Comment on above: The validity of the calculated GFR & GFRAA in patients over 70 years has not been determined. Clinical correlation is essential. Serum or plasma urea nitroge n measurement (mass/volume)Ordered By: Aníbalelinor Lundy on 02-12-2024 Urea nitrogen [Mass/Vol] 12 mg/dL 7-18 [facility] Sodium levelOrdered By: Aníbalelinor Lundy on 02-12-2024 Sodium [Moles/Vol] 137 mmol/L 136-145 [facility] White blood cell (WBC) count Ordered By: Aníbalelinor Lundy on 02-12-2024 WBC (Bld) [#/Vol] 4.8 10*3/uL 4.4-11.0 [facility] Emergency Department Summary on 02-08-2024 Emergency Department Summary [facility] Medical Records Department [address] [place] [address] Emergency Department Summary 02/08/24 MR#: [id number] Acct: [id number] Name: PATRICKDARIUSZ HERBERTE Rep #: [id number] : 1965 58 From: Rommel Brito DO PCP: QUINTON Sanchez Status:DEP ER Location: ED HPI History of Present Illness Chief Complaint: General Illness Informant: patient and spouse/S.O. Narrative Narrative: Patient is a 58-year-old male with past medical history of hypertension fibromyalgia and rheumatoid arthritis. He is currently on methotrexate. He states roughly a week ago he had cough and congestion and saw his family doctor and was placed on Augmentin. 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 He reports that he "got better" after taking the Augmentin. However in the last 1 to 2 days he has had return of fever congestion cough with fatigue and muscle aches. Secondary to the return of symptoms he presents for evaluation [facility] Medical History (Updated 02/08/24 @ 01:[address] Rommel Brito DO) Arthritis Hypertension Fibromyalgia Home Medications ???Medication ???Instructions ???Recorded ???Last Taken ???Type levothyroxine 50 mcg tablet 75 mcg PO DAILY 01/13/20 Unknown History multivitamin with minerals 1 ea PO DAILY 01/13/20 Unknown History amoxicillin 875 mg-potassium 1 tab PO BID #20 tabs 04/19/23 Unknown Rx clavulanate 125 mg tablet folic acid 1 mg tablet 2 mg PO DAILY 02/07/24 Unknown History methotrexate sodium 2.5 mg tablet 15 mg PO QWEEK 02/07/24 Unknown History benzonatate 200 mg capsule 200 mg PO TID PRN cough #30 caps 02/08/24 Unknown Rx oseltamivir 75 mg capsule (Tamiflu) 75 mg PO BID 5 days #10 caps 02/08/24 Unknown Rx oxycodone 5 mg tablet 5 mg PO Q6H PRN pain 3 days #12 02/08/24 Unknown Rx tabs Allergy/AdvReac Type Severity Reaction Status Date / Time codeine Allergy Hives Verified 02/07/24 22:09 Sulfa (Sulfonamide Allergy Hives Verified 02/07/24 22:09 Antibiotics) Social History Smoking Status: Never smoker ROS ROS ED Constitutional Constitutional ED: Reports chills and fever(s) Eyes Eyes: Denies change in vision ENT ENT ED: Reports rhinorrhea and sore throat Cardiovascular Cardiovascular: Denies chest pain Respiratory/Chest Respiratory/Chest: Reports cough; Denies dyspnea Gastrointestinal Gastrointestinal: Reports nausea; Denies abdominal pain, diarrhea or vomiting Genitourinary Genitourinary ED: Denies dysuria Musculoskeletal Musculoskeletal: Reports myalgias Integumentary Denies rash Neurologic Neurologic: Reports weakness Hematologic/Lymphat ic Hematologic/Lymphat ic: Denies easy bleeding or easy bruising EXAM Physical Exam Const Vital Signs: 02/07/24 22:08 02/07/24 23:09 02/08/24 00:00 Temperature 101.3 F H 100.6 F H 100.0 F H Temperature Source Oral Oral Temporal Pulse Rate 106 H 100 98 Respiratory Rate 18 20 H 18 Blood Pressure 134/75 H 116/99 H 133/77 H Blood Pressure Mean 94 104 95 Pulse Ox 96 98 97 Oxygen Delivery Method Room Air Room Air Room Air 02/08/24 00:07 02/08/24 00:38 Temperature 99.8 F H Temperature Source Pulse Rate 105 H Respiratory Rate 20 H Blood Pressure 124/78 H Blood Pressure Mean 93 Pulse Ox 97 100 Oxygen Delivery Method Positive well nourished and well developed General Appearance ED: well developed; Negative for pallor HEENT HEENT Narrative: No tongue or lip swelling no oral lesions no airway edema or compromise There is cobblestoning noted in the posterior pharynx consistent with sinus drainage No secondary findings to suggest infection Eyes PERRL and EOMs intact bilaterally General Eye ED: Negative for scleral icterus Neck supple Neck Narrative: No nuchal rigidity or meningeal signs Chest Wall palpation of chest normal Resp normal respiratory effort and clear to auscultation bilaterally Resp Narrative: No nasal flaring retractions tachypnea or accessory muscle use Cardio regular rhythm Rate: tachycardic and other Other Details: Slightly tachycardic rate with regular rhythm Radial and carotid pulses are equal and symmetric GI normal to inspection, nondistended, normoactive bowel sounds, non-tender, non-distended and no masses GI Narrative: No voluntary guarding or rigidity or pulsatile mass Auscultation: normoactive bowel sounds Palpation: soft Extremity normal to inspection Extremity Narrative: No asymmetric edema no pitting edema negative Homans' sign bilaterally Neuro oriented x3, CN's II-XII intact bilaterally and no sensory deficits noted Sensorium / Orientation: alert Motor Exam: strength 5/5 throughout Psych Psych Narrative: Patient has a flat affect Skin no rashes or lesio (more content not included)... Normal [facility] Absolute neutrophil countOrd ered By: Rommel Brito on 02-07-2024 Neutrophils (Bld) [#/Vol] 6.6 10*3/uL 2.0-7.7 [facility] Basic Metabolic Profile (BMP )on 02-07-2024 BUN/CRE 18.7 RATIO Normal 10-20 [facility] Comment on above: Performed By: #### M 100.678 #### [facility] [address] [place], [address] CA,Total 9.0 mg/dL Normal 8.5-10.1 [facility] Comment on above: Result Comment: Slig ht Lipemia, Result may be falsely increased. Performed By: #### M 100.678 #### [facility] [address] [place], [address] Chloride [Moles/Vol] 109 mmol/L High 98-107 [facility] Comment on above: Performed By: #### M 100.678 #### [facility] [address] [place], [address] CO2 [Moles/Vol] 24.0 mmol/L Normal 21.0-32.0 [facility] Comment on above: Result Comment: Slig ht Lipemia, Result may be falsely increased. Performed By: #### M 100.678 #### [facility] [address] [place], [address] Creatinine [Mass/Vol] 1.23 mg/dL Normal 0.70-1.30 [facility] Comment on above: Result Comment: Slig ht Lipemia, Result may be falsely increased. The validity of the calculated GFR GFRAA in patients over 70 years has not been determined. Clinical correlation is essential. Performed By: #### M 100.678 #### [facility] [address] [place], [address] ECRCL 71.39 ml/min Normal [facility] Comment on above: Performed By: #### M 100.678 #### [facility] [address] [place], [address] EST GFR - AA 77 mL/min Normal >60 [facility] Comment on above: Result Comment: Afri can Swedish GFR Calc Performed By: #### M 100.678 #### [facility] [address] [place], [address] GAP 8 Normal 5-15 [facility] Comment on above: Performed By: #### M 100.678 #### [facility] [address] [place], [address] GFR/1.73 sq M.predicted among non-blacks MDRD (S/P/Bld) [Vol rate/Area] 64 mL/min/{1.73_m2} Normal >60 [facility] Comment on above: Result Comment: Non- GFR Calc Performed By: #### M 100.678 #### [facility] [address] [place], [address] Glucose [Mass/Vol] 109 mg/dL High 74-106 [facility] Comment on above: Result Comment: Slig ht Lipemia, Result may be falsely increased. Fasting Glucose result from 100 to 125 mg/dL suggests IMPAIRED HOMEOSTASIS per A.D.A. criteria. Performed By: #### M 100.678 #### [facility] [address] [place], [address] Potassium [Moles/Vol] 4.4 mmol/L Normal 3.5-5.1 [facility] Comment on above: Result Comment: Mode rate Hemolysis, Result may be falsely increased.-Slight Lipemia, Result may be falsely increased. Performed By: #### M 100.678 #### [facility] [address] [place], [address] Sodium [Moles/Vol] 141 mmol/L Normal 136-145 [facility] Comment on above: Performed By: #### M 100.678 #### [facility] [address] [place], [address] Urea nitrogen [Mass/Vol] 23 mg/dL High 7- [facility] Comment on above: Result Comment: Slig ht Lipemia, Result may be falsely increased. Performed By: #### M 100.678 #### [facility] [address] [place], [address] Basophil percentageOrdered B y: Rommel Brito on 02-07-2024 Basophils/100 WBC (Bld) 1.1 % High 0-1 [facility] Blood urea nitrogen (BUN)/cr eatinine ratioOrdered By: Rommel Brito on 02-07-2024 Urea nitrogen/Creatinine [Mass ratio] 18.7 mg/mg 10- [facility] CBC W/Diff, Automatedon 01-27 Absolute Lymph 1.68 X10 3/uL Normal 0.83-4.51 [facility] Comment on above: Performed By: #### M [id number] #### [facility] [address] [place], [address] Absolute Neut 6.6 X10 3/uL Normal 2.0-7.7 [facility] Comment on above: Performed By: #### M 100.678 #### [facility] [address] [place], [address] Basophils/100 WBC (Bld) 1.1 % High 0-1 [facility] Comment on above: Performed By: #### M 100.678 #### [facility] [address] [place], [address] Eosinophils/100 WBC (Bld) 2.1 % Normal 0-5 [facility] Comment on above: Performed By: #### M 100.678 #### [facility] [address] [place], [address] Erythrocyte distribution width (RBC) [Ratio] 13.1 % Normal 11.6-14.6 [facility] Comment on above: Performed By: #### M 100.678 #### [facility] [address] [place], [address] Hematocrit (Bld) [Volume fraction] 42.6 % Normal 40-54 [facility] Comment on above: Performed By: #### M 100.678 #### [facility] [address] [place], [address] Hemoglobin (Bld) [Mass/Vol] 15.0 g/dL Normal 13.0-16.5 [facility] Comment on above: Performed By: #### M 100.678 #### [facility] [address] [place], [address] IG% 1.700 High 0.0-0.9 [facility] Comment on above: Result Comment: IG% - Immature Granulocytes (promyelocytes, myelocytes and metamyelocytes) > 1% indicates that a LEFT SHIFT is Present. Performed By: #### M 100.678 #### [facility] [address] [place], [address] Lymphocytes/100 WBC (Bld) 17.1 % Low 19-41 [facility] Comment on above: Performed By: #### M 100.678 #### [facility] [address] [place], [address] MCH (RBC) [Entitic mass] 31.3 pg Normal 27.0-32.0 [facility] Comment on above: Performed By: #### M 100.678 #### [facility] [address] [place], [address] MCHC (RBC) [Mass/Vol] 35.2 g/dL Normal 32-36 [facility] Comment on above: Performed By: #### M 100.678 #### [facility] [address] [place], [address] MCV (RBC) [Entitic vol] 88.8 fL Normal 80-94 [facility] Comment on above: Performed By: #### M 100.678 #### [facility] [address] [place], [address] Monocytes/100 WBC (Bld) 11.2 % High 0-10 [facility] Comment on above: Performed By: #### M 100.678 #### [facility] [address] [place], [address] Neutrophils/100 WBC (Bld) 66.8 % Normal 47-70 [facility] Comment on above: Performed By: #### M 100.678 #### [facility] [address] [place], [address] Nucleated RBC (Bld) [#/Vol] 0 10*3/uL Normal 0-5 [facility] Comment on above: Performed By: #### M 100.678 #### [facility] [address] [place], [address] Platelet mean volume (Bld) [Entitic vol] 8.8 fL Normal 6.2-12.0 [facility] Comment on above: Performed By: #### M 100.678 #### [facility] [address] [place], [address] Platelets (Bld) [#/Vol] 274 10*3/uL Normal 150-450 [facility] Comment on above: Performed By: #### M 100.678 #### [facility] [address] [place], [address] RBC (Bld) [#/Vol] 4.80 10*6/uL Normal 4.6-6.2 [facility] Comment on above: Performed By: #### M 100.678 #### [facility] [address] [place], [address] RDW SD 41.6 fl Normal 35.1-43.9 [facility] Comment on above: Performed By: #### M 100.678 #### [facility] [address] [place], [address] WBC (Bld) [#/Vol] 9.8 10*3/uL Normal 4.4-11.0 [facility] Comment on above: Performed By: #### M 100.678 #### [facility] [address] [place], [address] Carbon dioxide measurementOr dered By: Rommel Brito on 02-07-2024 CO2 [Moles/Vol] 24.0 mmol/L 21.0-32.0 [facility] Comment on above: Slight Lipemia, Resu lt may be falsely increased. Chest PA and Lateralon 02-06 Chest PA and Lateral [facility] Services [address] [place] [address] Chest PA and Lateral MR#: [id number] Acct: [id number] Name: DARIUSZ NGUYEN Rep #: [id number] : 1965 M 58 From: Sai Epps PCP: QUINTON Sanchez Status: REG ER Study: Chest PA and Lateral Date of Exam: 02/07/24 Exam# [id number] Ordering Dr: Rommel Brito DO -[id number] EXAM: XR CHEST, 2 VIEWS CLINICAL INDICATION: cough TECHNIQUE: Frontal and lateral views of the chest. COMPARISON: 01/13/2020. FINDINGS: LUNGS AND PLEURAL SPACES: Unremarkable. No consolidation or edema. No pneumothorax. No effusion. HEART: Unremarkable. Cardiac silhouette not enlarged. MEDIASTINUM: Central airways and mediastinal contour are unremarkable. BONES/JOINTS: Unremarkable. No acute fracture. SOFT TISSUES: Unremarkable. RAD/Chest PA and Lateral IMPRESSION: No radiographic evidence of acute cardiopulmonary disease. Electronically Signed: Sai Villegas MD at 0:15 EST , CC: QUINTON Case; Rommel Brito DO Media Production Support Manager: Signed Normal [facility] Chloride measurementOrdered By: Rommel Brito on 02-07-2024 Chloride [Moles/Vol] 109 mmol/L High 98-107 [facility] Eosinophil percentageOrdered By: Rommel Brito on 02-07-2024 Eosinophils/100 WBC (Bld) 2.1 % 0-5 [facility] Erythrocyte distribution wid th ratioOrdered By: Rommel Brito on 02-07-2024 Erythrocyte distribution width (RBC) [Ratio] 13.1 % 11.6-14.6 [facility] Erythrocyte distribution wid th standard deviationOrdered By: Rommel Brito on 02-07-2024 Erythrocyte distribution width (RBC) [Entitic vol] 41.6 fL 35.1-43.9 [facility] Estimated glomerular filtrat ion rate (GFR) AmericanOrdered By: Rommel Brito on 02-07-2024 Estimated GFR (MDRD) Amer 77 mL/min >60 [facility] Comment on above: GFR Calc Estimation of creatinine paola aranceOrdered By: Rommel Brito on 02-07-2024 Estimated Creatinine Clearance Calc 71.39 ml/min [facility] Glomerular filtration rate ( GFR) estimationOrdered By: Rommel Brito on 02-07-2024 Estimated GFR (MDRD) Non-Af Amer 64 mL/min >60 [facility] Comment on above: Non- GFR Calc Glucose measurementOrdered B y: Rommel Brito on 02-07-2024 Glucose [Mass/Vol] 109 mg/dL High 74-106 [facility] Comment on above: Slight Lipemia, Resu lt may be falsely increased.Fasting Glucose result from 100 to 125 mg/dL suggests IMPAIRED HOMEOSTASIS per A.D.A. criteria. Hematocrit Auto (Bld) [Volum e fraction]Ordered By: Rommel Brito on 02-07-2024 Hematocrit (Bld) [Volume fraction] 42.6 % 40-54 [facility] Hemoglobin measurementOrdere d By: Rommel Brito on 02-07-2024 Hemoglobin (Bld) [Mass/Vol] 15.0 g/dL 13.0-16.5 [facility] Immature granulocytes/100 WB C Auto (Bld)Ordered By: Rommel Brito on 02-07-2024 Immature granulocytes/100 WBC (Bld) 1.700 % High 0.0-0.9 [facility] Comment on above: IG% - Immature Granu locytes (promyelocytes, myelocytes and metamyelocytes) > 1% indicates that a LEFT SHIFT is Present. Influenza virus A and B and SARS-CoV-2 (COVID-19) and Respiratory syncytial virus RNAOrdered By: Rommel Brito on 02-07-2024 SARS-CoV-2 (COVID-19) RNA YE+probe Ql (Unsp spec) Influenzae A Abnormal [facility] Lactic Acidon 02-07-2024 Lactate [Moles/Vol] 1.8 mmol/L Normal 0.4-1.9 [facility] Comment on above: Order Comment: Y Performed By: #### M 100.678 #### [facility] [place] [address], [address] Lactic acid measurementOrder ed By: Rommel Brito on 02-07-2024 Lactate [Moles/Vol] 1.8 mmol/L 0.4-2.0 [facility] Lymphocytes Auto (Unsp spec) [#/Vol]Ordered By: Rommel Brito on 02-07-2024 Lymphocytes (Bld) [#/Vol] 1.68 10*3/uL 0.83-4.51 [facility] Lymphocytes/100 WBC Auto (Un sp spec)Ordered By: Rmomel Brito on 02-07-2024 Lymphocytes/100 WBC (Bld) 17.1 % Low 19-41 [facility] [id number] 02-07-2024 M100.678 CRITICAL VALUE CALLED TO DAMIRTNORBERTO 02/07/24 2341 Jared Chacon. RESULTS READ BACK BY SAME. Copy of report sent to Infection Control Printer [id number] 02/08/24920 JOEL. SARS-CoV-2 (COVID 19) Negative INFLUENZA A A Positive A INFLUENZA B Negative RSV PCR Negative INFLUENZAE A * This is an amended result. * A prior result that was reported as final has been changed. 02/08/2422 by JOEL Normal [facility] Comment on above: Performed By: #### M 100.678 #### [facility] [address] [place], [address] MCV (mean corpuscular volume ) determinationOrdered By: Rommel Brito on 02-07-2024 MCV (RBC) [Entitic vol] 88.8 fL 80-94 [facility] Mean corpuscular hemoglobin (MCH) determinationOrdered By: Rommel Brito on 02-07-2024 MCH (RBC) [Entitic mass] 31.3 pg 27.0-32.0 [facility] Mean corpuscular hemoglobin concentration (MCHC) determinationOrdered By: Rommel Brito on 02-07-2024 MCHC (RBC) [Mass/Vol] 35.2 g/dL 32-36 [facility] Mean platelet volume determi nationOrdered By: Rommel Brito on 02-07-2024 Platelet mean volume (Bld) [Entitic vol] 8.8 fL 6.2-12.0 [facility] Monocyte percentageOrdered B y: Rommel Brito on 02-07-2024 Monocytes/100 WBC (Bld) 11.2 % High 0-10 [facility] Neutrophil percentageOrdered By: Rommel Brito on 02-07-2024 Neutrophils/100 WBC (Bld) 66.8 % 47-70 [facility] Nucleated red blood cell per centageOrdered By: Rommel Brito on 02-07-2024 Nucleated RBC/100 WBC (Bld) [Ratio] 0 % 0-5 [facility] Platelet countOrdered By: Aline Brito on 02-07-2024 Platelets (Bld) [#/Vol] 274 10*3/uL 150-450 [facility] Potassium measurementOrdered By: Rommel Brito on 02-07-2024 Potassium [Moles/Vol] 4.4 mmol/L 3.5-5.1 [facility] Comment on above: Moderate Hemolysis, Result may be falsely increased.-Slight Lipemia, Result may be falsely increased. RBC Auto (Bld) [#/Vol]Ordere d By: Rommel Brito on 02-07-2024 RBC (Bld) [#/Vol] 4.80 10*6/uL 4.6-6.2 [facility] Serum anion gap measurementO rdered By: Rommel Brito on 02-07-2024 Anion gap [Moles/Vol] 8 mmol/L 5-15 [facility] Serum or plasma calcium jacob urement (mass/volume)Ordered By: Rommel Brito on 02-07-2024 Calcium [Mass/Vol] 9.0 mg/dL 8.5-10.1 [facility] Comment on above: Slight Lipemia, Resu lt may be falsely increased. Serum or plasma creatinine m easurement (mass/volume)Ordered By: Rommel Brito on 02-07-2024 Creatinine [Mass/Vol] 1.23 mg/dL 0.70-1.30 [facility] Comment on above: Slight Lipemia, Resu lt may be falsely increased.The validity of the calculated GFR & GFRAA in patients over 70 years has not been determined. Clinical correlation is essential. Serum or plasma urea nitroge n measurement (mass/volume)Ordered By: Rommel Brito on 02-07-2024 Urea nitrogen [Mass/Vol] 23 mg/dL High 7-18 [facility] Comment on above: Slight Lipemia, Resu lt may be falsely increased. Sodium levelOrdered By: Daniel Brito on 02-07-2024 Sodium [Moles/Vol] 141 mmol/L 136-145 [facility] White blood cell (WBC) count Ordered By: Rommel Brito on 02-07-2024 WBC (Bld) [#/Vol] 9.8 10*3/uL 4.4-11.0 [facility] 02-02-2024 CNOV Office Visit (FAMPWS) ---- DARIUSZ NGUYEN ([id number]) 1965 M Date Time Provider Department 02/02/24 1:00 PM [facility] visit today, we recorded the following information about you: Pulse Respiration Blood pressure 93/minute 16/minute 138/82 Johanne Case APRN.IAP DISPLAYS ANALYST 02/02/2024 4:20 PM Signed This is a 58 year old male who presents today with: Patient presents with: Acute Visit: Cough, post nasal drip, sinus congestion, sinus pressure, headache x2 weeks; no fevers HISTORY OF PRESENT ILLNESS: Dariusz Nguyen is a 58 year old male. Patient presents with: Acute Visit: Cough, post nasal drip, sinus congestion, sinus pressure, headache x2 weeks; no fevers URI symptoms X 2 weeks +. Cough -- productive. Yellow. Head congestion. + PND. Headache. No fevers/chills. Little bit of facial pain -- forehead. A little scratchy throat. Itchy ears. No n/v/d. He is using otc cold medication. He is on weekly methotrexate. He takes prn prednisone for breakthrough symptoms. PAST MEDICAL HISTORY: PAST MEDICAL HISTORY Diagnosis [...] Medication Sig levothyroxine (SYNTHROID) 75 mcg tablet TAKE 1 TABLET BY MOUTH ONCE DAILY. TAKE ON EMPTY STOMACH. FOR THYROID. lisinopril (ZESTRIL) 10 mg tablet Take 1 tablet by mouth once daily. methotrexate 2.5 mg tablet Take 6 tablets weekly folic acid 1 mg tablet Take 2 mg by mouth once daily. ZINC ORAL Take by mouth once daily. ascorbic acid (VITAMIN C ORAL) Take by mouth once daily. MULTIVITAMIN TAB Take 1 tablet by mouth once daily. No current facility-administer ed medications for this visit. FAMILY HISTORY Problem Relation Age of Onset Heart Father [place] age 69 Thyroid Mother None Brother None Sister None Sister None Sister None Sister Social History Tobacco Use Smoking status: Never Smokeless tobacco: Never Vaping Use Vaping status: Never Used Substance Use Topics Alcohol use: Yes Comment: 1 beer per month Drug use: No EXAM: BP 138/82 Pulse 93 Resp 16 SpO2 97% PHYSICAL EXAM: General Appearance: Well appearing, alert, in no acute distress, well-hydrated, well nourished.. Skin: Skin color, texture, turgor normal, no suspicious rashes or lesions. Head: Normocephalic, no masses, lesions, tenderness or abnormalities. + maxillary tenderness --Left. Eyes: Anicteric sclera. Pupils are equally round [...] refill. . Neurologic: Gait normal. ASSESSMENT/PLAN: 1. Acute non-recurrent maxillary sinusitis - ICD9: 461.0, ICD10: J01.00 - Will begin treatment with Augmentin 875 mg PO BID for 10 days - The patient should also be given OTC cough and cold meds as needed for the first 5-7 days of treatment. - Supportive care with plenty of fluids, rest, and analgesia prn. - Follow up in one week if symptoms persist or worsen. - AMOXICILLIN 875 MG-POTASSIUM CLAVULANATE 125 MG TABLET He is due for methotrexate today. He is aware to hold the dose today and next week while on the augmentin. Discussed treatment plan and patient voices understanding. Patient's questions answered appropriately. Medications and potential side effects were discussed and patient voices understanding. Return to the office as scheduled or as needed (more content not included)... Normal [facility] DARIUSZ NGUYEN ([id number]) 1965 M Date Time Provider Department 02/02/24 JOHANNE CASE 4CQ During your visit today, we recorded the following information about you: Freya Bhardwaj 02/02/2024 11:00 AM Signed Pt states he is unable to come in due to work, has sinus infection. Asking for prescription to be sent. is coming in this afternoon. Please advise. Jose Frances LPN 02/02/2024 11:38 AM Signed Pt needs appt to be seen. Pt advised of the same. Appt scheduled for 1pm with CH. Jose Frances LPN Allergies As of Date: 02/02/2024 Noted Allergy Reaction CODEINE 05/27/2005 SULFA (SULFONAMIDE ANTIBIOTICS) 05/27/2005 Date Reviewed: 11/13/2023 Reviewed by: Jose Frances LPN - Fully Assessed Prescriptions as of 02/02/2024 - levothyroxine (SYNTHROID) 75 mcg tablet TAKE 1 TABLET BY MOUTH ONCE DAILY. TAKE ON EMPTY STOMACH. FOR THYROID. - lisinopril (ZESTRIL) 10 mg tablet Take 1 tablet by mouth once daily. - methotrexate 2.5 mg tablet Take 6 tablets weekly - folic acid 1 mg tablet Take 2 mg by mouth once daily. - ZINC ORAL Take by mouth once daily. - ascorbic acid (VITAMIN C ORAL) Take by mouth once daily. - MULTIVITAMIN TAB Take 1 tablet by mouth once daily. Problem List As Of Date 02/02/2024 Noted Resolved CHEST PAIN NOS [R07.9] 05/27/2005 HERNIA UMBILICAL [K42.9] 12/19/2005 HERNIA INGUINAL,UNILATERAL (Right) [K40.90] 12/19/2005 Right Shoulder Pain [M25.511] 01/20/2009 Thoracic Outlet Syndrome [G54.0] 02/25/2009 Carpal tunnel syndrome of right wrist [G56.01] 11/24/2010 Cervical disc disorder [M50.90] 11/24/2010 Encounter for examination for driving license [*12/21/2010 Colon cancer screening [Z12.11] 12/25/2015 12/25/2015 Left carpal tunnel syndrome [G56.02] 03/01/2018 Carpal tunnel syndrome of left wrist [G56.02] 03/22/2018 Hypothyroidism, acquired [E03.9] 05/21/2019 Excessive daytime sleepiness [G47.19] 06/05/2020 Hyperlipidemia with target LDL less than 130 [E*06/05/2020 Rheumatoid arthritis involving multiple sites w*02/07/2022 Fibromyalgia [M79.7] 02/07/2022 Fatty liver [K76.0] 04/25/2022 Primary hypertension [I10] 04/25/2022 Encounter Status:Closed by JOSE FRANCES on 02/02/24 Normal [facility] CBC W/Diff, Automatedon 11-2 Absolute Lymph 2.26 X10 3/uL Normal 0.83-4.51 [facility] Comment on above: Performed By: #### L 100.0100, L500.4050 #### [facility] [place], [address] Absolute Neut 8.1 X10 3/uL High 2.0-7.7 [facility] Comment on above: Performed By: #### L 100.0100, L500.4050 #### [facility] [address] [place], [address] Basophils/100 WBC (Bld) 0.6 % Normal 0-1 [facility] Comment on above: Performed By: #### L 100.0100, L500.4050 #### [facility] [address] [place], [address] Eosinophils/100 WBC (Bld) 2.1 % Normal 0-5 [facility] Comment on above: Performed By: #### L 100.0100, L500.4050 #### [facility] [address] [place], [address] Erythrocyte distribution width (RBC) [Ratio] 13.1 % Normal 11.6-14.6 [facility] Comment on above: Performed By: #### L 100.0100, L500.4050 #### [facility] [address] [place], [address] Hematocrit (Bld) [Volume fraction] 45.9 % Normal 40-54 [facility] Comment on above: Performed By: #### L 100.0100, L500.4050 #### [facility] [address] [place], [address] Hemoglobin (Bld) [Mass/Vol] 15.6 g/dL Normal 13.0-16.5 [facility] Comment on above: Performed By: #### L 100.0100, L500.4050 #### [facility] [address] [place], [address] IG% 0.300 Normal 0.0-0.9 [facility] Comment on above: Result Comment: IG% - Immature Granulocytes (promyelocytes, myelocytes and metamyelocytes) > 1% indicates that a LEFT SHIFT is Present. Performed By: #### L 100.0100, L500.4050 #### [facility] [address] [place], [address] Lymphocytes/100 WBC (Bld) 19.2 % Normal 19-41 [facility] Comment on above: Performed By: #### L 100.0100, L500.4050 #### [facility] [address] [place], [address] MCH (RBC) [Entitic mass] 31.0 pg Normal 27.0-32.0 [facility] Comment on above: Performed By: #### L 100.0100, L500.4050 #### [facility] [address] [place], [address] MCHC (RBC) [Mass/Vol] 34.0 g/dL Normal 32-36 [facility] Comment on above: Performed By: #### L 100.0100, L500.4050 #### [facility] [address] [place], [address] MCV (RBC) [Entitic vol] 91.1 fL Normal 80-94 [facility] Comment on above: Performed By: #### L 100.0100, L500.4050 #### [facility] [address] [place], [address] Monocytes/100 WBC (Bld) 9.2 % Normal 0-10 [facility] Comment on above: Performed By: #### L 100.0100, L500.4050 #### [facility] [address] [place], [address] Neutrophils/100 WBC (Bld) 68.6 % Normal 47-70 [facility] Comment on above: Performed By: #### L 100.0100, L500.4050 #### [facility] [address] [place], [address] Nucleated RBC (Bld) [#/Vol] 0 10*3/uL Normal 0-5 [facility] Comment on above: Performed By: #### L 100.0100, L500.4050 #### [facility] [address] [place], [address] Platelet mean volume (Bld) [Entitic vol] 9.5 fL Normal 6.2-12.0 [facility] Comment on above: Performed By: #### L 100.0100, L500.4050 #### [facility] [address] [place], [address] Platelets (Bld) [#/Vol] 287 10*3/uL Normal 150-450 [facility] Comment on above: Performed By: #### L 100.0100, L500.4050 #### [facility] [address] [place], [address] RBC (Bld) [#/Vol] 5.04 10*6/uL Normal 4.6-6.2 [facility] Comment on above: Performed By: #### L 100.0100, L500.4050 #### [facility] [address] [place], [address] RDW SD 42.1 fl Normal 35.1-43.9 [facility] Comment on above: Performed By: #### L 100.0100, L500.4050 #### [facility] [address] [place], [address] WBC (Bld) [#/Vol] 11.8 10*3/uL High 4.4-11.0 [facility] Comment on above: Performed By: #### L 100.0100, L500.4050 #### [facility] [address] [place], [address] Comprehensive Metabolic Prof [facility] 01-24-2024 Albumin [Mass/Vol] 3.9 g/dL Normal 3.2-5.0 [facility] Comment on above: Performed By: #### L 100.0100, L500.4050 #### [facility] [address] [place], [address] Albumin/Globulin [Mass ratio] 1.1 {ratio} Normal 0.9-2.4 [facility] Comment on above: Performed By: #### L 100.0100, L500.4050 #### [facility] [address] [place], [address] ALK P 103 U/L Normal 45-117 [facility] Comment on above: Performed By: #### L 100.0100, L500.4050 #### [facility] [address] [place], [address] ALT [Catalytic activity/Vol] 42 U/L Normal 16-61 [facility] Comment on above: Performed By: #### L 100.0100, L500.4050 #### [facility] [address] [place], [address] AST [Catalytic activity/Vol] 27 U/L Normal 15-37 [facility] Comment on above: Performed By: #### L 100.0100, L500.4050 #### [facility] [address] [place], [address] Bilirubin [Mass/Vol] 0.60 mg/dL Normal 0.20-1.00 [facility] Comment on above: Result Comment: For patients on eltrombopag therapy, use of Dimension [place] TBIL is not recommended. Performed By: #### L 100.0100, L500.4050 #### [facility] [address] [place], [address] BUN/CRE 15.7 RATIO Normal 10-20 [facility] Comment on above: Performed By: #### L 100.0100, L500.4050 #### [facility] [address] [place], [address] CA,Total 9.4 mg/dL Normal 8.5-10.1 [facility] Comment on above: Performed By: #### L 100.0100, L500.4050 #### [facility] [address] [place], [address] Chloride [Moles/Vol] 105 mmol/L Normal 98-107 [facility] Comment on above: Performed By: #### L 100.0100, L500.4050 #### [facility] [address] [place], [address] CO2 [Moles/Vol] 27.0 mmol/L Normal 21.0-32.0 [facility] Comment on above: Performed By: #### L 100.0100, L500.4050 #### [facility] [address] [place], [address] Creatinine [Mass/Vol] 1.15 mg/dL Normal 0.70-1.30 [facility] Comment on above: Result Comment: The validity of the calculated GFR GFRAA in patients over 70 years has not been determined. Clinical correlation is essential. Performed By: #### L 100.0100, L500.4050 #### [facility] [address] [place], [address] EST GFR - AA 84 mL/min Normal >60 [facility] Comment on above: Result Comment: Afri can Swedish GFR Calc Performed By: #### L 100.0100, L500.4050 #### [facility] [address] [place], [address] GAP 5 Normal 5-15 [facility] Comment on above: Performed By: #### L 100.0100, L500.4050 #### [facility] [address] [place], [address] GFR/1.73 sq M.predicted among non-blacks MDRD (S/P/Bld) [Vol rate/Area] 69 mL/min/{1.73_m2} Normal >60 [facility] Comment on above: Result Comment: Non- GFR Calc Performed By: #### L 100.0100, L500.4050 #### [facility] [address] [place], [address] Globulin (S) [Mass/Vol] 3.4 g/dL Normal 2.2-4.2 [facility] Comment on above: Performed By: #### L 100.0100, L500.4050 #### [facility] [address] [place], [address] Glucose [Mass/Vol] 104 mg/dL Normal 74-106 [facility] Comment on above: Result Comment: Fast ing Glucose result from 100 to 125 mg/dL suggests IMPAIRED HOMEOSTASIS per A.D.A. criteria. Performed By: #### L 100.0100, L500.4050 #### [facility] [address] [place], [address] Potassium [Moles/Vol] 3.6 mmol/L Normal 3.5-5.1 [facility] Comment on above: Performed By: #### L 100.0100, L500.4050 #### [facility] [address] [place], [address] Sodium [Moles/Vol] 138 mmol/L Normal 136-145 [facility] Comment on above: Performed By: #### L 100.0100, L500.4050 #### [facility] [address] [place], [address] T PROT 7.3 g/dL Normal 6.4-8.2 [facility] Comment on above: Performed By: #### L 100.0100, L500.4050 #### [facility] [address] [place], [place], [address] Urea nitrogen [Mass/Vol] 18 mg/dL Normal 7-18 [facility] Comment on above: Performed By: #### L 100.0100, L500.4050 #### [facility] [address] [place], [place], [address] CNOVon 11-13-2023 [facility] DARIUSZ NGUYEN ([id number]) 1965 M Date Time Provider Department 11/13/23 6:20 PM [facility] During your visit today, we recorded the following information about you: Pulse Respiration Blood pressure 71/minute 16/minute 118/78 Johanne Case APRN.IAP DISPLAYS ANALYST 11/13/2023 7:32 PM Signed This is a 57 year old male who presents today with: Patient presents with: Recheck: 6 month follow up HISTORY OF PRESENT ILLNESS: Dariusz Nguyen is a 57 year old male. Patient presents with: Recheck: 6 month follow up Pt presents today for 6 month recheck. HTN: Patient is compliant with meds Yes Monitors bp at home: No. Denies side effects: Yes. Chest pain: No. Dyspnea: No. Edema: No. Palpitations: No. Syncope: No. Headache: No. Dizziness: No. HYPOTHYROID: Patient is compliant with medications: Yes Patient has changes in energy: tired today. Busy weekend. Patient has changes in hair or skin: No Patient has temperature intolerance: No. " I've always been cold". Patient has weight changes: No -- just can't lose any. RA: Still following with Vellanki. RA controlled. Continues on methotrexate. PAST MEDICAL HISTORY: PAST MEDICAL HISTORY Diagnosis [...] Medication Sig levothyroxine (SYNTHROID) 75 mcg tablet TAKE 1 TABLET BY MOUTH ONCE DAILY. TAKE ON EMPTY STOMACH. FOR THYROID. lisinopril (ZESTRIL) 10 mg tablet Take 1 tablet by mouth once daily. methotrexate 2.5 mg tablet Take 6 tablets weekly folic acid 1 mg tablet Take 2 mg by mouth once daily. ZINC ORAL Take by mouth once daily. ascorbic acid (VITAMIN C ORAL) Take by mouth once daily. MULTIVITAMIN TAB Take 1 tablet by mouth once daily. No current facility-administer ed medications for this visit. FAMILY HISTORY Problem Relation Age of Onset Heart Father [place] age 69 Thyroid Mother None Brother None Sister None Sister None Sister None Sister Social History Tobacco Use Smoking status: Never Smokeless tobacco: Never Vaping Use Vaping status: Never Used Substance Use Topics Alcohol use: Yes Comment: 1 beer per month Drug use: No EXAM: BP 118/78 Pulse 71 Resp 16 SpO2 95% PHYSICAL EXAM: General Appearance: Well appearing, alert, in no acute distress, well-hydrated, well nourished.. Skin: Skin color, texture, turgor normal, no suspicious rashes or lesions. Head: Normocephalic, no masses, lesions, tenderness or abnormalities. Eyes: Anicteric sclera. Extraocular movements are intact. . Neck: Supple, [...] Mediterranean diet - Recommend regular aerobic exercise 2. Hypothyroidism, acquired - ICD9: 244.9, ICD10: E03.9 Last labs 07/2023 and therapeutic. Continue same dosage. 3. Hyperlipidemia with target LDL less than 130 - ICD9: 272.4, ICD10: E78.5 Last labs stable. 4. Rheumatoid arthritis involving multiple sites with positive rheumatoid factor (HCC) - ICD9: 714.0, ICD10: M05.79 Continue per rheumatology. Discussed treatment plan and patient voices understanding. Patient's questions answered appropriately. Medications and potential side effect (more content not included)... Normal [facility] CBC W/Diff, Automatedon 08-3 Absolute Lymph 2.63 X10 3/uL Normal 0.83-4.51 [facility] Comment on above: Performed By: #### L 500.4050, L100.0100 ####[facility] [address] [place], [address] Absolute Neut 3.4 X10 3/uL Normal 2.0-7.7 [facility] Comment on above: Performed By: #### L 500.4050, L100.0100 ####[facility] [address] [place], [address] Basophils/100 WBC (Bld) 0.8 % Normal 0-1 [facility] Comment on above: Performed By: #### L 500.4050, L100.0100 ####[facility] [address] [place], [address] Eosinophils/100 WBC (Bld) 4.7 % Normal 0-5 [facility] Comment on above: Performed By: #### L 500.4050, L100.0100 ####[facility] [address] [place], [address] Erythrocyte distribution width (RBC) [Ratio] 13.2 % Normal 11.6-14.6 [facility] Comment on above: Performed By: #### L 500.4050, L100.0100 ####[facility] [address] [place], [address] Hematocrit (Bld) [Volume fraction] 42.8 % Normal 40-54 [facility] Comment on above: Performed By: #### L 500.4050, L100.0100 ####[facility] [address] [place], [address] Hemoglobin (Bld) [Mass/Vol] 14.3 g/dL Normal 13.0-16.5 [facility] Comment on above: Performed By: #### L 500.4050, L100.0100 ####[facility] [address] [place], [place], IG% 0.300 Normal 0.0-0.9 [facility] Comment on above: Result Comment: IG% - Immature Granulocytes (promyelocytes, myelocytes and metamyelocytes) > 1% indicates that a LEFT SHIFT is Present. Performed By: #### L 500.4050, L100.0100 ####[facility] [address] [place], [address] Lymphocytes/100 WBC (Bld) 36.4 % Normal 19-41 [facility] Comment on above: Performed By: #### L 500.4050, L100.0100 ####[facility] [address] [place], [address] MCH (RBC) [Entitic mass] 30.2 pg Normal 27.0-32.0 [facility] Comment on above: Performed By: #### L 500.4050, L100.0100 ####[facility] [address] [place], [address] MCHC (RBC) [Mass/Vol] 33.4 g/dL Normal 32-36 [facility] Comment on above: Performed By: #### L 500.4050, L100.0100 ####[facility] [address] [place], [address] MCV (RBC) [Entitic vol] 90.5 fL Normal 80-94 [facility] Comment on above: Performed By: #### L 500.4050, L100.0100 ####[facility] [address] [place], [address] Monocytes/100 WBC (Bld) 11.2 % High 0-10 [facility] Comment on above: Performed By: #### L 500.4050, L100.0100 ####[facility] [address] [place], [address] Neutrophils/100 WBC (Bld) 46.6 % Low 47-70 [facility] Comment on above: Performed By: #### L 500.4050, L100.0100 ####[facility] [address] [place], [address] Nucleated RBC (Bld) [#/Vol] 0 10*3/uL Normal 0-5 [facility] Comment on above: Performed By: #### L 500.4050, L100.0100 ####[facility] [address] [place], [address] Platelet mean volume (Bld) [Entitic vol] 9.2 fL Normal 6.2-12.0 [facility] Comment on above: Performed By: #### L 500.4050, L100.0100 ####[facility] [address] [place], [address] Platelets (Bld) [#/Vol] 262 10*3/uL Normal 150-450 [facility] Comment on above: Performed By: #### L 500.4050, L100.0100 ####[facility] [address] [place], [address] RBC (Bld) [#/Vol] 4.73 10*6/uL Normal 4.6-6.2 [facility] Comment on above: Performed By: #### L 500.4050, L100.0100 ####[facility] [address] [place], [address] RDW SD 43.0 fl Normal 35.1-43.9 [facility] Comment on above: Performed By: #### L 500.4050, L100.0100 ####[facility] [address] [place], [address] WBC (Bld) [#/Vol] 7.2 10*3/uL Normal 4.4-11.0 [facility] Comment on above: Performed By: #### L 500.4050, L100.0100 ####[facility] [address] [place], [address] Comprehensive Metabolic Prof [facility] 10-28-2023 Albumin [Mass/Vol] 3.6 g/dL Normal 3.2-5.0 [facility] Comment on above: Order Comment: CBCD Performed By: #### L 500.4050, L100.0100 ####[facility] [address] [place], [address] Albumin/Globulin [Mass ratio] 1.2 {ratio} Normal 0.9-2.4 [facility] Comment on above: Order Comment: CBCD Performed By: #### L 500.4050, L100.0100 ####[facility] [address] [place], [address] ALK P 94 U/L Normal 45-117 [facility] Comment on above: Order Comment: CBCD Performed By: #### L 500.4050, L100.0100 ####[facility] [address] [place], [address] ALT [Catalytic activity/Vol] 44 U/L Normal 16-61 [facility] Comment on above: Order Comment: CBCD Performed By: #### L 500.4050, L100.0100 ####[facility] [address] [place], [address] AST [Catalytic activity/Vol] 32 U/L Normal 15-37 [facility] Comment on above: Order Comment: CBCD Performed By: #### L 500.4050, L100.0100 ####[facility] [address] [place], [address] Bilirubin [Mass/Vol] 0.30 mg/dL Normal 0.20-1.00 [facility] Comment on above: Order Comment: CBCD Result Comment: For patients on eltrombopag therapy, use of Dimension [place] TBIL is not recommended. Performed By: #### L 500.4050, L100.0100 ####[facility] [address] [place], [address] BUN/CRE 16.5 RATIO Normal 10-20 [facility] Comment on above: Order Comment: CBCD Performed By: #### L 500.4050, L100.0100 ####[facility] [address] [place], [address] CA,Total 9.1 mg/dL Normal 8.5-10.1 [facility] Comment on above: Order Comment: CBCD Performed By: #### L 500.4050, L100.0100 ####[facility] [address] [place], [address] Chloride [Moles/Vol] 111 mmol/L High 98-107 [facility] Comment on above: Order Comment: CBCD Performed By: #### L 500.4050, L100.0100 ####[facility] [address] [place], [address] CO2 [Moles/Vol] 26.0 mmol/L Normal 21.0-32.0 [facility] Comment on above: Order Comment: CBCD Performed By: #### L 500.4050, L100.0100 ####[facility] [address] [place], [address] Creatinine [Mass/Vol] 1.21 mg/dL Normal 0.70-1.30 [facility] Comment on above: Order Comment: CBCD Result Comment: The validity of the calculated GFR GFRAA in patients over 70 years has not been determined. Clinical correlation is essential. Performed By: #### L 500.4050, L100.0100 ####[facility] [address] [place], [address] EST GFR - AA 79 mL/min Normal >60 [facility] Comment on above: Order Comment: CBCD Result Comment: Afri can Swedish GFR Calc Performed By: #### L 500.4050, L100.0100 ####[facility] [address] [place], [address] GAP 4 Low 5-15 [facility] Comment on above: Order Comment: CBCD Performed By: #### L 500.4050, L100.0100 ####[facility] [address] [place], [address] GFR/1.73 sq M.predicted among non-blacks MDRD (S/P/Bld) [Vol rate/Area] 65 mL/min/{1.73_m2} Normal >60 [facility] Comment on above: Order Comment: CBCD Result Comment: Non- GFR Calc Performed By: #### L 500.4050, L100.0100 ####[facility] [address] [place], [address] Globulin (S) [Mass/Vol] 3.0 g/dL Normal 2.2-4.2 [facility] Comment on above: Order Comment: CBCD Performed By: #### L 500.4050, L100.0100 ####[facility] [address] [place], [address] Glucose [Mass/Vol] 100 mg/dL Normal 74-106 [facility] Comment on above: Order Comment: CBCD Result Comment: Fast ing Glucose result from 100 to 125 mg/dL suggests IMPAIRED HOMEOSTASIS per A.D.A. criteria. Performed By: #### L 500.4050, L100.0100 ####[facility] [address] [place], [address] Potassium [Moles/Vol] 4.3 mmol/L Normal 3.5-5.1 [facility] Comment on above: Order Comment: CBCD Performed By: #### L 500.4050, L100.0100 ####[facility] [address] [place], [address] Sodium [Moles/Vol] 141 mmol/L Normal 136-145 [facility] Comment on above: Order Comment: CBCD Performed By: #### L 500.4050, L100.0100 ####[facility] [address] [place], [address] T PROT 6.6 g/dL Normal 6.4-8.2 [facility] Comment on above: Order Comment: CBCD Performed By: #### L 500.4050, L100.0100 ####[facility] [address] [place], [address] Urea nitrogen [Mass/Vol] 20 mg/dL High 7-18 [facility] Comment on above: Order Comment: CBCD Performed By: #### L 500.4050, L100.0100 ####[facility] [address] [place], [address] [facility] ---- DARIUSZ NGUYEN ([id number]) 1965 M Date Time Provider Department 07/31[facility]23 [facility] During your visit today, we recorded the following information about you: Ade Gallo MA 07/31/2023 8:17 AM Signed Pt had blood work done at [facility]. Records printed and on PCP's desk to review. MICHEAL Peterson Christy, APRN.IAP DISPLAYS ANALYST 07/31/2023 9:27 AM Signed Can please let patient know that I received his lab results. Everything looks stable. Please continue his current medications. Johanne Case APRN.IAP DISPLAYS ANALYST [facility] - 7.27% Haven Johnson RN 07/31/2023 12:13 PM Signed Pts called and is notified of providers results and instructions. She voices understanding and will let her know. Haven Johnson RN Allergies As of Date: 07/31/2023 Noted Allergy Reaction CODEINE 05/27/2005 SULFA (SULFONAMIDE ANTIBIOTICS) 05/27/2005 Date Reviewed: 07/28/2023 Reviewed by: Sushila Catalan LPN - Fully Assessed Reason for Visit: Results [95] Prescriptions as of 07/31/2023 - levothyroxine (SYNTHROID) 75 mcg tablet TAKE 1 TABLET BY MOUTH ONCE DAILY. TAKE ON EMPTY STOMACH. FOR THYROID. - lisinopril (ZESTRIL) 10 mg tablet Take 1 tablet by mouth once daily. - methotrexate 2.5 mg tablet Take 6 tablets weekly - folic acid 1 mg tablet Take 2 mg by mouth once daily. - ZINC ORAL Take by mouth once daily. - ascorbic acid (VITAMIN C ORAL) Take by mouth once daily. - MULTIVITAMIN TAB Take 1 tablet by mouth once daily. Problem List As Of Date 07/31/2023 Noted Resolved CHEST PAIN NOS [R07.9] 05/27/2005 HERNIA UMBILICAL [K42.9] 12/19/2005 HERNIA INGUINAL,UNILATERAL (Right) [K40.90] 12/19/2005 Right Shoulder Pain [M25.511] 01/20/2009 Thoracic Outlet Syndrome [G54.0] 02/25/2009 Carpal tunnel syndrome of right wrist [G56.01] 11/24/2010 Cervical disc disorder [M50.90] 11/24/2010 Encounter for examination for driving license [*12/21/2010 Colon cancer screening [Z12.11] 12/25/2015 12/25/2015 Left carpal tunnel syndrome [G56.02] 03/01/2018 Carpal tunnel syndrome of left wrist [G56.02] 03/22/2018 Hypothyroidism, acquired [E03.9] 05/21/2019 Excessive daytime sleepiness [G47.19] 06/05/2020 Hyperlipidemia with target LDL less than 130 [E*06/05/2020 Rheumatoid arthritis involving multiple sites w*02/07/2022 Fibromyalgia [M79.7] 02/07/2022 Fatty liver [K76.0] 04/25/2022 Primary hypertension [I10] 04/25/2022 Encounter Status:Closed by HAVEN JOHNSON on 07/31/23 Normal [facility] CBC W/Diff, Automatedon 06-0 Absolute Lymph 2.11 X10 3/uL Normal 0.83-4.51 [facility] Comment on above: Order Comment: DR.VE DUTTON ORDERED CMP AND CBCDCNP.RODRÍGUEZ ORDERED CMP, CBCD, TSH, AND LIPID Performed By: #### M 100.918 #### [facility] [address] [place], [address] Absolute Neut 3.5 X10 3/uL Normal 2.0-7.7 [facility] Comment on above: Order Comment: DR.VE DUTTON ORDERED CMP AND CBCDCNP.RODRÍGUEZ ORDERED CMP, CBCD, TSH, AND LIPID Performed By: #### M 100.678 #### [facility] [address] [place], [address] Basophils/100 WBC (Bld) 0.9 % Normal 0-1 [facility] Comment on above: Order Comment: DR.VE DUTTON ORDERED CMP AND CBCDCNP.[facility] ORDERED CMP, CBCD, TSH, AND LIPID Performed By: #### M 100.678 #### [facility] [address] [place], [address] Eosinophils/100 WBC (Bld) 5.6 % High 0-5 [facility] Comment on above: Order Comment: DR.VE DUTTON ORDERED CMP AND CBCDCNP.[facility] ORDERED CMP, CBCD, TSH, AND LIPID Performed By: #### M 100.678 #### [facility] [address] [place], [address] Erythrocyte distribution width (RBC) [Ratio] 13.1 % Normal 11.6-14.6 [facility] Comment on above: Order Comment: DR.VE DUTTON ORDERED CMP AND CBCDCNP.[facility] ORDERED CMP, CBCD, TSH, AND LIPID Performed By: #### M 100.678 #### [facility] [address] [place], [address] Hematocrit (Bld) [Volume fraction] 45.1 % Normal 40-54 [facility] Comment on above: Order Comment: DR.VE DUTTON ORDERED CMP AND CBCDCNP.[facility] ORDERED CMP, CBCD, TSH, AND LIPID Performed By: #### M 100.678 #### [facility] [address] [place], [address] Hemoglobin (Bld) [Mass/Vol] 15.0 g/dL Normal 13.0-16.5 [facility] Comment on above: Order Comment: DR.VE DUTTON ORDERED CMP AND CBCDCNP.[facility] ORDERED CMP, CBCD, TSH, AND LIPID Performed By: #### M 100.678 #### [facility] [address] [place], [address] IG% 0.500 Normal 0.0-0.9 [facility] Comment on above: Order Comment: DR.VE DUTTON ORDERED CMP AND CBCDCNP.[facility] ORDERED CMP, CBCD, TSH, AND LIPID Result Comment: IG% - Immature Granulocytes (promyelocytes, myelocytes and metamyelocytes) > 1% indicates that a LEFT SHIFT is Present. Performed By: #### M 100.678 #### [facility] [address] [place], [address] Lymphocytes/100 WBC (Bld) 32.1 % Normal 19-41 [facility] Comment on above: Order Comment: DR.VE DUTTON ORDERED CMP AND CBCDCNP.[facility] ORDERED CMP, CBCD, TSH, AND LIPID Performed By: #### M 100.678 #### [facility] [address] [place], [address] MCH (RBC) [Entitic mass] 30.4 pg Normal 27.0-32.0 [facility] Comment on above: Order Comment: DR.VE DUTTON ORDERED CMP AND CBCDCNP.[facility] ORDERED CMP, CBCD, TSH, AND LIPID Performed By: #### M 100.678 #### [facility] [address] [place], [address] MCHC (RBC) [Mass/Vol] 33.3 g/dL Normal 32-36 [facility] Comment on above: Order Comment: DR.VE DUTTON ORDERED CMP AND CBCDCNP.[facility] ORDERED CMP, CBCD, TSH, AND LIPID Performed By: #### M 100.678 #### [facility] [address] [place], [address] MCV (RBC) [Entitic vol] 91.3 fL Normal 80-94 [facility] Comment on above: Order Comment: DR.VE DUTTON ORDERED CMP AND CBCDCNP.[facility] ORDERED CMP, CBCD, TSH, AND LIPID Performed By: #### M 100.678 #### [facility] [address] [place], [address] Monocytes/100 WBC (Bld) 7.9 % Normal 0-10 [facility] Comment on above: Order Comment: DR.VE DUTTON ORDERED CMP AND CBCDCNP.[facility] ORDERED CMP, CBCD, TSH, AND LIPID Performed By: #### M 100.678 #### [facility] [address] [place], [address] Neutrophils/100 WBC (Bld) 53.0 % Normal 47-70 [facility] Comment on above: Order Comment: DR.VE DUTTON ORDERED CMP AND CBCDCNP.[facility] ORDERED CMP, CBCD, TSH, AND LIPID Performed By: #### M 100.678 #### [facility] [address] [place], [address] Nucleated RBC (Bld) [#/Vol] 0 10*3/uL Normal 0-5 [facility] Comment on above: Order Comment: DR.VE DUTTON ORDERED CMP AND CBCDCNP.[facility] ORDERED CMP, CBCD, TSH, AND LIPID Performed By: #### M 100.678 #### [facility] [address] [place], [address] Platelet mean volume (Bld) [Entitic vol] 9.1 fL Normal 6.2-12.0 [facility] Comment on above: Order Comment: DR.VE DUTTON ORDERED CMP AND CBCDCNP.[facility] ORDERED CMP, CBCD, TSH, AND LIPID Performed By: #### M 100.678 #### [facility] [address] [place], [address] Platelets (Bld) [#/Vol] 288 10*3/uL Normal 150-450 [facility] Comment on above: Order Comment: DR.VE DUTTON ORDERED CMP AND CBCDCNP.[facility] ORDERED CMP, CBCD, TSH, AND LIPID Performed By: #### M 100.678 #### [facility] [address] [place], [address] RBC (Bld) [#/Vol] 4.94 10*6/uL Normal 4.6-6.2 [facility] Comment on above: Order Comment: DR.VE DUTTON ORDERED CMP AND CBCDCNP.[facility] ORDERED CMP, CBCD, TSH, AND LIPID Performed By: #### M 100.678 #### [facility] [address] [place], [address] RDW SD 42.5 fl Normal 35.1-43.9 [facility] Comment on above: Order Comment: DR.VE DUTTON ORDERED CMP AND CBCDCNP.[facility] ORDERED CMP, CBCD, TSH, AND LIPID Performed By: #### M 100.678 #### [facility] [address] [place], [address] WBC (Bld) [#/Vol] 6.6 10*3/uL Normal 4.4-11.0 [facility] Comment on above: Order Comment: DR.VE DUTTON ORDERED CMP AND CBCDCNP.[facility] ORDERED CMP, CBCD, TSH, AND LIPID Performed By: #### M 100.678 #### [facility] [address] [place], [address] Comprehensive Metabolic Prof deon 07-29-2023 Albumin [Mass/Vol] 3.6 g/dL Normal 3.2-5.0 [facility] Comment on above: Order Comment: DR.VE DUTTON ORDERED CMP AND CBCDCNP.[facility] ORDERED CMP, CBCD, TSH, AND LIPID Performed By: #### M 100.678 #### [facility] [address] [place], [address] Albumin/Globulin [Mass ratio] 1.1 {ratio} Normal 0.9-2.4 [facility] Comment on above: Order Comment: DR.VE DUTTON ORDERED CMP AND CBCDCNP.[facility] ORDERED CMP, CBCD, TSH, AND LIPID Performed By: #### M 100.678 #### [facility] [address] [place], [address] ALK P 95 U/L Normal 45-117 [facility] Comment on above: Order Comment: DR.VE DUTTON ORDERED CMP AND CBCDCNP.[facility] ORDERED CMP, CBCD, TSH, AND LIPID Performed By: #### M 100.678 #### [facility] [address] [place], [address] ALT [Catalytic activity/Vol] 43 U/L Normal 16-61 [facility] Comment on above: Order Comment: DR.VE DUTTON ORDERED CMP AND CBCDCNP.[facility] ORDERED CMP, CBCD, TSH, AND LIPID Performed By: #### M 100.678 #### [facility] [address] [place], [address] AST [Catalytic activity/Vol] 27 U/L Normal 15-37 [facility] Comment on above: Order Comment: DR.VE DUTTON ORDERED CMP AND CBCDCNP.[facility] ORDERED CMP, CBCD, TSH, AND LIPID Performed By: #### M 100.678 #### [facility] [address] [place], [address] Bilirubin [Mass/Vol] 0.50 mg/dL Normal 0.20-1.00 [facility] Comment on above: Order Comment: DR.VE DUTTON ORDERED CMP AND CBCDCNP.[facility] ORDERED CMP, CBCD, TSH, AND LIPID Result Comment: For patients on eltrombopag therapy, use of Dimension [place] TBIL is not recommended. Performed By: #### M 100.678 #### [facility] [address] [place], [address] BUN/CRE 14.0 RATIO Normal 10-20 [facility] Comment on above: Order Comment: DR.VE DUTTON ORDERED CMP AND CBCDCNP.[facility] ORDERED CMP, CBCD, TSH, AND LIPID Performed By: #### M 100.678 #### [facility] [address] [place], [address] CA,Total 9.0 mg/dL Normal 8.5-10.1 [facility] Comment on above: Order Comment: DR.VE DUTTON ORDERED CMP AND CBCDCNP.[facility] ORDERED CMP, CBCD, TSH, AND LIPID Performed By: #### M 100.678 #### [facility] [address] [place], [address] Chloride [Moles/Vol] 109 mmol/L High 98-107 [facility] Comment on above: Order Comment: DR.VE DUTTON ORDERED CMP AND CBCDCNP.[facility] ORDERED CMP, CBCD, TSH, AND LIPID Performed By: #### M 100.678 #### [facility] [address] [place], [address] CO2 [Moles/Vol] 25.0 mmol/L Normal 21.0-32.0 [facility] Comment on above: Order Comment: DR.VE DUTTON ORDERED CMP AND CBCDCNP.[facility] ORDERED CMP, CBCD, TSH, AND LIPID Performed By: #### M 100.678 #### [facility] [address] [place], [address] Creatinine [Mass/Vol] 1.14 mg/dL Normal 0.70-1.30 [facility] Comment on above: Order Comment: DR.VE DUTTON ORDERED CMP AND CBCDCNP.[facility] ORDERED CMP, CBCD, TSH, AND LIPID Result Comment: The validity of the calculated GFR GFRAA in patients over 70 years has not been determined. Clinical correlation is essential. Performed By: #### M 100.678 #### [facility] [address] [place], [address] EST GFR - AA 85 mL/min Normal >60 [facility] Comment on above: Order Comment: DR.VE DUTTON ORDERED CMP AND CBCDCNP.[facility] ORDERED CMP, CBCD, TSH, AND LIPID Result Comment: Afri can [place] GFR Calc Performed By: #### M 100.678 #### [facility] [address] [place], [address] GAP 6 Normal 5-15 [facility] Comment on above: Order Comment: DR.VE DUTTON ORDERED CMP AND CBCDCNP.[facility] ORDERED CMP, CBCD, TSH, AND LIPID Performed By: #### M 100.678 #### [facility] [address] [place], [address] GFR/1.73 sq M.predicted among non-blacks MDRD (S/P/Bld) [Vol rate/Area] 70 mL/min/{1.73_m2} Normal >60 [facility] Comment on above: Order Comment: DR.VE DUTTON ORDERED CMP AND CBCDCNP.[facility] ORDERED CMP, CBCD, TSH, AND LIPID Result Comment: Non- GFR Calc Performed By: #### M 100.678 #### [facility] [address] [place], [address] Globulin (S) [Mass/Vol] 3.3 g/dL Normal 2.2-4.2 [facility] Comment on above: Order Comment: DR.VE DUTTON ORDERED CMP AND CBCDCNP.RODRÍGUEZ ORDERED CMP, CBCD, TSH, AND LIPID Performed By: #### M 100.678 #### [facility] [address] [place], [address] Glucose [Mass/Vol] 104 mg/dL Normal 74-106 [facility] Comment on above: Order Comment: DR.VE DUTTON ORDERED CMP AND CBCDCNP.R[facility]RÍGUEZ ORDERED CMP, CBCD, TSH, AND LIPID Result Comment: Fast ing Glucose result from 100 to 125 mg/dL suggests IMPAIRED HOMEOSTASIS per A.D.A. criteria. Performed By: #### M 100.678 #### [facility] [address] [place], [address] Potassium [Moles/Vol] 4.1 mmol/L Normal 3.5-5.1 [facility] Comment on above: Order Comment: DR.VE DUTTON ORDERED CMP AND CBCDCNP.[facility] ORDERED CMP, CBCD, TSH, AND LIPID Performed By: #### M 100.678 #### [facility] [address] [place], [address] Sodium [Moles/Vol] 140 mmol/L Normal 136-145 [facility] Comment on above: Order Comment: DR.VE DUTTON ORDERED CMP AND CBCDCNP.[facility] ORDERED CMP, CBCD, TSH, AND LIPID Performed By: #### M 100.678 #### [facility] [address] [place], [address] T PROT 6.9 g/dL Normal 6.4-8.2 [facility] Comment on above: Order Comment: DR.VE DUTTON ORDERED CMP AND CBCDCNP.[facility] ORDERED CMP, CBCD, TSH, AND LIPID Performed By: #### M 100.678 #### [facility] [address] [place], [address] Urea nitrogen [Mass/Vol] 16 mg/dL Normal 7-18 [facility] Comment on above: Order Comment: DR.VE DUTTON ORDERED CMP AND CBCDCNP.[facility] ORDERED CMP, CBCD, TSH, AND LIPID Performed By: #### M 100.678 #### [facility] [address] [place], [address] Lipid Profileon 07-29-2023 Cholesterol [Mass/Vol] 181 mg/dL Normal 200 [facility] Comment on above: Order Comment: DR.VE DUTTON ORDERED CMP AND CBCDCNP.[facility] ORDERED CMP, CBCD, TSH, AND LIPID Result Comment: <200 mg/dL Desirable 200-240 mg/dL Borderline >240 mg/dL High Risk Performed By: #### M 100.678 #### [facility] [address] [place], [address] Cholesterol in HDL [Mass/Vol] 52 mg/dL Normal [facility] Comment on above: Order Comment: DR.VE DUTTON ORDERED CMP AND CBCDCNP.[facility] ORDERED CMP, CBCD, TSH, AND LIPID Result Comment: The drugs N-Acetylcysteine and Metamizole may falsely depress this assay. Reference Range HDL <40 mg/dL Low HDL Cholesterol HDL >or= 60 mg/dL High HDL Cholesterol Performed By: #### M 100.678 #### [facility] [address] [place], [address] Cholesterol in LDL [Mass/Vol] 107 mg/dL Normal 0-130 [facility] Comment on above: Order Comment: DR.VE DUTTON ORDERED CMP AND CBCDCNP.[facility] ORDERED CMP, CBCD, TSH, AND LIPID Performed By: #### M 100.678 #### [facility] [address] [place], [address] Cholesterol in VLDL [Mass/Vol] 22 mg/dL Normal 5-40 [facility] Comment on above: Order Comment: DR.VE DUTTON ORDERED CMP AND CBCDCNP.[facility] ORDERED CMP, CBCD, TSH, AND LIPID Performed By: #### M 100.678 #### [facility] [address] [place], [address] Triglyceride [Mass/Vol] 110 mg/dL Normal [facility] Comment on above: Order Comment: DR.VE DUTTON ORDERED CMP AND CBCDCNP.[facility] ORDERED CMP, CBCD, TSH, AND LIPID Result Comment: The drugs N-Acetylcysteine and Metamizole may falsely depress this assay. Serum Triglycerides Reference Interval Normal <150 mg/dL Borderline high 150 - 199 mg/dL High 200 - 499 mg/dL Very High > or = 500 mg/dL Performed By: #### M 100.678 #### [facility] [address] [place], [address] Thyroid Stim Hormone (TSH)on 07-29-2023 TSH 1.87 uIU/mL Normal 0.358-3.74 [facility] Comment on above: Order Comment: DR.VE DUTTON ORDERED CMP AND CBCDCNP.[facility] ORDERED CMP, CBCD, TSH, AND LIPID Performed By: #### M [id number] #### [facility] [address] [place], [address] CNOVon 07-28-2023 CNOV Office Visit ([facility]) ---- DARIUSZ NGUYEN ([id number]) 1965 M Date Time Provider Department 07/28/23 4:15 PM ROGER ESTEVEZ [facility] During your visit today, we recorded the following information about you: Temperature Pulse Respiration Blood pressure 96.9 degrees 70/minute 18/minute 116/76 Weight 95 kg Roger Estevez MD 07/28/2023 4:36 PM Signed Patient presents with: Derm Problem: Left side on back x 3 days round, swelling, hard HPI: Skin Lesion: Location: left mid back Duration: 5 days Pruritis/Pain: itched a little, then tender to put pressure on. No current tenderness or pruritus. Change: maybe better Drainage/blister/pu stule/ulceration: drained bloody material in the shower a couple days ago Treatment: peroxide MEDICATIONS: levothyroxine (SYNTHROID) 75 mcg tablet TAKE 1 TABLET BY MOUTH ONCE DAILY. TAKE ON EMPTY STOMACH. FOR THYROID. lisinopril (ZESTRIL) 10 mg tablet Take 1 tablet by mouth once daily. methotrexate 2.5 mg tablet Take 6 tablets weekly folic acid 1 mg tablet Take 2 mg by mouth once daily. ZINC ORAL Take by mouth once daily. ascorbic acid (VITAMIN C ORAL) Take by mouth once daily. MULTIVITAMIN TAB Take 1 tablet by mouth once daily. ALLERGIES: ALLERGIES Allergen Reactions Codeine Sulfa (Sulfonamide * VITALS: BP 116/76 Pulse 70 Temp 36.1 ?C (96.9 ?F) Resp 18 Wt 95 kg (209 lb 7 oz) SpO2 97% BMI 30.93 kg/m? PE: Pleasant, in no acute distress. SKIN: brown slightly raised seborrheic keratoses scattered over the upper back. Lesion of concern is over the left costovertebral angle. 4 mm central eschar. ~1.5x0.5cm area of subcutaneous firmness below the eschar. No fluctuance. No purulent material can be expressed. Faint hyperpigmentation/e cchymosis and 5 cm x 2 cm area centered on the eschar. ASSESSMENT/PLAN: 1. Neoplasm of uncertain behavior of skin of back - ICD9: 238.2, ICD10: D48.5 Most likely drained cyst or abscess in the healing phase. Continue to monitor the lesion and follow-up with increasing size, swelling, drainage, fever, or failure to resolve. Roger Estevez MD Allergies As of Date: 07/28/2023 Noted Allergy Reaction CODEINE 05/27/2005 SULFA (SULFONAMIDE ANTIBIOTICS) 05/27/2005 Date Reviewed: 07/28/2023 Reviewed by: Sushila Catalan LPN - Fully Assessed Reason for Visit: Derm Problem [33] Cmt: Left side on back x 3 days round, swelling, hard Primary Visit Diagnosis:Neoplasm of uncertain behavior of skin of back [D48.5] Prescriptions as of 07/28/2023 - levothyroxine (SYNTHROID) 75 mcg tablet TAKE 1 TABLET BY MOUTH ONCE DAILY. TAKE ON EMPTY STOMACH. FOR THYROID. - lisinopril (ZESTRIL) 10 mg tablet Take 1 tablet by mouth once daily. - methotrexate 2.5 mg tablet Take 6 tablets weekly - folic acid 1 mg tablet Take 2 mg by mouth once daily. - ZINC ORAL Take by mouth once daily. - ascorbic acid (VITAMIN C ORAL) Take by mouth once daily. - MULTIVITAMIN TAB Take 1 tablet by mouth once daily. Problem List As Of Date 07/28/2023 Noted Resolved CHEST PAIN NOS [R07.9] 05/27/2005 HERNIA UMBILICAL [K42.9] 12/19/2005 HERNIA INGUINAL,UNILATERAL (Right) [K40.90] 12/19/2005 Right Shoulder Pain [M25.511] 01/20/2009 Thoracic Outlet Syndrome [G54.0] 02/25/2009 Carpal tunnel syndrome of right wrist [G56.01] 11/24/2010 Cervical disc disorder [M50.90] 11/24/2010 Encounter for examination for driving license [*12/21/2010 Colon cancer screening [Z12.11] 12/25/2015 12/25/2015 Left carpal tunnel syndrome [G56.02] 03/01/2018 Carpal tunnel syndrome of left wrist [G56.02] 03/22/2018 Hypothyroidism, acquired [E03.9] 05/21/2019 Excessive daytime sleepiness [G47.19] 06/05/2020 Hyperlipidemia with target LDL less than 130 [E*06/05/2020 Rheumatoid arthritis involving multiple sites w*02/07/2022 Fibromyalgia [M79.7] 02/07/2022 Fatty liver [K76.0] 04/25/2022 Primary hypertension [I10] 04/25/2022 Encounter Status:Closed by ROGER ESTEVEZ on 07/28/23 Normal [facility] Absolute lymphocyte countOrd ered By: Luz Sánchez on 04-15-2023 Lymphocytes Auto (Unsp spec) [#/Vol] 1.10 10*3/uL 0.83-4.51 [facility] Automated lymphocyte count a s percentage of total leukocytesOrdered By: Luz Sánchez on 04-15-2023 Lymphocytes/100 WBC Auto (Unsp spec) 12.1 % 19-41 [facility] Basophil percentageOrdered B y: Luz Sánchez on 04-15-2023 Basophils/100 WBC (Bld) 0.8 % 0-1 [facility] Bilirubin [Mass/Vol] 0.70 mg/dL 0.20-1.00 [facility] Comment on above: For patients on eltr ombopag therapy, use of Dimension [place] TBIL is not recommended. Chloride [Moles/Vol] 110 mmol/L 98-107 [facility] Eosinophils/100 WBC (Bld) 1.6 % 0-5 [facility] Glucose [Mass/Vol] 95 mg/dL 74-106 [facility] Hemoglobin (Bld) [Mass/Vol] 14.5 g/dL 13.0-16.5 [facility] Monocytes/100 WBC (Bld) 14.6 % 0-10 [facility] Neutrophils (Bld) [#/Vol] 6.4 10*3/uL 2.0-7.7 [facility] Neutrophils/100 WBC (Bld) 70.6 % 47-70 [facility] Potassium [Moles/Vol] 3.7 mmol/L 3.5-5.1 [facility] Protein [Mass/Vol] 7.1 g/dL 6.4-8.2 [facility] Sodium [Moles/Vol] 141 mmol/L 136-145 [facility] WBC (Bld) [#/Vol] 9.1 10*3/uL 4.4-11.0 [facility] Determination of erythrocyte mean corpuscular volume (MCV)Ordered By: Luz Sánchez on 04-15-2023 MCV (RBC) [Entitic vol] 91.3 fL 80-94 [facility] Erythrocyte distribution wid th ratioOrdered By: Luz Sánchez on 04-15-2023 Erythrocyte distribution width (RBC) [Ratio] 13.3 % 11.6-14.6 [facility] Erythrocyte distribution wid th standard deviationOrdered By: Luz Sánchez on 04-15-2023 Erythrocyte distribution width (RBC) [Entitic vol] 43.1 fL 35.1-43.9 [facility] Hematocrit Auto (Bld) [Volum e fraction]Ordered By: Luz Sánchez on 04-15-2023 Hematocrit (Bld) [Volume fraction] 44.3 % 40-54 [facility] Immature granulocytes/100 WB C Auto (Bld)Ordered By: Luz Sánchez on 04-15-2023 Immature granulocytes/100 WBC (Bld) 0.300 % 0.0-0.9 [facility] Comment on above: IG% - Immature Granu locytes (promyelocytes, myelocytes and metamyelocytes) > 1% indicates that a LEFT SHIFT is Present. Laboratory - Chemistry and C hemistry - challengeOrdered By: Luz Sánchez on 04-15-2023 Albumin/Globulin [Mass ratio] 1.2 {ratio} 0.9-2.4 [facility] ALP [Catalytic activity/Vol] 80 U/L 45-117 [facility] ALT [Catalytic activity/Vol] 51 U/L 16-61 [facility] CO2 [Moles/Vol] 28.0 mmol/L 21.0-32.0 [facility] Globulin (S) [Mass/Vol] 3.3 g/dL 2.2-4.2 [facility] Urea nitrogen/Creatinine [Mass ratio] 14.0 mg/mg 10-20 [facility] - Hematology and Cell countsOrdered By: Luz Sánchez on 04-15-2023 MCH (RBC) [Entitic mass] 29.9 pg 27.0-32.0 [facility] MCHC (RBC) [Mass/Vol] 32.7 g/dL 32-36 [facility] Nucleated RBC/100 WBC (Bld) [Ratio] 0 % 0-5 [facility] Platelet mean volume (Bld) [Entitic vol] 9.4 fL 6.2-12.0 [facility] Platelets (Bld) [#/Vol] 265 10*3/uL 150-450 [facility] No Panel InformationOrdered By: Luz Sánchez on 04-15-2023 Estimated GFR (MDRD) Amer 74 mL/min >60 [facility] Comment on above: GFR Calc Estimated GFR (MDRD) Non-Af Amer 61 mL/min >60 [facility] Comment on above: Non- GFR Calc RBC Auto (Bld) [#/Vol]Ordere d By: Luz Sánchez on 04-15-2023 RBC (Bld) [#/Vol] 4.85 10*6/uL 4.6-6.2 [facility] Serum or plasma calcium jacob urement (mass/volume)Ordered By: Luz Sánchez on 04-15-2023 Calcium [Mass/Vol] 9.5 mg/dL 8.5-10.1 [facility] Serum or plasma creatinine m easurement (mass/volume)Ordered By: Luz Sánchez on 04-15-2023 Creatinine [Mass/Vol] 1.29 mg/dL 0.70-1.30 [facility] Comment on above: The validity of the calculated GFR & GFRAA in patients over 70 years has not been determined. Clinical correlation is essential. Serum or plasma urea nitroge n measurement (mass/volume)Ordered By: Luz Sánchez on 04-15-2023 Urea nitrogen [Mass/Vol] 18 mg/dL 7-18 [facility] Thin prep Papanicolaou smear with manual screeningOrdered By: Luz Sánchez on 04-15-2023 Thin prep Papanicolaou smear with manual screening 3.8 g/dL 3.2-5.0 [facility] Thin prep Papanicolaou smear with manual screening 29 U/L 15-37 [facility] Thin prep Papanicolaou smear with manual screening 3 5-15 [facility] Absolute lymphocyte countOrd ered By: Luz Sánchez on 02-04-2023 Lymphocytes Auto (Unsp spec) [#/Vol] 1.94 10*3/uL 0.83-4.51 [facility] Basophil percentageOrdered B y: Luz Sánchez on 02-04-2023 Basophils/100 WBC (Bld) 0.9 % 0-1 [facility] Bilirubin [Mass/Vol] 0.70 mg/dL 0.20-1.00 [facility] Comment on above: For patients on eltr ombopag therapy, use of Dimension [place] TBIL is not recommended. Chloride [Moles/Vol] 109 mmol/L 98-107 [facility] Eosinophils/100 WBC (Bld) 4.0 % 0-5 [facility] Glucose [Mass/Vol] 97 mg/dL 74-106 [facility] Neutrophils (Bld) [#/Vol] 3.8 10*3/uL 2.0-7.7 [facility] Neutrophils/100 WBC (Bld) 56.0 % 47-70 [facility] Potassium [Moles/Vol] 4.3 mmol/L 3.5-5.1 [facility] Protein [Mass/Vol] 7.0 g/dL 6.4-8.2 [facility] Sodium [Moles/Vol] 139 mmol/L 136-145 [facility] WBC (Bld) [#/Vol] 6.8 10*3/uL 4.4-11.0 [facility] Blood erythrocytes count (nu mber/volume)Ordered By: Luz Sánchez on 02-04-2023 RBC (Bld) [#/Vol] 4.92 10*6/uL 4.6-6.2 [facility] Blood hemoglobin measurement (mass/volume)Ordered By: Luz Sánchez on 02-04-2023 Hemoglobin (Bld) [Mass/Vol] 14.9 g/dL 13.0-16.5 [facility] Blood lymphocytes/100 leukoc ytesOrdered By: Luz Sánchez on 02-04-2023 Lymphocytes/100 WBC (Bld) 28.5 % 19-41 [facility] Blood monocytes/100 leukocyt esOrdered By: Luz Sánchez on 02-04-2023 Monocytes/100 WBC (Bld) 10.3 % 0-10 [facility] Blood platelet mean volumeOr dered By: Luz Sánchez on 02-04-2023 Platelet mean volume (Bld) [Entitic vol] 9.2 fL 6.2-12.0 [facility] Determination of erythrocyte mean corpuscular volume (MCV)Ordered By: Luz Sánchez on 02-04-2023 MCV (RBC) [Entitic vol] 91.3 fL 80-94 [facility] Hematocrit Auto (Bld) [Volum e fraction]Ordered By: Luz Sánchez on 02-04-2023 Hematocrit (Bld) [Volume fraction] 44.9 % 40-54 [facility] Laboratory - Chemistry and C hemistry - challengeOrdered By: Luz Sánchez on 02-04-2023 ALP [Catalytic activity/Vol] 87 U/L 45-117 [facility] ALT [Catalytic activity/Vol] 37 U/L 16-61 [facility] CO2 [Moles/Vol] 30.0 mmol/L 21.0-32.0 [facility] Globulin (S) [Mass/Vol] 3.3 g/dL 2.2-4.2 [facility] Urea nitrogen/Creatinine [Mass ratio] 14.4 mg/mg 10-20 [facility] - Hematology and Cell countsOrdered By: Luz Sánchez on 02-04-2023 Erythrocyte distribution width (RBC) [Entitic vol] 41.6 fL 35.1-43.9 [facility] Erythrocyte distribution width (RBC) [Ratio] 12.8 % 11.6-14.6 [facility] Immature granulocytes/100 WBC (Bld) 0.300 % 0.0-0.9 [facility] Comment on above: IG% - Immature Granu locytes (promyelocytes, myelocytes and metamyelocytes) > 1% indicates that a LEFT SHIFT is Present. MCH (RBC) [Entitic mass] 30.3 pg 27.0-32.0 [facility] Nucleated RBC/100 WBC (Bld) [Ratio] 0 % 0-5 [facility] MCHC Auto (RBC) [Mass/Vol]Or dered By: Luz Sánchez on 02-04-2023 MCHC (RBC) [Mass/Vol] 33.2 g/dL 32-36 [facility] No Panel InformationOrdered By: Luz Sánchez on 02-04-2023 Estimated GFR (MDRD) Amer 82 mL/min >60 [facility] Comment on above: GFR Calc Estimated GFR (MDRD) Non-Af Amer 67 mL/min >60 [facility] Comment on above: Non- GFR Calc Platelets bldOrdered By: Art Sánchez on 02-04-2023 Platelets (Bld) [#/Vol] 268 10*3/uL 150-450 [facility] Serum or plasma albumin jacob urement (mass/volume)Ordered By: Luz Sánchez on 02-04-2023 Albumin [Mass/Vol] 3.7 g/dL 3.2-5.0 [facility] Serum or plasma albumin/glob ulin mass ratioOrdered By: Luz Sánchez on 02-04-2023 Albumin/Globulin [Mass ratio] 1.1 {ratio} 0.9-2.4 [facility] Serum or plasma calcium jacob urement (mass/volume)Ordered By: Luz Sánchez on 02-04-2023 Calcium [Mass/Vol] 9.3 mg/dL 8.5-10.1 [facility] Serum or plasma creatinine m easurement (mass/volume)Ordered By: Luz Sánchez on 02-04-2023 Creatinine [Mass/Vol] 1.18 mg/dL 0.70-1.30 [facility] Comment on above: The validity of the calculated GFR & GFRAA in patients over 70 years has not been determined. Clinical correlation is essential. Serum or plasma urea nitroge n measurement (mass/volume)Ordered By: Luz Sánchez on 02-04-2023 Urea nitrogen [Mass/Vol] 17 mg/dL 7-18 [facility] Thin prep Papanicolaou smear with manual screeningOrdered By: Luz Sánchez on 02-04-2023 Thin prep Papanicolaou smear with manual screening 22 U/L 15-37 [facility] Thin prep Papanicolaou smear with manual screening 0 5-15 [facility] Absolute lymphocyte countOrd ered By: Luzmicheal Sánchez on 11-12-2022 Lymphocytes Auto (Unsp spec) [#/Vol] 3.52 10*3/uL 0.83-4.51 [facility] Basophil percentageOrdered B y: Luz Sánchez on 11-12-2022 Basophils/100 WBC (Bld) 0.8 % 0-1 [facility] Bilirubin [Mass/Vol] 0.30 mg/dL 0.20-1.00 [facility] Comment on above: For patients on eltr ombopag therapy, use of Dimension [place] TBIL is not recommended. Chloride [Moles/Vol] 112 mmol/L 98-107 [facility] Cholesterol [Mass/Vol] 148 mg/dL <200 [facility] Comment on above: <200 mg/dL Desirable 200-240 mg/dL Borderline >240 mg/dL High Risk Eosinophils/100 WBC (Bld) 2.9 % 0-5 [facility] Glucose [Mass/Vol] 86 mg/dL 74-106 [facility] Neutrophils (Bld) [#/Vol] 4.1 10*3/uL 2.0-7.7 [facility] Neutrophils/100 WBC (Bld) 46.8 % 47-70 [facility] Potassium [Moles/Vol] 4.4 mmol/L 3.5-5.1 [facility] Comment on above: Slight Hemolysis, Re sult may be falsely increased. Protein [Mass/Vol] 6.5 g/dL 6.4-8.2 [facility] Sodium [Moles/Vol] 142 mmol/L 136-145 [facility] Triglyceride [Mass/Vol] 149 mg/dL <199 [facility] Comment on above: The drugs N-Acetylcy steine and Metamizole may falsely depress this assay.Serum Triglycerides Reference Interval Normal <150 mg/dL Borderline high 150 - 199 mg/dL High 200 - 499 mg/dL Very High > or = 500 mg/dL WBC (Bld) [#/Vol] 8.7 10*3/uL 4.4-11.0 [facility] Blood erythrocytes count (nu mber/volume)Ordered By: Luz Sánchez on 11-12-2022 RBC (Bld) [#/Vol] 4.38 10*6/uL 4.6-6.2 [facility] Blood hemoglobin measurement (mass/volume)Ordered By: Luz Sánchez on 11-12-2022 Hemoglobin (Bld) [Mass/Vol] 13.7 g/dL 13.0-16.5 [facility] Blood lymphocytes/100 leukoc ytesOrdered By: Luz Sánchez on 11-12-2022 Lymphocytes/100 WBC (Bld) 40.5 % 19-41 [facility] Blood monocytes/100 leukocyt esOrdered By: Luz Sánchez on 11-12-2022 Monocytes/100 WBC (Bld) 8.5 % 0-10 [facility] Blood platelet mean volumeOr dered By: Luz Sánchez on 11-12-2022 Platelet mean volume (Bld) [Entitic vol] 9.3 fL 6.2-12.0 [facility] Determination of erythrocyte mean corpuscular volume (MCV)Ordered By: Luz Sánchez on 11-12-2022 MCV (RBC) [Entitic vol] 96.6 fL 80-94 [facility] Hematocrit Auto (Bld) [Volum e fraction]Ordered By: Lzu Sánchez on 11-12-2022 Hematocrit (Bld) [Volume fraction] 42.3 % 40-54 [facility] - Chemistry and C hemistry - challengeOrdered By: Luz Sánchez on 11-12-2022 ALP [Catalytic activity/Vol] 98 U/L 45-117 [facility] ALT [Catalytic activity/Vol] 39 U/L 16-61 [facility] CO2 [Moles/Vol] 28.0 mmol/L 21.0-32.0 [facility] Globulin (S) [Mass/Vol] 3.1 g/dL 2.2-4.2 [facility] Urea nitrogen/Creatinine [Mass ratio] 17.6 mg/mg 10-20 [facility] - Hematology and Cell countsOrdered By: Luz Sánchez on 11-12-2022 Erythrocyte distribution width (RBC) [Entitic vol] 46.4 fL 35.1-43.9 [facility] Erythrocyte distribution width (RBC) [Ratio] 13.3 % 11.6-14.6 [facility] Immature granulocytes/100 WBC (Bld) 0.500 % 0.0-0.9 [facility] Comment on above: IG% - Immature Granu locytes (promyelocytes, myelocytes and metamyelocytes) > 1% indicates that a LEFT SHIFT is Present. MCH (RBC) [Entitic mass] 31.3 pg 27.0-32.0 [facility] Nucleated RBC/100 WBC (Bld) [Ratio] 0 % 0-5 [facility] MCHC Auto (RBC) [Mass/Vol]Or dered By: Luz Sánchez on 11-12-2022 MCHC (RBC) [Mass/Vol] 32.4 g/dL 32-36 [facility] No Panel InformationOrdered By: Luz Sánchez on 11-12-2022 Estimated GFR (MDRD) Amer 81 mL/min >60 [facility] Comment on above: GFR Calc Estimated GFR (MDRD) Non-Af Amer 67 mL/min >60 [facility] Comment on above: Non- GFR Calc Thyroid Stimulating Hormone (TSH) 2.59 uIU/mL 0.358-3.74 [facility] Platelets bldOrdered By: Atr Sánchez on 11-12-2022 Platelets (Bld) [#/Vol] 260 10*3/uL 150-450 [facility] Serum or plasma albumin jacob urement (mass/volume)Ordered By: Luz Sánchez on 11-12-2022 Albumin [Mass/Vol] 3.4 g/dL 3.2-5.0 [facility] Serum or plasma albumin/glob ulin mass ratioOrdered By: Luz Sánchez on 11-12-2022 Albumin/Globulin [Mass ratio] 1.1 {ratio} 0.9-2.4 [facility] Serum or plasma calcium jacob urement (mass/volume)Ordered By: Luz Sánchez on 11-12-2022 Calcium [Mass/Vol] 8.9 mg/dL 8.5-10.1 [facility] Serum or plasma cholesterol in HDL measurement (mass/volume)Ordered By: Luz Sánchez on 11-12-2022 Cholesterol in HDL [Mass/Vol] 48 mg/dL >40 [facility] Comment on above: The drugs N-Acetylcy steine and Metamizole may falsely depress this assay. Reference Range HDL <40 mg/dL Low HDL Cholesterol HDL >or= 60 mg/dL High HDL Cholesterol Serum or plasma cholesterol in VLDL measurement (mass/volume)Ordered By: Luz Sánchez on 11-12-2022 Cholesterol in VLDL [Mass/Vol] 30 mg/dL 5-40 [facility] Serum or plasma creatinine m easurement (mass/volume)Ordered By: Luz Sánchez on 11-12-2022 Creatinine [Mass/Vol] 1.19 mg/dL 0.70-1.30 [facility] Comment on above: The validity of the calculated GFR & GFRAA in patients over 70 years has not been determined. Clinical correlation is essential. Serum or plasma low density lipoprotein (LDL) cholesterol measurement (mass/volume)Ordered By: Luz Sánchez on 11-12-2022 Cholesterol in LDL [Mass/Vol] 70 mg/dL 0-130 [facility] Serum or plasma urea nitroge n measurement (mass/volume)Ordered By: Luz Sánchez on 11-12-2022 Urea nitrogen [Mass/Vol] 21 mg/dL 7-18 [facility] Thin prep Papanicolaou smear with manual screeningOrdered By: Luz Sánchez on 11-12-2022 Thin prep Papanicolaou smear with manual screening 21 U/L 15-37 [facility] Comment on above: Slight Hemolysis, Re sult may be falsely increased. Thin prep Papanicolaou smear with manual screening 2 5-15 [facility] Absolute lymphocyte countOrd ered By: Luz Sánchez on 08-18-2022 Lymphocytes Auto (Unsp spec) [#/Vol] 3.21 10*3/uL 0.83-4.51 [facility] Basophil percentageOrdered B y: Luz Sánchez on 08-18-2022 Basophils/100 WBC (Bld) 0.4 % 0-1 [facility] Bilirubin [Mass/Vol] 0.60 mg/dL 0.20-1.00 [facility] Comment on above: For patients on eltr ombopag therapy, use of Dimension [place] TBIL is not recommended. Chloride [Moles/Vol] 109 mmol/L 98-107 [facility] Eosinophils/100 WBC (Bld) 1.1 % 0-5 [facility] Glucose [Mass/Vol] 90 mg/dL 74-106 [facility] Neutrophils (Bld) [#/Vol] 6.6 10*3/uL 2.0-7.7 [facility] Neutrophils/100 WBC (Bld) 60.6 % 47-70 [facility] Potassium [Moles/Vol] 3.8 mmol/L 3.5-5.1 [facility] Protein [Mass/Vol] 7.0 g/dL 6.4-8.2 [facility] Sodium [Moles/Vol] 141 mmol/L 136-145 [facility] WBC (Bld) [#/Vol] 10.8 10*3/uL 4.4-11.0 [facility] Blood erythrocytes count (nu mber/volume)Ordered By: Luz Sánchez on 08-18-2022 RBC (Bld) [#/Vol] 4.78 10*6/uL 4.6-6.2 [facility] Blood hemoglobin measurement (mass/volume)Ordered By: Luz Sánchez on 08-18-2022 Hemoglobin (Bld) [Mass/Vol] 14.6 g/dL 13.0-16.5 [facility] Blood lymphocytes/100 leukoc ytesOrdered By: Luz Sánchez on 08-18-2022 Lymphocytes/100 WBC (Bld) 29.6 % 19-41 [facility] Blood monocytes/100 leukocyt esOrdered By: Luz Sánchez on 08-18-2022 Monocytes/100 WBC (Bld) 7.8 % 0-10 [facility] Blood platelet mean volumeOr dered By: Luz Sánchez on 08-18-2022 Platelet mean volume (Bld) [Entitic vol] 9.2 fL 6.2-12.0 [facility] Determination of erythrocyte mean corpuscular volume (MCV)Ordered By: Luz Sánchez on 08-18-2022 MCV (RBC) [Entitic vol] 91.6 fL 80-94 [facility] Hematocrit Auto (Bld) [Volum e fraction]Ordered By: Luz Sánchez on 08-18-2022 Hematocrit (Bld) [Volume fraction] 43.8 % 40-54 [facility] - Chemistry and C hemistry - challengeOrdered By: Luz Sánchez on 08-18-2022 ALP [Catalytic activity/Vol] 76 U/L 45-117 [facility] ALT [Catalytic activity/Vol] 40 U/L 16-61 [facility] CO2 [Moles/Vol] 27.0 mmol/L 21.0-32.0 [facility] Globulin (S) [Mass/Vol] 3.3 g/dL 2.2-4.2 [facility] Urea nitrogen/Creatinine [Mass ratio] 21.8 mg/mg 10-20 [facility] - Hematology and Cell countsOrdered By: Luz Sánchez on 08-18-2022 Erythrocyte distribution width (RBC) [Entitic vol] 44.5 fL 35.1-43.9 [facility] Erythrocyte distribution width (RBC) [Ratio] 13.5 % 11.6-14.6 [facility] Immature granulocytes/100 WBC (Bld) 0.500 % 0.0-0.9 [facility] Comment on above: IG% - Immature Granu locytes (promyelocytes, myelocytes and metamyelocytes) > 1% indicates that a LEFT SHIFT is Present. MCH (RBC) [Entitic mass] 30.5 pg 27.0-32.0 [facility] Nucleated RBC/100 WBC (Bld) [Ratio] 0 % 0-5 [facility] MCHC Auto (RBC) [Mass/Vol]Or dered By: Luz Sánchez on 08-18-2022 MCHC (RBC) [Mass/Vol] 33.3 g/dL 32-36 [facility] No Panel InformationOrdered By: Luz Sánchez on 08-18-2022 Estimated GFR (MDRD) Amer 89 mL/min >60 [facility] Comment on above: GFR Calc Estimated GFR (MDRD) Non-Af Amer 73 mL/min >60 [facility] Comment on above: Non- GFR Calc Platelets bldOrdered By: Art Sánchez on 08-18-2022 Platelets (Bld) [#/Vol] 289 10*3/uL 150-450 [facility] Serum or plasma albumin jacob urement (mass/volume)Ordered By: Luz Sánchez on 08-18-2022 Albumin [Mass/Vol] 3.7 g/dL 3.2-5.0 [facility] Serum or plasma albumin/glob ulin mass ratioOrdered By: Luz Sánchez on 08-18-2022 Albumin/Globulin [Mass ratio] 1.1 {ratio} 0.9-2.4 [facility] Serum or plasma calcium jacob urement (mass/volume)Ordered By: Luz Sánchez on 08-18-2022 Calcium [Mass/Vol] 9.1 mg/dL 8.5-10.1 [facility] Serum or plasma creatinine m easurement (mass/volume)Ordered By: Luz Sánchez on 08-18-2022 Creatinine [Mass/Vol] 1.10 mg/dL 0.70-1.30 [facility] Comment on above: The validity of the calculated GFR & GFRAA in patients over 70 years has not been determined. Clinical correlation is essential. Serum or plasma urea nitroge n measurement (mass/volume)Ordered By: Luz Sánchez on 08-18-2022 Urea nitrogen [Mass/Vol] 24 mg/dL 7-18 [facility] Thin prep Papanicolaou smear with manual screeningOrdered By: Luz Sánchez on 08-18-2022 Thin prep Papanicolaou smear with manual screening 22 U/L 15-37 [facility] Thin prep Papanicolaou smear with manual screening 5 5-15 [facility] Absolute lymphocyte countOrd ered By: Dr. Sánchez on 06-18-2022 Lymphocytes Auto (Unsp spec) [#/Vol] 2.36 10*3/uL 0.83-4.51 [facility] Basophil percentageOrdered B y: Dr. Sánchez on 06-18-2022 Basophils/100 WBC (Bld) 0.3 % 0-1 [facility] Bilirubin [Mass/Vol] 0.30 mg/dL 0.20-1.00 [facility] Comment on above: For patients on eltr ombopag therapy, use of Dimension [place] TBIL is not recommended. Chloride [Moles/Vol] 110 mmol/L 98-107 [facility] Eosinophils/100 WBC (Bld) 3.4 % 0-5 [facility] Glucose [Mass/Vol] 101 mg/dL 74-106 [facility] Comment on above: Fasting Glucose resu lt from 100 to 125 mg/dL suggests IMPAIRED HOMEOSTASIS per A.D.A. criteria. Neutrophils (Bld) [#/Vol] 5.5 10*3/uL 2.0-7.7 [facility] Neutrophils/100 WBC (Bld) 61.1 % 47-70 [facility] Potassium [Moles/Vol] 4.0 mmol/L 3.5-5.1 [facility] Protein [Mass/Vol] 7.1 g/dL 6.4-8.2 [facility] Sodium [Moles/Vol] 139 mmol/L 136-145 [facility] WBC (Bld) [#/Vol] 8.9 10*3/uL 4.4-11.0 [facility] Blood erythrocytes count (nu mber/volume)Ordered By: Dr. Sánchez on 06-18-2022 RBC (Bld) [#/Vol] 4.80 10*6/uL 4.6-6.2 [facility] Blood hemoglobin measurement (mass/volume)Ordered By: Dr. Sánchez on 06-18-2022 Hemoglobin (Bld) [Mass/Vol] 14.7 g/dL 13.0-16.5 [facility] Blood lymphocytes/100 leukoc ytesOrdered By: Dr. Sánchez on 06-18-2022 Lymphocytes/100 WBC (Bld) 26.4 % 19-41 [facility] Blood monocytes/100 leukocyt esOrdered By: Dr. Sánchez on 06-18-2022 Monocytes/100 WBC (Bld) 8.4 % 0-10 [facility] Blood platelet mean volumeOr dered By: Dr. Sánchez on 06-18-2022 Platelet mean volume (Bld) [Entitic vol] 8.9 fL 6.2-12.0 [facility] Determination of erythrocyte mean corpuscular volume (MCV)Ordered By: Dr. Sánchez on 06-18-2022 MCV (RBC) [Entitic vol] 93.8 fL 80-94 [facility] Hematocrit Auto (Bld) [Volum e fraction]Ordered By: Dr. Sánchez on 06-18-2022 Hematocrit (Bld) [Volume fraction] 45.0 % 40-54 [facility] - Chemistry and C hemistry - challengeOrdered By: Dr. Sánchez on 06-18-2022 ALP [Catalytic activity/Vol] 92 U/L 45-117 [facility] ALT [Catalytic activity/Vol] 37 U/L 16-61 [facility] CO2 [Moles/Vol] 28.0 mmol/L 21.0-32.0 [facility] Globulin (S) [Mass/Vol] 3.4 g/dL 2.2-4.2 [facility] Urea nitrogen/Creatinine [Mass ratio] 14.2 mg/mg 10-20 [facility] - Hematology and Cell countsOrdered By: Dr. Sánchez on 06-18-2022 Erythrocyte distribution width (RBC) [Entitic vol] 43.8 fL 35.1-43.9 [facility] Erythrocyte distribution width (RBC) [Ratio] 12.9 % 11.6-14.6 [facility] Immature granulocytes/100 WBC (Bld) 0.400 % 0.0-0.9 [facility] Comment on above: IG% - Immature Granu locytes (promyelocytes, myelocytes and metamyelocytes) > 1% indicates that a LEFT SHIFT is Present. MCH (RBC) [Entitic mass] 30.6 pg 27.0-32.0 [facility] Nucleated RBC/100 WBC (Bld) [Ratio] 0 % 0-5 [facility] MCHC Auto (RBC) [Mass/Vol]Or dered By: Dr. Sánchez on 06-18-2022 MCHC (RBC) [Mass/Vol] 32.7 g/dL 32-36 [facility] No Panel InformationOrdered By: Dr. Sánchez on 06-18-2022 Estimated GFR (MDRD) Amer 80 mL/min >60 [facility] Comment on above: GFR Calc Estimated GFR (MDRD) Non-Af Amer 66 mL/min >60 [facility] Comment on above: Non- GFR Calc Platelets bldOrdered By: Dr. Sánchez on 06-18-2022 Platelets (Bld) [#/Vol] 301 10*3/uL 150-450 [facility] Serum or plasma albumin jacob urement (mass/volume)Ordered By: Dr. Sánchez on 06-18-2022 Albumin [Mass/Vol] 3.7 g/dL 3.2-5.0 [facility] Serum or plasma albumin/glob ulin mass ratioOrdered By: Dr. Sánchez on 06-18-2022 Albumin/Globulin [Mass ratio] 1.1 {ratio} 0.9-2.4 [facility] Serum or plasma calcium jacob urement (mass/volume)Ordered By: Dr. Sánchez on 06-18-2022 Calcium [Mass/Vol] 8.9 mg/dL 8.5-10.1 [facility] Serum or plasma creatinine m easurement (mass/volume)Ordered By: Dr. Sánchez on 06-18-2022 Creatinine [Mass/Vol] 1.20 mg/dL 0.70-1.30 [facility] Comment on above: The validity of the calculated GFR & GFRAA in patients over 70 years has not been determined. Clinical correlation is essential. Serum or plasma urea nitroge n measurement (mass/volume)Ordered By: Dr. Sánchez on 06-18-2022 Urea nitrogen [Mass/Vol] 17 mg/dL 7-18 [facility] Thin prep Papanicolaou smear with manual screeningOrdered By: Dr. Sánchez on 06-18-2022 Thin prep Papanicolaou smear with manual screening 27 U/L 15-37 [facility] Thin prep Papanicolaou smear with manual screening 1 5-15 [facility] Basophil percentageOrdered B y: Dr. Sánchez on 04-23-2022 Bilirubin [Mass/Vol] 0.50 mg/dL 0.20-1.00 [facility] Comment on above: For patients on eltr ombopag therapy, use of Dimension [place] TBIL is not recommended. Chloride [Moles/Vol] 108 mmol/L 98-107 [facility] Glucose [Mass/Vol] 94 mg/dL 74-106 [facility] Potassium [Moles/Vol] 4.0 mmol/L 3.5-5.1 [facility] Protein [Mass/Vol] 7.0 g/dL 6.4-8.2 [facility] Sodium [Moles/Vol] 141 mmol/L 136-145 [facility] - Chemistry and C hemistry - challengeOrdered By: Dr. Sánchez on 04-23-2022 ALP [Catalytic activity/Vol] 79 U/L 45-117 [facility] ALT [Catalytic activity/Vol] 51 U/L 16-61 [facility] CO2 [Moles/Vol] 27.0 mmol/L 21.0-32.0 [facility] Globulin (S) [Mass/Vol] 3.2 g/dL 2.2-4.2 [facility] Urea nitrogen/Creatinine [Mass ratio] 14.2 mg/mg 10-20 [facility] No Panel InformationOrdered By: Dr. Sánchez on 04-23-2022 Estimated GFR (MDRD) Amer 80 mL/min >60 [facility] Comment on above: GFR Calc Estimated GFR (MDRD) Non-Af Amer 66 mL/min >60 [facility] Comment on above: Non- GFR Calc Serum or plasma albumin jacob urement (mass/volume)Ordered By: Dr. Sánchez on 04-23-2022 Albumin [Mass/Vol] 3.8 g/dL 3.2-5.0 [facility] Serum or plasma albumin/glob ulin mass ratioOrdered By: Dr. Sánchez on 04-23-2022 Albumin/Globulin [Mass ratio] 1.2 {ratio} 0.9-2.4 [facility] Serum or plasma calcium jacob urement (mass/volume)Ordered By: Dr. Sánhcez on 04-23-2022 Calcium [Mass/Vol] 9.2 mg/dL 8.5-10.1 [facility] Serum or plasma creatinine m easurement (mass/volume)Ordered By: Dr. Sánchez on 04-23-2022 Creatinine [Mass/Vol] 1.20 mg/dL 0.70-1.30 [facility] Comment on above: The validity of the calculated GFR & GFRAA in patients over 70 years has not been determined. Clinical correlation is essential. Serum or plasma urea nitroge n measurement (mass/volume)Ordered By: Dr. Sánchez on 04-23-2022 Urea nitrogen [Mass/Vol] 17 mg/dL 7-18 [facility] Thin prep Papanicolaou smear with manual screeningOrdered By: Dr. Sánchez on 04-23-2022 Thin prep Papanicolaou smear with manual screening 29 U/L 15-37 [facility] Thin prep Papanicolaou smear with manual screening 6 5-15 [facility] Absolute lymphocyte countOrd ered By: Dr. Sánchez on 03-21-2022 Lymphocytes Auto (Unsp spec) [#/Vol] 2.82 10*3/uL 0.83-4.51 [facility] Basophil percentageOrdered B y: Dr. Sánchez on 03-21-2022 Basophils/100 WBC (Bld) 1.0 % 0-1 [facility] Bilirubin [Mass/Vol] 0.50 mg/dL 0.20-1.00 [facility] Comment on above: For patients on eltr ombopag therapy, use of Dimension [place] TBIL is not recommended. Chloride [Moles/Vol] 107 mmol/L 98-107 [facility] Eosinophils/100 WBC (Bld) 5.8 % 0-5 [facility] Glucose [Mass/Vol] 98 mg/dL 74-106 [facility] Neutrophils (Bld) [#/Vol] 3.2 10*3/uL 2.0-7.7 [facility] Neutrophils/100 WBC (Bld) 45.4 % 47-70 [facility] Potassium [Moles/Vol] 4.1 mmol/L 3.5-5.1 [facility] Protein [Mass/Vol] 7.6 g/dL 6.4-8.2 [facility] Sodium [Moles/Vol] 141 mmol/L 136-145 [facility] WBC (Bld) [#/Vol] 7.1 10*3/uL 4.4-11.0 [facility] Blood erythrocytes count (nu mber/volume)Ordered By: Dr. Sánchez on 03-21-2022 RBC (Bld) [#/Vol] 5.23 10*6/uL 4.6-6.2 [facility] Blood hemoglobin measurement (mass/volume)Ordered By: Dr. Sánchez on 03-21-2022 Hemoglobin (Bld) [Mass/Vol] 15.8 g/dL 13.0-16.5 [facility] Blood lymphocytes/100 leukoc ytesOrdered By: Dr. Sánchez on 03-21-2022 Lymphocytes/100 WBC (Bld) 40.0 % 19-41 [facility] Blood monocytes/100 leukocyt esOrdered By: Dr. Sánchez on 03-21-2022 Monocytes/100 WBC (Bld) 7.7 % 0-10 [facility] Blood platelet mean volumeOr dered By: Dr. Sánchez on 03-21-2022 Platelet mean volume (Bld) [Entitic vol] 8.9 fL 6.2-12.0 [facility] Determination of erythrocyte mean corpuscular volume (MCV)Ordered By: Dr. Sánchez on 03-21-2022 MCV (RBC) [Entitic vol] 89.5 fL 80-94 [facility] Hematocrit Auto (Bld) [Volum e fraction]Ordered By: Dr. Sánchez on 03-21-2022 Hematocrit (Bld) [Volume fraction] 46.8 % 40-54 [facility] Laboratory - Chemistry and C hemistry - challengeOrdered By: Dr. Sánchez on 03-21-2022 ALP [Catalytic activity/Vol] 87 U/L 45-117 [facility] ALT [Catalytic activity/Vol] 63 U/L 16-61 [facility] CO2 [Moles/Vol] 27.0 mmol/L 21.0-32.0 [facility] Globulin (S) [Mass/Vol] 3.5 g/dL 2.2-4.2 [facility] Urea nitrogen/Creatinine [Mass ratio] 15.3 mg/mg 10-20 [facility] Laboratory - Hematology and Cell countsOrdered By: Dr. Sánchez on 03-21-2022 Erythrocyte distribution width (RBC) [Entitic vol] 41.1 fL 35.1-43.9 [facility] Erythrocyte distribution width (RBC) [Ratio] 12.7 % 11.6-14.6 [facility] Immature granulocytes/100 WBC (Bld) 0.100 % 0.0-0.9 [facility] Comment on above: IG% - Immature Granu locytes (promyelocytes, myelocytes and metamyelocytes) > 1% indicates that a LEFT SHIFT is Present. MCH (RBC) [Entitic mass] 30.2 pg 27.0-32.0 [facility] Nucleated RBC/100 WBC (Bld) [Ratio] 0 % 0-5 [facility] MCHC Auto (RBC) [Mass/Vol]Or dered By: Dr. Sánchez on 03-21-2022 MCHC (RBC) [Mass/Vol] 33.8 g/dL 32-36 [facility] No Panel InformationOrdered By: Dr. Sánchez on 03-21-2022 Estimated GFR (MDRD) Amer 77 mL/min >60 [facility] Comment on above: GFR Calc Estimated GFR (MDRD) Non-Af Amer 64 mL/min >60 [facility] Comment on above: Non- GFR Calc Platelets bldOrdered By: Dr. Sánchez on 03-21-2022 Platelets (Bld) [#/Vol] 278 10*3/uL 150-450 [facility] Serum or plasma albumin jacob urement (mass/volume)Ordered By: Dr. Sánchez on 03-21-2022 Albumin [Mass/Vol] 4.1 g/dL 3.2-5.0 [facility] Serum or plasma albumin/glob ulin mass ratioOrdered By: Dr. Sánchez on 03-21-2022 Albumin/Globulin [Mass ratio] 1.2 {ratio} 0.9-2.4 [facility] Serum or plasma calcium jacob urement (mass/volume)Ordered By: Dr. Sánchez on 03-21-2022 Calcium [Mass/Vol] 9.6 mg/dL 8.5-10.1 [facility] Serum or plasma creatinine m easurement (mass/volume)Ordered By: Dr. Sánchez on 03-21-2022 Creatinine [Mass/Vol] 1.24 mg/dL 0.70-1.30 [facility] Comment on above: The validity of the calculated GFR & GFRAA in patients over 70 years has not been determined. Clinical correlation is essential. Serum or plasma urea nitroge n measurement (mass/volume)Ordered By: Dr. Sánchez on 03-21-2022 Urea nitrogen [Mass/Vol] 19 mg/dL 7-18 [facility] Thin prep Papanicolaou smear with manual screeningOrdered By: Dr. Sánchez on 03-21-2022 Thin prep Papanicolaou smear with manual screening 33 U/L 15-37 [facility] Thin prep Papanicolaou smear with manual screening 7 5-15 [facility] COLONOSCOPY SCREENINGon 12-0 [facility] Absolute lymphocyte countOrd ered By: Dr. Sánchez on 01-03-2022 Lymphocytes Auto (Unsp spec) [#/Vol] 2.77 10*3/uL 0.83-4.51 [facility] Basophil percentageOrdered B y: Dr. Sánchez on 01-03-2022 Basophils/100 WBC (Bld) 0.7 % 0-1 [facility] Bilirubin [Mass/Vol] 0.50 mg/dL 0.20-1.00 [facility] Comment on above: For patients on eltr ombopag therapy, use of Dimension [place] TBIL is not recommended. Chloride [Moles/Vol] 108 mmol/L 98-107 [facility] Eosinophils/100 WBC (Bld) 2.7 % 0-5 [facility] Glucose [Mass/Vol] 95 mg/dL 74-106 [facility] Neutrophils (Bld) [#/Vol] 3.2 10*3/uL 2.0-7.7 [facility] Neutrophils/100 WBC (Bld) 47.8 % 47-70 [facility] Potassium [Moles/Vol] 4.0 mmol/L 3.5-5.1 [facility] Protein [Mass/Vol] 7.2 g/dL 6.4-8.2 [facility] Sodium [Moles/Vol] 139 mmol/L 136-145 [facility] WBC (Bld) [#/Vol] 6.7 10*3/uL 4.4-11.0 [facility] Bilirubin Test strip Ql (U)O rdered By: Dr. Sánchez on 01-03-2022 Bilirubin Ql (U) Negative Negative [facility] Blood erythrocytes count (nu mber/volume)Ordered By: Dr. Sánchez on 01-03-2022 RBC (Bld) [#/Vol] 5.17 10*6/uL 4.6-6.2 [facility] Blood hemoglobin measurement (mass/volume)Ordered By: Dr. Sánchez on 01-03-2022 Hemoglobin (Bld) [Mass/Vol] 15.2 g/dL 13.0-16.5 [facility] Blood lymphocytes/100 leukoc ytesOrdered By: Dr. Sánchez on 01-03-2022 Lymphocytes/100 WBC (Bld) 41.1 % 19-41 [facility] Blood monocytes/100 leukocyt esOrdered By: Dr. Sánchez on 01-03-2022 Monocytes/100 WBC (Bld) 7.4 % 0-10 [facility] Blood platelet mean volumeOr dered By: Dr. Sánchez on 01-03-2022 Platelet mean volume (Bld) [Entitic vol] 9.5 fL 6.2-12.0 [facility] Determination of erythrocyte mean corpuscular volume (MCV)Ordered By: Dr. Sánchez on 01-03-2022 MCV (RBC) [Entitic vol] 88.2 fL 80-94 [facility] Dilute Tono's viper venom timeOrdered By: Dr. Sánchez on 01-03-2022 RaniVT Coag (PPP) [Time] 37.5 s 0.0-47.0 [facility] Hematocrit Auto (Bld) [Volum e fraction]Ordered By: Dr. Sánchez on 01-03-2022 Hematocrit (Bld) [Volume fraction] 45.6 % 40-54 [facility] INR in Blood by Coagulation assayOrdered By: Dr. Sánchez on 01-03-2022 INR Coag (Bld) [Relative time] 0.9 {INR} [facility] Ketones Test strip Ql (U)Ord ered By: Dr. Sánchez on 01-03-2022 Ketones Ql (U) Negative Negative [facility] Laboratory - Chemistry and C hemistry - challengeOrdered By: Dr. Sánchez on 01-03-2022 ALP [Catalytic activity/Vol] 97 U/L 45-117 [facility] ALT [Catalytic activity/Vol] 44 U/L 16-61 [facility] CO2 [Moles/Vol] 22.0 mmol/L 21.0-32.0 [facility] Globulin (S) [Mass/Vol] 3.4 g/dL 2.2-4.2 [facility] Urea nitrogen/Creatinine [Mass ratio] 14.9 mg/mg 10-20 [facility] Laboratory - CoagulationOrde red By: Dr. Sánchez on 01-03-2022 aPTT Coag (Bld) [Time] 26.5 s 24.1-36.2 [facility] PT Coag (PPP) [Time] 12.0 s 11.7-14.9 [facility] Laboratory - Hematology and Cell countsOrdered By: Dr. Sánchez on 01-03-2022 Erythrocyte distribution width (RBC) [Entitic vol] 39.7 fL 35.1-43.9 [facility] Erythrocyte distribution width (RBC) [Ratio] 12.3 % 11.6-14.6 [facility] Immature granulocytes/100 WBC (Bld) 0.300 % 0.0-0.9 [facility] Comment on above: IG% - Immature Granu locytes (promyelocytes, myelocytes and metamyelocytes) > 1% indicates that a LEFT SHIFT is Present. MCH (RBC) [Entitic mass] 29.4 pg 27.0-32.0 [facility] Nucleated RBC/100 WBC (Bld) [Ratio] 0.3 % 0-5 [facility] Laboratory - Miscellaneous t estsOrdered By: Dr. Sánchez on 11-07-2022 Service comment (Unsp spec) [Interp] Comment . [facility] Comment on above: Results do not indic ate the presence of a LupusAnticoagulant: abnormal high screening results (PTT-LA,dRVVT, mixing studies), may be due to medication (heparin,warfarin, aspirin), Factor inhibitors, anticardiolipinantibodies, or poor specimen integrity.Performed at: [address] [id number] Director: Shashank Ward MD, Phone: [phone] [facility] Auto (RBC) [Mass/Vol]Or dered By: Dr. Sánchez on 01-03-2022 MCHC (RBC) [Mass/Vol] 33.3 g/dL 32-36 [facility] Nitrite Test strip Ql (U)Ord ered By: Dr. Sánchez on 01-03-2022 Nitrite Ql (U) Negative Negative [facility] No Panel InformationOrdered By: Dr. Sánchez on 01-03-2022 Estimated GFR (MDRD) Amer 85 mL/min >60 [facility] Comment on above: GFR Calc Estimated GFR (MDRD) Non-Af Amer 70 mL/min >60 [facility] Comment on above: Non- GFR Calc Hepatitis B Surface Antigen Non-Reactive Nonreactive [facility] Hepatitis C Antibody Non-Reactive Nonreactive [facility] Comment on above: Non Reactive: < 0.8 Equivocal: >/= 0.8 to < 1.0 Reactive: >/= 1.0The CDC recommends that a reactive/equivocal HCV antibody result be followed up by the HCV Nucleic Acid Amplificationtest ([id number]) Miscellaneous Test Comment MAILED SPECIMEN [facility] Platelets bldOrdered By: Dr. Sánchez on 01-03-2022 Platelets (Bld) [#/Vol] 256 10*3/uL 150-450 [facility] Protein Test strip Ql (U)Ord ered By: Dr. Sánchez on 01-03-2022 Protein Ql (U) Negative Negative [facility] Serum hepatitis B virus surf jelena antibody IgG detectionOrdered By: Dr. Sánchez on 01-03-2022 HBV surface IgG Ql (S) Non-Reactive [facility] Comment on above: Non Reactive: Incons istent with immunity less than <10 mIU/mL Reactive: Consistent with immunity greater than or equal to 10 mIU/mL Serum or plasma albumin jacob urement (mass/volume)Ordered By: Dr. Sánchez on 01-03-2022 Albumin [Mass/Vol] 3.8 g/dL 3.2-5.0 [facility] Serum or plasma albumin/glob ulin mass ratioOrdered By: Dr. Sánchez on 01-03-2022 Albumin/Globulin [Mass ratio] 1.1 {ratio} 0.9-2.4 [facility] Serum or plasma calcium jacob urement (mass/volume)Ordered By: Dr. Sánchez on 01-03-2022 Calcium [Mass/Vol] 8.7 mg/dL 8.5-10.1 [facility] Serum or plasma creatinine m easurement (mass/volume)Ordered By: Dr. Sánchez on 01-03-2022 Creatinine [Mass/Vol] 1.14 mg/dL 0.70-1.30 [facility] Comment on above: The validity of the calculated GFR & GFRAA in patients over 70 years has not been determined. Clinical correlation is essential. Serum or plasma urea nitroge n measurement (mass/volume)Ordered By: Dr. Sánchez on 01-03-2022 Urea nitrogen [Mass/Vol] 17 mg/dL 7-18 [facility] Thin prep Papanicolaou smear with manual screeningOrdered By: Dr. Sánchez on 01-03-2022 Thin prep Papanicolaou smear with manual screening 28 U/L 15-37 [facility] Thin prep Papanicolaou smear with manual screening 9 5-15 [facility] Thin prep Papanicolaou smear with manual screening 38.5 sec 0.0-47.6 [facility] Thin prep Papanicolaou smear with manual screening 1.20 Ratio 0.00-1.34 [facility] Thin prep Papanicolaou smear with manual screening 33.2 sec 0.0-51.9 [facility] Thin prep Papanicolaou smear with manual screening Comment: . [facility] Comment on above: No lupus anticoagula nt was detected. Thrombin time in platelet po or plasmaOrdered By: Dr. Sánchez on 01-03-2022 Thrombin time Coag (PPP) [Time] 18.6 sec 0.0-23.0 [facility] Urine blood detectionOrdered By: Dr. Sánchez on 01-03-2022 RBC Ql (U) Negative Negative [facility] Urine clarityOrdered By: Dr. Sánchez on 01-03-2022 Clarity (U) Clear Clear [facility] Urine color determinationOrd ered By: Dr. Sánchez on 01-03-2022 Color (U) Yellow Yellow [facility] Urine creatinine measurement (mass/volume)Ordered By: Dr. Sánchez on 01-03-2022 Creatinine (U) [Mass/Vol] 119.00 mg/dL NO RANGE EST. [facility] Urine glucose detectionOrder ed By: Dr. Sánchez on 01-03-2022 Glucose Ql (U) Normal mg/dl Normal [facility] Urine leukocyte esterase det ection by dipstickOrdered By: Dr. Sánchez on 01-03-2022 Leukocyte esterase Test strip Ql (U) Negative Negative [facility] Urine pHOrdered By: Dr. Ruben pang on 01-03-2022 pH (U) 6.0 [pH] 5.0 - 8.0 [facility] Urine protein measurement (m ass/volume)Ordered By: Dr. Sánchez on 01-03-2022 Protein (U) [Mass/Vol] 6.9 mg/dL 0.0-11.8 [facility] Urine protein/creatinine mas s ratioOrdered By: Dr. Sánchez on 01-03-2022 Protein/Creatinine (U) [Mass ratio] 58 mg/g CRE 0-200 [facility] Urine specific gravity measu rementOrdered By: Dr. Sánchez on 01-03-2022 Specific gravity (U) [Rel density] 1.020 1.002-1.030 [facility] Urobilinogen Auto test strip Ql (U)Ordered By: Dr. Sánchez on 01-03-2022 Urobilinogen Ql (U) Normal mg/dl Normal [facility] ECG COMPLETEon 11-03-2021 Atrial Rate 60 BPM [facility] Calculated P [place] 37 degrees [facility] Calculated R [place] 0 degrees [facility] Calculated T [place] 21 degrees [facility] P-R Interval 154 ms [facility] QRS Duration 88 ms [facility] QT Interval 430 ms [facility] QTC Calculation (Bazett) 430 ms [facility] Ventricular Rate 60 BPM [facility] XR Hand - bilateral PA and L ateral and Obliqueon 05-07-2021 IMPRESSION: No acute process. Media Production Support Manager: JANENE Transcribe Date/Time: May 07 2021 4:59P Dictated by : GABY UMAÑA MD This examination was interpreted and the report reviewed and electronically signed by: GABY UMAÑA MD on May 07 2021 5:00PM [facility] DIVISION OF RADIOLOGY * * *Final Report* * * DATE OF EXAM: May 07 2021 4:08PM WOX 5556 - XR HAND 3V PA/LAT/OBL GUANAKITO / PROCEDURE REASON: multiple diagnoses * * * * Physician Interpretation * * * * EXAMINATION: XR HAND 3V PA/LAT/OBL GUANAKITO HISTORY: Diffuse bilateral hand pain increasing over the last several months. Negative injury Bilateral hand pain. Pain in other, joint. TECHNIQUE: XR HAND 3V PA/LAT/OBL GUANAKITO Laterality: BILATERAL Number of different views (projections): 3 M: XB_1 COMPARISON: There are no prior relevant studies for comparison. RESULT: AP, oblique and lateral radiographs of the bilateral hands show no acute osseous, articular or soft tissue abnormality. Joint spaces are preserved and there are no erosive or bony destructive changes. DIVISION OF RADIOLOGY Provider, [facility] [place] - 05/07/2021 * * *Final Report* * * DATE OF EXAM: May 07 2021 4:08PM WOX 5556 - XR HAND 3V PA/LAT/OBL GUANAKITO / PROCEDURE REASON: multiple diagnoses * * * * Physician Interpretation * * * * EXAMINATION: XR HAND 3V PA/LAT/OBL GUANAKITO HISTORY: Diffuse bilateral hand pain increasing over the last several months. Negative injury Bilateral hand pain. Pain in other, joint. TECHNIQUE: XR HAND 3V PA/LAT/OBL GUANAKITO Laterality: BILATERAL Number of different views (projections): 3 M: XB_1 COMPARISON: There are no prior relevant studies for comparison. RESULT: AP, oblique and lateral radiographs of the bilateral hands show no acute osseous, articular or soft tissue abnormality. Joint spaces are preserved and there are no erosive or bony destructive changes. IMPRESSION IMPRESSION: No acute process. Media Production Support Manager: PSCB Transcribe Date/Time: May 07 2021 4:59P Dictated by : GABY UMAÑA MD This examination was interpreted and the report reviewed and electronically signed by: GABY UMAÑA MD on May 07 2021 5:00PM EST [facility] Radiology Study observation (narrative) [facility] XR Hand - bilateral PA and L ateral and ObliqueOrdered By: [facility] Provider on 05-07-2021 [facility] XR Shoulder - left 3 Viewson 02-08-2021 IMPRESSION: No acute pathology. Media Production Support Manager: PSCB Transcribe Date/Time: Feb 08 2021 8:52A Dictated by : ZHAO GALINDO DO This examination was interpreted and the report reviewed and electronically signed by: ZHAO GALINDO DO on Feb 08 2021 8:52AM [facility] DIVISION OF RADIOLOGY * * *Final Report* * * DATE OF EXAM: Feb 08 2021 8:15AM WOX 5252 - XR SHLDR >/=3V AP/FLOR AP/OTHR LT / PROCEDURE REASON: Acute pain of left shoulder * * * * Physician Interpretation * * * * XR SHLDR >/=3V AP/FLOR AP/OTHR LT EXAM DATE/TIME: 02/08/2021 8:15 AM HISTORY: 55 years old Clinical information: Acute pain of left shoulder pain off and on for couple of years getting wrose, pain starts medial scapula and radiates up to the neck no inj TECHNIQUE: Images: XR SHLDR >/=3V AP/FLOR AP/OTHR LT Comparison: None. RESULT: Findings: Bone density appears well-preserved. No fractures or dislocations are seen. DIVISION OF RADIOLOGY Provider, [facility] [place] - 02/08/2021 * * *Final Report* * * DATE OF EXAM: Feb 08 2021 8:15AM WOX 5252 - XR SHLDR >/=3V AP/FLOR AP/OTHR LT / PROCEDURE REASON: Acute pain of left shoulder * * * * Physician Interpretation * * * * XR SHLDR >/=3V AP/FLOR AP/OTHR LT EXAM DATE/TIME: 02/08/2021 8:15 AM HISTORY: 55 years old Clinical information: Acute pain of left shoulder pain off and on for couple of years getting wrose, pain starts medial scapula and radiates up to the neck no inj TECHNIQUE: Images: XR SHLDR >/=3V AP/FLOR AP/OTHR LT Comparison: None. RESULT: Findings: Bone density appears well-preserved. No fractures or dislocations are seen. IMPRESSION IMPRESSION: No acute pathology. Media Production Support Manager: PSCB Transcribe Date/Time: Feb 08 2021 8:52A Dictated by : ZHAO GALINDO DO This examination was interpreted and the report reviewed and electronically signed by: ZHAO GALINDO DO on Feb 08 2021 8:52AM EST [facility] Radiology Study observation (narrative) [facility] XR Shoulder - left 3 ViewsOr dered By: [facility] Provider on 02-08-2021 [facility] HISTORY PHYSICALon HISTORY PHYSICAL HNO ID: [id number] Author: Irasema Love (Pa) Service: Orthopaedic Surgery Author Type: Physician Fleet Director Type: HANDP Filed: 03/30/2018 10:32 AM Note Text: Rashid Green MD Department of Orthopaedics Orthopaedics [address] [facility] [address] Dept: [phone] Dept ? ? March 22, 2018 ? ? CHIEF COMPLAINT: New Patient (Left CTS, Ref. F. Cebul; EMG 02-07-18) ? HPI: Mr. Dariusz Nguyen is a 52 year old male returns many years after we took care of his right carpal tunnel. He's been having worsening symptoms on the left. He reports still with excellent unresolved issues on his right one. Numbness and tingling on the left, nighttime symptoms. 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 ? ASSESSMENT: G56.02 Carpal tunnel syndrome of left wrist (primary encounter diagnosis) ? PLAN: the risks, benefits, alternatives and potential complications were discussed and he would like to pursue carpal tunnel release on the left. ? FOLLOW UP INSTRUCTIONS: we'll schedule him for a local anesthetic procedure. ? OBJECTIVE: Mr. Dariusz Nguyen is a pleasant 52 year old in no apparent distress. Gen:BP 126/76[auto[ Pulse 63 Ht 5' 9" (1.75m) Wt 206 lb 3.2 oz (93.5kg) BMI 30.44 kg/(m2). nl development, non obese, no deformities ENT: Normocephalic, normal hearing, moist mucosa CV: Pulses:Radial= 2+ and symmetric, capillary refill < 2 secs, no peripheral edema/varicosities Heart: Regular rate and rhythm, normal S1 and S2 Lungs: Clear bilaterally. Skin: no rash, bruising or lesions. Good turgor. Psych: cooperative and appropriate, alert and oriented x 3, good mood and affect. Musculoskeletal: Cervical spine has supple range of motion and no tenderness to palpation, Spurling's sign negative. Shoulders and elbows have full range of motion. negative Tinel's over the cubital tunnel, no subluxation of ulnar nerve at the elbow with flexion. negative Tinel's over Guyon's canal. Inspection reveals no thenar atrophy. mild diminished sensation to light touch in the radial 3 digits. Sensation intact in the ulnar 2 digits with out intrinsic atrophy/weakness. positive Tinel's at the wrist, positive carpal tunnel compression testing on the left. No locking or catching of the digits. No tenderness to palpation or masses noted in the forearm or hand. ? electrodiagnostics: nerve testing from an outside facility suggests mild to moderate carpal tunnel on the left. ? ? Supporting Subjective Information Below: ? Past Medical History: PAST?MEDICAL?HISTOR Y PAST MEDICAL HISTORY Diagnosis Date - Carpal tunnel syndrome of right wrist 11/24/2010 - Inguinal hernia without mention of obstruction or gangrene, unilateral or unspecified, (not specified as recurrent) ? ? right - Right shoulder pain ? ? chronic - Snoring ? - Thoracic outlet syndrome ? - Tinnitus of both ears ? - Umbilical hernia without mention of obstruction or gangrene ? ? Past Surgical History: PAST?SURGICAL?HISTO RY PAST SURGICAL HISTORY Procedure Laterality Date - COLONOSCOP W/ OR W/O [facility] SPEC ? 12/25/2015 ? Colonoscopy - LAP REPAIR INTIAL INGUINAL HERNIA ? 01/02/06 ? BILATERAL INGUINAL HERNIA - REPAIR UMBILICAL KELIN,5+Y/O,REDUC ? 01/02/06 - REVISE MEDIAN N/CARPAL TUNNEL SURG ? ? ? Carpal tunnel decomp, right 02-15-11 ? Family History: FAMILY?HISTORY FAMILY HISTORY Problem Relation Age of Onset - Heart Father ? ? NC age 69 - Thyroid Mother ? - None Brother ? - None Sister ? - None Sister ? - None Sister ? - None Sister ? ? Social History: SOCIAL?HISTORY Social History Marital status: Spouse name: Years of education: Number of children: ? Social History Main Topics Smoking status: Never Smoker ? Smokeless tobacco: Never Used Alcohol use: Yes Comment: 1 beer per month Drug use: No Medications: CURRENT?MEDICATIONS Current Outpatient Prescriptions: Lactobacillus acidophilus (PROBIOTIC ORAL) Take by mouth once daily. MULTIVITAMIN TAB Take one(1) tablet daily. ? No current facility-administer ed medications for this visit. Allergies: Codeine; Sulfa (Sulfonamide Antibiotics) ? ? ROS: General (negative for fatigue, malaise, weight loss/gain) HEENT (negative for headache, earache, recent vision changes, sinus pain, sore throat) Respiratory (no recent shortness of breath, hemoptysis) CV (negative for chest tightness, palpitations) Musculoskeletal (see HPI) Psych (no depression, anxiety) ? ? REFERRING PHYSICIAN: Mr. Dariusz Nguyen was referred to me for consultation by the following physician. This consultation note will be sent to the following physician by either mail or electronic medical record. ? Long Caicedo III MD [address] [facility] [place] [address] ? Long Caicedo III MD [address] [facility] [id number] ? This note was partially generated using [employer] voice recognition system, and there may be some incorrect words, spellings, and punctuation that were not noted in checking the note before saving. ? ? Rashid Green MD ? [facility] NURSING PROGon 03-30-2018 Protein mass conc HNO ID: [id number] Author: Pankaj (Rn) ORAL Gudino Service: Nursing Author Type: Registered Nurse Type: Nursing Progress Note Filed: 03/30/2018 10:53 AM Note Text: Dr. Green at bedside for Left hand local nerve block. RN at bedside, pt monitored throughout, BP 137/75 Pulse 74 Temp 36.8 ?C (98.2 ?F) Resp 16 SpO2 97% . Pt tolerated procedure without difficulty. [facility] OPERATIVE NOon 03-30-2018 OPERATIVE NO HNO ID: [id number] Author: Rashid Green Service: Orthopaedic Surgery Author Type: Physician Type: Operative Report Filed: 03/30/2018 11:09 AM Note Text: OPERATIVE/PROCEDURE REPORT LOG ID: [id number] Surgery/Procedure Date: 03/30/2018 Incision/Procedure Start Time: 10:51 AM Incision Close/Procedure End Time: 11:05 AM Surgeon(s)/Procedur seanst(s) and Fleet Director(s): Surgeon(s) and Role: * Rashid Green - Primary Physician Fleet Director: Irasema Love (Pa) Registered Nurse Patient Admitting Clerk: Lisa Lawson) ORAL Mcguire Procedure(s): OPERATION: Left carpal tunnel release, open. ? ANESTHESIA: local. ? PREOPERATIVE DIAGNOSIS: Left carpal tunnel syndrome. ? POSTOPERATIVE DIAGNOSIS: Left carpal tunnel syndrome. ? OPERATIVE INDICATIONS: This is a pleasant 52 year old male who had worsening, numbness, and tingling. His electrodiagnostic showed moderate carpal tunnel syndrome. He exhausted conservative management and in the office, we discussed the risks, benefits, alternatives, and potential complications involving carpal tunnel release and he wished to pursue surgical intervention. ? OPERATIVE FINDINGS: Consistent with postoperative diagnosis. ? OPERATIVE PROCEDURE: On March 30, 2018, the patient was clearly identified in the preoperative area and marked accordingly on the Left palm by myself. In the preop area, Local anesthetic was provided at the palm and wrist with 1% lidocaine with 1:100,000 epinephrine for total of 20 mL. He was taken to the operative suite and placed in the supine position with an armboard on the Left. All other bony landmarks were appropriately padded in standard fashion. The arm was then sterilely prepped and draped in standard fashion. An appropriate time-out was conducted and all in the room were in agreement, signed consent form was on the chart. A longitudinal incision was made with in line with the third web space from 1 cm distal of the wrist crease to Alatorre's cardinal line. I used Aura Rakes to retract the soft tissues. Bipolar electrocautery was used for hemostasis. I bluntly dissected down with Littler scissors to distal edge of the transverse carpal ligament until a "flash of fat" was noted. I directly divided distal edge of the transverse carpal ligament with a #15 blade. Attention was then focused on the proximal portion and I used Littler scissors to bluntly dissect off the volar surface of the transverse carpal ligament. A carpal tunnel and median nerve protection guide was slid directly under the ligament for dilation and a second time for appropriate positioning, this was passed freely without any resistance. Subsequently, I selected a mini meniscotome Orange blade and slid this in the protective guide, completely dividing the transverse carpal ligament. Aura rakes were used to view up the wound to visualize for complete release and a [place] elevator was used to palpate for complete release. hemostasis was observed. The wound was copiously irrigated with normal saline and I closed with 3-0 nylons in horizontal mattress fashion for a total of 3. Xeroform gauze, sterile 4 x 4 gauze, Webril padding, and a Bias roll was used for final bandage. There were no complications during the procedure. The patient was safely transferred to the Postanesthetic Care Unit in stable condition. ? I performed the entire procedure. SIGNATURE: Rashid Green MD PATIENT NAME: Dariusz Nguyen DATE: March 30, 2018 TIME: 11:08 AM PAGER/CONTACT #: [facility] PT EDon 03-30-2018 PT ED HNO ID: [id number] Author: Jessika MahmoodRn) ORAL Crockett Service: (none) Author Type: Registered Nurse Type: Patient Education Filed: 03/30/2018 11:36 AM Note Text: POST OP LEARNING RESPONSE INSTRUCTION PROVIDED TO: Patient and family member METHOD OF INSTRUCTION: Teach Back done Individual instruction Written instruction - handouts Verbal instruction PATIENT / FAMILY RESPONSE: Verbalizes understanding of: MEDICATION PRESCRIBED-Accurate knowledge of prescribed medication prior to discharge POST-OPERATIVE INSTRUCTIONS-Correc t actions to take to reduce postoperative complications SYMPTOM MANAGEMENT-Correct actions to take to manage symptoms associated with his/her disease/illness WOUND CARE-Correct procedure to perform wound care FOLLOW-UP PLAN: Patient instructed to call with any further issues Contact information given. SUPPLEMENTAL MATERIAL: None REFERRAL (RECOMMENDATION): None Electronically Signed By: Jessika Crockett RN In Department: [facility] SURGERY [facility] PT ED HNO ID: [id number] Author: Pankaj MahmoodRn) ORAL Gudino Service: Nursing Author Type: Registered Nurse Type: Patient Education Filed: 03/30/2018 10:04 AM Note Text: PRE OP LEARNING ASSESSMENT PROCEDURE/SURGERY: SURGERY: local left carpal tunnel READINESS TO LEARN COGNITIVE ABILITY: Alert and oriented MOTIVATION TO LEARN: Eager FAMILY SUPPORT: High - Very involved in pt care PATIENT LEARNS BEST BY: Individual Instruction Verbal Instruction FACTORS AFFECTING LEARNING: None PHYSICAL LIMITATIONS AFFECTING LEARNING: None Electronically Signed By: Pankaj Gudino RN In Department: [facility] SURGERY Normal [facility] HOSPon 03-22-2018 HOSP Patient:Henrik Nguyen MRN: Height:5' 9"(1.753 m) Weight:206 lb 3.2 oz (93.532 kg) Outpatient Medications as of 03/30/18: Lactobacillus acidophilus (PROBIOTIC ORAL) MULTIVITAMIN TAB Admission/Clinic Administered Medications as of 03/30/18: lidocaine-EPINEPHri ne 2 %-1:100,000 30 mL injection Problem List: Chest pain, unspecified [R07.9] HERNIA UMBILICAL [K42.9] HERNIA INGUINAL,UNILATERAL (Right) [K40.90] Right shoulder pain [M25.511] Thoracic outlet syndrome [G54.0] Carpal tunnel syndrome of right wrist [G56.01] Cervical disc disorder [M50.90] Encounter for examination for driving license [Z02.4] Left carpal tunnel syndrome [G56.02] Carpal tunnel syndrome of left wrist [G56.02] Allergies: Codeine Sulfa (Sulfonamide Antibiotics) Date Verified: 03/30/18 Lab Values No results within the last 30 days for the following basenames: K,HCT Progress Notes ([facility]): Katherin Mooney Ma 03/22/2018 4:38 PM Signed Surgical request completed for left CTR under local anesthesia at [facility] on 03/30/2018. Post op appointments have been scheduled and mailed to patient. Katherin Mooney Ma 03/23/2018 1:55 PM Signed Patient has been scheduled as requested. Vicky Early [facility] 03/23/2018 3:26 PM Signed Noted in [place]. Progress Notes ([facility]): Dayami Gan RN 03/22/2018 4:47 PM Signed AMB ROOMING INTAKE FLOWSHEET DATA Risk Screening Do you have concerns about personal safety or safety in the home?: No Pain Pain Score: 0/10 (0-7) Pain Location: Hand-Left Description: Numbness, Tingling, Aching Duration Amount of Time: 6 Duration Units: Years Frequency: Intermittent Intervention: Medication Patient presents with: New Patient: Left CTS, Ref. Jens Caicedo; EMG 02-07-18 Patient c/o numbness and tingling in left hand for 6 years. Patient is left hand dominant. Taking ibuprofen 400mg a day with some relief. Rashid Green MD 03/22/2018 4:47 PM Signed Rashid Green MD Department of Orthopaedics Orthopaedics 1 [facility] [address] Dept: [phone] Dept March 22, 2018 CHIEF COMPLAINT: New Patient (Left CTS, Ref. Jens Caicedo; EMG 02-07-18) HPI: Mr. Dariusz Nguyen is a 52 year old male returns many years after we took care of his right carpal tunnel. He's been having worsening symptoms on the left. He reports still with excellent unresolved issues on his right one. Numbness and tingling on the left, nighttime symptoms. 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 ASSESSMENT: G56.02 Carpal tunnel syndrome of left wrist (primary encounter diagnosis) PLAN: the risks, benefits, alternatives and potential complications were discussed and he would like to pursue carpal tunnel release on the left. FOLLOW UP INSTRUCTIONS: we'll schedule him for a local anesthetic procedure. OBJECTIVE: Mr. Dariusz Nguyen is a pleasant 52 year old in no apparent distress. Gen:BP 126/76[auto[ Pulse 63 Ht 5' 9" (1.75m) Wt 206 lb 3.2 oz (93.5kg) BMI 30.44 kg/(m2). nl development, non obese, no deformities ENT: Normocephalic, normal hearing, moist mucosa CV: Pulses:Radial= 2+ and symmetric, capillary refill < 2 secs, no peripheral edema/varicosities Heart: Regular rate and rhythm, normal S1 and S2 Lungs: Clear bilaterally. Skin: no rash, bruising or lesions. Good turgor. Psych: cooperative and appropriate, alert and oriented x 3, good mood and affect. Musculoskeletal: Cervical spine has supple range of motion and no tenderness to palpation, Spurling's sign negative. Shoulders and elbows have full range of motion. negative Tinel's over the cubital tunnel, no subluxation of ulnar nerve at the elbow with flexion. negative Tinel's over Guyon's canal. Inspection reveals no thenar atrophy. mild diminished sensation to light touch in the radial 3 digits. Sensation intact in the ulnar 2 digits with out intrinsic atrophy/weakness. positive Tinel's at the wrist, positive carpal tunnel compression testing on the left. No locking or catching of the digits. No tenderness to palpation or masses noted in the forearm or hand. electrodiagnostics: nerve testing from an outside facility suggests mild to moderate carpal tunnel on the left. Supporting Subjective Information Below: Past Medical History: PAST MEDICAL HISTORY Diagnosis Date - Carpal tunnel syndrome of right wrist 11/24/2010 - Inguinal hernia without mention of obstruction or gangrene, unilateral or unspecified, (not specified as recurrent) right - Right shoulder pain chronic - Snoring - Thoracic outlet syndrome - Tinnitus of both ears - Umbilical hernia without mention of obstruction or gangrene Past Surgical History: PAST SURGICAL HISTORY Procedure Laterality Date - COLONOSCOP W/ OR W/O [facility] SPEC 12/25/2015 Colonoscopy - LAP REPAIR INTIAL INGUINAL HERNIA 01/02/06 BILATERAL INGUINAL HERNIA - REPAIR UMBILICAL KELIN,5+Y/O,REDUC 01/02/06 - [facility] MEDIAN N/CARPAL TUNNEL SURG Carpal tunnel decomp, right 02-15-11 Family History: FAMILY HISTORY Problem Relation Age of Onset - Heart Father [place] age 69 - Thyroid Mother - None Brother - None Sister - None Sister - None Sister - None Sister Social History:Social History Marital status: Spouse name: Years of education: Number of children: Social History Main Topics Smoking status: Never Smoker Smokeless tobacco: Never Used Alcohol use: Yes Comment: 1 beer per month Drug use: No Medications: Current Outpatient Prescriptions: Lactobacillus acidophilus (PROBIOTIC ORAL) Take by mouth once daily. MULTIVITAMIN TAB Take one(1) tablet daily. No current facility-administer ed medications for this visit. Allergies: Codeine; Sulfa (Sulfonamide Antibiotics) ROS: General (negative for fatigue, malaise, weight loss/gain) HEENT (negative for headache, earache, recent vision changes, sinus pain, sore throat) Respiratory (no recent shortness of breath, hemoptysis) CV (negative for chest tightness, palpitations) Musculoskeletal (see HPI) Psych (no depression, anxiety) REFERRING PHYSICIAN: Mr. Dariusz Nguyen was referred to me for consultation by the following physician. This consultation note will be sent to the following physician by either mail or electronic medical record. Long Caicedo III MD [address] [facility] [place] [address] Long Caicedo III MD [address] [facility] [id number] This note was partially generated using [employer] voice recognition system, and there may be some incorrect words, spellings, and punctuation that were not noted in checking the note before saving. Rashid Green MD [facility] Office Visiton 12-07-2016 Documentation of current medications (procedure) Done Invalid Interpretation Code [facility] Work Phone: Tobacco use [facility] Never smoker Invalid Interpretation Code [facility] Work Phone: Vital Signs Date Time Vital Sign Value Performing Clinician Facility 05-13-2024 18:11-0400 Body mass index (BMI) [Ratio] 31.31 kg/m2 Johanne Case MACHINE TOOL TECHNICIAN INSTRUCTOR.IAP DISPLAYS ANALYST Work Phone: [facility] 05-13-2024 18:11-0400 Body weight 96.16 kg Johanne Case APRN.IAP DISPLAYS ANALYST Work Phone: [facility] 05-13-2024 18:11-0400 Diastolic blood pressure 76 mm[Hg] Johanne Case MACHINE TOOL TECHNICIAN INSTRUCTOR.IAP DISPLAYS ANALYST Work Phone: [facility] 05-13-2024 18:11-0400 Heart rate 63 /min Johanne Case MACHINE TOOL TECHNICIAN INSTRUCTOR.IAP DISPLAYS ANALYST Work Phone: [facility] 05-13-2024 18:11-0400 Respiratory rate 16 /min Johanne Case MACHINE TOOL TECHNICIAN INSTRUCTOR.IAP DISPLAYS ANALYST Work Phone: [facility] 05-13-2024 18:11-0400 SaO2% (BldA) [Mass fraction] 94 % Johanne Case MACHINE TOOL TECHNICIAN INSTRUCTOR.IAP DISPLAYS ANALYST Work Phone: [facility] 05-13-2024 18:11-0400 Systolic blood pressure 132 mm[Hg] Johanne Case MACHINE TOOL TECHNICIAN INSTRUCTOR.IAP DISPLAYS ANALYST Work Phone: [facility] 02-12-2024 12:41-0500 Body temperature 98 [degF] Johanne Haagen VICE PRESIDENT REGULATORY-C Work Phone: [facility] 02-12-2024 12:41-0500 Diastolic blood pressure 74 mm[Hg] Johanne Haagen VICE PRESIDENT REGULATORY-C Work Phone: [facility] 02-12-2024 12:41-0500 Heart rate 61 /min Johanne Haagen VICE PRESIDENT REGULATORY-C Work Phone: 9(865)873-972695 [place] [address] 02-12-2024 12:41-0500 Respiratory rate 14 /min Johanne Haagen VICE PRESIDENT REGULATORY-C Work Phone: [facility] 02-12-2024 12:41-0500 SaO2% (BldA) [Mass fraction] 99 % Johanne Haagen VICE PRESIDENT REGULATORY-C Work Phone: 7(121)532-402[address] [place] [address] 02-12-2024 12:41-0500 Systolic blood pressure 127 mm[Hg] Johanne Haagen VICE PRESIDENT REGULATORY-C Work Phone: 8(034)563-717495 [place] [address] 02-12-2024 08:59-0500 Body height 172.72 cm Johanne Haagen VICE PRESIDENT REGULATORY-C Work Phone: 8(772)530-273795 [place] [address] 02-08-2024 00:38-0500 Body temperature 99.8 [degF] Johanne Haagen VICE PRESIDENT REGULATORY-C Work Phone: 3(565)[phone] [place] [address] 02-08-2024 00:38-0500 Diastolic blood pressure 78 mm[Hg] Johanne Haagen VICE PRESIDENT REGULATORY-C Work Phone: 1(830)[phone] [place] [address] 02-08-2024 00:38-0500 Heart rate 105 /min Johanne Haagen VICE PRESIDENT REGULATORY-C Work Phone: 8(484)372-335395 [place] [address] 02-08-2024 00:38-0500 Respiratory rate 20 /min Johanne Haagen VICE PRESIDENT REGULATORY-C Work Phone: 5(402)424-330795 [place] [address] 02-08-2024 00:38-0500 SaO2% (BldA) [Mass fraction] 100 % Johanne Haagen VICE PRESIDENT REGULATORY-C Work Phone: [facility] 02-08-2024 00:38-0500 Systolic blood pressure 124 mm[Hg] Johanne Josephagen VICE PRESIDENT REGULATORY-C Work Phone: [facility] 02-07-2024 22:08-0500 Body mass index (BMI) [Ratio] 31 kg/m2 Johanne Case VICE PRESIDENT REGULATORY-C Work Phone: [facility] 02-07-2024 22:08-0500 Body weight 92.53 kg Johanne Case VICE PRESIDENT REGULATORY-C Work Phone: [facility] 02-02-2024 13:03-0500 Diastolic blood pressure 82 mm[Hg] Johanne Haagen MACHINE TOOL TECHNICIAN INSTRUCTOR.IAP DISPLAYS ANALYST Work Phone: [facility] 02-02-2024 13:03-0500 Heart rate 93 /min Johanne Haagen MACHINE TOOL TECHNICIAN INSTRUCTOR.IAP DISPLAYS ANALYST Work Phone: [facility] 02-02-2024 13:03-0500 Respiratory rate 16 /min Johanne Haagen MACHINE TOOL TECHNICIAN INSTRUCTOR.IAP DISPLAYS ANALYST Work Phone: [facility] 02-02-2024 13:03-0500 SaO2% (BldA) [Mass fraction] 97 % Johanne Haagen MACHINE TOOL TECHNICIAN INSTRUCTOR.IAP DISPLAYS ANALYST Work Phone: [facility] 02-02-2024 13:03-0500 Systolic blood pressure 138 mm[Hg] Johanne Haagen MACHINE TOOL TECHNICIAN INSTRUCTOR.IAP DISPLAYS ANALYST Work Phone: [facility] 11-13-2023 18:20-0400 Diastolic blood pressure 78 mm[Hg] Johanne Haagen MACHINE TOOL TECHNICIAN INSTRUCTOR.IAP DISPLAYS ANALYST Work Phone: [facility] 11-13-2023 18:20-0400 Heart rate 71 /min Johanne Haagen MACHINE TOOL TECHNICIAN INSTRUCTOR.IAP DISPLAYS ANALYST Work Phone: [facility] 11-13-2023 18:20-0400 Respiratory rate 16 /min Johanne Haagen MACHINE TOOL TECHNICIAN INSTRUCTOR.IAP DISPLAYS ANALYST Work Phone: [facility] 11-13-2023 18:20-0400 SaO2% (BldA) [Mass fraction] 95 % Johanne Haagen MACHINE TOOL TECHNICIAN INSTRUCTOR.IAP DISPLAYS ANALYST Work Phone: [facility] 11-13-2023 18:20-0400 Systolic blood pressure 118 mm[Hg] Johanne Case MACHINE TOOL TECHNICIAN INSTRUCTOR.IAP DISPLAYS ANALYST Work Phone: [facility] 07-28-2023 15:58-0400 Body mass index (BMI) [Ratio] 30.93 kg/m2 Roger Estevez MD Work Phone: [facility] 07-28-2023 15:58-0400 Body temperature 96.91 [degF] Roger Estevez MD Work Phone: [facility] 07-28-2023 15:58-0400 Body weight 95 kg Roger Estevez MD Work Phone: [facility] 07-28-2023 15:58-0400 Diastolic blood pressure 76 mm[Hg] Roger Estevez MD Work Phone: [facility] 07-28-2023 15:58-0400 Heart rate 70 /min Roger Estevez MD Work Phone: [facility] 07-28-2023 15:58-0400 Respiratory rate 18 /min Roger Estevez MD Work Phone: [facility] 07-28-2023 15:58-0400 SaO2% (BldA) [Mass fraction] 97 % Roger Estevez MD Work Phone: [facility] 07-28-2023 15:58-0400 Systolic blood pressure 116 mm[Hg] Roger Estevez MD Work Phone: [facility] 05-15-2023 18:18-0400 Body weight 96.16 kg Johanne Case MACHINE TOOL TECHNICIAN INSTRUCTOR.IAP DISPLAYS ANALYST Work Phone: [facility] 05-15-2023 18:18-0400 Diastolic blood pressure 84 mm[Hg] Johanne Case MACHINE TOOL TECHNICIAN INSTRUCTOR.IAP DISPLAYS ANALYST Work Phone: [facility] 05-15-2023 18:18-0400 Heart rate 86 /min Johanne Case MACHINE TOOL TECHNICIAN INSTRUCTOR.IAP DISPLAYS ANALYST Work Phone: [facility] 05-15-2023 18:18-0400 Respiratory rate 16 /min Johanne Case MACHINE TOOL TECHNICIAN INSTRUCTOR.IAP DISPLAYS ANALYST Work Phone: [facility] 05-15-2023 18:18-0400 SaO2% (BldA) [Mass fraction] 94 % Johanne Case MACHINE TOOL TECHNICIAN INSTRUCTOR.IAP DISPLAYS ANALYST Work Phone: [facility] 05-15-2023 18:18-0400 Systolic blood pressure 120 mm[Hg] Johanne Case MACHINE TOOL TECHNICIAN INSTRUCTOR.IAP DISPLAYS ANALYST Work Phone: [facility] 04-19-2023 21:52-0500 Body temperature 97.4 [degF] [facility] 04-19-2023 21:52-0500 Diastolic blood pressure 64 mm[Hg] [facility] 04-19-2023 21:52-0500 Heart rate 68 /min [facility] 04-19-2023 21:52-0500 Respiratory rate 18 /min [facility] 04-19-2023 21:52-0500 SaO2% (BldA) [Mass fraction] 96 % [facility] 04-19-2023 21:52-0500 Systolic blood pressure 130 mm[Hg] [facility] 04-19-2023 18:47-0500 Body height 172.72 cm [facility] 04-19-2023 18:47-0500 Body mass index (BMI) [Ratio] 32.3 kg/m2 [facility] 04-19-2023 18:47-0500 Body weight 96.43 kg [facility] 04-19-2023 18:32-0500 Body temperature 97.7 [degF] Haven Donovaner MACHINE TOOL TECHNICIAN INSTRUCTOR.IAP DISPLAYS ANALYST Work Phone: [facility] 04-19-2023 18:32-0500 Body weight 96.53 kg Haven Ndiaye MACHINE TOOL TECHNICIAN INSTRUCTOR.IAP DISPLAYS ANALYST Work Phone: [facility] 04-19-2023 18:32-0500 Diastolic blood pressure 78 mm[Hg] Haven Donovaner MACHINE TOOL TECHNICIAN INSTRUCTOR.IAP DISPLAYS ANALYST Work Phone: [facility] 04-19-2023 18:32-0500 Heart rate 74 /min Haven Ndiaye MACHINE TOOL TECHNICIAN INSTRUCTOR.IAP DISPLAYS ANALYST Work Phone: [facility] 04-19-2023 18:32-0500 Respiratory rate 18 /min Haven Ndiaye MACHINE TOOL TECHNICIAN INSTRUCTOR.IAP DISPLAYS ANALYST Work Phone: [facility] 04-19-2023 18:32-0500 SaO2% (BldA) [Mass fraction] 97 % Haven Ndiaye MACHINE TOOL TECHNICIAN INSTRUCTOR.IAP DISPLAYS ANALYST Work Phone: [facility] 04-19-2023 18:32-0500 Systolic blood pressure 132 mm[Hg] Haven Ndiaye MACHINE TOOL TECHNICIAN INSTRUCTOR.IAP DISPLAYS ANALYST Work Phone: [facility] 01-09-2023 19:02-0500 Body weight 95.25 kg Rishabh Mei MD Work Phone: [facility] 01-09-2023 19:02-0500 Diastolic blood pressure 82 mm[Hg] Rishabh Mei MD Work Phone: [facility] 01-09-2023 19:02-0500 Heart rate 81 /min Rishabh Mei MD Work Phone: [facility] 01-09-2023 19:02-0500 SaO2% (BldA) [Mass fraction] 95 % Rishabh Mei MD Work Phone: [facility] 01-09-2023 19:02-0500 Systolic blood pressure 128 mm[Hg] Rishabh Mei MD Work Phone: [facility] 10-24-2022 18:29-0400 Body weight 94.35 kg Johanne Haagen MACHINE TOOL TECHNICIAN INSTRUCTOR.IAP DISPLAYS ANALYST Work Phone: [facility] 10-24-2022 18:29-0400 Diastolic blood pressure 78 mm[Hg] Johanne Haagen MACHINE TOOL TECHNICIAN INSTRUCTOR.IAP DISPLAYS ANALYST Work Phone: [facility] 10-24-2022 18:29-0400 Heart rate 82 /min Johanne Haagen MACHINE TOOL TECHNICIAN INSTRUCTOR.IAP DISPLAYS ANALYST Work Phone: [facility] 10-24-2022 18:29-0400 Respiratory rate 16 /min Johanne Haagen MACHINE TOOL TECHNICIAN INSTRUCTOR.IAP DISPLAYS ANALYST Work Phone: [facility] 10-24-2022 18:29-0400 SaO2% (BldA) [Mass fraction] 94 % Johanne Haagen MACHINE TOOL TECHNICIAN INSTRUCTOR.IAP DISPLAYS ANALYST Work Phone: [facility] 10-24-2022 18:29-0400 Systolic blood pressure 118 mm[Hg] Johanne Haagen MACHINE TOOL TECHNICIAN INSTRUCTOR.IAP DISPLAYS ANALYST Work Phone: [facility] 04-25-2022 19:00-0500 Diastolic blood pressure 82 mm[Hg] Johanne Haagen MACHINE TOOL TECHNICIAN INSTRUCTOR.IAP DISPLAYS ANALYST Work Phone: [facility] 04-25-2022 19:00-0500 Systolic blood pressure 128 mm[Hg] Johanne Haagen MACHINE TOOL TECHNICIAN INSTRUCTOR.IAP DISPLAYS ANALYST Work Phone: [facility] 04-25-2022 18:41-0500 Heart rate 68 /min Johanne Haagen MACHINE TOOL TECHNICIAN INSTRUCTOR.IAP DISPLAYS ANALYST Work Phone: [facility] 04-25-2022 18:41-0500 Respiratory rate 18 /min Johanne Haagen MACHINE TOOL TECHNICIAN INSTRUCTOR.IAP DISPLAYS ANALYST Work Phone: [facility] 04-25-2022 18:41-0500 SaO2% (BldA) [Mass fraction] 98 % Johanne Haagen MACHINE TOOL TECHNICIAN INSTRUCTOR.IAP DISPLAYS ANALYST Work Phone: [facility] 03-28-2022 18:30-0500 Diastolic blood pressure 96 mm[Hg] Johanne Haagen MACHINE TOOL TECHNICIAN INSTRUCTOR.IAP DISPLAYS ANALYST Work Phone: [facility] 03-28-2022 18:30-0500 Heart rate 72 /min Johanne Haagen MACHINE TOOL TECHNICIAN INSTRUCTOR.IAP DISPLAYS ANALYST Work Phone: [facility] 03-28-2022 18:30-0500 Respiratory rate 18 /min Johanne Haagen MACHINE TOOL TECHNICIAN INSTRUCTOR.IAP DISPLAYS ANALYST Work Phone: [facility] 03-28-2022 18:30-0500 SaO2% (BldA) [Mass fraction] 97 % Johanne Haagen MACHINE TOOL TECHNICIAN INSTRUCTOR.IAP DISPLAYS ANALYST Work Phone: [facility] 03-28-2022 18:30-0500 Systolic blood pressure 142 mm[Hg] Johanne Haagen MACHINE TOOL TECHNICIAN INSTRUCTOR.IAP DISPLAYS ANALYST Work Phone: [facility] 03-10-2022 16:52-0500 Body weight 97.52 kg Rishabh Mei MD Work Phone: [facility] 03-10-2022 16:52-0500 Diastolic blood pressure 92 mm[Hg] Rishabh Mei MD Work Phone: [facility] 03-10-2022 16:52-0500 Heart rate 61 /min Rishabh Mei MD Work Phone: [facility] 03-10-2022 16:52-0500 SaO2% (BldA) [Mass fraction] 96 % Rishabh Mei MD Work Phone: [facility] 03-10-2022 16:52-0500 Systolic blood pressure 132 mm[Hg] Rishabh Mei MD Work Phone: [facility] 01-28-2022 13:03-0500 Diastolic blood pressure 89 mm[Hg] Evangelina Garcia MD Work Phone: [facility] 01-28-2022 13:03-0500 Heart rate 66 /min Evangelina Garcia MD Work Phone: [facility] 01-28-2022 13:03-0500 Respiratory rate 16 /min Evangelina Garcia MD Work Phone: [facility] 01-28-2022 13:03-0500 SaO2% (BldA) [Mass fraction] 95 % Evangelina Garcia MD Work Phone: [facility] 01-28-2022 13:03-0500 Systolic blood pressure 132 mm[Hg] Evangelina Garcia MD Work Phone: [facility] 01-28-2022 11:47-0500 Body temperature 97.3 [degF] Evangelina Garcia MD Work Phone: [facility] 01-28-2022 11:47-0500 Body weight 98 kg Evangelina Garcia MD Work Phone: [facility] 12-22-2021 08:21-0400 Body height 175.3 cm Haven Elizondo PA-C Work Phone: [facility] 12-22-2021 08:21-0400 Body temperature 97.9 [degF] Haven [place] PA-C Work Phone: [facility] 12-22-2021 08:21-0400 Body weight 97.98 kg Haven [place] PA-C Work Phone: [facility] 12-22-2021 08:21-0400 Diastolic blood pressure 80 mm[Hg] Haven [place] PA-C Work Phone: [facility] 12-22-2021 08:21-0400 Heart rate 66 /min Haven Caro PA-C Work Phone: [facility] 12-22-2021 08:21-0400 SaO2% (BldA) [Mass fraction] 96 % Haven Caro PA-C Work Phone: [facility] 12-22-2021 08:21-0400 Systolic blood pressure 110 mm[Hg] Haven Caro PA-C Work Phone: [facility] 12-13-2021 17:17-0400 Diastolic blood pressure 88 mm[Hg] Johanne Haagen MACHINE TOOL TECHNICIAN INSTRUCTOR.IAP DISPLAYS ANALYST Work Phone: [facility] 12-13-2021 17:17-0400 Heart rate 61 /min Johanne Haagen MACHINE TOOL TECHNICIAN INSTRUCTOR.IAP DISPLAYS ANALYST Work Phone: [facility] 12-13-2021 17:17-0400 Respiratory rate 18 /min Johanne Haagen MACHINE TOOL TECHNICIAN INSTRUCTOR.IAP DISPLAYS ANALYST Work Phone: [facility] 12-13-2021 17:17-0400 SaO2% (BldA) [Mass fraction] 95 % Johanne Haagen MACHINE TOOL TECHNICIAN INSTRUCTOR.IAP DISPLAYS ANALYST Work Phone: [facility] 12-13-2021 17:17-0400 Systolic blood pressure 128 mm[Hg] Johanne Haagen MACHINE TOOL TECHNICIAN INSTRUCTOR.IAP DISPLAYS ANALYST Work Phone: [facility] 11-03-2021 15:07-0400 Body height 177 cm Johanne Haagen MACHINE TOOL TECHNICIAN INSTRUCTOR.IAP DISPLAYS ANALYST Work Phone: [facility] 11-03-2021 15:07-0400 Body weight 98.88 kg Johanne Case MACHINE TOOL TECHNICIAN INSTRUCTOR.IAP DISPLAYS ANALYST Work Phone: [facility] 11-03-2021 15:07-0400 Diastolic blood pressure 90 mm[Hg] Johanne Case MACHINE TOOL TECHNICIAN INSTRUCTOR.IAP DISPLAYS ANALYST Work Phone: [facility] 11-03-2021 15:07-0400 Heart rate 64 /min Johanne Case MACHINE TOOL TECHNICIAN INSTRUCTOR.IAP DISPLAYS ANALYST Work Phone: [facility] 11-03-2021 15:07-0400 Respiratory rate 18 /min Johanne Case MACHINE TOOL TECHNICIAN INSTRUCTOR.IAP DISPLAYS ANALYST Work Phone: [facility] 11-03-2021 15:07-0400 SaO2% (BldA) [Mass fraction] 95 % Johanne Case MACHINE TOOL TECHNICIAN INSTRUCTOR.IAP DISPLAYS ANALYST Work Phone: [facility] 11-03-2021 15:07-0400 Systolic blood pressure 128 mm[Hg] Johanne Case MACHINE TOOL TECHNICIAN INSTRUCTOR.IAP DISPLAYS ANALYST Work Phone: [facility] 12-07-2016 12:53-0400 BMI (Body Mass Index) 27.32 kg/m2 [facility] Work Phone: 12-07-2016 12:53-0400 Height 175.26 cm [facility] Work Phone: 12-07-2016 12:53-0400 Weight 83.92 kg [facility] Work Phone: Encounters Encounter Date Encounter Type Care Provider Facility Start: 07-13-2024 End: 07-13-2024 ambulatory Johanne Case VICE PRESIDENT REGULATORY-C Work Phone: [facility] Work Phone: Start: 07-13-2024 End: 07-13-[address] Luz Sánchez MD -Laboratory Work Phone: Start: 07-13-2024 End: 07-13-2024 ambulatory Luz Sánchez Facility:[facility] Start: 07-08-2024 End: 07-08-2024 Refill Johanne Case APRN.IAP DISPLAYS ANALYST Work Phone: [address] [place] [address] Comment on above: Refill Request Start: 05-22-2024 End: 05-23-2024 Telephone encounter Johanne Case APRN.IAP DISPLAYS ANALYST Work Phone: [facility] Comment on above: Results Start: 05-16-2024 End: 05-16-2024 ambulatory Johanne Case VICE PRESIDENT REGULATORY-C Work Phone: [facility] Work Phone: Start: 05-16-2024 End: 05-16-2024 Patient encounter procedure Johanne Case VICE PRESIDENT REGULATORY-C -Laboratory Work Phone: Start: 05-16-2024 End: 05-16-2024 ambulatory Johanne Case VICE PRESIDENT REGULATORY Facility:[facility] Start: 05-13-2024 End: 05-13-2024 Office outpatient visit 25 minutes Johanne Case APRN.IAP DISPLAYS ANALYST Work Phone: [facility] Comment on above: Primary hypertension (Primary Dx); Rheumatoid arthritis involving multiple sites with positive rheumatoid factor (HCC); Hyperlipidemia with target LDL less than 130; Hypothyroidism, acquired; Decreased libido Start: 05-13-2024 End: 05-13-2024 ambulatory [facility] Facility:[facility] Start: 04-13-2024 End: 04-13-[address] Luz Sánchez MD -Laboratory Work Phone: Start: 04-13-2024 End: 04-13-2024 ambulatory Johanne Case VICE PRESIDENT REGULATORY Facility:[facility] Start: 02-12-2024 End: 02-12-2024 Emergency department patient visit Dr. Aníbal Lundy MD -Emergency Department Work Phone: Start: 02-07-2024 End: 02-08-2024 Emergency department patient visit Rommel Brito DO -Emergency Department Work Phone: Start: 02-02-2024 End: 02-02-2024 Telephone encounter Johanne Case APRN.IAP DISPLAYS ANALYST Work Phone: [address] [place] [address] Start: 02-02-2024 End: 02-02-2024 Office outpatient visit 25 minutes Johanne Case MACHINE TOOL TECHNICIAN INSTRUCTOR.IAP DISPLAYS ANALYST Work Phone: [facility] Comment on above: Acute non-recurrent maxillary sinusitis (Primary Dx) Start: 02-02-2024 End: 02-02-2024 ambulatory [facility] Facility:[facility] Start: 01-24-2024 End: 01-24-2024 ambulatory [facility] Facility:[facility] Start: 11-13-2023 End: 11-13-2023 Office outpatient visit 25 minutes Johanne Case MACHINE TOOL TECHNICIAN INSTRUCTOR.IAP DISPLAYS ANALYST Work Phone: [facility] Comment on above: Primary hypertension (Primary Dx); Hypothyroidism, acquired; Hyperlipidemia with target LDL less than 130; Rheumatoid arthritis involving multiple sites with positive rheumatoid factor (HCC) Start: 11-13-2023 End: 11-13-2023 [facility] Facility:[facility] Start: 10-28-2023 End: 10-28-2023 ambulatory [facility] Facility:[facility] Start: 07-31-2023 Telephone encounter Johanne ovalle APRN.IAP DISPLAYS ANALYST Work Phone: [facility] Comment on above: Results Start: 07-28-2023 End: 07-29-2023 ambulatory [facility] Facility:[facility] Start: 07-28-2023 End: 07-28-2023 Patient encounter procedure Roger Estevez MD Work Phone: [facility] Comment on above: 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) Start: 07-17-2023 Refill Nilsa Doyle MACHINE TOOL TECHNICIAN INSTRUCTOR.IAP DISPLAYS ANALYST Work Phone: [facility] Comment on above: Refill Request Start: 05-15-2023 End: 05-15-2023 Office outpatient visit 25 minutes Johanne Case MACHINE TOOL TECHNICIAN INSTRUCTOR.IAP DISPLAYS ANALYST Work Phone: [facility] Comment on above: Primary hypertension (Primary Dx); Hypothyroidism, acquired; Hyperlipidemia with target LDL less than 130; Rheumatoid arthritis involving multiple sites with positive rheumatoid factor (HCC) Start: 04-19-2023 End: 04-19-2023 Emergency department patient visit [facility]-Emergency Department Work Phone: Start: 04-19-2023 End: 04-19-2023 Patient encounter procedure Haven Ndiaye APRN.IAP DISPLAYS ANALYST Work Phone: [facility] Comment on above: Headache, unspecifie d headache type (Primary Dx) Start: 04-15-2023 End: 04-15-2023 ambulatory [facility] Work Phone: Start: 04-15-2023 End: 04-15-2023 [facility] Start: 02-04-2023 End: 02-04-2023 ambulatory [facility] Work Phone: Start: 02-04-2023 End: 02-04-2023 [facility] Start: 01-09-2023 End: 01-09-2023 Patient encounter procedure Rishabh Mei MD Work Phone: [facility] Comment on above: Dermatitis (Primary Dx) Start: 11-12-2022 End: 11-12-2022 ambulatory [facility] Work Phone: Start: 11-12-2022 End: 11-12-2022 [facility] Start: 10-24-2022 End: 10-24-2022 Office outpatient visit 25 minutes Johanne Case APRN.IAP DISPLAYS ANALYST Work Phone: [facility] Comment on above: Primary hypertension (Primary Dx); Hypothyroidism, acquired; Hyperlipidemia with target LDL less than 130; Rheumatoid arthritis involving multiple sites with positive rheumatoid factor (HCC) Start: 08-18-2022 End: 08-18-2022 [facility] Start: 07-28-2022 Refill Johanne Case APRN.IAP DISPLAYS ANALYST Work Phone: [facility] Comment on above: Refill Request Start: 07-23-2022 Refill Basilio Shafer APRN.IAP DISPLAYS ANALYST, DNP Work Phone: [facility] Comment on above: Refill Request; Refi ll Request Start: 06-18-2022 End: 06-18-2022 [facility] Work Phone: Start: 06-18-2022 End: 06-18-2022 Patient encounter procedure [facility]-Laboratory Start: 04-25-2022 End: 04-25-2022 Office outpatient visit 25 minutes Johanne Case APRN.IAP DISPLAYS ANALYST Work Phone: [facility] Comment on above: Primary hypertension (Primary Dx); Hyperlipidemia with target LDL less than 130; Fatty liver Start: 04-23-2022 End: 04-23-2022 [facility] Work Phone: Start: 04-23-2022 End: 04-23-2022 Patient encounter procedure [facility]-Ultrasound, [facility] Start: 03-28-2022 End: 03-28-2022 Office outpatient visit 15 minutes Johanne Case APRN.IAP DISPLAYS ANALYST Work Phone: [facility] Comment on above: Primary hypertension (Primary Dx); Elevated liver enzymes Start: 03-21-2022 End: 03-21-2022 [facility] Work Phone: Start: 03-21-2022 End: 03-21-2022 Patient encounter procedure [facility]-Laboratory, [place] Start: 03-10-2022 End: 03-10-2022 Patient encounter procedure Rishabh Mei MD Work Phone: [facility] Comment on above: Primary hypertension (Primary Dx); Hypothyroidism, acquired Start: 01-28-2022 End: 01-28-2022 Subsequent hospital visit by physician Evangelina Garcia MD Work Phone: Ambulatory Surgery Comment on above: History of colonic p olyps [Z86.010] Start: 01-03-2022 End: 01-03-2022 [facility] Work Phone: Start: 01-03-2022 End: 01-03-2022 Patient encounter procedure [facility] Start: 12-22-2021 End: 12-22-2021 Patient encounter procedure Haven Elizondo PA-C Work Phone: General Surgery Comment on above: History of colonic p olyps (Primary Dx); Screening for colon cancer Start: 12-20-2021 Telephone encounter Johanne ovalle APRN.CNP Work Phone: [facility] Comment on above: Results Start: 12-13-2021 End: 12-13-2021 Office outpatient visit 25 minutes Johanne Case APRN.CNP Work Phone: [facility] Comment on above: Fatigue, unspecified type (Primary Dx); Screening for colon cancer; Hypothyroidism, acquired; Chest pain, unspecified type; Positive AUGUST (antinuclear antibody); Belching Start: 12-06-2021 Telephone encounter Johanne ovalle APRN.CNP Work Phone: [facility] Comment on above: Results Start: 11-30-2021 Telephone encounter Nurse Card Admin [facility] Work Phone: Cardiology Comment on above: Appointment (Stress test instructions) Start: 11-03-2021 End: 11-03-2021 Office outpatient visit 25 minutes Johanne Case APRN.MICHAEL Work Phone: [facility] Comment on above: Chest pain, unspecif ied type (Primary Dx); Screening for colon cancer; Hypothyroidism, acquired; Positive AUGUST (antinuclear antibody); Elevated glucose; Skin lesion Start: 07-19-2021 Refill Basilio Shafer APRN.CNP, DNP Work Phone: [facility] Comment on above: Refill Request Start: 07-05-2021 Telephone encounter Basilio ulloa APRN.CNP, DNP Work Phone: [facility] Comment on above: Results Start: 05-07-2021 End: 05-07-2021 Subsequent hospital visit by physician [facility] Work Phone: Radiology Comment on above: Bilateral hand pain [M79.641, M79.642] Start: 02-08-2021 End: 02-08-2021 Subsequent hospital visit by physician [facility] Work Phone: Radiology Comment on above: Acute pain of left s alexisulder [M25.512] Start: 03-30-2018 End: 03-30-2018 Patient encounter procedure [facility] Procedures Date Procedure Procedure Detail Performing Clinician Start: 04-13-2024 Measurement of renal function Johanne Case VICE PRESIDENT REGULATORY-C Work Phone: Comment on above: GFR Calc Start: 02-12-2024 X-ray of chest, PA a nd lateral views Johanne Case VICE PRESIDENT REGULATORY-C Work Phone: Start: 02-07-2024 X-ray of chest, PA a nd lateral views Johanne Case VICE PRESIDENT REGULATORY-C Work Phone: Start: 02-07-2024 SARS-CoV-2, Influenz a & RSV (PCR) Johanne Case VICE PRESIDENT REGULATORY-C Work Phone: Start: 07-29-2023 Lipid 1996 panel - S rafa or Plasma Johanne Case MACHINE TOOL TECHNICIAN INSTRUCTOR.IAP DISPLAYS ANALYST Work Phone: Start: 04-19-2023 CT of head without contrast Start: 04-30-2022 Lipid 1996 panel - S rafa or Plasma Evangelina Garcia MD Work Phone: Start: 04-23-2022 Ultrasonography of abdomen Start: 01-28-2022 Colonoscopy flx dx w /collj spec when pfrmd Haven Elizondo PA-C Work Phone: Start: 01-28-2022 Colonoscopy Rishabh Lockwood MD Work Phone: Start: 11-03-2021 Adult depression scr eening assessment Johanne Case MACHINE TOOL TECHNICIAN INSTRUCTOR.IAP DISPLAYS ANALYST Work Phone: Start: 05-07-2021 Radex hand minimum 3 views Basilio Shafer MACHINE TOOL TECHNICIAN INSTRUCTOR.IAP DISPLAYS ANALYST, DNP Work Phone: Start: 02-08-2021 Radex shoulder compl ete minimum 2 views Nilsa Doyle MACHINE TOOL TECHNICIAN INSTRUCTOR.IAP DISPLAYS ANALYST Work Phone: Start: 11-09-2017 Adult depression scr eening assessment Basilio Shafer APRN.DINORA RODRIGUEZ Work Phone: Start: 12-25-2015 Colonoscopy Basilio ulloa APRN.DINORA RODRIGUEZ Work Phone: Plan of Treatment Date Care Activity Detail Author Start: 07-28-2028 Lipid panel Lipid Screening [facility] Start: 05-01-2027 Lipid 1996 panel - Serum or Plasma Lipid Screening [facility] Start: 05-01-2027 Lipid panel Lipid Screening [facility] Start: 05-01-2027 LIPID SCREEN LIPID SCREEN [facility] Start: 01-28-2027 Colonoscopy COLONOSCOPY [facility] Start: 01-28-2027 COLORECTAL CANCER SCREENING COLORECTAL CANCER SCREENING [facility] Start: 01-28-2027 Screening for malign ant neoplasm of colon [facility] Start: 07-28-2026 Diabetes Screening Diabetes Screenin g [facility] Start: 07-03-2026 LIPID SCREEN LIPID SCREEN [facility] Start: 06-05-2025 PROSTATE CANCER SCREENING DISCUSSION PROSTATE CANCER SCREENING DISCUSSION [facility] Start: 06-05-2025 Prostate specific antigen measurement Prostate Cancer Screening Discussion [facility] Start: 05-13-2025 Annual PCP Team [employer] che[employer] Disease Visit Annual PCP Team Chronic Disease Visit [facility] Start: 02-01-2025 Annual PCP Team [employer] che[place] Disease Visit Annual PCP Team Chronic Disease Visit [facility] Start: 12-18-2024 DIABETES SCREEN DIABETES SCREEN [facility] Start: 12-18-2024 Diabetes Screening Diabetes Screenin g [facility] Start: 11-12-2024 Annual PCP Team [employer] che[place] Disease Visit Annual PCP Team Chronic Disease Visit [facility] Start: 11-12-2024 Anxiety Screening Anxiety Screening [facility] Comment on above: Postponed from 12/11 (Declined at this time) Start: 11-12-2024 BP Controlled (<130/80) BP Controlle d (<130/80) [facility] Start: 11-11-2024 End: 11-11-2024 Patient encounter procedure 11/11/2024 6:20 PM EDT Office Visit [facility] [address] [place] [address] Johanne Case APRN.IAP DISPLAYS ANALYST [address] [place], [place] [id number] 6 month follow up [facility] Comment on above: 6 month follow up Start: 10-28-2024 Influenza vaccination Influenz a Vaccine (Season Ended) [facility] Start: 08-26-2024 Influenza vaccination Influenza Vacc ine (#1) [facility] Comment on above: Postponed from 10/28 (Declined at this time) Start: 07-27-2024 BP Controlled (<130/80) BP Controlle d (<130/80) [facility] Start: 07-03-2024 DIABETES SCREEN DIABETES SCREEN [facility] Start: 05-23-2024 BP Controlled (<130/80) BP Controlle d (<130/80) [facility] Start: 05-14-2024 Annual PCP Team [employer] che[place] Disease Visit Annual PCP Team Chronic Disease Visit [facility] Start: 05-14-2024 Hepatitis B Vaccine (1 of 3 - 19+ 3-dose series) Hepatitis B Vaccine (1 of 3 - 19+ 3-dose series) [facility] Comment on above: Postponed from 12/11 (Declined at this time) Start: 05-14-2024 Pneumococcal vaccination Pneumococcal Vaccine (1 of 2 - PCV) [facility] Comment on above: Postponed from 12/11 (Declined at this time) Start: 05-14-2024 Shingrix Vaccine (1 of 2) Shingrix Vaccine (1 of 2) [facility] Comment on above: Postponed from 12/11 (Declined at this time) Start: 05-14-2024 Urine microalbumin profile DTaP,Tdap,Td Vaccine (2 - Td or Tdap) [facility] Comment on above: Postponed from 01/31 (Declined at this time) Start: 05-13-2024 End: 05-13-2024 Patient encounter procedure [facility] Comment on above: 6 month follow up Start: 05-13-2024 End: 08-12-2024 CBC W Auto Differential panel - Blood COMPLETE BLOOD COUNT AND DIFFERENTIAL Lab Routine Primary hypertension Expected: 05/13/2024, Expires: 08/12/2024 [facility] Work Phone: Comment on above: Expected: 05/13/2024 , Expires: 08/12/2024 Start: 05-13-2024 End: 08-12-2024 Comprehensive metabolic 2000 panel - Serum or Plasma COMPREHENSIVE METABOLIC PANEL Lab Routine Rheumatoid arthritis involving multiple sites with positive rheumatoid factor (HCC) Expected: 05/13/2024, Expires: 08/12/2024 [facility] Comment on above: Expected: 05/13/2024 , Expires: 08/12/2024 Start: 05-13-2024 End: 08-12-2024 Lipid 1996 panel - Serum or Plasma LIPID PANEL BASIC Lab Routine Hyperlipidemia with target LDL less than 130 Expected: 05/13/2024, Expires: 08/12/2024 [facility] Comment on above: Expected: 05/13/2024 , Expires: 08/12/2024 Start: 05-13-2024 End: 08-12-2024 Testosterone [Mass/volume] in Serum or Plasma TESTOSTERONE, TOTAL BY IMMUNOASSAY (ADULT MALES, OR INDIVIDUALS ON TESTOSTERONE THERAPY) Lab Routine Decreased libido Expected: 05/13/2024, Expires: 08/12/2024 [facility] Comment on above: Expected: 05/13/2024 , Expires: 08/12/2024 Start: 05-13-2024 End: 08-12-2024 Thyrotropin [Units/volume] in Serum or Plasma THYROID STIMULATING HORMONE Lab Routine Hypothyroidism, acquired Expected: 05/13/2024, Expires: 08/12/2024 [facility] Comment on above: Expected: 05/13/2024 , Expires: 08/12/2024 Start: 02-27-2024 Behavioral Health Screening Behavioral Health Screening [facility] Comment on above: Postponed from 02/27 (Declined at this time) Start: 02-27-2024 Depression Assessment Depression Ass essment [facility] Comment on above: Postponed from 02/27 (Declined at this time) Start: 02-12-2024 [facility] Start: 02-12-2024 Airborne precautions [facility] Start: 02-08-2024 [facility] Start: 01-10-2024 Annual PCP Team [employer] che[place] Disease Visit Annual PCP Team Chronic Disease Visit [facility] Start: 11-13-2023 End: 11-13-2023 Patient encounter procedure 11/13/2023 6:20 PM EDT Office Visit [facility] [address] [facility] [place] [address] Johanne Case APRN.IAP DISPLAYS ANALYST [address] [facility] [place] [address] 6 month follow up [facility] Comment on above: 6 month follow up Start: 11-13-2023 Depression Screening Depression Scre ening [facility] Comment on above: Postponed from 12/11 (Declined at this time) Start: 10-29-2023 Influenza vaccination Influenz a Vaccine (Season Ended) [facility] Start: 10-25-2023 ANNUAL PCP TEAM TYPE CASTING MACHINE OPERATOR CHESTER DISEASE VISIT ANNUAL PCP TEAM CHRONIC DISEASE VISIT [facility] Start: 10-25-2023 BP CONTROLLED (<130/80) BP CONTROLLE D (<130/80) [facility] Start: 08-27-2023 Influenza vaccination Influenza Vacc ine (#1) [facility] Comment on above: Postponed from 10/28 (Declined at this time) Start: 05-15-2023 End: 05-14-2024 CBC W Auto Differential panel - Blood CBC + DIFF Lab Routine Primary hypertension Hypothyroidism, acquired Expected: 05/15/2023, Expires: 05/14/2024 [facility] Work Phone: Comment on above: Expected: 05/15/2023 , Expires: 05/14/2024 Start: 05-15-2023 End: 05-14-2024 Comprehensive metabolic 2000 panel - Serum or Plasma COMP METABOLIC PANEL Lab Routine Primary hypertension Hyperlipidemia with target LDL less than 130 Expected: 05/15/2023, Expires: 05/14/2024 [facility] Work Phone: Comment on above: Expected: 05/15/2023 , Expires: 05/14/2024 Start: 05-15-2023 End: 05-14-2024 Lipid 1996 panel - Serum or Plasma LIPID PANEL BASIC Lab Routine Primary hypertension Hyperlipidemia with target LDL less than 130 Expected: 05/15/2023, Expires: 05/14/2024 [facility] Work Phone: Comment on above: Expected: 05/15/2023 , Expires: 05/14/2024 Start: 05-15-2023 End: 05-14-2024 Thyrotropin [Units/volume] in Serum or Plasma TSH BLD Lab Routine Primary hypertension Hypothyroidism, acquired Expected: 05/15/2023, Expires: 05/14/2024 [facility] Work Phone: Comment on above: Expected: 05/15/2023 , Expires: 05/14/2024 Start: 04-25-2023 ANNUAL PCP TEAM TYPE CASTING MACHINE OPERATOR CHESTER DISEASE VISIT ANNUAL PCP TEAM CHRONIC DISEASE VISIT [facility] Start: 04-19-2023 [facility] Start: 03-28-2023 ANNUAL PCP TEAM TYPE CASTING MACHINE OPERATOR CHESTER DISEASE VISIT ANNUAL PCP TEAM CHRONIC DISEASE VISIT [facility] Start: 03-10-2023 ANNUAL PCP TEAM TYPE CASTING MACHINE OPERATOR CHESTER DISEASE VISIT ANNUAL PCP TEAM CHRONIC DISEASE VISIT [facility] Start: 02-27-2023 Depression Assessment Depression Ass essment [facility] Start: 12-13-2022 ANNUAL PCP TEAM TYPE CASTING MACHINE OPERATOR CHESTER DISEASE VISIT ANNUAL PCP TEAM CHRONIC DISEASE VISIT [facility] Start: 11-03-2022 Adult depression screening assessment DEPRESSION SCREENING [facility] Start: 11-03-2022 ANNUAL PCP TEAM TYPE CASTING MACHINE OPERATOR CHESTER DISEASE VISIT ANNUAL PCP TEAM CHRONIC DISEASE VISIT [facility] Start: 10-28-2022 Influenza vaccination [facility] Start: 10-24-2022 End: 12-24-2022 CBC W Auto Differential panel - Blood CBC + DIFF Lab Routine Primary hypertension Expected: 10/24/2022, Expires: 12/24/2022 [facility] Work Phone: Comment on above: Expected: 10/24/2022 , Expires: 12/24/2022 Start: 10-24-2022 End: 12-24-2022 Comprehensive metabolic 2000 panel - Serum or Plasma COMP METABOLIC PANEL Lab Routine Primary hypertension Expected: 10/24/2022, Expires: 12/24/2022 [facility] Work Phone: Comment on above: Expected: 10/24/2022 , Expires: 12/24/2022 Start: 10-24-2022 End: 12-24-2022 Lipid 1996 panel - Serum or Plasma LIPID PANEL BASIC Lab Routine Hyperlipidemia with target LDL less than 130 Expected: 10/24/2022, Expires: 12/24/2022 [facility] Work Phone: Comment on above: Expected: 10/24/2022 , Expires: 12/24/2022 Start: 10-24-2022 End: 12-24-2022 Thyrotropin [Units/volume] in Serum or Plasma TSH BLD Lab Routine Hypothyroidism, acquired Expected: 10/24/2022, Expires: 12/24/2022 [facility] Work Phone: Comment on above: Expected: 10/24/2022 , Expires: 12/24/2022 Start: 05-07-2022 ANNUAL PCP TEAM TYPE CASTING MACHINE OPERATOR CHESTER DISEASE VISIT ANNUAL PCP TEAM CHRONIC DISEASE VISIT [facility] Start: 05-07-2022 COVID-19 VACCINE (#1) COVID-19 VACCI NE (#1) [facility] Comment on above: Postponed from 12/11 (Declined at this time) Postponed from 06/11 (Declined at this time) Start: 04-25-2022 End: 06-25-2022 Lipid 1996 panel - Serum or Plasma LIPID PANEL BASIC Lab Routine Hyperlipidemia with target LDL less than 130 Expected: 04/25/2022, Expires: 06/25/2022 [facility] Work Phone: Comment on above: Expected: 04/25/2022 , Expires: 06/25/2022 Start: 03-10-2022 End: 05-10-2022 Basic metabolic 2000 panel - Serum or Plasma BASIC METABOLIC PNL Lab Routine Primary hypertension Hypothyroidism, acquired Expected: 03/10/2022, Expires: 05/10/2022 [facility] Work Phone: Comment on above: Expected: 03/10/2022 , Expires: 05/10/2022 Start: 03-10-2022 End: 05-10-2022 CBC W Auto Differential panel - Blood CBC + DIFF Lab Routine Primary hypertension Hypothyroidism, acquired Expected: 03/10/2022, Expires: 05/10/2022 [facility] Work Phone: Comment on above: Expected: 03/10/2022 , Expires: 05/10/2022 Start: 03-10-2022 End: 05-10-2022 Thyrotropin [Units/volume] in Serum or Plasma TSH BLD Lab Routine Primary hypertension Hypothyroidism, acquired Expected: 03/10/2022, Expires: 05/10/2022 [facility] Work Phone: Comment on above: Expected: 03/10/2022 , Expires: 05/10/2022 Start: 02-27-2022 DEPRESSION ASSESSMENT DEPRESSION ASS ESSMENT [facility] Start: 12-13-2021 End: 02-12-2022 Cobalamin (Vitamin B12) [Mass/volume] in Serum or Plasma VITAMIN B12 BLOOD Lab Routine Fatigue, unspecified type Expected: 12/13/2021, Expires: 02/12/2022 [facility] Work Phone: Comment on above: Expected: 12/13/2021 , Expires: 02/12/2022 Start: 12-13-2021 End: 02-12-2022 Ferritin [Mass/volume] in Serum or Plasma FERRITIN BLD Lab Routine Fatigue, unspecified type Expected: 12/13/2021, Expires: 02/12/2022 [facility] Work Phone: Comment on above: Expected: 12/13/2021 , Expires: 02/12/2022 Start: 12-13-2021 End: 02-12-2022 Iron and Iron binding capacity panel - Serum or Plasma IRON + TIBC Lab Routine Fatigue, unspecified type Expected: 12/13/2021, Expires: 02/12/2022 [facility] Work Phone: Comment on above: Expected: 12/13/2021 , Expires: 02/12/2022 Start: 11-03-2021 End: 05-03-2022 Comprehensive metabolic 2000 panel - Serum or Plasma COMP METABOLIC PANEL Lab Routine Elevated glucose Expected: 11/03/2021, Expires: 05/03/2022 [facility] Work Phone: Comment on above: Expected: 11/03/2021 , Expires: 05/03/2022 Start: 11-03-2021 End: 05-03-2022 Hemoglobin A1c in Blood HGB A1C Lab Routine Elevated glucose Expected: 11/03/2021, Expires: 05/03/2022 [facility] Work Phone: Comment on above: Expected: 11/03/2021 , Expires: 05/03/2022 Start: 11-03-2021 End: 05-03-2022 THYROID PEROXIDASE ANTIBODY BLOOD THYROID PEROXIDASE ANTIBODY BLOOD Lab Routine Hypothyroidism, acquired Positive AUGUST (antinuclear antibody) Expected: 11/03/2021, Expires: 05/03/2022 [facility] Work Phone: Comment on above: Expected: 11/03/2021 , Expires: 05/03/2022 Start: 11-03-2021 End: 05-03-2022 Thyrotropin [Units/volume] in Serum or Plasma TSH BLD Lab Routine Hypothyroidism, acquired Expected: 11/03/2021, Expires: 05/03/2022 [facility] Work Phone: Comment on above: Expected: 11/03/2021 , Expires: 05/03/2022 Start: 11-03-2021 End: 05-03-2022 Thyroxine (T4) free [Mass/volume] in Serum or Plasma T4 FREE/FREE THYROX Lab Routine Hypothyroidism, acquired Expected: 11/03/2021, Expires: 05/03/2022 [facility] Work Phone: Comment on above: Expected: 11/03/2021 , Expires: 05/03/2022 Start: 10-28-2021 Influenza vaccination C [facility] Start: 02-27-2021 DEPRESSION ASSESSMENT DEPRESSION ASS ESSMENT [facility] Start: 12-24-2020 Colonoscopy COLONOSCOPY [facility] Start: 12-24-2020 COLORECTAL CANCER SCREENING COLORECTAL CANCER SCREENING [facility] Start: 01-31-2019 Urine microalbumin profile [facility] Start: 11-09-2018 Adult depression screening assessment DEPRESSION SCREENING [facility] Start: 12-07-2016 End: 12-07-2016 Radiologic exam knee complete 4/more views X-Ray, Knee [facility] Work Phone: Start: 12-07-2016 End: 12-07-2016 Appointment Appointment [facility] Work Phone: Start: 2014 SHINGRIX VACCINE (1 of 2) SHINGRIX VACCINE (1 of 2) [facility] Start: 2009 COLOGUARD (FIT-DNA) COLOGUARD (FIT-D NA) [facility] Start: [address] COLONOGRAPHY [facility] Start: 2009 FECAL OCCULT BLOOD FECAL OCCULT BLOO D [facility] Start: 2009 Screening for malign ant neoplasm of colon [facility] Start: 2009 SIGMOIDOSCOPY SIGMOIDOSCOPY [facility] Start: 12-12-1983 Pneumococcal Vaccine : 50+ (1 of 2 - PCV) Pneumococcal Vaccine: 50+ (1 of 2 - PCV) [facility] Start: 12-12-1983 SHINGRIX VACCINE (1 of 2) SHINGRIX VACCINE (1 of 2) [facility] Start: 1982 BP CONTROLLED (<130/80) BP CONTROLLE D (<130/80) [facility] Start: 1982 Depression Screening Depression Scre ening [facility] Start: 1970 PNEUMOCOCCAL (1 - PCV) PNEUMOCOCCAL (1 - PCV) [facility] Start: 1970 Pneumococcal vaccination [facility] Start: 1969 COVID-19 VACCINE (#1) COVID-19 VACCI NE (#1) [facility] Start: 06-11-1965 COVID-19 VACCINE (#1) COVID-19 VACCI NE (#1) [facility] Start: 1964 HEPATITIS B (1 of 3 - 3-dose series) HEPATITIS B (1 of 3 - 3-dose series) [facility] Start: 1964 Hepatitis B Vaccine (1 of 3 - 3-dose series) Hepatitis B Vaccine (1 of 3 - 3-dose series) [facility] Patient Education [facility] Work Phone: Patient referral [facility] Work Phone: End: 11-03-2022 STRESS ECHO TREADMILL STRESS ECHO TREADMILL Cardiology Routine Chest pain, unspecified type 1 Occurrences starting 11/03/2021 until 11/03/2022 [facility] Work Phone: Comment on above: 1 Occurrences starti ng 11/03/2021 until 11/03/2022 [facility] Immunizations Immunization Date Immunization Notes Care Provider Frederick murguia 01-31-2009 tetanus toxoid, redu debbi diphtheria toxoid, and acellular pertussis vaccine, adsorbed Basilio Shafer APRN.IAP DISPLAYS ANALYST, DNP Work Phone: [facility] Work Phone: Payers Date Payer Category Payer Self-pay [id number] 2020 Private Health Insurance [employer] Member Subscriber Plan / Payer (Effective 2020-Present) Name: Dariusz Nguyen Relation to Subscriber: Self Name: Dariusz Nguyen Payer ID: Not on file Type: PPO Address: [place] [id number] 2020 Unknown [employer] PPO [id number] 2020-Present [phone] [place], [place] [id number] PPO [id number] 2020 Unknown [employer] PPO [id number] 2020-Present [phone] [place], [place] [id number] PPO [id number] 2020 Unknown [id number] Unknown [facility] [id number] Unknown [facility] [id number] Unknown [id number] Unknown [id number] Unknown [id number] Unknown [id number] Unknown [id number] Unknown [id number] Unknown [id number] Unknown [id number] Unknown [id number] Social History Date Type Detail Facility Start: 11-24-2010 End: 02-12-2024 Tobacco smoking status NMIS Never smoked tobacco [facility] Work Phone: Start: 05-07-2021 End: 05-13-2024 Alcohol intake Current drinker of alcohol (finding) [facility] Start: 01-18-2011 History SDOH Alcohol Comment 1 beer per month [facility] Start: 1965 Sex Assigned At Not on file C [facility] Start: 11-24-2010 Tobacco use and exposure Smokeless tobacco non-user [facility] Start: 01-09-2021 End: 01-28-2022 Exposure to SARS-CoV-2 (event) Not sure [facility] Start: 01-13-2020 End: 04-19-2023 Tobacco smoking status NHIS Unknown if ever smoked [facility] Start: 1965 Sex Assigned At Male W [facility] Start: 11-03-2021 End: 10-24-2022 History of Social function [facility] Start: 11-03-2021 End: 10-24-2022 Tobacco use panel [facility] Adult Depression Screening Assessment 0 [facility] Start: 05-24-2024 Sex Male (finding) [facility] Functional Status Date Assessment Result Facility 02-08-2014 Are you deaf, or do you have serious difficulty hearing No 02/08/2014 9:37 AM Santos Puga RN No [facility] 02-08-2014 Are you blind, or do you have serious difficulty seeing, even when wearing glasses No 02/08/2014 9:37 AM Santos Puga RN No [facility] 02-08-2014 Do you have serious difficulty walking or climbing stairs Yes 02/08/2014 9:37 AM Santos Puga RN Yes [facility] 02-08-2014 Do you have difficul ty dressing or bathing No 02/08/2014 9:37 AM Santos Puga RN No [facility] 02-08-2014 Because of a physica l, mental, or emotional condition, do you have difficulty doing errands alone such as visiting a physician's office or shopping No 02/08/2014 9:37 AM Santos Puga RN No [facility] Mental Status Date Assessment Result Facility 02-07-2024 Cognitive function Level Of Cons ciousness Awake;Alert;Appropriate [facility] Work Phone: 04-19-2023 Cognitive function Level Of Cons ciousness Awake;Alert;Appropriate;Fol lows Commands [facility] Work Phone: 02-08-2014 Because of a physica l, mental, or emotional condition, do you have serious difficulty concentrating, remembering, or making decisions No 02/08/2014 9:37 AM Santos Puga RN No [facility] Clinical Notes 12-25-2015 to 07-08-2024 Telephone Encounter - Jose Frances LPN - 07/08/2024 3:46 PM EDTTelephone Encounter - Jose Frances LPN - 07/08/2024 3:46 PM EDTTelephone Encounter - Freya Bhardwaj - 07/08/2024 3:44 PM EDT Note Date & Type Note Facility 07-08-2024 Telephone encounter Note 90 day rx with 3 refills was sent to [facility] in April. Pt notified of the same. Jose Frances LPN [facility] 07-08-2024 Miscellaneous Notes 90 day rx with 3 refills was sent to [facility] in April. Pt notified of the same. Jose Frances LPN Prescription Refill Information The patient has been identified by name and date of : Yes Caregiver verified no other encounters exist for this prescription request: Yes Caregiver confirmed with patient/requestor that no other refills are due, in the near future, with this provider at this time: Yes The last office visit in the department: 05/13/24 Does the patient have a future office visit with this provider/department: Yes Requested Prescriptions Pending Prescriptions Disp Refills lisinopril (ZESTRIL) 10 mg tablet 90 tablet 3 Sig: Take 1 tablet by mouth once daily. Freya Bhardwaj July 08, 2024 3:44 PM documented in this encounter [facility] 07-08-2024 Telephone encounter Note Prescription Refill Information The patient has been identified by name and date of : Yes Caregiver verified no other encounters exist for this prescription request: Yes Caregiver confirmed with patient/requestor that no other refills are due, in the near future, with this provider at this time: Yes The last office visit in the department: 05/13/24 Does the patient have a future office visit with this provider/department: Yes Requested Prescriptions Pending Prescriptions Disp Refills lisinopril (ZESTRIL) 10 mg tablet 90 tablet 3 Sig: Take 1 tablet by mouth once daily. Freya Bhardwaj July 08, 2024 3:44 PM [facility] 05-23-2024 Telephone encounter Note Patient notified of results, verbalizes understanding of instructions. Johnny Stuart LPN [facility] 05-23-2024 Miscellaneous Notes Patient notified of results, verbalizes understanding of instructions. Johnny Stuart LPN Can please let patient know that I received his labs. His cholesterol panel looked good. His electrolytes, kidney function, glucose, and liver enzymes were normal. His TSH was normal. His testosterone level was normal. Johanne Case APRN.CNP documented in this encounter [facility] 05-22-2024 Telephone encounter Note Can please let patient know that I received his labs. His cholesterol panel looked good. His electrolytes, kidney function, glucose, and liver enzymes were normal. His TSH was normal. His testosterone level was normal. Johanne Case APRN.CNP [facility] 05-13-2024 Instructions Johanne Case APRN.CNP - 05/13/2024 6:55 PM EDT Continue medications as prescribed Get lab work Follow up in 6 months or sooner as needed documented in this encounter [facility] 05-13-2024 Note HNO ID: [id number] Author: JOHANNE CASE APRN.CNP Service: ? Author Type: Nurse Practitioner Type: Progress Notes Filed: 05/13/2024 20:03 Note Text: This is a 58 year old male who presents today with: Patient presents with: 6 Month Exam HISTORY OF PRESENT ILLNESS: Dariusz Nguyen is a 58 year old male. Patient presents with: 6 Month Exam HTN: Patient is compliant with meds Yes Monitors bp at home: No. Denies side effects: Yes. Chest pain: No. Dyspnea: No. Edema: No. Palpitations: No. Syncope: No. Headache: No. Dizziness: No. HYPERLIPIDEMIA: Patient is taking medications: No. Patient is watching diet: Yes, watches salt, sugar, intake of red meats and alcohol. Patient denies myalgias: No. Patient denies gi upset: No RA: Stopped taking methotrexate and folic acid per Dr. Sánchez who he follows for RA Has been stable being off the medications for the last month Denies any worsening pain or symptoms States that his liver sugar was high and wanted to trial him off of his medications and recheck labs Has follow up appointment this week HYPOTHYROID: Patient is compliant with medications: Yes Patient has changes in energy: No Patient has changes in hair or skin: No Patient has temperature intolerance: No Patient has weight changes: No Has noticed decrease in sexual function Having trouble with erection Noticed that this started when he started to have symptoms of RA Unsure if he wants to treat yet, but is interested in testosterone level. REVIEW OF SYSTEMS GENERAL: No weight loss, malaise or fevers/chills HEENT: Negative for frequent or significant headaches, No changes in hearing or vision. NECK: Negative for lumps, goiter, pain and significant neck swelling RESPIRATORY: Negative for cough, hemoptysis, wheezing, dyspnea or shortness of breath CARDIOVASCULAR: Negative for chest pain, leg swelling, orthopnea, or palpitations GI: No nausea, vomiting, or diarrhea/constipation. No hematochezia/melena. No heartburn or reflux symptoms. : No history of dysuria, frequency or incontinence MUSCULOSKELETAL: Negative for joint pain or swelling. SKIN: Negative for lesions, rash, and itching ENDOCRINE: Negative for cold or heat intolerance, polyuria, polydipsia and goiter NEURO: No history of headaches, syncope, paralysis, seizures or tremors PAST MEDICAL HISTORY: PAST MEDICAL HISTORY Diagnosis [...] Medication Sig levothyroxine (SYNTHROID) 75 mcg tablet TAKE 1 TABLET BY MOUTH ONCE DAILY. TAKE ON EMPTY STOMACH. FOR THYROID. lisinopril (ZESTRIL) 10 mg tablet Take 1 tablet by mouth once daily. methotrexate 2.5 mg tablet Take 6 tablets weekly folic acid 1 mg tablet Take 2 mg by mouth once daily. ZINC ORAL Take by mouth once daily. ascorbic acid (VITAMIN C ORAL) Take by mouth once daily. MULTIVITAMIN TAB Take 1 tablet by mouth once daily. No current facility-administered medications for this visit. FAMILY HISTORY Problem Relation Age of Onset Heart Father [place] age 69 Thyroid Mother None Brother None Sister None Sister None Sister None Sister Social History Tobacco Use Smoking status: Never Smokeless tobacco: Never Vaping Use Vaping status: Never Used Substance Use Topics Alcohol use: Yes Comment: 1 beer per month Drug use: No EXAM: BP 132/76 Pulse 63 Resp 16 Wt 96.2 kg (212 lb) SpO2 94% BMI 31.31 kg/m? PHYSICAL EXAM: General Appearance: Well appearing, alert, in no acute distress, well-hydrated, well nourished.. Skin: Skin color, texture, turgor normal, no suspicious rashes or lesions. Head: Normocephalic, no masses, lesions, tenderness or abnormalities. Eyes: Anicteric sclera. Pupils are equally round and reactive to light. Extraocular movements are intact. . Ears: External ears normal, c (more content not included)... [facility] 05-13-2024 History of Presen t illness Narrative This is a 58 year old male who presents today with: Patient presents with: 6 Month Exam HISTORY OF PRESENT ILLNESS: Dariusz Nguyen is a 58 year old male. Patient presents with: 6 Month Exam HTN: Patient is compliant with meds Yes Monitors bp at home: No. Denies side effects: Yes. Chest pain: No. Dyspnea: No. Edema: No. Palpitations: No. Syncope: No. Headache: No. Dizziness: No. HYPERLIPIDEMIA: Patient is taking medications: No. Patient is watching diet: Yes, watches salt, sugar, intake of red meats and alcohol. Patient denies myalgias: No. Patient denies gi upset: No RA: Stopped taking methotrexate and folic acid per Dr. Sánchez who he follows for RA Has been stable being off the medications for the last month Denies any worsening pain or symptoms States that his liver sugar was high and wanted to trial him off of his medications and recheck labs Has follow up appointment this week HYPOTHYROID: Patient is compliant with medications: Yes Patient has changes in energy: No Patient has changes in hair or skin: No Patient has temperature intolerance: No Patient has weight changes: No Has noticed decrease in sexual function Having trouble with erection Noticed that this started when he started to have symptoms of RA Unsure if he wants to treat yet, but is interested in testosterone level. REVIEW OF SYSTEMS GENERAL: No weight loss, malaise or fevers/chills HEENT: Negative for frequent or significant headaches, No changes in hearing or vision. NECK: Negative for lumps, goiter, pain and significant neck swelling RESPIRATORY: Negative for cough, hemoptysis, wheezing, dyspnea or shortness of breath CARDIOVASCULAR: Negative for chest pain, leg swelling, orthopnea, or palpitations GI: No nausea, vomiting, or diarrhea/constipation. No hematochezia/melena. No heartburn or reflux symptoms. : No history of dysuria, frequency or incontinence MUSCULOSKELETAL: Negative for joint pain or swelling. SKIN: Negative for lesions, rash, and itching ENDOCRINE: Negative for cold or heat intolerance, polyuria, polydipsia and goiter NEURO: No history of headaches, syncope, paralysis, seizures or tremors PAST MEDICAL HISTORY: PAST MEDICAL HISTORY Diagnosis [...] Medication Sig levothyroxine (SYNTHROID) 75 mcg tablet TAKE 1 TABLET BY MOUTH ONCE DAILY. TAKE ON EMPTY STOMACH. FOR THYROID. lisinopril (ZESTRIL) 10 mg tablet Take 1 tablet by mouth once daily. methotrexate 2.5 mg tablet Take 6 tablets weekly folic acid 1 mg tablet Take 2 mg by mouth once daily. ZINC ORAL Take by mouth once daily. ascorbic acid (VITAMIN C ORAL) Take by mouth once daily. MULTIVITAMIN TAB Take 1 tablet by mouth once daily. No current facility-administered medications for this visit. FAMILY HISTORY Problem Relation Age of Onset Heart Father [place] age 69 Thyroid Mother None Brother None Sister None Sister None Sister None Sister Social History Tobacco Use Smoking status: Never Smokeless tobacco: Never Vaping Use Vaping status: Never Used Substance Use Topics Alcohol use: Yes Comment: 1 beer per month Drug use: No EXAM: BP 132/76 Pulse 63 Resp 16 Wt 96.2 kg (212 lb) SpO2 94% BMI 31.31 kg/m PHYSICAL EXAM: General Appearance: Well appearing, alert, in no acute distress, well-hydrated, well nourished.. Skin: Skin color, texture, turgor normal, no suspicious rashes or lesions. Head: Normocephalic, no masses, lesions, tenderness or abnormalities. Eyes: Anicteric sclera. Pupils are equally round and reactive to light. Extraocular movements are intact. . Ears: External ears normal, canals clear. Nose/Sinuses: Nares normal, septum midline, mucosa normal, no drainage or sinus tenderness. Oropharynx: Lips, mucosa, and tongue normal, teeth and gums normal, oropharynx normal. Lungs: Lungs clear to auscultation. No wheezing, rhonchi, rales.. Heart: RRR without murmur, gallop, or rubs. No ectopy. Abdomen: Normal abdominal exam, Abdomen soft, non-tender. Bowel sounds normal. No masses, organomegaly. Extremities: No deformities, edema, skin discoloration, clubbing or cyanosis. Lymph Nodes: No cervical lymphadenopathy, No supraclavicular lymphadenopathy, No axillary lymphadenopathy., and No inguinal lymphadenopathy. ASSESSMENT/PLAN: 1. Primary hypertension - ICD9: 401.9, ICD10: I10 (primary diagnosis) - Controlled - Continue current medications - Recommend home blood pressure monitoring, to bring results to next visit - Encouraged sodium restriction, DASH or Mediterranean diet - Recommend regular aerobic exercise - Follow up in 6 months for hypertension visit - LISINOPRIL 10 MG TABLET - COMPLETE BLOOD COUNT AND DIFFERENTIAL 2. Rheumatoid arthritis involving multiple sites with positive rheumatoid factor (HCC) - ICD9: 714.0, ICD10: M05.79 - Will recheck labs to assess liver function due to previously labs being elevated - Patient is currently off of methotrexate and folic acid pending repeat labs - Feels stable although being off of medications - Follow up with Dr. Sánchez this week - Monitor for any worsening signs or symptoms - COMPREHENSIVE METABOLIC PANEL 3. Hyperlipidemia with target LDL less than 130 - ICD9: 272.4, ICD10: E78.5 - Control undetermined, due for labs - Patient not currently on any medications for hyperlipidemia - Counseled on healthy diet and regular exercise - LIPID PANEL BASIC 4. Hypothyroidism, acquired - ICD9: 244.9, ICD10: E03.9 - Instructed patient on importance of taking on an empty stomach either first thing in the morning or at bedtime. - Will check labs to determine control - Follow up in 6 months - THYROID STIMULATING HORMONE 5. Decreased libido - ICD9: 799.81, ICD10: R68.82 - Patient having trouble with sexual function and trouble with erection - Will check hormone level - Discussed with patient options for medications for erection, will re-evaluate with patient when ready - Advised patient to follow up with decision regarding interventions as we discussed a plan in clinic - TESTOSTERONE, TOTAL BY IMMUNOASSAY (ADULT MALES, OR INDIVIDUALS ON TESTOSTERONE THERAPY) Discussed treatment plan and patient voices understanding. Patient's questions answered appropriately. Medications and potential side effects were discussed and patient voices understanding. Return to the office as scheduled or as needed for worsening/no improvement. The patient indicates understanding of these issues and agrees with the plan. Johanne Case APRN.MICHAEL documented in this encounter [facility] 02-02-2024 Instructions Johanne Case APRN.CNP - 02/02/2024 1:30 PM EST Start the augmentin. Hold the methotrexate while on the augmentin. Prednisone burst. Mucinex. Let us know if no better/worsening. documented in this encounter [facility] 02-02-2024 Note HNO ID: [id number] Author: JOHANNE CASE APRN.CNP Service: ? Author Type: Nurse Practitioner Type: Progress Notes Filed: 02/02/2024 16:20 Note Text: This is a 58 year old male who presents today with: Patient presents with: Acute Visit: Cough, post nasal drip, sinus congestion, sinus pressure, headache x2 weeks; no fevers HISTORY OF PRESENT ILLNESS: Dariusz Nguyen is a 58 year old male. Patient presents with: Acute Visit: Cough, post nasal drip, sinus congestion, sinus pressure, headache x2 weeks; no fevers URI symptoms X 2 weeks +. Cough -- productive. Yellow. Head congestion. + PND. Headache. No fevers/chills. Little bit of facial pain -- forehead. A little scratchy throat. Itchy ears. No n/v/d. He is using otc cold medication. He is on weekly methotrexate. He takes prn prednisone for breakthrough symptoms. PAST MEDICAL HISTORY: PAST MEDICAL HISTORY Diagnosis [...] Medication Sig levothyroxine (SYNTHROID) 75 mcg tablet TAKE 1 TABLET BY MOUTH ONCE DAILY. TAKE ON EMPTY STOMACH. FOR THYROID. lisinopril (ZESTRIL) 10 mg tablet Take 1 tablet by mouth once daily. methotrexate 2.5 mg tablet Take 6 tablets weekly folic acid 1 mg tablet Take 2 mg by mouth once daily. ZINC ORAL Take by mouth once daily. ascorbic acid (VITAMIN C ORAL) Take by mouth once daily. MULTIVITAMIN TAB Take 1 tablet by mouth once daily. No current facility-administered medications for this visit. FAMILY HISTORY Problem Relation Age of Onset Heart Father [place] age 69 Thyroid Mother None Brother None Sister None Sister None Sister None Sister Social History Tobacco Use Smoking status: Never Smokeless tobacco: Never Vaping Use Vaping status: Never Used Substance Use Topics Alcohol use: Yes Comment: 1 beer per month Drug use: No EXAM: BP 138/82 Pulse 93 Resp 16 SpO2 97% PHYSICAL EXAM: General Appearance: Well appearing, alert, in no acute distress, well-hydrated, well nourished.. Skin: Skin color, texture, turgor normal, no suspicious rashes or lesions. Head: Normocephalic, no masses, lesions, tenderness or abnormalities. + maxillary tenderness --Left. Eyes: Anicteric sclera. Pupils are equally round [...] refill. . Neurologic: Gait normal. ASSESSMENT/PLAN: 1. Acute non-recurrent maxillary sinusitis - ICD9: 461.0, ICD10: J01.00 - Will begin treatment with Augmentin 875 mg PO BID for 10 days - The patient should also be given OTC cough and cold meds as needed for the first 5-7 days of treatment. - Supportive care with plenty of fluids, rest, and analgesia prn. - Follow up in one week if symptoms persist or worsen. - AMOXICILLIN 875 MG-POTASSIUM CLAVULANATE 125 MG TABLET He is due for methotrexate today. He is aware to hold the dose today and next week while on the augmentin. Discussed treatment plan and patient voices understanding. Patient's questions answered appropriately. Medications and potential side effects were discussed and patient voices understanding. Return to the office as scheduled or as needed for worsening/no improvement. Johanne Case APRN.[facility] 02-02-2024 History of Presen t illness Narrative This is a 58 year old male who presents today with: Patient presents with: Acute Visit: Cough, post nasal drip, sinus congestion, sinus pressure, headache x2 weeks; no fevers HISTORY OF PRESENT ILLNESS: Dariusz Nguyen is a 58 year old male. Patient presents with: Acute Visit: Cough, post nasal drip, sinus congestion, sinus pressure, headache x2 weeks; no fevers URI symptoms X 2 weeks +. Cough -- productive. Yellow. Head congestion. + PND. Headache. No fevers/chills. Little bit of facial pain -- forehead. A little scratchy throat. Itchy ears. No n/v/d. He is using otc cold medication. He is on weekly methotrexate. He takes prn prednisone for breakthrough symptoms. PAST MEDICAL HISTORY: PAST MEDICAL HISTORY Diagnosis [...] Medication Sig levothyroxine (SYNTHROID) 75 mcg tablet TAKE 1 TABLET BY MOUTH ONCE DAILY. TAKE ON EMPTY STOMACH. FOR THYROID. lisinopril (ZESTRIL) 10 mg tablet Take 1 tablet by mouth once daily. methotrexate 2.5 mg tablet Take 6 tablets weekly folic acid 1 mg tablet Take 2 mg by mouth once daily. ZINC ORAL Take by mouth once daily. ascorbic acid (VITAMIN C ORAL) Take by mouth once daily. MULTIVITAMIN TAB Take 1 tablet by mouth once daily. No current facility-administered medications for this visit. FAMILY HISTORY Problem Relation Age of Onset Heart Father [place] age 69 Thyroid Mother None Brother None Sister None Sister None Sister None Sister Social History Tobacco Use Smoking status: Never Smokeless tobacco: Never Vaping Use Vaping status: Never Used Substance Use Topics Alcohol use: Yes Comment: 1 beer per month Drug use: No EXAM: BP 138/82 Pulse 93 Resp 16 SpO2 97% PHYSICAL EXAM: General Appearance: Well appearing, alert, in no acute distress, well-hydrated, well nourished.. Skin: Skin color, texture, turgor normal, no suspicious rashes or lesions. Head: Normocephalic, no masses, lesions, tenderness or abnormalities. + maxillary tenderness --Left. Eyes: Anicteric sclera. Pupils are equally round [...] refill. . Neurologic: Gait normal. ASSESSMENT/PLAN: 1. Acute non-recurrent maxillary sinusitis - ICD9: 461.0, ICD10: J01.00 - Will begin treatment with Augmentin 875 mg PO BID for 10 days - The patient should also be given OTC cough and cold meds as needed for the first 5-7 days of treatment. - Supportive care with plenty of fluids, rest, and analgesia prn. - Follow up in one week if symptoms persist or worsen. - AMOXICILLIN 875 MG-POTASSIUM CLAVULANATE 125 MG TABLET He is due for methotrexate today. He is aware to hold the dose today and next week while on the augmentin. Discussed treatment plan and patient voices understanding. Patient's questions answered appropriately. Medications and potential side effects were discussed and patient voices understanding. Return to the office as scheduled or as needed for worsening/no improvement. Johanne Case APRN.IAP DISPLAYS ANALYST documented in this encounter [facility] 02-02-2024 Telephone encounter Note Pt needs appt to be seen. Pt advised of the same. Appt scheduled for 1pm with SONIA. Jose Frances LPN [facility] 02-02-2024 Miscellaneous Notes Pt needs appt to be seen. Pt advised of the same. Appt scheduled for 1pm with CH. Jose Frances LPN Pt states he is unable to come in due to work, has sinus infection. Asking for prescription to be sent. is coming in this afternoon. Please advise. documented in this encounter [facility] 02-02-2024 Telephone encounter Note Pt states he is unable to come in due to work, has sinus infection. Asking for prescription to be sent. is coming in this afternoon. Please advise. [facility] 11-13-2023 Instructions Johanne Case APRN.MICHAEL - 11/13/2023 6:51 PM EDT Continue the same medication. Recheck in 6 months. documented in this encounter [facility] 11-13-2023 Note HNO ID: [id number] Author: JOHANNE CASE APRN.MICHAEL Service: ? Author Type: Nurse Practitioner Type: Progress Notes Filed: 11/13/2023 19:32 Note Text: This is a 57 year old male who presents today with: Patient presents with: Recheck: 6 month follow up HISTORY OF PRESENT ILLNESS: Dariusz Nguyen is a 57 year old male. Patient presents with: Recheck: 6 month follow up Pt presents today for 6 month recheck. HTN: Patient is compliant with meds Yes Monitors bp at home: No. Denies side effects: Yes. Chest pain: No. Dyspnea: No. Edema: No. Palpitations: No. Syncope: No. Headache: No. Dizziness: No. HYPOTHYROID: Patient is compliant with medications: Yes Patient has changes in energy: tired today. Busy weekend. Patient has changes in hair or skin: No Patient has temperature intolerance: No. " I've always been cold". Patient has weight changes: No -- just can't lose any. RA: Still following with [facility]. RA controlled. Continues on methotrexate. PAST MEDICAL HISTORY: PAST MEDICAL HISTORY Diagnosis [...] Medication Sig levothyroxine (SYNTHROID) 75 mcg tablet TAKE 1 TABLET BY MOUTH ONCE DAILY. TAKE ON EMPTY STOMACH. FOR THYROID. lisinopril (ZESTRIL) 10 mg tablet Take 1 tablet by mouth once daily. methotrexate 2.5 mg tablet Take 6 tablets weekly folic acid 1 mg tablet Take 2 mg by mouth once daily. ZINC ORAL Take by mouth once daily. ascorbic acid (VITAMIN C ORAL) Take by mouth once daily. MULTIVITAMIN TAB Take 1 tablet by mouth once daily. No current facility-administered medications for this visit. FAMILY HISTORY Problem Relation Age of Onset Heart Father [place] age 69 Thyroid Mother None Brother None Sister None Sister None Sister None Sister Social History Tobacco Use Smoking status: Never Smokeless tobacco: Never Vaping Use Vaping status: Never Used Substance Use Topics Alcohol use: Yes Comment: 1 beer per month Drug use: No EXAM: BP 118/78 Pulse 71 Resp 16 SpO2 95% PHYSICAL EXAM: General Appearance: Well appearing, alert, in no acute distress, well-hydrated, well nourished.. Skin: Skin color, texture, turgor normal, no suspicious rashes or lesions. Head: Normocephalic, no masses, lesions, tenderness or abnormalities. Eyes: Anicteric sclera. Extraocular movements are intact. . Neck: Supple, [...] Mediterranean diet - Recommend regular aerobic exercise 2. Hypothyroidism, acquired - ICD9: 244.9, ICD10: E03.9 Last labs 07/2023 and therapeutic. Continue same dosage. 3. Hyperlipidemia with target LDL less than 130 - ICD9: 272.4, ICD10: E78.5 Last labs stable. 4. Rheumatoid arthritis involving multiple sites with positive rheumatoid factor (HCC) - ICD9: 714.0, ICD10: M05.79 Continue per rheumatology. Discussed treatment plan and patient voices understanding. Patient's questions answered appropriately. Medications and potential side effects were discussed and patient voices understanding. Return to the office as scheduled or as needed for worsening/no improvement. Johanne Case APRN.[facility] 11-13-2023 History of Presen t illness Narrative This is a 57 year old male who presents today with: Patient presents with: Recheck: 6 month follow up HISTORY OF PRESENT ILLNESS: Dariusz Nguyen is a 57 year old male. Patient presents with: Recheck: 6 month follow up Pt presents today for 6 month recheck. HTN: Patient is compliant with meds Yes Monitors bp at home: No. Denies side effects: Yes. Chest pain: No. Dyspnea: No. Edema: No. Palpitations: No. Syncope: No. Headache: No. Dizziness: No. HYPOTHYROID: Patient is compliant with medications: Yes Patient has changes in energy: tired today. Busy weekend. Patient has changes in hair or skin: No Patient has temperature intolerance: No. " I've always been cold". Patient has weight changes: No -- just can't lose any. RA: Still following with [facility]. RA controlled. Continues on methotrexate. PAST MEDICAL HISTORY: PAST MEDICAL HISTORY Diagnosis [...] Medication Sig levothyroxine (SYNTHROID) 75 mcg tablet TAKE 1 TABLET BY MOUTH ONCE DAILY. TAKE ON EMPTY STOMACH. FOR THYROID. lisinopril (ZESTRIL) 10 mg tablet Take 1 tablet by mouth once daily. methotrexate 2.5 mg tablet Take 6 tablets weekly folic acid 1 mg tablet Take 2 mg by mouth once daily. ZINC ORAL Take by mouth once daily. ascorbic acid (VITAMIN C ORAL) Take by mouth once daily. MULTIVITAMIN TAB Take 1 tablet by mouth once daily. No current facility-administered medications for this visit. FAMILY HISTORY Problem Relation Age of Onset Heart Father [place] age 69 Thyroid Mother None Brother None Sister None Sister None Sister None Sister Social History Tobacco Use Smoking status: Never Smokeless tobacco: Never Vaping Use Vaping status: Never Used Substance Use Topics Alcohol use: Yes Comment: 1 beer per month Drug use: No EXAM: BP 118/78 Pulse 71 Resp 16 SpO2 95% PHYSICAL EXAM: General Appearance: Well appearing, alert, in no acute distress, well-hydrated, well nourished.. Skin: Skin color, texture, turgor normal, no suspicious rashes or lesions. Head: Normocephalic, no masses, lesions, tenderness or abnormalities. Eyes: Anicteric sclera. Extraocular movements are intact. . Neck: Supple, [...] Mediterranean diet - Recommend regular aerobic exercise 2. Hypothyroidism, acquired - ICD9: 244.9, ICD10: E03.9 Last labs 07/2023 and therapeutic. Continue same dosage. 3. Hyperlipidemia with target LDL less than 130 - ICD9: 272.4, ICD10: E78.5 Last labs stable. 4. Rheumatoid arthritis involving multiple sites with positive rheumatoid factor (HCC) - ICD9: 714.0, ICD10: M05.79 Continue per rheumatology. Discussed treatment plan and patient voices understanding. Patient's questions answered appropriately. Medications and potential side effects were discussed and patient voices understanding. Return to the office as scheduled or as needed for worsening/no improvement. Johanne Case APRN.MICHAEL documented in this encounter [facility] 07-31-2023 Telephone encounter Note Pts called and is notified of providers results and instructions. She voices understanding and will let her know. Haven Johnson RN [facility] 07-31-2023 Miscellaneous Notes Pts called and is notified of providers results and instructions. She voices understanding and will let her know. Haven Johnson, RN Can please let patient know that I received his lab results. Everything looks stable. Please continue his current medications. Johanne Case APRN.CNP ASCVD - 7.27% Pt had blood work done at [facility]. Records printed and on PCP's desk to review. Ade Gallo MA documented in this encounter [facility] 07-31-2023 Telephone encounter Note Can please let patient know that I received his lab results. Everything looks stable. Please continue his current medications. Johanne Case APRN.CNP ASCVD - 7.27% [facility] 07-31-2023 Telephone encounter Note Pt had blood work done at [facility]. Records printed and on PCP's desk to review. Ade Gallo MA [facility] 07-28-2023 Note HNO ID: [id number] Author: ROGER ESTEVEZ MD Service: ? Author Type: Physician Type: Progress Notes Filed: 07/28/2023 16:36 Note Text: Patient presents with: Derm Problem: Left side on back x 3 days round, swelling, hard HPI: Skin Lesion: Location: left mid back Duration: 5 days Pruritis/Pain: itched a little, then tender to put pressure on. No current tenderness or pruritus. Change: maybe better Drainage/blister/pustule/ulcera tion: drained bloody material in the shower a couple days ago Treatment: peroxide MEDICATIONS: levothyroxine (SYNTHROID) 75 mcg tablet TAKE 1 TABLET BY MOUTH ONCE DAILY. TAKE ON EMPTY STOMACH. FOR THYROID. lisinopril (ZESTRIL) 10 mg tablet Take 1 tablet by mouth once daily. methotrexate 2.5 mg tablet Take 6 tablets weekly folic acid 1 mg tablet Take 2 mg by mouth once daily. ZINC ORAL Take by mouth once daily. ascorbic acid (VITAMIN C ORAL) Take by mouth once daily. MULTIVITAMIN TAB Take 1 tablet by mouth once daily. ALLERGIES: ALLERGIES Allergen Reactions Codeine Sulfa (Sulfonamide * VITALS: BP 116/76 Pulse 70 Temp 36.1 ?C (96.9 ?F) Resp 18 Wt 95 kg (209 lb 7 oz) SpO2 97% BMI 30.93 kg/m? PE: Pleasant, in no acute distress. SKIN: brown slightly raised seborrheic keratoses scattered over the upper back. Lesion of concern is over the left costovertebral angle. 4 mm central eschar. ~1.5x0.5cm area of subcutaneous firmness below the eschar. No fluctuance. No purulent material can be expressed. Faint hyperpigmentation/ecchymosis and 5 cm x 2 cm area centered on the eschar. ASSESSMENT/PLAN: 1. Neoplasm of uncertain behavior of skin of back - ICD9: 238.2, ICD10: D48.5 Most likely drained cyst or abscess in the healing phase. Continue to monitor the lesion and follow-up with increasing size, swelling, drainage, fever, or failure to resolve. Roger sEtevez MD [facility] 07-28-2023 History of Presen t illness Narrative Patient presents with: Derm Problem: Left side on back x 3 days round, swelling, hard HPI: Skin Lesion: Location: left mid back Duration: 5 days Pruritis/Pain: itched a little, then tender to put pressure on. No current tenderness or pruritus. Change: maybe better Drainage/blister/pustule/ulcera tion: drained bloody material in the shower a couple days ago Treatment: peroxide MEDICATIONS: levothyroxine (SYNTHROID) 75 mcg tablet TAKE 1 TABLET BY MOUTH ONCE DAILY. TAKE ON EMPTY STOMACH. FOR THYROID. lisinopril (ZESTRIL) 10 mg tablet Take 1 tablet by mouth once daily. methotrexate 2.5 mg tablet Take 6 tablets weekly folic acid 1 mg tablet Take 2 mg by mouth once daily. ZINC ORAL Take by mouth once daily. ascorbic acid (VITAMIN C ORAL) Take by mouth once daily. MULTIVITAMIN TAB Take 1 tablet by mouth once daily. ALLERGIES: ALLERGIES Allergen Reactions Codeine Sulfa (Sulfonamide * VITALS: BP 116/76 Pulse 70 Temp 36.1 C (96.9 F) Resp 18 Wt 95 kg (209 lb 7 oz) SpO2 97% BMI 30.93 kg/m PE: Pleasant, in no acute distress. SKIN: brown slightly raised seborrheic keratoses scattered over the upper back. Lesion of concern is over the left costovertebral angle. 4 mm central eschar. ~1.5x0.5cm area of subcutaneous firmness below the eschar. No fluctuance. No purulent material can be expressed. Faint hyperpigmentation/ecchymosis and 5 cm x 2 cm area centered on the eschar. ASSESSMENT/PLAN: 1. Neoplasm of uncertain behavior of skin of back - ICD9: 238.2, ICD10: D48.5 Most likely drained cyst or abscess in the healing phase. Continue to monitor the lesion and follow-up with increasing size, swelling, drainage, fever, or failure to resolve. Roger Estevez MD documented in this encounter [facility] 07-17-2023 Telephone encounter Note Patient has been identified by name and date of : Yes Patient phones for refill(s): Requested Prescriptions Pending Prescriptions Disp Refills levothyroxine (SYNTHROID) 75 mcg tablet [Pharmacy Med Name: LEVOTHYROXINE 75 MCG TABLET] 60 tablet 5 Sig: TAKE 1 TABLET BY MOUTH ONCE DAILY. TAKE ON EMPTY STOMACH. FOR THYROID. Date of last office visit in primary care: 05/15/23 Date of next office visit in primary care: 11/13/23 Please advise. Thank you. Jose Frances LPN. [facility] 07-17-2023 Miscellaneous Notes Patient has been identified by name and date of : Yes Patient phones for refill(s): Requested Prescriptions Pending Prescriptions Disp Refills levothyroxine (SYNTHROID) 75 mcg tablet [Pharmacy Med Name: LEVOTHYROXINE 75 MCG TABLET] 60 tablet 5 Sig: TAKE 1 TABLET BY MOUTH ONCE DAILY. TAKE ON EMPTY STOMACH. FOR THYROID. Date of last office visit in primary care: 05/15/23 Date of next office visit in primary care: 11/13/23 Please advise. Thank you. Jose Frances LPN. documented in this encounter [facility] 05-15-2023 Instructions Johanne Case APRN.MICHAEL - 05/15/2023 6:43 PM EDT Continue the same medications. Get labwork w/ next lab draw. Recheck in 6 months. documented in this encounter [facility] 05-15-2023 History of Presen t illness Narrative This is a 57 year old male who presents today with: Patient presents with: 6 Month Exam ER F/U: [facility] ER 04/19 dx: headache/ sinus infection HISTORY OF PRESENT ILLNESS: Dariusz Nguyen is a 57 year old male. Patient presents with: 6 Month Exam ER F/U: [facility] ER 04/19 dx: headache/ sinus infection Pt presents today for 6 month recheck. No problems/concerns. Was in [facility] ER on 04/19 w/ complaint of headache. Initially presented to urgent care. Sent to ER. Had CT. Ended up having a sinus infection. Treated w/ augmentin. Symptoms better now. HYPOTHYROID: Patient is compliant with medications: Yes Patient has changes in energy: No Patient has changes in hair or skin: No Patient has temperature intolerance: very sensitive to cold. Patient has weight changes: No RA: Follows w/ Dr. Sánchez. Symptoms controlled. HTN: Patient is compliant with meds Yes Monitors bp at home: No. Denies side effects: Yes. Chest pain: No. Dyspnea: No. Edema: No. [...] Take 1 tablet by mouth once daily. nystatin (MYCOSTATIN) cream Apply 1 application to affected area two times a day. No current facility-administered medications for this visit. FAMILY HISTORY Problem Relation Age of Onset Heart Father [place] age 69 Thyroid Mother None Brother None Sister None Sister None Sister None Sister Social History Tobacco Use Smoking status: Never Smokeless tobacco: Never Vaping Use Vaping Use: Never used Substance Use Topics Alcohol use: Yes Comment: 1 beer per month Drug use: No EXAM: BP 120/84 Pulse 86 Resp 16 Wt 96.2 kg (212 lb) SpO2 94% BMI 31.31 kg/m PHYSICAL EXAM: General Appearance: Well appearing, alert, in no acute distress, well-hydrated, well nourished.. Skin: Skin color, texture, turgor normal, no suspicious rashes or lesions. Head: Normocephalic, no masses, lesions, tenderness or abnormalities. Eyes: Anicteric sclera. Extraocular movements are intact. . Neck: Supple, [...] diet - Recommend regular aerobic exercise - LISINOPRIL 10 MG TABLET - LIPID PANEL BASIC - TSH BLD - CBC + DIFF - COMP METABOLIC PANEL Recheck in 6 months. 2. Hypothyroidism, acquired - ICD9: 244.9, ICD10: E03.9 Due for labs -- will get with next lab draw. Continue the same dose of levothyroxine. - TSH BLD - CBC + DIFF 3. Hyperlipidemia with target LDL less than 130 - ICD9: 272.4, ICD10: E78.5 - Control undetermined, due for labs - Counseled on healthy diet and regular exercise - LIPID PANEL BASIC - COMP METABOLIC PANEL 4. Rheumatoid arthritis involving multiple sites with positive rheumatoid factor (HCC) - ICD9: 714.0, ICD10: M05.79 Continue per rheumatology. Discussed treatment plan and patient voices understanding. Patient's questions answered appropriately. Medications and potential side effects were discussed and patient voices understanding. Return to the office as scheduled or as needed for worsening/no improvement. Johanne Case APRN.IAP DISPLAYS ANALYST documented in this encounter [facility] 04-19-2023 History of Presen t illness Narrative SUBJECTIVE: Dariusz Nguyen is a 57 year old male. Who presents today with congestion a fever of 99.8 and headache since Monday. He has taken sudafed and motrin for the symptoms. He has been exposed to others who are sick at work. His worst symptoms is the headache. The pain is across the forehead his pain is a 7/10. Last night his pain was 9/10. He states sleep makes it better and light makes it worse. He states that the headache is the worst headache of his life. I have discussed the red flag symptoms we have discussed. I have explained to him that unfortunately I am not able to assess a headache of this degree here in the express care. I would be able to test for viral illnesses such as COVID flu and RSV that can cause a headache. However the patient has declined these testings. And even if a virus was positive or negative this would not rule out any underlying cause of the worst headache of his life. Patient was encouraged to go to the emergency department for continued evaluation and care. Patient states that he is able to drive to the emergency department and has declined an ambulance. Patient will drive across the street to [facility] emergency department HPI PAST MEDICAL HISTORY Diagnosis Date Arthritis Carpal [...] hernia without mention of obstruction or gangrene FAMILY HISTORY Problem Relation Age of Onset Heart Father [place] age 69 Thyroid Mother None Brother None Sister None Sister None Sister None Sister Social History Tobacco Use Smoking status: Never Smokeless tobacco: Never Vaping Use Vaping Use: Never used Substance Use Topics Alcohol use: Yes Comment: 1 beer per month Drug use: No ALLERGIES Allergen Reactions Codeine Sulfa (Sulfonamide * Current Outpatient Medications Medication Sig Dispense Refill nystatin (MYCOSTATIN) cream Apply 1 application to affected area two times a day. 45 g 0 methotrexate 2.5 mg tablet Take 6 tablets weekly levothyroxine (SYNTHROID) 75 mcg tablet Take 1 tablet by mouth once daily. Take on empty stomach. For Thyroid. 90 tablet 3 lisinopril (ZESTRIL, PRINIVIL) 10 mg tablet Take 1 tablet by mouth once daily. 90 tablet 3 folic acid 1 mg tablet Take 2 mg by mouth once daily. ZINC ORAL Take by mouth once daily. ascorbic acid (VITAMIN C ORAL) Take by mouth once daily. MULTIVITAMIN TAB Take 1 tablet by mouth once daily. 0 No current facility-administered medications for this visit. OBJECTIVE: BP 132/78 Pulse 74 Temp 36.5 C (97.7 F) Resp 18 Wt 96.5 kg (212 lb 12.8 oz) SpO2 97% BMI 31.43 kg/m ASSESSMENT/PLAN: 1. Headache, unspecified headache type - ICD9: 784.0, ICD10: R51.9 Haven Ndiaye APRN.IAP DISPLAYS ANALYST documented in this encounter [facility] 04-19-2023 Discharge summary Note Date/Time April 19, 2023 8:18pm [facility] Medical Records Department [address] [place] [address] Emergency Department Summary 04/19/23 MR#: [id number] Acct: [id number] Name: DARIUSZ NGUYEN Rep #:[id number] : 1965 57 From: Oscar Hernandez MD PCP: QUINTON Sanchez Status:REG E R Location: ED HPI History of Present Illness Chief Complaint: Headache Narrative Narrative: 57-year-old male past medical history of autoimmune disease presents with "sinusheadache" that has had for the last 3 to 4 days. He states once a year usually gets a sinus infection. He has been taking ibuprofen without relief along with decongestants like Sudafed. However, he states that he is having photophobia with this and continued headache. He can breathe surprisingly well for his sinuses being congested. He denies any fevers or chills. No nausea or vomiting. No paresthesias. No exacerbating or alleviating factors. No sore throat. He is complaining mainly of a headache in the ethmoid sinus area. [facility] Medical History no medical history Home Medications levothyroxine 50 mcg tablet 50 mcg PO DAILY 01/13/20 [History Last Taken Unknown] multivitamin with minerals 1 ea PO DAILY 01/13/20 [History Last Taken Unknown] amoxicillin 875 mg-potassium clavulanate 125 mg tablet 1 tab PO BID #20 tabs 04/19/23 [Rx Last Taken Unknown] Allergy/AdvReac Type Severity Reaction Status Date / Time codeine Allergy Hives Verified 01/13/20 18:59 Sulfa (Sulfonamide Allergy Hives Verified 01/13/20 18:59 Antibiotics) Social History Smoking Status: Never smoker ROS ROS ED ROS Narrative Constitutional: No fever, no chills. HEENT: No sore throat. No neck pain. No loss of vision. Positive runny nose and nasal congestion with sinus pressure. Cardiovascular: No chest pain. No palpitations. No pedal edema. Respiratory: No cough, no shortness of breath. Abdominal: No abdominal pain. No nausea. No vomiting. Genitourinary: No dysuria. No hematuria. Musculoskeletal: No myalgias. No arthralgias. Neurologic: Positive headaches. No dizziness. No lightheadedness. Mild photophobia. Skin: No rash. No change in color. Psychiatric: No depression. No anxiety. EXAM Physical Exam Narrative Exam Narrative: Afebrile. Vital signs noted. HEENT: Normocephalic. Atraumatic. PERRL, EOMI. Neck soft and supple. No pointtenderness or step off. No meningismus. Mild nasal congestion. Tenderness to percussion ethmoid area. Cardiovascular: Regular rate and rhythm. No murmurs, rubs, or gallops appreciated. Respiratory: No tachypnea. Lungs clear to auscultation bilaterally. Gastrointestinal: Abdomen soft, nontender, with normoactive bowel sounds. No rebound or guarding. Neurological: Awake. Alert. Nonfocal, nonlateralizing. Skin: No rash. Normal color. No pallor. Musculoskeletal: No pedal edema. Full range of motion extremities. Const Vital Signs: 04/19/23 18:47 04/19/23 20:05 Temperature 97.4 F L Temperature Source Temporal Pulse Rate 62 Respiratory Rate 16 18 Blood Pressure 133/85 H Blood Pressure Mean 101 Pulse Ox 100 Oxygen Delivery Method Room Air MDM MDM MDM Narrative Medical decision making narrative: In the differential diagnosis is migraine headache versus intracranial hemorrhage versus sinus infection versus viral syndrome. His pulse ox is 100% on room air and he is afebrile here. I do not feel he needs laboratory work. Given that he states that he has never had a headache last this long for 3 to 4 days I do feel CT imaging is indicated of the brain. I have low suspicion for migraine as he does not have nausea and vomiting and had no scotoma or preceding aura. I reviewed the CT imaging and the report of the CT of the brain which shows no evidence of an acute hemorrhage or reason forhis headache but there is bilateral ethmoidal and maxillary sinus thickening consistent with sequelae of sinusitis. While it may be chronic, he was given his first dose of antibiotics in the form of Augmentin here and a prescription written for the next 10 days to take twice a day. He has a follow-up appointment with his primary care provider on Monday, 5 days from now. He will continue his decongestant and was told that he may want to start nasal steroids as well. I feel he can be discharged safely home with follow-up. Return instructions to the emergency department were reviewed. Disposition is discharged home in stable condition. Radiography Diagnostic Testing: Clinical Impression(s) from Imaging Studies Brain CT 04/19/23 20:15 IMPRESSION: Normal unenhanced CT scan of the brain. Electronically Signed: Hilary Magana MD at 20:55 EST Reading Location ID and State: [address] [place] [address] , Service support , Discharge Plan Triage Chief Complaint: Headache ED Provider: Oscar Hernandez Dx/Rx/DC Orders Clinical Impression: Sinus headache, Sinusitis Instructions: ED Sinus Headache, ED Sinusitis (Antibiotic Treatment) Prescriptions: New amoxicillin-pot clavulanate 875-125 mg tablet 1 tab PO BID Qty: 20 0RF No Action levothyroxine 50 MCG tablet 50 mcg PO DAILY multivitamin with minerals 1 EACH tablet 1 ea PO DAILY Primary Care Provider: Johanne Case NP Referrals: Johanne Case NP, [facility] [Primary Care Provider] - 3-5 Days if not improving Activity Restrictions/Additional Instructions: Take antibiotics as directed. Continue your [id number] medications such as your decongestant and Tylenol or ibuprofen for your headache. Follow-up withyour primary care provider on Monday as scheduled. Return with new or worseningsymptoms. Disposition Disposition: Home, Self Care What to do if you have Problems For any increased pain, shortness of breath, bleeding, nausea or vomiting, chestpain, or any unexpected problems, contact your Primary Care Provider. Call [facility] ([phone]) or report to the closest Emergency Room. Call 911 if necessary. 04/19/232128 <Electronically signed by Oscar Hernandez MD> Cosigner Signature (if applicable): CC: QUINTON Case ~ Signed [facility] Work Phone: [phone]) 878-315211-13-2023 History of Present illness Narrative* Rishabh Mei MD - 01/09/2023 7:12 PM EST Patient presents with: ? yeast infection HPI: Patient presents today for office visit for possible yeast infection. Has noted itching and discomfort on the penis. Has noted itching a few weeks ago in groin. Did not the penis was red. Now is not as red. No fever or drainage. Did note two "bumps" but are better. No changes in soaps [...] Problem Relation Age of Onset Heart Father [place] age 69 Thyroid Mother None Brother None Sister None Sister None Sister None Sister Social History Tobacco Use Smoking status: Never Smokeless tobacco: Never Vaping Use Vaping Use: Never used Substance Use Topics Alcohol use: Yes Comment: 1 beer per month Drug use: No Reviewed current medications, allergies, past medical history, surgical history, family history andsocial history today. REVIEW OF SYSTEMS All other [...] patient. Advised them to call if any sideeffects or questions. Red flags for re-assessment reviewed with patient in detail. Call if symptoms worsen at all or if not better in one to two weeks Reviewed diagnosis and treatment options in detail. Questions were answered. Patient expressed understanding of treatment plan. - CEPHALEXIN 250 MG CAPSULE - NYSTATIN 100,000 UNIT/GRAM TOPICAL CREAM Rishabh Mei MD documented in this encounter[facility]23 Instructions* Patient Instructions* Nafisa Dai - 10/24/2022 7:17 PM EDT Get lab work done on 11/12 for thyroid Continue medications Follow-up in 6 months documented in this encounterFirelands [facility]08-28-2023 History of Present illness Narrative* Johanne Case APRN.IAP DISPLAYS ANALYST - 10/24/2022 6:35 PM EDT This is a 56 year old male who presents today with: Patient presents with: Follow Up HISTORY OF PRESENT ILLNESS: Dariusz Nguyen is a 56 year old male. [...] Problem Relation Age of Onset Heart Father [place] age 69 Thyroid Mother None Brother None [...] M05.79 Stable. Continue per rheumatology. Johanne Case APRN.IAP DISPLAYS ANALYST Discussed treatment plan and patient voices understanding. Patient's questions answered appropriately. Medications and potential side effects were discussed and patient voices understanding. Return to the office as scheduled or as needed for worsening/no improvement. Johanne Case APRN.IAP DISPLAYS ANALYST documented in this encounterFire[facility]06-05-2023 Miscellaneous Notes* Telephone Encounter - Nilsa Doyle APRN.CNP - 08/01/2022 1:10 PM EDT The following approved medication requests have been transmitted electronically. Requested Prescriptions Pending Prescriptions Disp Refills levothyroxine (SYNTHROID) 75 mcg tablet 90 tablet 3 Sig: Take 1 tablet by mouth once daily. Take on empty stomach. For Thyroid. Nilsa Doyle APRN.CNP * Telephone Encounter - Enedelia Velasquez MA - 07/28/2022 1:32 PM EDT SABRINA: 04/25/22 with PCP NOV: 10/24/22-6 month F/U with PCP Last refill: 07/20/21 With 90 and 3 refills Enedelia Velasquez MA * Telephone Encounter - Henrietta Carrera - 07/28/2022 1:26 PM EDT Patient has been identified by name and date of : Yes Requested Prescriptions Pending Prescriptions Disp Refills levothyroxine (SYNTHROID) 75 mcg tablet 90 tablet 3 Sig: Take 1 tablet by mouth once daily. Take on empty stomach. For Thyroid. RX INSTRUCTIONS: Patient aware RX will be sent to pharmacy. No need to notify patient. [facility] documented in this encounterFire[facility]02-27-[facility]23 Instructions* Patient Instructions* Johanne Case APRN.CNP - 04/25/2022 7:12 PM EST Continue the lisinopril daily. Get fasting labs -- let me know if you want us to send that over to [facility] (10-12 hours fast, but you can have water and black coffee). Recheck in 6 months. documented in this encounterFirelands Regional Medical Center02-27-2023 History of Present illness Narrative* Johanne Case APRN.MICHAEL - 04/25/2022 6:49 PM EST This is a 56 year old male who presents today with: Patient presents with: Recheck: BP check- restarted lisinopril HISTORY OF PRESENT ILLNESS: Dariusz Nguyen is a 56 year old male. [...] Problem Relation Age of Onset Heart Father [place] age 69 Thyroid Mother None Brother None [...] if we need to fax them to [facility]. 3. Fatty liver - ICD9: 571.8, ICD10: K76.0 Had recent ultrasound per rheum d/t elevated liver enzymes -- + fatty liver. Discussed weight loss. Discussed treatment plan and patient voices understanding. Patient's questions answered appropriately. Medications and potential side effects were discussed and patient voices understanding. Return to the office as scheduled or as needed for worsening/no improvement. Johanne Case APRN.CNP documented in this encounterFirelands [facility] Medical Center01-30-2023 Instructions* Patient Instructions* Johanne Case APRN.CNP - 03/28/2022 7:05 PM EST Start the blood pressure pill. Recheck in a month. documented in this encounterFirelands [facility] Medical Center01-30-2023 History of Present illness Narrative* Johanne Case APRN.CNP - 03/28/2022 6:39 PM EST This is a 56 year old male who presents today with: Patient presents with: Recheck: 2 week bp check; did not start lisinopril HISTORY OF PRESENT ILLNESS: Dariusz Nguyen is a 56 year old male. [...] Problem Relation Age of Onset Heart Father [place] age 69 Thyroid Mother None Brother None [...] needed for worsening/no improvement. Johanne Case APRN.MICHAEL This note was partially generated using [employer] voice recognition system. Note was reviewed for accuracy. There may be minor misspellings or grammar miscues with [employer] voice recognition. documented in this encounterFirelands [facility] Medical Center01-12-2023 History of Present illness Narrative* Rishabh Mei MD - 03/10/2022 4:48 PM EST Patient presents with: Blood Pressure: Elevated at [...] was in November. Had normal heart cath [id number]. If anything he is been feeling better. [...] Problem Relation Age of Onset Heart Father [place] age 69 Thyroid Mother None Brother None Sister None Sister None Sister None Sister Social History Tobacco Use Smoking status: Never Smokeless tobacco: Never Vaping Use Vaping Use: Never used Substance Use Topics Alcohol use: Yes Comment: 1 beer per month Drug use: No Reviewed current medications, allergies, past medical history, surgical history, family history andsocial history today. REVIEW OF SYSTEMS All other [...] CBC + DIFF - BASIC METABOLIC PNL Rishabh Mei MD documented in this encounterFirelands Regional Medical Center12-02-2022 Nurse Note* Jessica Carlson RN - 01/28/2022 12:33 PM EST Arrived in phase II via cart left lateral position, eyes open to verbal stimuli, denies pain or nausea, skin warm and dry, respirations regular and unlabored. Abdomen soft and non distended, denies pain or cramping, resting comfortably at this time. documented in this encounterFirelands Regional Medical Center12-02-2022 History and physical note * Evangelina Garcia MD - 01/28/2022 12:00 PM EST UPDATED PROCEDURAL SEDATION HISTORY AND PHYSICAL EXAMINATION SERVICE DATE: 01/28/2022 SERVICE TIME: 11:57 PHYSICAL EXAM MUST BE COMPLETED ON ADMISSION PROCEDURE: colonoscopy, possible biopsies Procedure Indications: history of colon polyps The History and Physical (completed in the past 30 days) has been reviewed and the patient has beenexamined. The contents accurately reflect the patient's condition [...] Records SIGNATURE: Evangelina Garcia MD PATIENT NAME: Dariusz Nguyen DATE: January 28, 2022 TIME: 11:59 AM Source Note - Evangelina Garcia MD - 01/28/2022 12:00 PM EST HISTORY AND PHYSICAL Dariusz Nguyen 1965 REFERRING PHYSICIAN: Johanne Case APRN.C* CHIEF COMPLAINT: Consult (colonoscopy) HPI: The patient is a 56 year old male referred for endoscopy. Dariusz notes a long-term history of irregular bowel habits with some constipation. Patient denies any recent change in bowel habits, weight changes, blood in stools, black tarry stools or abdominal pain. Denies family history of colon issues. The patient notes no upper GI complaints. Dariusz has undergone prior endoscopy. Most recent colonoscopy [...] or recent hospitalizations. Denies problems with sedation inthe past. PAST MEDICAL HISTORY PAST MEDICAL HISTORY [...] Problem Relation Age of Onset Heart Father [place] age 69 Thyroid Mother None Brother None Sister None Sister None Sister None Sister REVIEW OF SYMPTOMS: The review of systems data was entered by the nurse and reviewed by me Nursing Notes: Beth Meeks LPN 12/22/2021 8:25 [...] back pain/injury, denies back problems, denies sciatica, deniesknee/foot trouble, denies arthritis, or denies gout. When was patient's last Mammogram screening? N/A Last Colonoscopy: 2015 Beth Meeks LPN I have confirmed and edited as necessary, the PFSH and ROS obtained by others. Haven Elizondo PA-C PHYSICAL EXAMINATION: General: The patient is 56 year old male, well nourished, well hydrated in no acute distress. The patient is oriented to time, place, and person. VITALS: Blood pressure 110/80, pulse 66, temperature 36.6 C (97.9 F), height 175.3 cm (5' 9"), weight 98 kg (216 lb), SpO2 96 %. Body mass index is 31.9 kg/m . HEENT: Normal cephalic, ataumatic, pupils are equally round, sclera are anicteric, mucous membranesare moist, oropharynx is clear. Neck has no [...] Will plan for lower endoscopy. We discussed therisks and benefits of the planned endoscopy. I have informed the patient that complications can occur including failure to complete the endoscopy and perforation. The patient had the opportunity to ask questions concerning the planned endoscopy. My staff has also explained the procedure to the patient in understandable terms and has given the patient printed material concerning the procedure. Thepatient freely consents to surgery. The patient was [facility] a [facility]. I have counseled the patient regarding [...] letter to requesting physician via US mail. Haven Elizondo PA-C * Evangelina Garcia MD - 01/28/2022 12:00 PM EST HISTORY AND PHYSICAL Dariusz Nguyen 1965 REFERRING PHYSICIAN: Johanne Case APRN.C* CHIEF COMPLAINT: Consult (colonoscopy) HPI: The patient is a 56 year old male referred for endoscopy. Dariusz notes a long-term history of irregular bowel habits with some constipation. Patient denies any recent change in bowel habits, weight changes, blood in stools, black tarry stools or abdominal pain. Denies family history of colon issues. The patient notes no upper GI complaints. Dariusz has undergone prior endoscopy. Most recent colonoscopy [...] or recent hospitalizations. Denies problems with sedation inthe past. PAST MEDICAL HISTORY PAST MEDICAL HISTORY [...] Problem Relation Age of Onset Heart Father [place] age 69 Thyroid Mother None Brother None Sister None Sister None Sister None Sister REVIEW OF SYMPTOMS: The review of systems data was entered by the nurse and reviewed by ak Nursing Notes: Beth Meeks LPN 12/22/2021 8:25 [...] back pain/injury, denies back problems, denies sciatica, deniesknee/foot trouble, denies arthritis, or denies gout. When was patient's last Mammogram screening? N/A Last Colonoscopy: 2016 Beth Meeks LPN I have confirmed and edited as necessary, the PFSH and ROS obtained by others. Haven Elizondo PA-C PHYSICAL EXAMINATION: General: The patient is 56 year old male, well nourished, well hydrated in no acute distress. The patient is oriented to time, place, and person. VITALS: Blood pressure 110/80, pulse 66, temperature 36.6 C (97.9 F), height 175.3 cm (5' 9"), weight 98 kg (216 lb), SpO2 96 %. Body mass index is 31.9 kg/m . HEENT: Normal cephalic, ataumatic, pupils are equally round, sclera are anicteric, mucous membranesare moist, oropharynx is clear. Neck has no [...] Will plan for lower endoscopy. We discussed therisks and benefits of the planned endoscopy. I have informed the patient that complications can occur including failure to complete the endoscopy and perforation. The patient had the opportunity to ask questions concerning the planned endoscopy. My staff has also explained the procedure to the patient in understandable terms and has given the patient printed material concerning the procedure. Thepatient freely consents to surgery. The patient was offered a surgery/procedure at a [facility] facility. I have counseled the patient regarding [...] letter to requesting physician via US mail. Haven Elizondo PA-C documented in this encounterFirelands [facility] Medical Center10-26-2022 History of Present illness Narrative* Haven Elizondo PA-C - 12/22/2021 8:45 AM EDT HISTORY AND PHYSICAL Dariusz Nguyen 1965 REFERRING PHYSICIAN: Johanne Case APRN.C* CHIEF COMPLAINT: Consult (colonoscopy) HPI: The patient is a 56 year old male referred for endoscopy. Dariusz notes a long-term history of irregular bowel habits with some constipation. Patient denies any recent change in bowel habits, weight changes, blood in stools, black tarry stools or abdominal pain. Denies family history of colon issues. The patient notes no upper GI complaints. Dariusz has undergone prior endoscopy. Most recent colonoscopy [...] or recent hospitalizations. Denies problems with sedation inthe past. PAST MEDICAL HISTORY Diagnosis Date Carpal [...] Problem Relation Age of Onset Heart Father [place] age 69 Thyroid Mother None Brother None Sister None Sister None Sister None Sister REVIEW OF SYMPTOMS: The review of systems data was entered by the nurse and reviewed by me Nursing Notes: Beth Meeks LPN 12/22/2021 8:25 [...] back pain/injury, denies back problems, denies sciatica, deniesknee/foot trouble, denies arthritis, or denies gout. When was patient's last Mammogram screening? N/A Last Colonoscopy: 2015 Beth Meeks LPN I have confirmed and edited as necessary, the PFSH and ROS obtained by others. Haven Elizondo PA-C PHYSICAL EXAMINATION: General: The patient is 56 year old male, well nourished, well hydrated in no acute distress. The patient is oriented to time, place, and person. VITALS: Blood pressure 110/80, pulse 66, temperature 36.6 C (97.9 F), height 175.3 cm (5' 9"), weight 98 kg (216 lb), SpO2 96 %. Body mass index is 31.9 kg/m . HEENT: Normal cephalic, ataumatic, pupils are equally round, sclera are anicteric, mucous membranesare moist, oropharynx is clear. Neck has no [...] Will plan for lower endoscopy. We discussed therisks and benefits of the planned endoscopy. I have informed the patient that complications can occur including failure to complete the endoscopy and perforation. The patient had the opportunity to ask questions concerning the planned endoscopy. My staff has also explained the procedure to the patient in understandable terms and has given the patient printed material concerning the procedure. Thepatient freely consents to surgery. The patient was offered a [facility]procedure [facility]. I have counseled the patient regarding [...] letter to requesting physician via US mail. Haven Elizondo PA-C documented in this encounterFirelands Regional Medical Center10-26-2022 Nurse Note* Beth Meeks, NICOLÁS - 12/22/2021 8:24 AM EDT REVIEW OF SYSTEMS: General: The patient notes [...] back pain/injury, denies back problems, denies sciatica, deniesknee/foot trouble, denies arthritis, or denies gout. When was patient's last Mammogram screening? N/A Last Colonoscopy: 2015 Beth Meeks LPN documented in this encounterFirelands [facility] Center10-25-2022 Miscellaneous Notes* Telephone Encounter - Ade Gallo Ma - 12/21/2021 10:13 AM EDT Letter mailed to pt home of results. Ade Gallo MA * Telephone Encounter - Johanne Case APRN.IAP DISPLAYS ANALYST - 12/20/2021 8:07 PM EDT Can please let patient know that I received his lab results. Everything looks okay. His thyroid antibody level did come back elevated, so likely his underactive thyroid is related to an autoimmune process. However, his current level is therapeutic -- so continue the same dose of medication. Other labs looked okay. Johanne Case APRN.MICHAEL documented in this encounterFirelands Regional Medical Center10-17-2022 Instructions* Patient Instructions* Johanne Case APRN.CNP - 12/13/2021 5:49 PM EDT Get labwork. Schedule with sleep medicine. Schedule with general surgery for colonoscopy. Let me know if stomach symptoms continue. Follow-up w/ rheum, as scheduled. documented in this encounterFirelands Regional Medical Center10-17-2022 History of Present illness Narrative* Johanne Case APRN.CNP - 12/13/2021 5:22 PM EDT This is a 56 year old male who presents today with: Patient presents with: Recheck: 1 month follow up HISTORY OF PRESENT ILLNESS: Dariusz Nguyen is a 56 year old male. Patient presents with: Recheck: 1 month follow up Pt states he is always tired. Pt refers to 5-6 hours of sleep nightly with CPAP. Has been using cpap for the last year after a home sleep study. He reports that sometimes the machine will wake him overnight because of the force of the air. Pt c/o "rotten egg burps" starting this morning. Denies nausea, vomiting or [...] Problem Relation Age of Onset Heart Father [place] age 69 Thyroid Mother None Brother None [...] agrees with the plan. documented in this encounterFirelands Regional Medical Center10-11-2022 Miscellaneous Notes* Telephone Encounter - Jose Frances LPN - 12/07/2021 8:42 AM EDT TC to pt, notified of results/provider response. He verbalized understanding. Jose Frances LPN * Telephone Encounter - Johanne Case APRN.CNP - 12/06/2021 7:27 PM EDT Can please let patient know that his stress test was okay. Please let us know if he has any further/recurrence of symptoms. Johanne Case APRN.CNP documented in this encounterFirelands [facility] Medical Center10-04-2022 Miscellaneous Notes* Telephone Encounter - Evangelina Brown Ma - 11/30/2021 9:18 AM EDT Patient returned call. Given instructions and verbalized understanding. * Telephone Encounter - Inessa Iqbal RN - 11/30/2021 8:45 AM EDT Call to pt to review below instructions. [...] floor at Radiology: [address]; [place] [address] * If you need to cancel or reschedule this test or have any questions regarding this test, please call [phone]. documented in this encounterFirelands Regional Medical Center09-07-2022 Instructions* Patient Instructions* Johanne Case APRN.CNP - 11/03/2021 3:50 PM EDT Schedule stress test. Get labwork. (After rheum appt) Once we get normal stress test, okay to move forward with colonoscopy. Schedule w/ dermatology. Recheck after stress test. documented in this encounterFirelands Regional Medical Center09-07-2022 History of Present illness Narrative* Johanne Case APRN.CNP - 11/03/2021 3:11 PM EDT This is a 55 year old male who presents today with: Patient presents with: Establish Care: Transfer Care from Dung Shafer HISTORY OF PRESENT ILLNESS: Dariusz Nguyen is a 55 year old male. Patient presents with: Establish Care: Transfer Care from Dung Shafer Pt presents today to establish care. However, patient reports concern over episode of SOB and left chest discomfort that occurred on Monday. He was cutting wood on Monday. Using a chain saw. [place] like couldn't catch breath. Refers that as [...] Problem Relation Age of Onset Heart Father [place] age 69 Thyroid Mother None Brother None Sister None Sister None Sister None Sister Social History Tobacco Use Smoking status: Never Smokeless tobacco: Never Vaping Use Vaping Use: Never used Substance Use Topics Alcohol use: Yes Comment: 1 beer per month Drug use: No EXAM: BP 128/90 Pulse 64 Resp 18 Ht 177 cm (5' 9.69") Wt 98.9 kg (218 lb) SpO2 95% [...] agrees with the plan. documented in this encounterFirelands Regional Medical Center05-24-2022 Miscellaneous Notes* Telephone Encounter - Basilio Shafer APRN.CNP, DNP - 07/20/2021 8:45 AM EDT The following approved medication requests have been transmitted electronically. Pending Prescriptions Disp Refills LEVOTHYROXINE 75 MCG TABLET 90 tablet 3 Sig: Take 1 tablet by mouth once daily. Take on empty stomach. For Thyroid. CHERYLE: No Basilio Shafer APRN.CNP, DNP * Telephone Encounter - Ade Gallo Ma - 07/20/2021 8:30 AM EDT Last office visit: 05/07/21 F/u scheduled: none Last TSH 05/01/21 result 2.250 Ade Gallo Ma documented in this encounterFirelands Regional Medical Center05-11-2022 Miscellaneous Notes* Telephone Encounter - Haven Johnson RN - 07/07/2021 11:03 AM EDT Pt called and is notified of providers results and instructions. Pt voices understanding. Pt was sent through to scheduling to set up appointment with Rheumatology. Haven Johnson RN * Telephone Encounter - Basilio Shafer APRN.DINORA RODRIGUEZ - 07/06/2021 3:23 PM EDT Team - Inform patient his AUGUST is positive. Lyme titer was negative. Anti-nuclear antibody test is used as an aid in diagnosis of systemic autoimmune diseases. Where positive and clinically warranted, follow-up using disease- specific testing is recommended. I recommend a consult [...] access? Answer: Yes Basilio Shafer DNP, CNP [facility] documented in this encounterFirelands Regional Medical Center03-11-2022 History of Present illness Narrative* Katie Bowling, RT(R) - 05/07/2021 3:50 PM EST Radiology Service Progress Note PATIENT NAME: Dariusz Nguyen DATE OF SERVICE: May 07, 2021 TIME: 3:59 PM PATIENT IDENTITY VERIFICATION COMPLETED USING TWO (2) IDENTIFIERS: Name and Date of confirmedby patient verbally. FALL SCREENING: Has the patient had 2 falls in the last year or 1 fall with injury or currently using an Ambulatory Assistive Device (Walker, Cane, Wheelchair, Crutches, etc.)? No PATIENT GENDER DATA: Male PATIENT RELEVANT IMPLANT DATA REVIEWED: Yes RADIOLOGY DEPARTMENT: General X-ray: Exam(s) Completed: Upper Extremity X- Ray(s): Hand, bilateral PERIPHERAL IV DATA: Not applicable SIGNED BY: RT Gunjan(R) May 07, 2021 3:59 PM documented in this encounterFirelands Regional Medical Center12-13-2021 History of Present illness Narrative* Marina Petersen RT(R) - 02/08/2021 8:00 AM EST Radiology Service Progress Note PATIENT NAME: Dariusz Nguyen DATE OF SERVICE: February 08, 2021 TIME: 8:03 AM PATIENT IDENTITY VERIFICATION COMPLETED USING TWO (2) IDENTIFIERS: Name and Date of confirmedby patient verbally. FALL SCREENING: Has the patient had 2 falls in the last year or 1 fall with injury or currently using an Ambulatory Assistive Device (Walker, Cane, Wheelchair, Crutches, etc.)? No PATIENT GENDER DATA: Male PATIENT RELEVANT IMPLANT DATA REVIEWED: Not Applicable RADIOLOGY DEPARTMENT: General X-ray: Exam(s) Completed: Upper Extremity X- Ray(s): Shoulder, AP / TRUE AP / SUPRA OUTLET left PERIPHERAL IV DATA: Not applicable SIGNED BY: RT Eddie(R) February 08, 2021 8:03 AM documented in this encounterFirelands [facility] Medical Center10-28-2016 History of Past illness Narrative* Problem Noted Date Resolved Date Colon cancer screening 12/25/2015 6 documented as of this encounter (statuses as of 07/07/2021) [facility] of Past illness Narrative* Problem Noted Date Resolved Date Colon cancer screening 12/25/2015 6 documented as of this encounter (statuses as of 07/20/2021) [facility] of Past illness Narrative* Problem Noted Date Resolved Date Colon cancer screening 12/25/2015 6 documented as of this encounter (statuses as of 11/03/2021) [facility] of Past illness Narrative* Problem Noted Date Resolved Date Colon cancer screening 12/25/2015 6 documented as of this encounter (statuses as of 11/30/2021) [facility] of Past illness Narrative* Problem Noted Date Resolved Date Colon cancer screening 12/25/2015 6 documented as of this encounter (statuses as of 12/07/2021) [facility] of Past illness Narrative* Problem Noted Date Resolved Date Colon cancer screening 12/25/2015 6 documented as of this encounter (statuses as of 12/13/2021) [facility] of Past illness Narrative* Problem Noted Date Resolved Date Colon cancer screening 12/25/2015 6 documented as of this encounter (statuses as of 12/21/2021) [facility] of Past illness Narrative* Problem Noted Date Resolved Date Colon cancer screening 12/25/2015 6 documented as of this encounter (statuses as of 12/22/2021) [facility] of Past illness Narrative* Problem Noted Date Resolved Date Colon cancer screening 12/25/2015 6 documented as of this encounter (statuses as of 03/10/2022) [facility] of Past illness Narrative* Problem Noted Date Resolved Date Colon cancer screening 12/25/2015 6 documented as of this encounter (statuses as of 03/29/2022) [address]-2016 History of Past illness Narrative* Problem Noted Date Resolved Date Colon cancer screening 12/25/2015 6 documented as of this encounter (statuses as of 04/26/2022) [facility] of [facility] illness Narrative* Problem Noted Date Resolved Date Colon cancer screening 12/25/2015 6 documented as of this encounter (statuses as of 07/28/2022) [address]2016 History of Past illness Narrative* Problem Noted Date Resolved Date Colon cancer screening 12/25/2015 6 documented as of this encounter (statuses as of 08/02/2022) [facility] Narrative* Problem Noted Date Diagnosed Date Resolved Date Colon cancer screening 12/25/201512/24 documented as of this encounter (statuses as of 10/25/2022) [facility] Narrative* Problem Noted Date Diagnosed Date Resolved Date Colon cancer screening 12/25/201512/24 documented as of this encounter (statuses as of 01/01/2023) [facility] Narrative* Problem Noted Date Diagnosed Date Resolved Date Colon cancer screening 12/25/201512/24 documented as of this encounter (statuses as of 01/10/2023) [facility] Narrative* Problem Noted Date Diagnosed Date Resolved Date Colon cancer screening 12/25/201512/24 documented as of this encounter (statuses as of 04/19/2023) [facility] Narrative* Problem Noted Date Diagnosed Date Resolved Date Colon cancer screening 12/25/201512/24 documented as of this encounter (statuses as of 05/16/2023) [facility]* Diagnosis Positive AUGUST (antinuclear antibody)- Primary Other and unspecified nonspecific immunological findings Bilateral hand pain Pain in limb documented in this encounter [facility] CenterEvaluation [facility]* Diagnosis Hypothyroidism, acquired Unspecified hypothyroidism documented in this encounter [facility]* Diagnosis Chest pain, unspecified type- Primary Screening for colon cancer Special screening for malignant neoplasms, colon Hypothyroidism, acquired Unspecified hypothyroidism Positive AUGUST (antinuclear antibody) Other and unspecified nonspecific immunological findings Elevated glucose Other abnormal glucose Skin lesion Unspecified disorder of skin and subcutaneous tissue documented in this encounter [facility]* Diagnosis Fatigue, unspecified type- Primary Screening for colon cancer Special screening for malignant neoplasms, colon Hypothyroidism, acquired Unspecified hypothyroidism Chest pain, unspecified type Positive AUGUST (antinuclear antibody) Other and unspecified nonspecific immunological findings Belching Flatulence, eructation, and gas pain documented in this encounter [facility]* Diagnosis History of colonic polyps- Primary Personal history of colonic polyps Screening for colon cancer Special screening for malignant neoplasms, colon documented in this encounter [facility]Eval[facility] noteNo assessment information availableWMercy Health [facility] Work Phone: Evaluation note* Diagnosis Primary hypertension- Primary Unspecified essential hypertension Hypothyroidism, acquired Unspecified hypothyroidism documented in this encounter [facility]* Diagnosis Primary hypertension- Primary Unspecified essential hypertension Elevated liver enzymes Other nonspecific abnormal serum enzyme levels documented in this encounter [facility]* Diagnosis Primary hypertension- Primary Unspecified essential hypertension Hyperlipidemia with target LDL less than 130 Other and unspecified hyperlipidemia Fatty liver Other chronic nonalcoholic liver disease [facility]* Diagnosis Hypothyroidism, acquired Unspecified hypothyroidism documented in this encounter [facility]* Diagnosis Hypothyroidism, acquired Unspecified hypothyroidism documented in this encounter [facility]* Diagnosis Primary hypertension- Primary Unspecified essential hypertension Hypothyroidism, acquired Unspecified hypothyroidism Hyperlipidemia with target LDL less than 130 Other and unspecified hyperlipidemia Rheumatoid arthritis involving multiple sites with positive rheumatoid factor (HCC) documented in this encounter [facility]* Diagnosis History of colonic polyps Personal history of colonic polyps documented in this encounter [facility]* Diagnosis Dermatitis- Primary Contact dermatitis and other eczema, due to unspecified cause documented in this encounter [facility]* Diagnosis Headache, unspecified headache type- Primary documented in this encounter [facility]* Diagnosis Primary hypertension- Primary Unspecified essential hypertension Hypothyroidism, acquired Unspecified hypothyroidism Hyperlipidemia with target LDL less than 130 Other and unspecified hyperlipidemia Rheumatoid arthritis involving multiple sites with positive rheumatoid factor (HCC) documented in this encounter [facility]* Diagnosis Neoplasm of uncertain behavior of skin of back- Primary Neoplasm of uncertain behavior of skin documented in this encounter [facility]* Diagnosis Primary hypertension- Primary Unspecified essential hypertension Hypothyroidism, acquired Unspecified hypothyroidism Hyperlipidemia with target LDL less than 130 Other and unspecified hyperlipidemia Rheumatoid arthritis involving multiple sites with positive rheumatoid factor (HCC) documented in this encounter [facility]* Diagnosis Bilateral hand pain Pain in limb Pain in other joint documented in this encounter [facility]* Diagnosis Acute pain of left shoulder documented in this encounter [facility]* Diagnosis Acute non-recurrent maxillary sinusitis- Primary documented in this encounter [facility]* Diagnosis Primary hypertension- Primary Unspecified essential hypertension Rheumatoid arthritis involving multiple sites with positive rheumatoid factor (HCC) Hyperlipidemia with target LDL less than 130 Other and unspecified hyperlipidemia Hypothyroidism, acquired Unspecified hypothyroidism Decreased libido documented in this encounter [facility]* Diagnosis Primary hypertension Unspecified essential hypertension [facility] Additional Instructions Take antibiotics as directed. Continue your mdif-ask-bwkeodo medications such as your decongestant and Tylenol or ibuprofen for your headache. Follow-up with your primary care provider on Monday as scheduled. Return with new or worsening symptoms.[facility] Work Phone: Reason for referral (narrative)* Diagnostic Procedure Only (Routine) - Closed Specialty Diagnoses / Procedures Referred By Contac t Referred To Contact XR IMAGING Diagnoses Bilateral hand pain Pain in other joint Procedures XR HAND GENERAL 3V PA/LAT/OBL BILATERAL RADEX HAND MINIMUM 3 VIEWS Basilio Shafer APRN.CNP, DNP [address] [place] [address] [place] [address] Referral ID Status Reason Start Date Expiration Date V isits Requested Visits Authorized [id number] Closed Auto-Generate d Referral 05/07/2021 06/06/2022 1 1 [facility] for referral (narrative)* Diagnostic Procedure Only (Routine) - Closed Specialty Diagnoses / Procedures Referred By Contac t Referred To Contact XR IMAGING Diagnoses Acute pain of left shoulder Procedures XR SHOULDER GENERAL 3V OR MORE AP/TRUE AP/OTHER LEFT X-RAY SHOULDER COMPLET MIN 2 VIEWS Nilsa Doyle APRN.CNP [address] [place] [address] [place] [address] Referral ID Status Reason Start Date Expiration Date V isits Requested Visits Authorized [id number] Closed Auto-Generate d Referral 02/08/2021 03/10/2022 1 1 [facility] for referral (narrative)No reason for referral information availableWMercy Health [facility] Work Phone: Reason for visit Narrative* Diagnostic Procedure Only (Routine) - Closed Specialty Diagnoses / Procedures Referred By Contac t Referred To Contact XR IMAGING Diagnoses Bilateral hand pain Pain in other joint Procedures XR HAND GENERAL 3V PA/LAT/OBL BILATERAL RADEX HAND MINIMUM 3 VIEWS Basilio Shafer, MACHINE TOOL TECHNICIAN INSTRUCTOR.IAP DISPLAYS ANALYST, DNP [address] [place] [address] [place] [address] Referral ID Status Reason Start Date Expiration Date V isits Requested Visits Authorized [id number] Closed Auto-Generate d Referral 05/07/2021 06/06/2022 1 1 [facility] for visit Narrative* Diagnostic Procedure Only (Routine) - Closed Specialty Diagnoses / Procedures Referred By Contac t Referred To Contact XR IMAGING Diagnoses Acute pain of left shoulder Procedures XR SHOULDER GENERAL 3V OR MORE AP/TRUE AP/OTHER LEFT X-RAY SHOULDER COMPLET MIN 2 VIEWS Nilsa Doyle, MACHINE TOOL TECHNICIAN INSTRUCTOR.IAP DISPLAYS ANALYST [address] [place] [address] [place] [address] Referral ID Status Reason Start Date Expiration Date V isits Requested Visits Authorized [id number] Closed Auto-Generate d Referral 02/08/2021 03/10/2022 1 1 [facility] Summary Purpose Family History No Family History Records FoundNo Family History Records FoundNo Family History Records Found Advance Directives No Advanced Directives Records FoundDocuments on File Type Date Recorded Patient Medical Records Specialist Expl anation Advance Directive(s) 03/30/2018 1:08 PM Advance Directive(s) 12/25/2015 9:53 AM Documents on File Type Date Recorded Patient Medical Records Specialist Expl anation Advance Directive(s) 03/30/2018 1:08 PM Advance Directive(s) 12/25/2015 9:53 AM Advance Directive Response Recorded Date/ Time Living Will Yes January 12 6:59pm Power of Shrub Planter No January 13, 2020 6:59pm Advance Directive Response Recorded Date/ Time Living Will Yes January 12 7:59pm Power of Shrub Planter No January 13, 2020 7:59pm Advance Directive Response Recorded Date/ Time Living Will Yes April 19 8:04pm Power of Shrub Planter No April 19, 2023 8:04pm Advance Directive Response Recorded Date/ Time Living Will Yes February 06 11:16pm Do you have a Healthcare Power of Shrub Planter? Yes February 07, 2024 11:16pm Name of Medical Power of Shrub Planter --santos February 07, 2024 11:16pm Living Will Yes April 19 9:04pm Do you have a Healthcare Power of Shrub Planter? No April 19, 2023 9:04pm Living Will No February 11 10:12am Do you have a Healthcare Power of Shrub Planter? No February 12, 2024 10:12am Advance Directive Response Recorded Date/ Time Living Will Yes April 19 9:04pm Do you have a Healthcare Power of Shrub Planter? No April 19, 2023 9:04pm Reason for Referral Specialty Diagnoses / Procedures Referred By Contac t Referred To Contact Rheumatology Diagnoses Positive AUGUST (antinuclear antibody) Bilateral hand pain Procedures CONSULT TO RHEUM/IMMUN DISEASE OFFICE/OUTPATIENT [facility] MDM 60-74 MINUTES Basilio Shafer, MACHINE TOOL TECHNICIAN INSTRUCTOR.IAP DISPLAYS ANALYST, DNP [address] [place] [address] Referral ID Status Reason Start Date Expiration Date Visits Requested Visits Authorized [id number] Pending Review PCP Requested Referral 07/20/2021 07/06/2022 1 1 Specialty Diagnoses / Procedures Referred By Contac t Referred To Contact Dermatology Diagnoses Skin lesion Procedures CONSULT TO DERMATOLOGY Johanne Case APRN.IAP DISPLAYS ANALYST [address] [place] [address] Referral ID Status Reason Start Date Expiration Date Visits Requested Visits Authorized [id number] Ref Not Required PCP Requested Referral 11/03/2021 11/03/2022 1 1 Specialty Diagnoses / Procedures Referred By Contac t Referred To Contact [facility] Diagnoses Chest pain, unspecified type Procedures STRESS ECHO TREADMILL ECHO TTHRC R-T 2D W/WO M-MODE COMPLETE REST&ST Johanne Case APRN.IAP DISPLAYS ANALYST [address] [place] [address] [facility] [address] [place] [address] Referral ID Status Reason Start Date Expiration Date Visits Requested Visits Authorized [id number] Pending Review Auto-Generat ed Referral 11/03/2021 11/03/2022 1 1 Specialty Diagnoses / Procedures Referred By Contac t Referred To Contact [facility] Diagnoses Chest pain, unspecified type Procedures ECG COMPLETE ECG ROUTINE ECG W/LEAST 12 LDS W/I&R Johanne Case APRN.IAP DISPLAYS ANALYST [address] [place] [address] [facility] [address] [place] [address] Referral ID Status Reason Start Date Expiration Date V isits Requested Visits Authorized [id number] Closed Auto-Generate d Referral 11/03/2021 11/03/2022 1 1 Specialty Diagnoses / Procedures Referred By Contac t Referred To Contact General Surgery Diagnoses Screening for colon cancer Procedures CONSULT TO GENERAL SURGERY OFFICE/OUTPATIENT [facility] 60-74 MINUTES Johanne Case APRN.IAP DISPLAYS ANALYST [address] [place] [address] Referral ID Status Reason Start Date Expiration Date Visits Requested Visits Authorized [id number] Pending Review PCP Requested Referral 11/03/2021 11/03/2022 1 1 Referral ID Status Reason Start Date Expiration Date Visits Requested Visits Authorized [id number] Pending Review PCP Requested Referral 2 12/13/2022 1 1 Specialty Diagnoses / Procedures Referred By Contac t Referred To Contact Diagnoses Fatigue, unspecified type Procedures CONSULT TO SLEEP MEDICINE - ADULT OFFICE/OUTPATIENT [facility] 60-74 MINUTES Johanne Case, MACHINE TOOL TECHNICIAN INSTRUCTOR.IAP DISPLAYS ANALYST [address] [place] [address] Referral ID Status Reason Start Date Expiration Date Visits Requested Visits Authorized [id number] Pending Review PCP Requested Referral 2 12/13/2022 1 1 Specialty Diagnoses / Procedures Referred By Contac t Referred To Contact [facility] Diagnoses History of colonic polyps Procedures COLONOSCOPY SCREENING COLONOSCOPY FLX DX W/COLLJ SPEC WHEN PFRMD Haven Elizondo PA-C [address] [place] [address] [facility] [address] [place] [id number] Referral ID Status Reason Start Date Expiration Date V isits Requested Visits Authorized [id number] Closed Auto-Generate d Referral 01/28/2022 02/26/2022 1 1 Chief Complaint and Reason for Visit Chief Complaint ELEVATED LIVER ENZYM ES Chief Complaint MULTIPLE ORDERING DO CS Chief Complaint S/O- PAIN- COPY PCP headache Chief Complaint Admit Date GENERAL ILLNESS February 07, 2024 10:07pm N/V February 12, 2024 8:58am S/O PFCMP CMP CBCD April 13, 2024 7:16am 2 ORDERING PROVIDERS. DECREASED LIBIDO M arch 2024 6:28am Chief Complaint Admit Date S/O PFCMP CMP CBCD April 13, 2024 7:16am 2 ORDERING PROVIDERS. DECREASED LIBIDO M arch 2024 6:28am Medications Administered Section Inactive Administered Medications - [...] Given 01/28/2022 12:08 PM EST 50 mcg Given 01/28/2022 12:00 PM EST 50 mcg lactated ringers iv infusion 50 mL/hr, INTRAVENOUS, CONTINUOUS, Starting on Mon01/28/22 at 1300, Until Mon01/01/23 at 0156, Preprocedure New Bag/Syringe/Bottle 01/28/2022 11:45 AM EST 30 mL/hr 30 mL/hr Forearm, Right midazolam (PF) 1-5 mg injection (VERSED) 1-5 mg, INTRAVENOUS, DIRECTED, Starting on Mon01/28/22 at 1230, Until Mon01/28/22 at 1629, DOSING DIRECTED BY PHYSICIAN FOR PROCEDURAL SEDATION ONLY, Intraprocedure Given 01/28/2022 12:16 PM EST 2 mg Given 01/28/2022 12:04 PM EST 2 mg Given 01/28/2022 12:00 PM EST 3 mg Additional Source Comments (unrecognized sect ion and content) No Status Records FoundNo Status Records FoundNo Status Records Found INFORMATION SOURCE (unrecogn ized section and content) DATE CREATED AUTHOR 04/17/2018 [facility] DATE CREATED AUTHOR AUTHOR'S ORGANIZ ATION 05/25/2024 [facility] DATE CREATED AUTHOR AUTHOR'S ORGANIZ ATION 07/24/2024 [facility] Source Comments (unrecognize d section and content) In the event this informatio n is protected by the Federal Confidentiality of Alcohol and Drug Abuse Patient Records regulations: The Federal rules restrict any use of the information to criminally investigate or prosecute any alcohol or drug abuse patient.[facility] the event this information is protected by the Federal Confidentiality of Alcohol and Drug Abuse Patient Records regulations: The Federal rules restrict any use of the information to criminally investigate or prosecute any alcohol or drug abuse patient.[facility] CenterIn the event this information is protected by the Federal Confidentiality of Alcohol and Drug Abuse Patient Records regulations: The Federal rules restrict any use of the information to criminally investigate or prosecute any alcohol or drug abuse patient.[facility] CenterIn the event this information is protected by the Federal Confidentiality of Alcohol and Drug Abuse Patient Records regulations: The Federal rules restrict any use of the information to criminally investigate or prosecute any alcohol or drug abuse patient.[facility] CenterIn the event this information is protected by the Federal Confidentiality of Alcohol and Drug Abuse Patient Records regulations: The Federal rules restrict any use of the information to criminally investigate or prosecute any alcohol or drug abuse patient.[facility] CenterIn the event this information is protected by the Federal Confidentiality of Alcohol and Drug Abuse Patient Records regulations: The Federal rules restrict any use of the information to criminally investigate or prosecute any alcohol or drug abuse patient.[facility] CenterIn the event this information is protected by the Federal Confidentiality of Alcohol and Drug Abuse Patient Records regulations: The Federal rules restrict any use of the information to criminally investigate or prosecute any alcohol or drug abuse patient.[facility] CenterIn the event this information is protected by the Federal Confidentiality of Alcohol and Drug Abuse Patient Records regulations: The Federal rules restrict any use of the information to criminally investigate or prosecute any alcohol or drug abuse patient.[facility] CenterIn the event this information is protected by the Federal Confidentiality of Alcohol and Drug Abuse Patient Records regulations: The Federal rules restrict any use of the information to criminally investigate or prosecute any alcohol or drug abuse patient.[facility] CenterIn the event this information is protected by the Federal Confidentiality of Alcohol and Drug Abuse Patient Records regulations: The Federal rules restrict any use of the information to criminally investigate or prosecute any alcohol or drug abuse patient.[facility] CenterIn the event this information is protected by the Federal Confidentiality of Alcohol and Drug Abuse Patient Records regulations: The Federal rules restrict any use of the information to criminally investigate or prosecute any alcohol or drug abuse patient.[facility] CenterIn the event this information is protected by the Federal Confidentiality of Alcohol and Drug Abuse Patient Records regulations: The Federal rules restrict any use of the information to criminally investigate or prosecute any alcohol or drug abuse patient.[facility] CenterIn the event this information is protected by the Federal Confidentiality of Alcohol and Drug Abuse Patient Records regulations: The Federal rules restrict any use of the information to criminally investigate or prosecute any alcohol or drug abuse patient.[facility] CenterIn the event this information is protected by the Federal Confidentiality of Alcohol and Drug Abuse Patient Records regulations: The Federal rules restrict any use of the information to criminally investigate or prosecute any alcohol or drug abuse patient.[facility] CenterIn the event this information is protected by the Federal Confidentiality of Alcohol and Drug Abuse Patient Records regulations: The Federal rules restrict any use of the information to criminally investigate or prosecute any alcohol or drug abuse patient.[facility] CenterIn the event this information is protected by the Federal Confidentiality of Alcohol and Drug Abuse Patient Records regulations: The Federal rules restrict any use of the information to criminally investigate or prosecute any alcohol or drug abuse patient.[facility] CenterIn the event this information is protected by the Federal Confidentiality of Alcohol and Drug Abuse Patient Records regulations: The Federal rules restrict any use of the information to criminally investigate or prosecute any alcohol or drug abuse patient.[facility] CenterIn the event this information is protected by the Federal Confidentiality of Alcohol and Drug Abuse Patient Records regulations: The Federal rules restrict any use of the information to criminally investigate or prosecute any alcohol or drug abuse patient.[facility] CenterIn the event this information is protected by the Federal Confidentiality of Alcohol and Drug Abuse Patient Records regulations: The Federal rules restrict any use of the information to criminally investigate or prosecute any alcohol or drug abuse patient.[facility] CenterIn the event this information is protected by the Federal Confidentiality of Alcohol and Drug Abuse Patient Records regulations: The Federal rules restrict any use of the information to criminally investigate or prosecute any alcohol or drug abuse patient.[facility] CenterIn the event this information is protected by the Federal Confidentiality of Alcohol and Drug Abuse Patient Records regulations: The Federal rules restrict any use of the information to criminally investigate or prosecute any alcohol or drug abuse patient.[facility] CenterIn the event this information is protected by the Federal Confidentiality of Alcohol and Drug Abuse Patient Records regulations: The Federal rules restrict any use of the information to criminally investigate or prosecute any alcohol or drug abuse patient.[facility] CenterIn the event this information is protected by the Federal Confidentiality of Alcohol and Drug Abuse Patient Records regulations: The Federal rules restrict any use of the information to criminally investigate or prosecute any alcohol or drug abuse patient.[facility] CenterIn the event this information is protected by the Federal Confidentiality of Alcohol and Drug Abuse Patient Records regulations: The Federal rules restrict any use of the information to criminally investigate or prosecute any alcohol or drug abuse patient.[facility] CenterIn the event this information is protected by the Federal Confidentiality of Alcohol and Drug Abuse Patient Records regulations: The Federal rules restrict any use of the information to criminally investigate or prosecute any alcohol or drug abuse patient.[facility] CenterIn the event this information is protected by the Federal Confidentiality of Alcohol and Drug Abuse Patient Records regulations: The Federal rules restrict any use of the information to criminally investigate or prosecute any alcohol or drug abuse patient.[facility] CenterIn the event this information is protected by the Federal Confidentiality of Alcohol and Drug Abuse Patient Records regulations: The Federal rules restrict any use of the information to criminally investigate or prosecute any alcohol or drug abuse patient.[facility] CenterIn the event this information is protected by the Federal Confidentiality of Alcohol and Drug Abuse Patient Records regulations: The Federal rules restrict any use of the information to criminally investigate or prosecute any alcohol or drug abuse patient.[facility] CenterIn the event this information is protected by the Federal Confidentiality of Alcohol and Drug Abuse Patient Records regulations: The Federal rules restrict any use of the information to criminally investigate or prosecute any alcohol or drug abuse patient.[facility] Reason for Visit (unrecogniz ed section and content) Reason Comments Follow Up Specialty Diagnoses / Procedures Referred By Zoltan t Referred To Contact Family Medicine / FAMILY MEDICINE Diagnoses Follow-up exam 2 week follow up starting lisinopril Procedures OFFICE/OUTPATIENT ESTABLISHED MOD MDM 30-39 MIN 4C Rishabh Mace MD [address] [place] [address] Johanne Case, MACHINE TOOL TECHNICIAN INSTRUCTOR.IAP DISPLAYS ANALYST [address] [place] [address] Referral ID Status Reason Start Date Expiration Date Visits Re quested Visits Authorized [id number] Closed 03/28/2022 02/26/2023 1 1 Reason Comments Recheck BP check- restarted lisinopril Reason Comments Results Reason Comments Refill Request Reason Comments Establish Care Transfer Care from [facility] Shafer Reason Comments Appointment Stress test instruct ions Reason Comments Results Reason Comments Recheck 1 month follow up Specialty Diagnoses / Procedures Referred By Contac t Referred To Contact Family Medicine / FAMILY MEDICINE Diagnoses Follow-up examination follow up after stress test Procedures OFFICE/OUTPATIENT ESTABLISHED MOD MDM 30-39 MIN 4C EST Self Johanne Case, BOOGIE.IAP DISPLAYS ANALYST [address] [place] [address] Referral ID Status Reason Start Date Expiration Date Visits Re quested Visits Authorized [id number] Closed 12/13/2021 02/26/2022 1 1 Reason Comments Consult colonoscopy Specialty Diagnoses / Procedures Referred By Contac t Referred To Contact General Surgery / INITIAL DEPT Diagnoses Screening for colon cancer Procedures CONSULT TO GENERAL SURGERY OFFICE/OUTPATIENT NEW HIGH MDM 60-74 MINUTES OFFICE/OUTPATIENT NEW MODERATE MDM 45-59 MINUTES Johanne Case, BOOGIE.IAP DISPLAYS ANALYST [address] [place] [address] Initial Department Referral ID Status Reason Start Date Expiration Date V isits Requested Visits Authorized [id number] Closed PCP Requested Referral 12/22/2021 02/26/2022 1 1 Reason Comments Blood Pressure Elevated at [facility] phys ical yesterday. Recently started MTX for RA. Specialty Diagnoses / Procedures Referred By Contac t Referred To Contact Internal Medicine / FAMILY MEDICINE Diagnoses Blood pressure alteration increased blood pressure Procedures OFFICE/OUTPATIENT ESTABLISHED MOD MDM 30-39 MIN 4C EST Johanne Case, BOOGIE.IAP DISPLAYS ANALYST [address] [place] [address] Rishabh Mei MD [address] [place] [address] Referral ID Status Reason Start Date Expiration Date Visits Re quested Visits Authorized [id number] Closed 03/10/2022 02/26/2023 1 1 Reason Comments Recheck 2 week bp check; did not start lisinopril Reason Onset Date Comments Refill Request Refill Request 07/28/2022 Specialty Diagnoses / Procedures Referred By Zoltan belcher Referred To Contact [facility] Diagnoses History of colonic polyps Procedures COLONOSCOPY SCREENING COLONOSCOPY FLX DX W/COLLJ SPEC WHEN PFRMD Haven Elizondo PA-C [address] [place] [address] [facility] [address] [place] [address] Referral ID Status Reason Start Date Expiration Date V isits Requested Visits Authorized [id number] Closed Auto-Generate d Referral 01/28/2022 02/26/2022 1 1 Reason Comments ? yeast infection Reason Comments Cough Congestion, FERNANDEZ, feve r x6 days Reason Comments 6 Month Exam ER F/U [facility] ER 04/19 dx: head ache/ sinus infection Reason Comments Derm Problem Left side on back x 3 days round, swelling, hard Reason Comments Recheck 6 month follow up Reason Comments Acute Visit Cough, post nasal dr ip, sinus congestion, sinus pressure, headache x2 weeks; no fevers Reason Comments 6 Month Exam Reason Onset Date Comments Refill Request 07/08/2024 Care Teams (unrecognized sec tion and content) Senior Licensing Manager Relationship Specialty Start Date End Date Basilio Shafer, BOOGIE.MICHAEL, DNP [address] [place], [place] [id number] PCP - General Family Practice 01/18/21 Senior Licensing Manager Relationship Specialty Start Date End Date Basilio Shafer, BOOGIE.MICHAEL, DNP [address] [place], [place] [id number] PCP - General Family Practice 01/18/21 Senior Licensing Manager Relationship Specialty Start Date End Date Johanne Case, BOOGIE.IAP DISPLAYS ANALYST [address] [place], [place] [id number] PCP - General Family Practice 11/03/21 Senior Licensing Manager Relationship Specialty Start Date End Date Johanne Case APRN.IAP DISPLAYS ANALYST [address] [place] [address] PCP - General Family Medicine 11/03/21 Senior Licensing Manager Relationship Specialty Start Date End Date Johanne Case, MACHINE TOOL TECHNICIAN INSTRUCTOR.IAP DISPLAYS ANALYST [address] [place] [address] PCP - General Family Medicine 11/03/21 Senior Licensing Manager Relationship Specialty Start Date End Date Johanne Case, MACHINE TOOL TECHNICIAN INSTRUCTOR.IAP DISPLAYS ANALYST [address] [place] [address] PCP - General Family Medicine 11/03/21 Senior Licensing Manager Relationship Specialty Start Date End Date Johanne Case, MACHINE TOOL TECHNICIAN INSTRUCTOR.IAP DISPLAYS ANALYST [address] [place] [address] PCP - General Family Medicine 11/03/21 Senior Licensing Manager Relationship Specialty Start Date End Date Johanne Case, MACHINE TOOL TECHNICIAN INSTRUCTOR.IAP DISPLAYS ANALYST [address] [place] [address] PCP - General Family Medicine 11/03/21 Senior Licensing Manager Relationship Specialty Start Date End Date Johanne Case, MACHINE TOOL TECHNICIAN INSTRUCTOR.IAP DISPLAYS ANALYST [address] [place] [address] PCP - General Family Medicine 11/03/21 Team Status: Active Member Role Status Dates Dr. Long Caicedo III, MD Family Provider Active Johanne Case VICE PRESIDENT REGULATORY, VICE PRESIDENT REGULATORY-C Primary Care Provider Active Team Status: Inactive Member Role Status Dates Johanne Case VICE PRESIDENT REGULATORY, VICE PRESIDENT REGULATORY-C Primary Care Provider Active Dr. Luz Sánchez MD Attending Provider, Referring Provider Active Senior Licensing Manager Relationship Specialty Start Date End Date Johanne Case, MACHINE TOOL TECHNICIAN INSTRUCTOR.IAP DISPLAYS ANALYST [address] [place] [address] PCP - General Family Medicine 11/03/21 Senior Licensing Manager Relationship Specialty Start Date End Date Johanne Case, MACHINE TOOL TECHNICIAN INSTRUCTOR.IAP DISPLAYS ANALYST [address] [place] [address] PCP - General Family Medicine 11/03/21 Senior Licensing Manager Relationship Specialty Start Date End Date Johanne Case, MACHINE TOOL TECHNICIAN INSTRUCTOR.IAP DISPLAYS ANALYST [address] [place] [address] PCP - General Family Medicine 11/03/21 Team Status: Inactive Member Role Status Dates Johanne Case VICE PRESIDENT REGULATORY, VICE PRESIDENT REGULATORY-C Primary Care Provider, Referri ng Provider Active Dr. Luz Sánchez MD Attending Provider Active Senior Licensing Manager Relationship Specialty Start Date End Date Johanne Case, MACHINE TOOL TECHNICIAN INSTRUCTOR.IAP DISPLAYS ANALYST [address] [place] [address] PCP - General Family Medicine 11/03/21 Senior Licensing Manager Relationship Specialty Start Date End Date Johanne Case, MACHINE TOOL TECHNICIAN INSTRUCTOR.IAP DISPLAYS ANALYST [address] [place] [address] PCP - General Family Medicine 11/03/21 Team Status: Active Member Role Status Dates Johanne Case VICE PRESIDENT REGULATORY, VICE PRESIDENT REGULATORY-C Primary Care Provider Active Dr. Luz Sánchez MD Attending Provider, Referring Provider Active Team Status: Inactive Member Role Status Dates Johanne Case VICE PRESIDENT REGULATORY, VICE PRESIDENT REGULATORY-C Primary Care Provider Active Oscar Hernandez MD Emergency Provider Active Senior Licensing Manager Relationship Specialty Start Date End Date Johanne Case, MACHINE TOOL TECHNICIAN INSTRUCTOR.IAP DISPLAYS ANALYST [address] [place] [address] PCP - General Family Medicine 11/03/21 Senior Licensing Manager Relationship Specialty Start Date End Date Johanne Case, MACHINE TOOL TECHNICIAN INSTRUCTOR.IAP DISPLAYS ANALYST [address] [place] [address] PCP - General Family Medicine 11/03/21 Senior Licensing Manager Relationship Specialty Start Date End Date Johanne Case, MACHINE TOOL TECHNICIAN INSTRUCTOR.IAP DISPLAYS ANALYST [address] [place] [address] PCP - General Family Medicine 11/03/21 Senior Licensing Manager Relationship Specialty Start Date End Date Johanne Case, MACHINE TOOL TECHNICIAN INSTRUCTOR.IAP DISPLAYS ANALYST [address] [facility] [place] [address] PCP - General Family Medicine 11/03/21 Senior Licensing Manager Relationship Specialty Start Date End Date Johanne Case, MACHINE TOOL TECHNICIAN INSTRUCTOR.IAP DISPLAYS ANALYST [address] [facility] [place] [address] PCP - General Family Medicine 11/03/21 Senior Licensing Manager Relationship Specialty Start Date End Date Basilio Shafer MACHINE TOOL TECHNICIAN INSTRUCTOR.MICHAEL, DNP [address] [place] [address] PCP - General Family Medicine 01/18/21 11/02/21 Senior Licensing Manager Relationship Specialty Start Date End Date Basilio Shafer MACHINE TOOL TECHNICIAN INSTRUCTOR.MICHAEL, DNP [address] [place] [address] PCP - General Family Medicine 01/18/21 11/02/21 Senior Licensing Manager Relationship Specialty Start Date End Date Johanne Case, MACHINE TOOL TECHNICIAN INSTRUCTOR.IAP DISPLAYS ANALYST [address] [facility] [place] [address] PCP - General Family Medicine 11/03/21 Senior Licensing Manager Relationship Specialty Start Date End Date Johanne Case, MACHINE TOOL TECHNICIAN INSTRUCTOR.IAP DISPLAYS ANALYST [address] [facility] [place] [address] PCP - General Family Medicine 11/03/21 Senior Licensing Manager Relationship Specialty Start Date End Date Johanne Case, MACHINE TOOL TECHNICIAN INSTRUCTOR.IAP DISPLAYS ANALYST [address] [facility] [place] [address] PCP - General [facility] Medicine 11/03/21 Claudia Bojorquez APRN.IAP DISPLAYS ANALYST [address] [place], [place] [address] [facility] 02/04/24 Rishabh Mei MD [address] [place], [place] [address] [facility] 02/04/24 Senior Licensing Manager Relationship Specialty Start Date End Date Johanne Case APRN.IAP DISPLAYS ANALYST [address] [place], [place] [address] PCP - [facility] 11/03/21 Team Status: Active Member Role Status Dates Johanne Case NP, VICE PRESIDENT REGULATORY-C Primary Care Provider Active Team Status: Inactive Member Role Status Dates Johanne Case VICE PRESIDENT REGULATORY, VICE PRESIDENT REGULATORY-C Primary Care Provider Active Start: February 07, 2024 End: February 08, 2024 Dr. Rommel Brito DO Attending Provider Active Start: February 07, 2024 End: February 08, 2024 Dr. Rommel Brito DO Emergency Provider Active Start: February 07, 2024 End: February 08, 2024 Team Status: Inactive Member Role Status Dates Johanne Case NP, VICE PRESIDENT REGULATORY-C Primary Care Provider Active Start: February 12, 2024 End: February 12, 2024 Dr. Aníbal Lundy MD Attending Provider Active Sta rt: February 12, 2024 End: February 12, 2024 Dr. Aníbal Lundy MD Emergency Provider Active Sta rt: February 12, 2024 End: February 12, 2024 Team Status: Inactive Member Role Status Dates Johanne Case NP, VICE PRESIDENT REGULATORY-C Primary Care Provider Active Start: April 13, 2024 End: April 13, 2024 Dr. Luz Sánchez MD Attending Provider Active Start: April 13, 2024 End: April 13, 2024 Dr. Luz Sánchez MD Referring Provider Active Start: April 13, 2024 End: April 13, 2024 Team Status: Inactive Member Role Status Dates Johanne Haagen VICE PRESIDENT REGULATORY, VICE PRESIDENT REGULATORY-C Primary Care Provider Active Start: May 16, 2024 End: May 16, 2024 Johanne Case NP, VICE PRESIDENT REGULATORY-C Attending Provider Active Start: May 16, 2024 End: May 16, 2024 Dr. Luz Sánchez MD Referring Provider Active Start: May 16, 2024 End: May 16, 2024 Senior Licensing Manager Relationship Specialty Start Date End Date Johanne Case APRN.IAP DISPLAYS ANALYST [address] [place] [address] PCP - General Family Medicine 11/03/21 Team Status: Inactive Member Role Status Dates Johanne Case NP, VICE PRESIDENT REGULATORY-C Primary Care Provider Active Start: July 13, 2024 End: July 13, 2024 Dr. Luz Sánchez MD Attending Provider Active Start: July 13, 2024 End: July 13, 2024 Dr. Luz Sánchez MD Referring Provider Active Start: July 13, 2024 End: July 13, 2024 Goals (unrecognized section and content) Goals may be documented in a n alternate sectionGoals may be documented in an alternate sectionGoals may be documented in an alternate sectionGoals may be documented in an alternate sectionGoals may be documented in an alternate sectionGoals may be documented in an alternate sectionGoals may be documented in an alternate sectionGoals may be documented in an alternate sectionGoals may be documented in an alternate sectionGoals may be documented in an alternate section FOR RECORDS PERTAINING TO PATIENTS WHO ARE [...] BE BASED ON THE PRIMARY CLINICAL RECORDS. [employer] [facility]. provides no warranty or guarantee of the accuracy or completeness of information in this document.
[2024-10-05 08:17] LABS: Hematocrit 42.2 % (40-54); Hemoglobin 14.4 g/dL (13.0-16.5); Immature Granulocytes Count 0.010 X10^3/uL (0.0-0.0); Mean Corp Hgb Conc 34.1 g/dL (32-36); Mean Corpuscular Volume 90.2 fL (80-94); Mean Platelet Vol. 9.3 fl (6.2-12.0); NRBC Flagged by Analyzer 0 % (0-5); Platelet Count 258 K/mm3 (150-450); RBC Distribution Width CV 13.2 % (11.6-14.6); RBC Distribution Width SD 42.3 fl (35.1-43.9); Red Blood Count 4.68 M/mm3 (4.6-6.2); White Blood Count 6.6 K/mm3 (4.4-11.0)
[2024-10-05 08:46] LABS: AST(SGOT) 32 U/L (<=37); Alanine Aminotransfer ALT/SGPT 33 U/L (<=46); Albumin, Serum 4.4 g/dL (3.5-5.0); Alkaline Phosphatase 88 U/L (40-129); Anion Gap 11 (5-15); BUN 20 mg/dL (4-19); BUN/Creat Ratio 17.2 RATIO (10-20); Calcium,Total 9.5 mg/dL (7.6-11.0); Carbon Dioxide 24.0 mmol/L (21.0-32.0); Chloride 104 mmol/L (98-108); Globulin 2.4 g/dL (2.2-4.2); Glucose 91 mg/dL (70-99); Potassium 3.9 mmol/L (3.3-5.1)
== END 2024-10-05 23:59 | disposition home or self-care (01) ==
LOC: LAB 06:48
PROVIDERS: PCP Registered Nurse; Referring Provider Internal Medicine Rheumatology; Visit Provider Internal Medicine Rheumatology
DX: M05.70 Rheumatoid arthritis with rheumatoid factor of unspecified site without organ or systems involvement (principal); R76.8 Other specified abnormal immunological findings in serum; Z79.899 Other long term (current) drug therapy
CPT/HCPCS: 36415; 80053; 85025

== ENCOUNTER → 2025-01-08 | Outpatient (CLI) | payer OTHER, SELFPAY ==
[2025-01-08 09:18] LABS: Hematocrit 43.7 % (40-54); Hemoglobin 15.0 g/dL (13.0-16.5); Immature Granulocytes Count 0.020 X10^3/uL (0.0-0.0); Mean Corp Hgb Conc 34.3 g/dL (32-36); Mean Corpuscular Volume 90.3 fL (80-94); Mean Platelet Vol. 9.2 fl (6.2-12.0); NRBC Flagged by Analyzer 0 % (0-5); Platelet Count 265 K/mm3 (150-450); RBC Distribution Width CV 13.0 % (11.6-14.6); RBC Distribution Width SD 41.9 fl (35.1-43.9); Red Blood Count 4.84 M/mm3 (4.6-6.2); White Blood Count 7.6 K/mm3 (4.4-11.0)
[2025-01-08 10:05] LABS: AST(SGOT) 39 U/L (<=37); Alanine Aminotransfer ALT/SGPT 42 U/L (<=46); Albumin, Serum 4.3 g/dL (3.4-4.8); Alkaline Phosphatase 77 U/L (40-129); Anion Gap 9 (5-15); BUN 16 mg/dL (4-19); BUN/Creat Ratio 14.3 RATIO (10-20); Calcium,Total 9.4 mg/dL (7.6-11.0); Carbon Dioxide 25.8 mmol/L (21.0-32.0); Chloride 105 mmol/L (98-108); Globulin 2.6 g/dL (2.2-4.2); Glucose 93 mg/dL (70-99); Potassium 4.2 mmol/L (3.3-5.1)
== END | disposition home or self-care (01) ==
LOC: LAB 08:05
PROVIDERS: PCP Registered Nurse; Referring Provider Internal Medicine Rheumatology; Visit Provider Internal Medicine Rheumatology
DX: M05.70 Rheumatoid arthritis with rheumatoid factor of unspecified site without organ or systems involvement (principal); R76.89 Other specified abnormal immunological findings in serum; Z79.899 Other long term (current) drug therapy
CPT/HCPCS: 36415; 80053; 85025